=== PATIENT | female | born 1980 | race Caucasian/White ===

== ENCOUNTER 2022-08-23 16:18 | Outpatient (CLI) | payer SELFPAY ==
[2022-08-23 17:32] LABS: Hematocrit 33.1 % (37.0-47.0); Hemoglobin 9.9 g/dL (12.0-15.0); Mean Corpuscular HGB Conc 29.9 g/dl (32-36); Mean Corpuscular Hemoglobin 21.4 pg (26-34); Mean Corpuscular Volume 71.5 fl (80-100); Mean Platelet Volume 8.2 fl (7.4-10.4); Platelet Count Result 277 k/mm3 (150-375); Red Blood Count 4.63 M/mm3 (4.2-5.4); Red Cell Distribution Width 16.4 % (11.5-14.5); White Blood Count 8.7 K/mm3 (4.5-10.0)
[2022-08-23 17:41] LABS: Alanine Aminotransferase 23 U/L (6-35); Albumin Level 3.6 g/dL (3.5-5.1); Alkaline Phosphatase 59 U/L (38-126); Anion Gap 7 mmol/L (8-16); Aspartate Amino Transferase 21 U/L (14-36); Bilirubin,Total 0.4 mg/dL (0.2-1.3); Blood Urea Nitrogen 9 mg/dL (7-17); Calcium 8.3 mg/dL (8.4-10.2); Carbon Dioxide 26 mmol/L (22-30); Chloride 105 mmol/L (98-107); Estimated Glomerular Filt Rate > 60; Glucose 93 mg/dL (65-110); Potassium 3.3 mmol/L (3.4-5.0); Sodium 138 mmol/L (137-145)
[2022-08-23 19:55] LABS: T4 Thyroxine 8.03 ug/dL (5.53-11.0)
== END 2022-08-23 16:19 | disposition home or self-care (01) ==
LOC: ANHLAB 16:19
PROVIDERS: PCP Family Medicine; Visit Provider Nurse Practitioner Family
DX: E03.9 Hypothyroidism, unspecified (principal); I10 Essential (primary) hypertension
CPT/HCPCS: 36415; 80053; 84436; 84443; 85027

== ENCOUNTER 2022-08-25 06:52 | Outpatient (CLI) | payer SELFPAY ==
[2022-08-25 07:27] LABS: Cholesterol 157 mg/dL (0-200); HDL Direct 36 mg/dL; Triglycerides 177 mg/dL (<150)
[2022-08-25 07:42] LABS: LDL Cholesterol Direct 86 mg/dL
== END 2022-08-25 06:53 | disposition home or self-care (01) ==
LOC: ANHLAB 06:53
PROVIDERS: PCP Family Medicine; Visit Provider Nurse Practitioner Family
DX: I10 Essential (primary) hypertension (principal)
CPT/HCPCS: 36415; 80061

== ENCOUNTER 2022-08-26 06:52 | Outpatient (CLI) | payer SELFPAY ==
[2022-08-26 07:53] LABS: Iron 39 ug/dL (37-170)
[2022-08-26 08:03] LABS: Percent Iron Saturation 9 % (20-50)
[2022-08-26 08:53] LABS: Folic Acid 8.8 ng/mL (2.76->20)
== END 2022-08-26 06:53 | disposition home or self-care (01) ==
PROVIDERS: PCP Family Medicine; Visit Provider Nurse Practitioner Family
DX: D64.9 Anemia, unspecified (principal); E87.6 Hypokalemia; E03.9 Hypothyroidism, unspecified
CPT/HCPCS: 36415; 82607; 82746; 83540; 83550; 84132; 84436; 84443

== ENCOUNTER 2023-05-23 14:48 | Outpatient (CLI) | payer BC, SELFPAY ==
--- NOTE | ~2023-05-23 | XR_ITS ---
EXAMINATION: XR hand RT min 3V DATE: 05/23/2023 15:02 INDICATION: Right hand pain. TECHNIQUE: 3 views of right hand were obtained. COMPARISON: None. FINDINGS: Bone alignment is normal. No fracture. Joint spaces are normal. IMPRESSION: 1. Normal right hand. Reviewed, dictated and finalized at location E. IMPRESSION: 1. Normal right hand.
== END 2023-05-23 14:49 | disposition home or self-care (01) ==
LOC: ANHIMG 14:49
PROVIDERS: PCP Family Medicine; Visit Provider Plastic Surgery
DX: M79.641 Pain in right hand (principal)
CPT/HCPCS: 73130

== ENCOUNTER 2024-01-20 15:26 | Outpatient (CLI) | payer BC, SELFPAY ==
[2024-01-20 16:00] LABS: Anion Gap 4 mmol/L (4-12); Blood Urea Nitrogen 9 mg/dL (7-17); Calcium 9.4 mg/dL (8.4-10.2); Carbon Dioxide 29 mmol/L (22-30); Chloride 104 mmol/L (98-107); Estimated Glomerular Filt Rate > 60; Glucose 115 mg/dL (65-110); Potassium 3.5 mmol/L (3.4-5.0); Sodium 137 mmol/L (137-145)
--- OUTSIDE RECORDS SUMMARY | 2024-01-24 01:44 | XMS_ITS | Encounter Summary ---
Author Organization [facility] Address [address] [place] [address]. [place] [address] [place] [address] Care Team Providers Care School Coordinator Name Role Phone Unavailable Primary Care Provider Unavailabl e Encounter Details Date Type Department Care Team (Late Contact Info) Description 08/02/1999 Abstract [facility] [place] [address] Sai Perez MD [address] [phone] Social History Tobacco Use Types Packs/Day Years Used Date Smoking Tobacco: Never Assessed Comments Unknown Sex and Gender Information Value Date Recorded Sex Assigned at Not on file Legal Sex Female 6:18 PM CDT Gender Identity Not on file Sexual Orientation Not on file documented as of this encounter Plan of Treatment Upcoming Encounters Date Type Department Care Team (Late Contact Info) Description 02/28/2024 7:20 AM OPTICAL ASSISTANT Office Visit [facility] Family [facility] [address] [place] [address] Raf Blanc MD [facility] [place] [address] documented as of this encounter Visit Diagnoses Not on filedocumented in this encounter
--- OUTSIDE RECORDS SUMMARY | 2024-01-24 01:44 | XMS_ITS | Encounter Summary ---
Author Organization [facility] Address [address] [place] [address]. [place] [address] [place] [address] Care Team Providers Care Asphalt Tamper Name Role Phone Jennifer Montemayor MD Primary Care Provider [phone] Reason for Visit * Reason Comments Urinary Symptoms Encounter Details Date Type Department Care Team (Latest Contact Info) Description 12/26/2023 2:39 PM TOMBSTONE ERECTOR - 12/26/2023 3:05 PM TOMBSTONE ERECTOR Hospital Encounter [facility] Care [facility] [place], [place] [address] Seda Rodrigues, DO [address] [place], [place] [id number] Urinary Symptoms Discharge Disposition: Short Term Hospital with Planned Inpatient Readmission Social History Tobacco Use Types Packs/Day Years Used Date Smoking Tobacco: Never Passive Smoke Exposure: Past Smokeless Tobacco: Never Tobacco Cessation:Counseling Given: Not Answered Alcohol Use Standard Drinks/Week Comments Yes 0 (1 standard drink = 0.6 oz pur e alcohol) socially Comments No Sex and Gender Information Value Date Recorded Sex Assigned at Not on file Legal Sex Female 6:18 PM CDT Gender Identity Not on file Sexual Orientation Not on file documented as of this encounter Last Filed Vital Signs Vital Sign Reading Time Taken Comments Blood Pressure 171/126 12/26/2023 2:43 PM TOMBSTONE ERECTOR Pt asymptomatic with elevated B/P. Reports she took her B/P medication last PM. Pulse 84 12/26/2023 2:43 PM TOMBSTONE ERECTOR Temperature 37 ??C (98.6 ??F) 12/26/2023 2:4 3 PM TOMBSTONE ERECTOR Respiratory Rate 20 12/26/2023 2:43 PM TOMBSTONE ERECTOR Oxygen Saturation 100% 12/26/2023 2:4 3 PM TOMBSTONE ERECTOR Inhaled Oxygen Concentration - - Weight 90.7 kg (200 lb) 12/26/2023 2:43 PM TOMBSTONE ERECTOR Height 160 cm (5' 3 ) 12/26/2023 2:43 PM TOMBSTONE ERECTOR Body Mass Index 35.43 12/26/2023 2:43 PM TOMBSTONE ERECTOR documented in this encounter Discharge Instructions * Discharge Instructions* Seda Rodrigues DO - 12/26/2023 2:57 PM TOMBSTONE ERECTOR Please go directly to [facility] ER Do not eat or drink on the way STONE ERECTOR documented in this encounter Medications at Time of Discharge busPIRone (BUSPAR) 7.5 MG tablet Take 1 tablet (7.5 mg total) by mouth 2 (two) times daily. 03/03/2023 03/02/2024 folic acid (FOLVITE) 1 MG tablet 12/02/2023 furosemide (LASIX) 20 MG tablet 12/26/2023 losartan (COZAAR) 25 MG tablet 12/26/2023 montelukast (SINGULAIR) 10 MG tablet Take 1 tablet (10 mg total) by mouth nightly. oxybutynin XL (DITROPAN-XL) 10 MG 24 hr tablet 12/22/2023 SEMAGLUTIDE,0.25 OR 0.5MG/DOS, SC vitamin D2, ergocalciferol, (DRISDOL) 1.25 mg capsule TAKE 1 CAPSULE BY MOUTH ONCE A WEEK DIRECTED FOR 84 DAYS FOR LOW VITAMIN D. 12/01/2023 documented as of this encounter ED Notes * Seda Rodrigues DO - 12/26/2023 2:42 PM CST [facility] Urgent Care- [place] HISTORICAL INFORMATION Primary Care Doctor: JENNIFER MONTEMAYOR MD Patient information was obtained primarily from the patient, nursing notes. History/Exam limitations: None Provider at Bedside Date/Time Event User Comments 12/26/23 9630 Provider at Bedside Assessing Patient SEDA RODRIGUES -- CHIEF COMPLAINT Urinary Symptoms Chief Complaint Patient presents with Urinary Symptoms HPI Clarita Butler is a 43-year-old female who presents with sudden onset R flank and RLQ pain beginning a few hours prior. She reports associated dysuria, loose (non bloody) stools, dark urine, and diminished urinary output associated with this. Has a Hx of kidney stones and states may feel same but does not typically experience abd pain with these. Notes has been taking compounded Semaglutide for weight loss for the last two months (last injection yesterday) and w/o recent dose change. ROS as per HPI PAST MEDICAL HISTORY Past Medical History: Diagnosis Date Anxiety disorder, unspecified Essential (primary) hypertension Kidney stone Type 2 diabetes mellitus with unspecified diabetic retinopathy without macular edema ([facility]) lower extremity UTI (urinary tract infection) SURGICAL HISTORY Past Surgical History: Procedure Laterality Date CHOLECYSTECTOMY LITHOTRIPSY REMOVAL OF FALLOPIAN TUBE CURRENT MEDICATIONS No current facility-administered medications for this encounter. Current Outpatient Medications: busPIRone (BUSPAR) 7.5 MG tablet, Take 1 tablet (7.5 mg total) by mouth 2 (two) times daily., Disp:, Rfl: folic acid (FOLVITE) 1 MG tablet, , Disp: , Rfl: furosemide (LASIX) 20 MG tablet, , Disp: , Rfl: losartan (COZAAR) 25 MG tablet, , Disp: , Rfl: oxybutynin XL (DITROPAN-XL) 10 MG 24 hr tablet, , Disp: , Rfl: SEMAGLUTIDE,0.25 OR 0.5MG/DOS, SC, , Disp: , Rfl: vitamin D2, ergocalciferol, (DRISDOL) 1.25 mg capsule, TAKE 1 CAPSULE BY MOUTH ONCE A WEEK DIRECTED FOR 84 DAYS FOR LOW VITAMIN D., Disp: , Rfl: montelukast (SINGULAIR) 10 MG tablet, Take 1 tablet (10 mg total) by mouth nightly., Disp: , Rfl: ALLERGIES Review of patient's allergies indicates: No Known Allergies FAMILY HISTORY Family History Problem Relation Name Age of Onset Cancer Mother Breast, Colon, Rectal COPD Father Family History of Heart Disease, Diabetes, Cancer Negative. SOCIAL HISTORY Social History Socioeconomic History Marital status: Single Tobacco Use Smoking status: Never Passive exposure: Past Smokeless tobacco: Never Vaping Use Vaping status: Never Used Substance and Sexual Activity Alcohol use: Yes Comment: socially Drug use: Never Review of Systems Constitutional: Negative for fever. Gastrointestinal: Positive for abdominal pain. Negative for diarrhea, nausea and vomiting. Psychiatric/Behavioral: Negative for suicidal ideas. Physical Exam VITAL SIGNS: Filed Vitals: 12/26/23 1443 BP: (!) 171/126 Pulse: 84 Resp: 20 Temp: 98.6 ??F (37 ??C) TempSrc: Tympanic SpO2: 100% Weight: 90.7 kg (200 lb) Height: 1.6 m (5' 3 ) Physical Exam Vitals and nursing note reviewed. Constitutional: General: She is not in acute distress. Appearance: Normal appearance. She is normal weight. She is not ill-appearing, toxic-appearing or diaphoretic. HENT: Head: Normocephalic and atraumatic. Eyes: General: No scleral icterus. Right eye: No discharge. Left eye: No discharge. Extraocular Movements: Extraocular movements intact. Conjunctiva/sclera: Conjunctivae normal. Pulmonary: Effort: Pulmonary effort is normal. No respiratory distress. Breath sounds: No stridor. Abdominal: General: Abdomen is flat. Bowel sounds are normal. There is no distension. Palpations: Abdomen is soft. Tenderness: There is abdominal tenderness (RLQ and RUQ). There is right CVA tenderness. There is noleft CVA tenderness, guarding or rebound. Musculoskeletal: General: No deformity. Normal range of motion. Cervical back: Normal range of motion and neck supple. No rigidity. Skin: General: Skin is warm and dry. Findings: Bruising (superficial, along RLQ (pt reports Semaglutide injection site)) present. Neurological: General: No focal deficit present. Mental Status: She is alert. Mental status is at baseline. Gait: Gait normal. Psychiatric: Mood and Affect: Mood normal. Behavior: Behavior normal. Thought Content: Thought content normal. Judgment: Judgment normal. EKG (interpreted by ED provider) No results found for this visit on 12/26/23. LABORATORY Labs Reviewed URINALYSIS AUTO DIP - Abnormal; Notable for the following components: Result Value LEUKOCYTES (U) TRACE (*) PROTEIN RANDOM (U) 30 (*) UROBILINOGEN 0.2 (*) BLOOD (U) LARGE (*) All other components within normal limits POCT URINE (BACK OFFICE) - Normal URINE BACTERIA CULTURE RADIOLOGY No orders to display PROCEDURES Procedures MDM Pt with Hx of anxiety, OAB, nephrolithiasis, and HTN (markedly uncontrolled today) presenting todaywith R flank and abd pain. S/p elin and tubal but very uncomfortable on exam. UA notable for traceleuk and large blood. Sent for confirmatory cx. Given broad Ddx and level of discomfort, advised ERtransfer for further eval and Tx, to which she is agreeable. [facility] ER staff notified and graciously accept I have discussed today's findings with the patient and provided information regarding the likely diagnosis. The patient has been given information regarding their treatment, follow up and concerning symptoms for which they should seek urgent or emergent attention. I have expressed the the importance of seeking attention should there be any new, or worsening symptoms or persistence of their condition. The patient is stable at discharge and has verbalized understanding of these instructions. Impression/Disposition SNOMED CT(R) 1. Right flank pain RIGHT FLANK PAIN 2. Abdominal pain ABDOMINAL PAIN Disposition: Transfer to Another Facility Medications - No data to display Current Discharge Medication List DO Seda VACA DO 12/26/23 1504 STONE ERECTOR * Yazmin Christie RN - 12/26/2023 2:40 PM CST Pt reports Right flank pain that started today. Pt states her urine has been a little darker in color with diminished urine production reported. Sudden onset of abdominal pain today. Pt states she has been using Semagluptide for weight low for the past 2 months with no issues reported. Last BM this AM and described as loose . History of kidney stones. STONE ERECTOR documented in this encounter Plan of Treatment Upcoming Encounters Date Type Department Care Team (Late st Contact Info) Description 02/28/2024 7:20 AM TOMBSTONE ERECTOR Office Visit [facility] - [place] [id number] [facility] [place] [address] Raf Blanc MD [address] [facility] [place] [address] documented as of this encounter Procedures Procedure Name Priority Date/Time Associated Diagnosis Comments POCT URINE (BACK OFFICE) STAT 12/26/2023 3:02 PM TOMBSTONE ERECTOR URINALYSIS AUTO DIP STAT 12/26/2023 2 :54 PM TOMBSTONE ERECTOR documented in this encounter Results * POCT urine (12/26/2023 3:02 PM TOMBSTONE ERECTOR) URINE HCG TEST NEGATIVE Internal Control: VALID Seda Rodrigues DO POINT OF CARE TEST ORDERABLES Final Result * (ABNORMAL) URINALYSIS AUTO DIP (12/26/2023 2:54 PM TOMBSTONE ERECTOR) SPECIMEN TYPE URINE CLEAN CATCH 12/26/2023 2:54 PM TOMBSTONE ERECTOR [facility] CONVENIENT CARE COLOR (U) OTHER 12/26/2023 3:01 PM TOMBSTONE ERECTOR [facility] CON[facility]IENT [facility] TRANSPARENCY CLOUDY 12/26/2023 3:01 PM TOMBSTONE ERECTOR [facility] SPECIFIC GRAVITY (U) 1.030 1.001 - 1.030 12/26/2023 3:01 PM TOMBSTONE ERECTOR [facility] U PH 5.5 5.0 - 9.0 12/26/2023 3:01 PM TOMBSTONE ERECTOR [facility] LEUKOCYTES (U) TRACE(A) NEGATIVE 12/26/2023 3:01 PM TOMBSTONE ERECTOR [facility] NITRITES NEGATIVE NEGATIVE 12/26/2023 3:01 PM TOMBSTONE ERECTOR [facility] PROTEIN RANDOM (U) 30(H) <30 MG/DL 12/26/2023 3:01 PM TOMBSTONE ERECTOR [facility] GLUCOSE (U) NEGATIVE NEGATIVE MG/DL 12/26/2023 3:01 PM TOMBSTONE ERECTOR [facility] KETONES MG/DL (U) NEGATIVE NEGATIVE MG/DL 12/26/2023 3:01 PM TOMBSTONE ERECTOR [facility] UROBILINOGEN 0.2(A) NEGATIVE MG/DL 12/26/2023 3:01 PM TOMBSTONE ERECTOR [facility] BILIRUBIN (U) NEGATIVE NEGATIVE MG/DL 12/26/2023 3:01 PM TOMBSTONE ERECTOR [facility] BLOOD (U) LARGE(A) NEGATIVE 12/26/2023 3:01 PM TOMBSTONE ERECTOR [facility] URINE SPECIMEN OBTAINED BY CLEAN CATCH PROCEDURE / Unknown 12/26/2023 2:54 PM TOMBSTONE ERECTOR us Seda Rodrigues DO URINE ORDERABLES Final Result [place] [id number] [place] [address], documented in this encounter Visit Diagnoses Diagnosis Right flank pain- Primary Abdominal pain, unspecified site Abdominal pain Abdominal pain, unspecified site documented in this encounter Care Teams Asphalt Tamper Relationship Specialty Start Date End Date Jennifer Montemayor MD [address] [place] [address] PCP - General INTERNAL MEDICINE 12/26/23 documented as of this encounter
--- OUTSIDE RECORDS SUMMARY | 2024-01-24 01:44 | XMS_ITS | Clinical Summary ---
Author Organization [facility] Address [facility] [place] [address] [place] [address] Care Team Providers Care Fire Engine Operator Name Role Phone Jennifer Hart MD Primary Care Provider Allergies No known active allergies Medications busPIRone (BUSPAR) 7.5 MG tablet Take 1 tablet (7.5 mg total) by mouth 2 (two) times daily. 4 03/02/19 25 Active vitamin D2, ergocalciferol, (DRISDOL) 1.25 mg capsule TAKE 1 CAPSULE BY MOUTH ONCE A WEEK DIRECTED FOR 84 DAYS FOR LOW VITAMIN D. 4 Active folic acid (FOLVITE) 1 MG tablet 4 Active furosemide (LASIX) 20 MG tablet 4 Active losartan (COZAAR) 25 MG tablet 4 Active montelukast (SINGULAIR) 10 MG tablet Take 1 tablet (10 mg total) by mouth nightly. Active oxybutynin XL (DITROPAN-XL) 10 MG 24 hr tablet 4 Active SEMAGLUTIDE,0.2 5 OR 0.5MG/DOS, SC Active tamsulosin (FLOMAX) 0.4 MG Cap Take 1 capsule (0.4 mg total) by mouth daily. 30 capsule 4 Active HYDROcodone-maya taminophen (NORCO) 5-325 MG tabletIndicatio ns:Acute Pain < 7 Day Supply Take 1 tablet by mouth every 6 (six) hours as needed. Indications: Acute Pain < 7 Day Supply 10 tablet 4 Active cephALEXin (KEFLEX) 500 MG capsule Take 1 capsule (500 mg total) by mouth 2 (two) times daily for 10 days. 20 capsule 4 01/05/20 24 ketorolac (TORADOL) 10 MG tablet Take 1 tablet (10 mg total) by mouth every 6 (six) hours as needed for Pain. 20 tablet 4 12/31/19 24 Encounters Date Type Department Care Team Description 01/10/2024 Scan [facility] Scanned, Doc Med Group 12/26/2023 3:24 PM SENIOR SUSTAINABILITY ADVISOR - 12/26/2023 5:27 PM SENIOR SUSTAINABILITY ADVISOR Emergency [facility] [place] [address] Jon Garces PA-C Flank Pain Discharge Disposition: Home or Self Care (Routine Discharge) 12/26/2023 2:39 PM SENIOR SUSTAINABILITY ADVISOR - 12/26/2023 3:05 PM SENIOR SUSTAINABILITY ADVISOR Hospital Encounter [facility] [address] [place] [address] Seda Rodrigues DO Urinary Symptoms Discharge Disposition: Short Term Hospital with Planned Inpatient Readmission 12/26/2023 Travel from Last 3 Months Family History Medical History Relation Comments COPD Father Cancer Mother Breast, Colon, R ectal Relation Status Comments Father Alive Mother Alive Social History Tobacco Use Types Packs/Day Years [...] on file Sexual Orientation Not on file Last Filed Vital Signs Vital Sign Reading Time Taken Comments Blood Pressure 152/97 12/26/2023 5:01 PM SENIOR SUSTAINABILITY ADVISOR Pulse 66 12/26/2023 5:01 PM SENIOR SUSTAINABILITY ADVISOR Temperature 36.4 ??C (97.6 ??F) 12/26/2023 3:16 PM CS T Respiratory Rate 18 12/26/2023 5:01 PM SENIOR SUSTAINABILITY ADVISOR Oxygen Saturation 98% 12/26/2023 5:01 PM SENIOR SUSTAINABILITY ADVISOR Inhaled Oxygen Concentration - - Weight 90.7 kg (200 lb) 12/26/2023 3:16 PM SENIOR SUSTAINABILITY ADVISOR Height 160 cm (5' 3 ) 12/26/2023 3:16 PM SENIOR SUSTAINABILITY ADVISOR Body Mass Index 35.43 12/26/2023 3:16 PM SENIOR SUSTAINABILITY ADVISOR Plan of Treatment Upcoming Encounters Date Type Department Care Team (Late st Contact Info) Description 02/28/2024 7:20 AM SENIOR SUSTAINABILITY ADVISOR Office Visit [facility] Family Medicine - [place] [address] [place] [address] Raf Blanc MD [address] [place] [address] Health Maintenance Due Date Last Done Comments Cervical Cancer Screening Pa p Smear (Age 30 to 64) Every 3 Years 1981 Annual Physical 1984 Hepatitis C 05/09/1999 Hepatitis B Vaccines (1 of 3 - 19+ 3-dose series) 2000 Cervical Cancer Screening Pa p with HPV Testing (Age 30 to 64) Every 5 Years 05/09/2011 Cervical Cancer Screening wi th HPV 05/09/2011 Mammogram Screening 2021 COVID-19 Vaccine (2023-2 5 season) 2023 11/07/2020, 10/17/2020 DTaP, Tdap and Td Vaccines ( 2 - Td or Tdap) 10/04/2033 10/05/2023 Influenza Adult Completed 11/23/2023, 11/07/2022 HPV Vaccines Aged Out No longer eligi ble based on patient's age to complete this topic Meningococcal Vaccine Aged Out No vicky troy eligible based on patient's age to complete this topic Pneumococcal Vaccine: Pediatrics (0 to 5 Years) and At-Risk Patients (6 to 64 Years) Aged Out No longer eligible b ased on patient's age to complete this topic RSV Immunizations Under 20 Months Aged Out No longer eligible b ased on patient's age to complete this topic Procedures Procedure Name Priority Date/Time Associated Diagnosis Comments CT ABD+PEL KIDNEY STONE STAT 12/26/2023 4:03 PM SENIOR SUSTAINABILITY ADVISOR HC URINALYSIS AUTO W/O MICRO STAT 12/26/2023 3:50 PM SENIOR SUSTAINABILITY ADVISOR LIPASE STAT 12/26/2023 3:47 PM SENIOR SUSTAINABILITY ADVISOR COMPREHENSIVE METABOLIC PANEL STAT 12/26/2023 3:47 PM SENIOR SUSTAINABILITY ADVISOR CBC W/DIFF AUTOMATED STAT 12/26/2023 3:47 PM SENIOR SUSTAINABILITY ADVISOR POCT URINE (BACK OFFICE) STAT 12/26/2023 3:02 PM SENIOR SUSTAINABILITY ADVISOR URINALYSIS AUTO DIP STAT 12/26/2023 2 :54 PM SENIOR SUSTAINABILITY ADVISOR from Last 3 Months Results * CT ABD+PEL KIDNEY STONE (12/26/2023 4:03 PM SENIOR SUSTAINABILITY ADVISOR) Anatomical Region Laterality Modality Abdomen Computed Tomogra phy 12/26/2023 4:15 PM SENIOR SUSTAINABILITY ADVISOR Impressions 12/26/2023 4:31 PM SENIOR SUSTAINABILITY ADVISOR =====IMPRESSION:===== 1. Moderate right hydronephrosis with 3 mm obstructing calculus of the right distal ureter. 2. Additional bilateral renal calculi. 3. Prior cholecystectomy. 4. Uterine fibroids. Ordered By: JON GARCES Interpreted By: Bob Lane MD, 12/26/2023 4:15 PM Narrative 12/26/2023 4:31 PM SENIOR SUSTAINABILITY ADVISOR [facility] [address] [place], [place] [address] EXAMINATION: CT Abdomen and Pelvis without contrast EXAM DATE/TIME: 12/26/2023 3:59 PM REASON FOR EXAM: ??right flank pain ? COMPARISON: None. TECHNIQUE: ??Computed tomography of the abdomen and pelvis was obtained without administration of intravenous contrast according to routine protocol. Automated exposure control was utilized for dose reduction. FINDINGS: Abdomen findings: Moderate right hydronephrosis. There is a 3 mm obstructing calculus of the right distal ureter. This is approximately 5 cm proximal to the UVJ. Multiple additional bilateral renal calculi, at least 2 on the right and 4 on the left. Largest in the right kidney inferior pole measures 7 mm. Prior cholecystectomy. Borderline liver enlargement. The spleen, pancreas, adrenal glands, aorta and IVC are unremarkable. Large and small bowel are unremarkable. Normal appendix visualized. Tiny fat-containing umbilical hernia. No adenopathy. Pelvis: Bladder is decompressed. The uterus is somewhat lobulated suggesting multiple fibroids. Ovaries and rectum are unremarkable. No significant free pelvic fluid or adenopathy. Other findings: Mild patchy atelectasis in the visualized lung bases. Mild degenerative changes. No acute fracture or destructive bone lesion. Procedure Note Mamers, Bob Woodward MD - 12/26/[address] [address] EXAMINATION: CT Abdomen and Pelvis without contrast EXAM DATE/TIME: 12/26/2023 3:59 PM REASON FOR EXAM: right flank pain COMPARISON: None. TECHNIQUE: Computed tomography of the abdomen and pelvis was obtainedwithout administration of intravenous contrast according to routineprotocol. Automated exposure control was utilized for dose reduction. FINDINGS: Abdomen findings: Moderate right hydronephrosis. There is a 3 mmobstructing calculus of the right distal ureter. This is approximately 5cm proximal to the UVJ. Multiple additional bilateral renal calculi, atleast 2 on the right and 4 on the left. Largest in the right kidneyinferior pole measures 7 mm. Prior cholecystectomy. Borderline liverenlargement. The spleen, pancreas, adrenal glands, aorta and IVC areunremarkable. Large and small bowel are unremarkable. Normal appendixvisualized. Tiny fat-containing umbilical hernia. No adenopathy. Pelvis: Bladder is decompressed. The uterus is somewhat lobulatedsuggesting multiple fibroids. Ovaries and rectum are unremarkable. Nosignificant free pelvic fluid or adenopathy. Other findings: Mild patchy atelectasis in the visualized lung bases. Milddegenerative changes. No acute fracture or destructive bone lesion. =====IMPRESSION:===== 1. Moderate right hydronephrosis with 3 mm obstructing calculus of theright distal ureter. 2. Additional bilateral renal calculi. 3. Prior cholecystectomy. 4. Uterine fibroids. Ordered By: JON GARCES Interpreted By: Bob Lane MD, 12/26/2023 4:15 PM us Jon Garces PA-C CT Final Resul t * (ABNORMAL) URINALYSIS (12/26/2023 3:50 PM SENIOR SUSTAINABILITY ADVISOR) SPECIMEN TYPE URINE CLEAN CATCH 12/26/2023 3:54 PM SENIOR SUSTAINABILITY ADVISOR [facility] COLOR (U) YELLOW 12/26/2023 4:42 PM SENIOR SUSTAINABILITY ADVISOR [facility] TRANSPARENCY TURBID 12/26/2023 4:42 PM SENIOR SUSTAINABILITY ADVISOR [facility] SPECIFIC GRAVITY (U) 1.021 1.001 - 1.030 12/26/2023 4:42 PM SENIOR SUSTAINABILITY ADVISOR [facility] U PH 6.0 5.0 - 9.0 12/26/2023 4:42 PM [facility] LEUKOCYTES (U) 500(A) NEGATIVE 12/26/2023 4:42 PM [facility] NITRITES NEGATIVE NEGATIVE 12/26/2023 4:42 PM [facility] PROTEIN RANDOM (U) 20 <30 MG/DL 12/26/2023 4:42 PM [facility] GLUCOSE (U) NORMAL NORMAL MG/DL 12/26/2023 4:42 PM [facility] KETONES MG/DL (U) NEGATIVE NEGATIVE MG/DL 12/26/2023 4:42 PM [facility] UROBILINOGEN NORMAL NORMAL MG/DL 12/26/2023 4:42 PM [facility] BILIRUBIN (U) NEGATIVE NEGATIVE MG/DL 12/26/2023 4:42 PM SENIOR SUSTAINABILITY ADVISOR [facility] BLOOD (U) 3+(A) NEGATIVE 12/26/2023 4:42 PM SENIOR SUSTAINABILITY ADVISOR [facility] MUCUS RARE /LPF 12/26/2023 4:42 PM SENIOR SUSTAINABILITY ADVISOR [facility] WBC/HPF 1 <6 /HPF 12/26/2023 4:42 PM SENIOR SUSTAINABILITY ADVISOR [facility] RBC/HPF 27(H) <6 /HPF 12/26/2023 4:42 PM SENIOR SUSTAINABILITY ADVISOR [facility] SQUAMOUS EPITHELIALS RARE /HPF 12/26/2023 4:42 PM SENIOR SUSTAINABILITY ADVISOR [facility] URINE SPECIMEN OBTAINED BY CLEAN CATCH PROCEDURE / Unknown 12/26/2023 3:50 PM SENIOR SUSTAINABILITY ADVISOR Jon Garces PA-C URINE ORDERABLES Final Resu lt [facility] [address] [place] [address], [place] [phone] * (ABNORMAL) COMPREHENSIVE METABOLIC PANEL (12/26/2023 3:47 PM SENIOR SUSTAINABILITY ADVISOR) GLUCOSE 108(H) 70 - 99 MG/DL 12/26/2023 4:20 PM SENIOR SUSTAINABILITY ADVISOR [facility] BUN 12 7 - 18 MG/DL 12/26/2023 4:20 PM SENIOR SUSTAINABILITY ADVISOR [facility] CREATININE S/P/B 0.78 0.55 - 1.02 MG/DL 12/26/2023 4:20 PM SENIOR SUSTAINABILITY ADVISOR [facility] SODIUM S/P/B 141 136 - 145 MMOL/L 12/26/2023 4:20 PM SENIOR SUSTAINABILITY ADVISOR [facility] POTASSIUM S/P/B 3.6 3.5 - 5.1 MMOL/L 12/26/2023 4:20 PM SENIOR SUSTAINABILITY ADVISOR [facility] CHLORIDE S/P/B 110 97 - 115 MMOL/L 12/26/2023 4:20 PM [facility] CO2 24.1 21 - 32 MMOL/L 12/26/2023 4:20 PM [facility] CALCIUM S/P/B 9.5 8.5 - 10.1 MG/DL 12/26/2023 4:20 PM [facility] BILIRUBIN TOTAL S/P/B 0.7 0.2 - 1.2 MG/DL 12/26/2023 4:20 PM [facility] Comment: THIS ASSAY IS NOT RECOMMENDED FOR PATIENTS UNDERGOING TREATMENT WITH ELTROMBOPAG DUE TO THE POTENTIAL FOR FALSELY ELEVATED RESULTS. TOTAL PROTEIN S/P/B 7.7 6.4 - 8.2 G/DL 12/26/2023 4:20 PM [facility] ALBUMIN S/P/B 3.7 3.4 - 5.0 G/DL 12/26/2023 4:20 PM [facility] AST 12(L) 15 - 37 U/L 12/26/2023 4:20 PM [facility] ALT 22 14 - 55 U/L 12/26/2023 4:20 PM [facility] ALKALINE PHOSPHATASE S/P/B 85 50 - 136 U/L 12/26/2023 4:20 PM [facility] ANION GAP 6.9 2 - 10 MMOL/L 12/26/2023 4:20 PM [facility] BUN CREATININE RATIO 15.4 6 - 26 12/26/2023 4:20 PM [facility] A/G RATIO 0.9(L) 1.0 - 2.0 RATIO 12/26/2023 4:20 PM [facility] GFR ESTIMATE >90 >90 ML/MIN/1.7 3 M2 12/26/2023 4:20 PM [facility] Comment: NOTE: eGFR is not calculated for patients <18 years of age or gender unknown. This is an estimated GFR calculation using the new CKD EPI creatinine equation without race and so does not require a correction factor for race. This estimated GFR should not be used for calculating drug doses. 12/26/2023 3:47 PM SENIOR SUSTAINABILITY ADVISOR Jon Garces PA-C LABORATORY Final Resul t [facility] [address] [place] [address], [place] [phone] * (ABNORMAL) CBC W/DIFF AUTOMATED (12/26/2023 3:47 PM SENIOR SUSTAINABILITY ADVISOR) WBC 10.21 4.5 - 11.0 x10'3/uL 12/26/2023 4:08 PM [facility] RBC 5.56(H) 4.20 - 5.40 x10'6/uL 12/26/2023 4:08 PM [facility] HGB 12.8 12.0 - 16.0 G/DL 12/26/2023 4:08 PM [facility] HCT 41.5 38.0 - 48.0 % 12/26/2023 4:08 PM [facility] MCV 74.6(L) 81.0 - 99.0 FL 12/26/2023 4:08 PM [facility] MCH 23.0(L) 27.0 - 31.0 PG 12/26/2023 4:08 PM [facility] MCHC 30.8(L) 32.0 - 36.0 G/DL 12/26/2023 4:08 PM [facility] RDW 23.4(H) 11.5 - 14.5 % 12/26/2023 4:08 PM SENIOR SUSTAINABILITY ADVISOR [facility] PLT 295 130 - 400 x10'3/uL 12/26/2023 4:08 PM SENIOR SUSTAINABILITY ADVISOR [facility] MPV 8.3(L) 9.3 - 12.2 FL 12/26/2023 4:08 PM SENIOR SUSTAINABILITY ADVISOR [facility] DIFFERENTIAL TYPE AUTOMATED DIFFERENTIAL 12/26/2023 4:59 PM SENIOR SUSTAINABILITY ADVISOR [facility] NEUTROPHILS % 67.8 % 12/26/2023 4:59 PM SENIOR SUSTAINABILITY ADVISOR [facility] LYMPHOCYTES % 23.7 % 12/26/2023 4:59 PM SENIOR SUSTAINABILITY ADVISOR [facility] MONOCYTES % 6.7 % 12/26/2023 4:59 PM SENIOR SUSTAINABILITY ADVISOR [facility] EOSINOPHILS 0.8 % 12/26/2023 4:59 PM SENIOR SUSTAINABILITY ADVISOR [facility] BASOPHILS 0.5 % 12/26/2023 4:59 PM SENIOR SUSTAINABILITY ADVISOR [facility] IMMATURE GRANS % 0.5 % 12/26/19 4:59 PM SENIOR SUSTAINABILITY ADVISOR [facility] ABS. NEUTROPHILS 6.93 1.80 - 7.70 x10'3/uL 12/26/2023 4:59 PM SENIOR SUSTAINABILITY ADVISOR [facility] ABS. LYMPHOCYTES 2.42 1.00 - 4.80 x10'3/uL 12/26/2023 4:59 PM SENIOR SUSTAINABILITY ADVISOR [facility] ABS. MONOCYTES 0.68 0.24 - 0.86 x10'3/uL 12/26/2023 4:59 PM SENIOR SUSTAINABILITY ADVISOR [facility] ABS. EOSINOPHILS 0.08 0.04 - 0.36 x10'3/uL 12/26/2023 4:59 PM [facility] ABS. BASOPHILS 0.05 0.01 - 0.08 x10'3/uL 12/26/2023 4:59 PM SENIOR SUSTAINABILITY ADVISOR [facility] ABS. IMMATURE GRANULOCYTES 0.05 0.00 - 0.49 x10'3/uL 12/26/2023 4:59 PM SENIOR SUSTAINABILITY ADVISOR [facility] RBC MORPHOLOGY SLIDE REVIEWED 2023 4:59 PM SENIOR SUSTAINABILITY ADVISOR [facility] ANISO 2+ 12/26/2023 4:59 PM SENIOR SUSTAINABILITY ADVISOR [facility] POIKLO 1+ 12/26/2023 4:59 PM SENIOR SUSTAINABILITY ADVISOR [facility] MICRO 1+ 12/26/2023 4:59 PM SENIOR SUSTAINABILITY ADVISOR [facility] POLY 1+ 12/26/2023 4:59 PM SENIOR SUSTAINABILITY ADVISOR [facility] PLT EST. ADEQUATE 12/26/2023 4:59 PM SENIOR SUSTAINABILITY ADVISOR [facility] 12/26/2023 3:47 PM SENIOR SUSTAINABILITY ADVISOR Jon Garces PA-C LABORATORY Final Resul t Performing Organization Address City/[facility] Co de Phone Number [facility] [address] [place] [address], [place] [phone] * LIPASE (12/26/2023 3:47 PM SENIOR SUSTAINABILITY ADVISOR) LIPASE 37 13 - 75 UNITS/L 12/26/2023 4:20 PM SENIOR SUSTAINABILITY ADVISOR [facility] 12/26/2023 3:47 PM SENIOR SUSTAINABILITY ADVISOR Jon Garces PA-C LABORATORY Final Resul t Performing Organization Address City/[facility]/ZIP Co de Phone Number [facility] [address] [place] [address], [place] [phone] * POCT urine (12/26/2023 3:02 PM SENIOR SUSTAINABILITY ADVISOR) URINE HCG TEST NEGATIVE Internal Control: VALID Seda Rodrigues DO POINT OF CARE TEST ORDERABLES Final Result * (ABNORMAL) URINALYSIS AUTO DIP (12/26/2023 2:54 PM SENIOR SUSTAINABILITY ADVISOR) SPECIMEN TYPE URINE CLEAN CATCH 12/26/2023 2:54 PM SENIOR SUSTAINABILITY ADVISOR [facility] COLOR (U) OTHER 12/26/2023 3:01 PM SENIOR SUSTAINABILITY ADVISOR [facility] TRANSPARENCY CLOUDY 12/26/2023 3:[address] [facility] SPECIFIC GRAVITY (U) 1.030 1.001 - 1.030 12/26/2023 3:[address] [facility] U PH 5.5 5.0 - 9.0 12/26/2023 3:[address] [facility] LEUKOCYTES (U) TRACE(A) NEGATIVE 12/26/2023 3:[address] [facility] NITRITES NEGATIVE NEGATIVE 12/26/2023 3:[address] [facility] PROTEIN RANDOM (U) 30(H) <30 MG/DL 12/26/2023 3:[address] [facility] GLUCOSE (U) NEGATIVE NEGATIVE MG/DL 12/26/2023 3:[address] [facility] KETONES MG/DL (U) NEGATIVE NEGATIVE MG/DL 12/26/2023 3:[address] [facility] UROBILINOGEN 0.2(A) NEGATIVE MG/DL 12/26/2023 3:[address] [facility] BILIRUBIN (U) NEGATIVE NEGATIVE MG/DL 12/26/2023 3:[address] [facility] BLOOD (U) LARGE(A) NEGATIVE 12/26/2023 3:[address] [facility] URINE SPECIMEN OBTAINED BY CLEAN CATCH PROCEDURE / Unknown 12/26/2023 2:54 PM SENIOR SUSTAINABILITY ADVISOR us Seda Rodrigues DO URINE ORDERABLES Final Result [facility] [place] [address], [place] from Last 3 Months Insurance [facility] Care Teams Fire Engine Operator Relationship Specialty Start Date End Date Jennifer Hart MD [address] [place] [address] PCP - General INTERNAL MEDICINE 12/26/23
--- OUTSIDE RECORDS SUMMARY | 2024-01-24 01:44 | XMS_ITS | Encounter Summary ---
Author Organization [facility] Address [address] [place] [address]. [place], [place] [address] [place] [id number] Care Team Providers Care Deflector Operator Name Role Phone Jennifer Hart MD Primary Care Provider [phone] Encounter Details Date Type Department Care Team (Latest Contact Info) Description 12/26/2023 Travel Social History Tobacco Use Types Packs/Day Years Used Date Smoking Tobacco: Never Passive Smoke Exposure: Past Smokeless Tobacco: Never Alcohol Use Standard Drinks/Week Comments Yes 0 [...] st Contact Info) Description 02/28/2024 7:20 AM RADIO AERIAL INSTALLER Office Visit [facility] Family Medicine [address] [address] Raf Blanc MD [address] [place] [address]. [place] [address] documented as of this encounter Visit Diagnoses Not on filedocumented in this encounter Care Teams Deflector Operator Relationship Specialty Start Date End Date Jennifer Hart MD [address] [place] [address] PCP - General INTERNAL MEDICINE 12/26/23 documented as of this encounter
--- OUTSIDE RECORDS SUMMARY | 2024-01-24 01:44 | XMS_ITS | Encounter Summary ---
Author Organization [facility] Address [address] [place] [address]. [place], [place] [address] [place] [id number] Care Team Providers Care Financial Reporting Director Name Role Phone Jennifer Hart MD Primary Care Provider [phone] Reason for Referral * Imaging (Emergency) - New Request Specialty Diagnoses / Procedures Referred By Arden ernst Referred To Contact RADIOLOGY Procedures CT ABD+PEL KIDNEY STONE Jon Garces PA-C [address] [address] Phone: tel: fax: Referral ID Status Reason Start Date Expiration Date V isits Requested Visits Authorized [id number] New Request 12/26/2023 12/25/2024 1 1 T TECHNICIAN/CONTROL ROOM OPERATOR Reason for Visit * Reason Comments Flank Pain Encounter Details Date Type Department Care Team (Late st Contact Info) Description 12/26/2023 3:24 PM PLANT TECHNICIAN/CONTROL ROOM OPERATOR - 12/26/2023 5:27 PM PLANT TECHNICIAN/CONTROL ROOM OPERATOR Emergency [facility] [place] [address] Jon Garces PA-C [address] [address] Flank Pain Discharge Disposition: Home or Self Care (Routine Discharge) Social History Tobacco Use Types Packs/Day Years [...] Comments Blood Pressure 152/97 12/26/2023 5:01 PM PLANT TECHNICIAN/CONTROL ROOM OPERATOR Pulse 66 12/26/2023 5:01 PM PLANT TECHNICIAN/CONTROL ROOM OPERATOR Temperature 36.4 ??C (97.6 ??F) 12/26/2023 3:16 PM CS T Respiratory Rate 18 12/26/2023 5:01 PM PLANT TECHNICIAN/CONTROL ROOM OPERATOR Oxygen Saturation 98% 12/26/2023 5:01 PM PLANT TECHNICIAN/CONTROL ROOM OPERATOR Inhaled Oxygen Concentration - - Weight 90.7 kg (200 lb) 12/26/2023 3:16 PM PLANT TECHNICIAN/CONTROL ROOM OPERATOR Height 160 cm (5' 3 ) 12/26/2023 3:16 PM PLANT TECHNICIAN/CONTROL ROOM OPERATOR Body Mass Index 35.43 12/26/2023 3:16 PM PLANT TECHNICIAN/CONTROL ROOM OPERATOR documented in this encounter Discharge Instructions * Discharge Instructions* Jon Garces PA-C - 12/26/2023 4:47 PM PLANT TECHNICIAN/CONTROL ROOM OPERATOR Encourage fluids. Take Flomax daily as prescribed. Take Kim as prescribed for breakthrough pain if needed, if [id number] ibuprofen is not sufficient. Take Keflex antibiotic as prescribed until finished for mild urinary tract infection. Follow-up closely with the assigned urology specialist to discuss obstructing ureteral calculus with mild hydronephrosis. Follow-up with your primary doctor as well. Return to the emergency room if new or worsening symptoms, uncontrolled pain, inability urinate, fever, or further concern. Your blood pressure was initially elevated in the ED, this is likely due to pain. Please follow-up with your primary doctor regarding this as well. T TECHNICIAN/CONTROL ROOM OPERATOR * Attachments The following attachments cannot be sent through Care Everywhere. * Hydronephrosis Discharge Instructions, Adult (Sudanese) * Kidney stones in adults (Sudanese) documented in this encounter Medications at Time of Discharge busPIRone (BUSPAR) 7.5 MG tablet Take 1 tablet (7.5 mg total) by mouth 2 (two) times daily. 03/03/2023 03/02/2024 folic acid (FOLVITE) 1 MG tablet 12/02/2023 furosemide (LASIX) 20 MG tablet 12/26/2023 HYDROcodone-acet aminophen (NORCO) 5-325 MG tabletIndication s:Acute Pain < 7 Day Supply Take 1 tablet by mouth every 6 (six) hours as needed. Indications: Acute Pain < 7 Day Supply 10 tablet 12/26/2023 losartan (COZAAR) 25 MG tablet 12/26/2023 montelukast (SINGULAIR) 10 MG tablet Take 1 tablet (10 mg total) by mouth nightly. oxybutynin XL (DITROPAN-XL) 10 MG 24 hr tablet 12/22/2023 SEMAGLUTIDE,0.25 OR 0.5MG/DOS, SC tamsulosin (FLOMAX) 0.4 MG Cap Take 1 capsule (0.4 mg total) by mouth daily. 30 capsule 12/26/2023 vitamin D2, ergocalciferol, (DRISDOL) 1.25 mg capsule TAKE 1 CAPSULE BY MOUTH ONCE A WEEK DIRECTED FOR 84 DAYS FOR LOW VITAMIN D. 12/01/2023 cephALEXin (KEFLEX) 500 MG capsule Take 1 capsule (500 mg total) by mouth 2 (two) times daily for 10 days. 20 capsule 12/26/2023 01/05/2024 ketorolac (TORADOL) 10 MG tablet Take 1 tablet (10 mg total) by mouth every 6 (six) hours as needed for Pain. 20 tablet 12/26/2023 12/31/2023 documented as of this encounter ED Notes * Marcella Alcaraz RN - 12/26/2023 5:27 PM CST Provider discussed today's findings with the patient. The patient has been given information regarding their treatment, follow up and concerning symptoms for which they should seek urgent or emergentattention. I have expressed the the importance of seeking attention should there be any new, or worsening symptoms or persistence of their condition. Patient verbalized understanding of the dischargeinstructions. T TECHNICIAN/CONTROL ROOM OPERATOR * Liz Leslie RN - 12/26/2023 3:23 PM CST Pt arrives from for right flank pain that started today. Pt with history of kidney stones, reports pain feels similar to previous stones. Alert and oriented x4 T TECHNICIAN/CONTROL ROOM OPERATOR * Jon Garces PA-C - 12/26/2023 3:21 PM CSTSummary: flank pain [facility] ED NOTE Clarita Butler 1980 Chief Complaint Chief Complaint Patient presents with Flank Pain History of Present Illness Patient presents ambulatory to the emergency room through triage as a transfer from [facility] for further evaluation of to right flank and right abdomen. History of kidney stones. Symptoms started today. She also reports darker urine than usual. Denies fever, chills, sweats, hematuria, rash, chest pain, shortness of breath. No pain medication prior to arrival. Abdominal surgical history includes cholecystectomy. Pain currently rated 10/10. States feels similar to previous renal stone. Medical History ALLERGIES: Review of patient's allergies indicates: No Known Allergies MEDICATIONS: Prior to Admission medications Medication Sig Start Date End Date Taking? Authorizing Provider cephALEXin (KEFLEX) 500 MG capsule Take 1 capsule (500 mg total) by mouth 2 (two) times daily for 10 days. 12/26/23 01/05/24 Yes Jon Garces PA-C HYDROcodone-acetaminophen (NORCO) 5-325 MG tablet Take 1 tablet by mouth every 6 (six) hours as needed. Indications: Acute Pain < 7 Day Supply 12/26/23 Yes Jon Garces PA-C ketorolac (TORADOL) 10 MG tablet Take 1 tablet (10 mg total) by mouth every 6 (six) hours as neededfor Pain. 12/26/23 12/31/23 Yes Jon Garces PA-C tamsulosin (FLOMAX) 0.4 MG Cap Take 1 capsule (0.4 mg total) by mouth daily. 12/26/23 Yes Jon Garces PA-C busPIRone (BUSPAR) 7.5 MG tablet Take 1 tablet (7.5 mg total) by mouth 2 (two) times daily. Default History Genericprovider folic acid (FOLVITE) 1 MG tablet 12/02/23 Default History Genericprovider furosemide (LASIX) 20 MG tablet 12/26/23 Default History Genericprovider losartan (COZAAR) 25 MG tablet 12/26/23 Default History Genericprovider montelukast (SINGULAIR) 10 MG tablet Take 1 tablet (10 mg total) by mouth nightly. Default HistoryGenericprovider oxybutynin XL (DITROPAN-XL) 10 MG 24 hr tablet 12/22/23 Default History Genericprovider SEMAGLUTIDE,0.25 OR 0.5MG/DOS, SC Default History Genericprovider vitamin D2, ergocalciferol, (DRISDOL) 1.25 mg capsule TAKE 1 CAPSULE BY MOUTH ONCE A WEEK DIRECTED FOR 84 DAYS FOR LOW VITAMIN D. 12/01/23 Default History Genericprovider PAST MEDICAL HISTORY: Past Medical History: Diagnosis Date Anxiety disorder, unspecified Essential (primary) hypertension Kidney stone Type 2 diabetes mellitus with unspecified diabetic retinopathy without macular edema ([facility]/HCC HHS/HCC) lower extremity UTI (urinary tract infection) PAST SURGICAL HISTORY: Past Surgical History: Procedure Laterality Date CHOLECYSTECTOMY LITHOTRIPSY REMOVAL OF FALLOPIAN TUBE FAMILY HISTORY: Family History Problem Relation Name Age of Onset Cancer Mother Breast, Colon, Rectal COPD Father SOCIAL HISTORY: Social History Tobacco Use Smoking status: Never Passive exposure: Past Smokeless tobacco: Never Vaping Use Vaping status: Never Used Substance Use Topics Alcohol use: Yes Comment: socially Drug use: Never Review of Systems Review of Systems Constitutional: Negative for activity change, appetite change, fever and unexpected weight change. HENT: Negative for ear pain, sore throat and trouble swallowing. Eyes: Negative. Respiratory: Negative for cough, chest tightness and shortness of breath. Cardiovascular: Negative for chest pain, palpitations and leg swelling. Gastrointestinal: Positive for abdominal pain. Negative for abdominal distention, constipation, diarrhea, nausea and vomiting. Genitourinary: Positive for flank pain. Negative for dysuria and hematuria. Musculoskeletal: Negative for arthralgias, back pain, myalgias and neck pain. Skin: Negative for color change, rash and wound. Allergic/Immunologic: Negative for immunocompromised state. Neurological: Negative for dizziness, speech difficulty, weakness, light- headedness, numbness and headaches. Hematological: Negative for adenopathy. Psychiatric/Behavioral: Negative. Physical Exam Filed Vitals: 12/26/23 1516 12/26/23 1701 BP: (!) 174/110 (!) 152/97 Pulse: 82 66 Resp: 18 18 Temp: 97.6 ??F (36.4 ??C) TempSrc: Temporal SpO2: 100% 98% Weight: 90.7 kg (200 lb) Height: 1.6 m (5' 3 ) Physical Exam Vitals and nursing note reviewed. Exam conducted with a ground crew chief present. Constitutional: General: She is not in acute distress. Appearance: Normal appearance. She is well-developed. She is not ill-appearing, toxic-appearing or diaphoretic. HENT: Head: Normocephalic and atraumatic. Right Ear: External ear normal. Left Ear: External ear normal. Nose: Nose normal. Mouth/Throat: Mouth: Mucous membranes are moist. Pharynx: Oropharynx is clear. Eyes: Extraocular Movements: Extraocular movements intact. Conjunctiva/sclera: Conjunctivae normal. Pupils: Pupils are equal, round, and reactive to light. Neck: Thyroid: No thyromegaly. Trachea: No tracheal deviation. Cardiovascular: Rate and Rhythm: Normal rate and regular rhythm. Pulses: Normal pulses. Heart sounds: Normal heart sounds. Pulmonary: Effort: Pulmonary effort is normal. No respiratory distress. Breath sounds: Normal breath sounds. Abdominal: General: Abdomen is flat. Bowel sounds are normal. There is no distension. Palpations: Abdomen is soft. There is no mass. Tenderness: There is no abdominal tenderness. There is no guarding or rebound. Hernia: No hernia is present. Musculoskeletal: General: No swelling, tenderness, deformity or signs of injury. Normal range of motion. Cervical back: Normal range of motion and neck supple. No rigidity. Lymphadenopathy: Cervical: No cervical adenopathy. Skin: General: Skin is warm and dry. Capillary Refill: Capillary refill takes less than 2 seconds. Findings: No rash. Neurological: General: No focal deficit present. Mental Status: She is alert and oriented to person, place, and time. Cranial Nerves: No cranial nerve deficit. Sensory: No sensory deficit. Motor: No weakness. Coordination: Coordination normal. Gait: Gait normal. Deep Tendon Reflexes: Reflexes normal. Psychiatric: Mood and Affect: Mood normal. Behavior: Behavior normal. Thought Content: Thought content normal. Judgment: Judgment normal. Diagnostic Studies / Procedures ELECTROCARDIOGRAMS: No results found for this visit on 12/26/23. LABORATORY STUDIES: Results for orders placed or performed during the hospital encounter of 12/26/23 CBC W/DIFF AUTOMATED Result Value Ref Range WBC 10.21 4.5 - 11.0 x10'3/uL RBC 5.56 (H) 4.20 - 5.40 x10'6/uL HGB 12.8 12.0 - 16.0 G/DL HCT 41.5 38.0 - 48.0 % MCV 74.6 (L) 81.0 - 99.0 FL MCH 23.0 (L) 27.0 - 31.0 PG MCHC 30.8 (L) 32.0 - 36.0 G/DL RDW 23.4 (H) 11.5 - 14.5 % PLT 295 130 - 400 x10'3/uL MPV 8.3 (L) 9.3 - 12.2 FL DIFFERENTIAL TYPE AUTOMATED DIFFERENTIAL NEUTROPHILS % 67.8 % LYMPHOCYTES % 23.7 % MONOCYTES % 6.7 % EOSINOPHILS 0.8 % BASOPHILS 0.5 % IMMATURE GRANS % 0.5 % ABS. NEUTROPHILS 6.93 1.80 - 7.70 x10'3/uL ABS. LYMPHOCYTES 2.42 1.00 - 4.80 x10'3/uL ABS. MONOCYTES 0.68 0.24 - 0.86 x10'3/uL ABS. EOSINOPHILS 0.08 0.04 - 0.36 x10'3/uL ABS. BASOPHILS 0.05 0.01 - 0.08 x10'3/uL ABS. IMMATURE GRANULOCYTES 0.05 0.00 - 0.49 x10'3/uL RBC MORPHOLOGY SLIDE REVIEWED ANISO 2+ POIKLO 1+ MICRO 1+ POLY 1+ PLT EST. ADEQUATE COMPREHENSIVE METABOLIC PANEL Result Value Ref Range GLUCOSE 108 (H) 70 - 99 MG/DL BUN 12 7 - 18 MG/DL CREATININE S/P/B 0.78 0.55 - 1.02 MG/DL SODIUM S/P/B 141 136 - 145 MMOL/L POTASSIUM S/P/B 3.6 3.5 - 5.1 MMOL/L CHLORIDE S/P/B 110 97 - 115 MMOL/L CO2 24.1 21 - 32 MMOL/L CALCIUM S/P/B 9.5 8.5 - 10.1 MG/DL BILIRUBIN TOTAL S/P/B 0.7 0.2 - 1.2 MG/DL TOTAL PROTEIN S/P/B 7.7 6.4 - 8.2 G/DL ALBUMIN S/P/B 3.7 3.4 - 5.0 G/DL AST 12 (L) 15 - 37 U/L ALT 22 14 - 55 U/L ALKALINE PHOSPHATASE S/P/B 85 50 - 136 U/L ANION GAP 6.9 2 - 10 MMOL/L BUN CREATININE RATIO 15.4 6 - 26 A/G RATIO 0.9 (L) 1.0 - 2.0 RATIO GFR ESTIMATE >90 >90 ML/MIN/1.73 M2 LIPASE Result Value Ref Range LIPASE 37 13 - 75 UNITS/L URINALYSIS Result Value Ref Range SPECIMEN TYPE URINE CLEAN CATCH COLOR (U) YELLOW TRANSPARENCY TURBID SPECIFIC GRAVITY (U) 1.021 1.001 - 1.030 U PH 6.0 5.0 - 9.0 LEUKOCYTES (U) 500 (A) NEGATIVE NITRITES NEGATIVE NEGATIVE PROTEIN RANDOM (U) 20 <30 MG/DL GLUCOSE (U) NORMAL NORMAL MG/DL KETONES MG/DL (U) NEGATIVE NEGATIVE MG/DL UROBILINOGEN NORMAL NORMAL MG/DL BILIRUBIN (U) NEGATIVE NEGATIVE MG/DL BLOOD (U) 3+ (A) NEGATIVE MUCUS RARE /LPF WBC/HPF 1 <6 /HPF RBC/HPF 27 (H) <6 /HPF SQUAMOUS EPITHELIALS RARE /HPF IMAGING STUDIES CT ABD+PEL KIDNEY STONE Final Result by User, [id number] (12/25 1632) [address] [address] EXAMINATION: CT Abdomen and Pelvis without contrast [...] By: Bob Lane MD, 12/26/2023 4:15 PM ED Course / Medical Decision Making Medical Decision Making Patient stable. Nontoxic appearance. No significant CVA tenderness noted. Abdomen benign. Patient does appear quite uncomfortable initially. Elevated blood pressure initially which has improved throughout visit, likely due to pain. Afebrile. No other concerning vital signs. CT abdomen/pelvis shows 3 mm obstructing left-sided ureteral calculus with mild hydronephrosis, no obvious sign of pyelonephritis, per radiology read. Potential mild UTI per urinalysis, culture pending, although nitrite negative. Unremarkable labs otherwise including hematology, chemistry with renal function, lipase. Patient feeling much better after IV Zofran and Toradol. Pain is well-controlled. First dose of p.o. Flomax given. Will discharge home with Kim, Flomax, Keflex, PCP follow- up, urology referral. Strict EDreturn precautions given, patient voices understanding. Problems Addressed: Elevated blood pressure reading: acute illness or injury Hydronephrosis with urinary obstruction due to ureteral calculus: acute illness or injury Amount and/or Complexity of Data Reviewed Labs: ordered. Decision-making details documented in ED Course. Radiology: ordered. Decision-making details documented in ED Course. Risk OTC drugs. Prescription drug management. Medications ketorolac (TORADOL) injection 30 mg (30 mg Intravenous Given 12/26/23 1547) ondansetron (ZOFRAN) injection 4 mg (4 mg Intravenous Given 12/26/23 1548) tamsulosin (FLOMAX) capsule 0.4 mg (0.4 mg Oral Given 12/26/23 1651) Clinical Impression Hydronephrosis with urinary obstruction due to ureteral calculus (Primary) Elevated blood pressure reading Current Discharge Medication List START taking these medications Details cephALEXin (KEFLEX) 500 MG capsule Take 1 capsule (500 mg total) by mouth 2 (two) times daily for 10 days. Qty: 20 capsule, Refills: 0 Class: Eprescribe Pharmacy: [address] (Ph #: [phone]) HYDROcodone-acetaminophen (NORCO) 5-325 MG tablet Take 1 tablet by mouth every 6 (six) hours as needed. Indications: Acute Pain < 7 Day Supply Qty: 10 tablet, Refills: 0 Class: Eprescribe Pharmacy: [address] (Ph #: [phone]) Comments: Per [place] law, C-II Rx's must include written & numerical notation of quantity. Quantity (in words) ten Associated Diagnoses: Hydronephrosis with urinary obstruction due to ureteral calculus ketorolac (TORADOL) 10 MG tablet Take 1 tablet (10 mg total) by mouth every 6 (six) hours as neededfor Pain. Qty: 20 tablet, Refills: 0 Class: Eprescribe Pharmacy: [address] (Ph #: [phone]) tamsulosin (FLOMAX) 0.4 MG Cap Take 1 capsule (0.4 mg total) by mouth daily. Qty: 30 capsule, Refills: 0 Class: Eprescribe Pharmacy: [address] (Ph #: [phone]) Disposition: Discharge Follow-Up: Jennifer Hart MD [address] [address] Call in 1 day Amilcar Juarez MD [address] [place] [address] Call in 1 day JON GARCES PA-C 12/26/2023 Jon Garces PA-C 12/26/23 1704 Jon Garces PA-C 12/26/23 1715 Cosigned by Larissa Alfaro MD at 12/26/2023 5:29 PM PLANT TECHNICIAN/CONTROL ROOM OPERATOR T TECHNICIAN/CONTROL ROOM OPERATOR T TECHNICIAN/CONTROL ROOM OPERATOR T TECHNICIAN/CONTROL ROOM OPERATOR documented in this encounter Plan of Treatment Upcoming Encounters Date Type Department Care Team (Late st Contact Info) Description 02/28/2024 7:20 AM PLANT TECHNICIAN/CONTROL ROOM OPERATOR Office Visit [facility] Family Medicine - [place] [address] [place] [phone] Raf Blanc MD [facility] [place] [address] documented as of this encounter Procedures Procedure Name Priority Date/Time Associated Diagnosis Comments CT ABD+PEL KIDNEY STONE STAT 12/26/2023 4:03 PM PLANT TECHNICIAN/CONTROL ROOM OPERATOR HC URINALYSIS AUTO W/O MICRO STAT 12/26/2023 3:50 PM PLANT TECHNICIAN/CONTROL ROOM OPERATOR COMPREHENSIVE METABOLIC PANEL STAT 12/26/2023 3:47 PM PLANT TECHNICIAN/CONTROL ROOM OPERATOR CBC W/DIFF AUTOMATED STAT 12/26/2023 3:47 PM PLANT TECHNICIAN/CONTROL ROOM OPERATOR LIPASE STAT 12/26/2023 3:47 PM PLANT TECHNICIAN/CONTROL ROOM OPERATOR documented in this encounter Results * CT ABD+PEL KIDNEY STONE (12/26/2023 4:03 PM PLANT TECHNICIAN/CONTROL ROOM OPERATOR) Anatomical Region Laterality Modality Abdomen Computed Tomogra phy 12/26/2023 4:15 PM PLANT TECHNICIAN/CONTROL ROOM OPERATOR Impressions 12/26/2023 4:31 PM PLANT TECHNICIAN/CONTROL ROOM OPERATOR =====IMPRESSION:===== 1. Moderate right hydronephrosis with 3 mm obstructing calculus of the right distal ureter. 2. Additional bilateral renal calculi. 3. Prior cholecystectomy. 4. Uterine fibroids. Ordered By: JON GARCES Interpreted By: Bob Lane MD, 12/26/2023 4:15 PM Narrative 12/26/2023 4:31 PM PLANT TECHNICIAN/CONTROL ROOM OPERATOR [place] [address] EXAMINATION: CT Abdomen and Pelvis without contrast [...] fracture or destructive bone lesion. Procedure Note Bob Lane MD - 12/26/[address] [address] EXAMINATION: CT Abdomen and Pelvis without contrast [...] By: Bob Lane MD, 12/26/2023 4:15 PM Jon Garces PA-C CT Final Resul t * (ABNORMAL) URINALYSIS (12/26/2023 3:50 PM PLANT TECHNICIAN/CONTROL ROOM OPERATOR) SPECIMEN TYPE URINE CLEAN CATCH 12/26/2023 3:54 PM PLANT TECHNICIAN/CONTROL ROOM OPERATOR [facility] COLOR (U) YELLOW 12/26/2023 4:42 PM PLANT TECHNICIAN/CONTROL ROOM OPERATOR [facility] TRANSPARENCY TURBID 12/26/2023 4:42 PM PLANT TECHNICIAN/CONTROL ROOM OPERATOR [facility] SPECIFIC GRAVITY (U) 1.021 1.001 - 1.030 12/26/2023 4:42 PM PLANT TECHNICIAN/CONTROL ROOM OPERATOR [facility] U PH 6.0 5.0 - 9.0 12/26/2023 4:42 PM [facility] LEUKOCYTES (U) 500(A) NEGATIVE 12/26/2023 4:42 PM PLANT TECHNICIAN/CONTROL ROOM OPERATOR [facility] NITRITES NEGATIVE NEGATIVE 12/26/2023 4:42 PM PLANT TECHNICIAN/CONTROL ROOM OPERATOR [facility] PROTEIN RANDOM (U) 20 <30 MG/DL 12/26/2023 4:42 PM PLANT TECHNICIAN/CONTROL ROOM OPERATOR [facility] GLUCOSE (U) NORMAL NORMAL MG/DL 12/26/2023 4:42 PM [facility] KETONES MG/DL (U) NEGATIVE NEGATIVE MG/DL 12/26/2023 4:42 PM [facility] UROBILINOGEN NORMAL NORMAL MG/DL 12/26/2023 4:42 PM PLANT TECHNICIAN/CONTROL ROOM OPERATOR [facility] BILIRUBIN (U) NEGATIVE NEGATIVE MG/DL 12/26/2023 4:42 PM [facility] BLOOD (U) 3+(A) NEGATIVE 12/26/2023 4:42 PM [facility] MUCUS RARE /LPF 12/26/2023 4:42 PM PLANT TECHNICIAN/CONTROL ROOM OPERATOR [facility] WBC/HPF 1 <6 /HPF 12/26/2023 4:42 PM PLANT TECHNICIAN/CONTROL ROOM OPERATOR [facility] RBC/HPF 27(H) <6 /HPF 12/26/2023 4:42 PM PLANT TECHNICIAN/CONTROL ROOM OPERATOR [facility] SQUAMOUS EPITHELIALS RARE /HPF 12/26/2023 4:42 PM [facility] URINE SPECIMEN OBTAINED BY CLEAN CATCH PROCEDURE / Unknown 12/26/2023 3:50 PM PLANT TECHNICIAN/CONTROL ROOM OPERATOR us Jon Garces PA-C URINE ORDERABLES Final Resu lt Performing Organization Address City/[facility]/ZIP Co de Phone Number [facility] [address] [place] [address], [place] [phone] * LIPASE (12/26/2023 3:47 PM PLANT TECHNICIAN/CONTROL ROOM OPERATOR) LIPASE 37 13 - 75 UNITS/L 12/26/2023 4:20 PM PLANT TECHNICIAN/CONTROL ROOM OPERATOR [facility] 12/26/2023 3:47 PM PLANT TECHNICIAN/CONTROL ROOM OPERATOR Jon Garces PA-C LABORATORY Final Resul t Performing Organization Address [facility] Co de Phone Number [facility] [address] [place] [address], [place] [phone] * (ABNORMAL) COMPREHENSIVE METABOLIC PANEL (12/26/2023 3:47 PM PLANT TECHNICIAN/CONTROL ROOM OPERATOR) GLUCOSE 108(H) 70 - 99 MG/DL 12/26/2023 4:20 PM PLANT TECHNICIAN/CONTROL ROOM OPERATOR [facility] BUN 12 7 - 18 MG/DL 12/26/2023 4:20 PM [facility] CREATININE S/P/B 0.78 0.55 - 1.02 MG/DL 12/26/2023 4:20 PM PLANT TECHNICIAN/CONTROL ROOM OPERATOR [facility] SODIUM S/P/B 141 136 - 145 MMOL/L 12/26/2023 4:20 PM PLANT TECHNICIAN/CONTROL ROOM OPERATOR [facility] POTASSIUM S/P/B 3.6 3.5 - 5.1 MMOL/L 12/26/2023 4:20 PM PLANT TECHNICIAN/CONTROL ROOM OPERATOR [facility] CHLORIDE S/P/B 110 97 - 115 MMOL/L 12/26/2023 4:20 PM PLANT TECHNICIAN/CONTROL ROOM OPERATOR [facility] CO2 24.1 21 - 32 MMOL/L 12/26/2023 4:20 PM PLANT TECHNICIAN/CONTROL ROOM OPERATOR [facility] CALCIUM S/P/B 9.5 8.5 - 10.1 MG/DL 12/26/2023 4:20 PM [facility] BILIRUBIN TOTAL S/P/B 0.7 0.2 - 1.2 MG/DL 12/26/2023 4:20 PM [facility] Comment: THIS ASSAY IS NOT RECOMMENDED FOR PATIENTS UNDERGOING TREATMENT WITH ELTROMBOPAG DUE TO THE POTENTIAL FOR FALSELY ELEVATED RESULTS. TOTAL PROTEIN S/P/B 7.7 6.4 - 8.2 G/DL 12/26/2023 4:20 PM [facility] ALBUMIN S/P/B 3.7 3.4 - 5.0 G/DL 12/26/2023 4:20 PM [facility] AST 12(L) 15 - 37 U/L 12/26/2023 4:20 PM [facility] ALT 22 14 - 55 U/L 12/26/2023 4:20 PM [facility] ALKALINE PHOSPHATASE S/P/B 85 50 - 136 U/L 12/26/2023 4:20 PM [facility] ANION GAP 6.9 2 - 10 MMOL/L 12/26/2023 4:20 PM [facility] BUN CREATININE RATIO 15.4 6 - 26 12/26/2023 4:20 PM [facility] A/G RATIO 0.9(L) 1.0 - 2.0 RATIO 12/26/2023 4:20 PM [facility] GFR ESTIMATE >90 >90 ML/MIN/1.7 3 M2 12/26/2023 4:20 PM [facility] Comment: NOTE: eGFR is not calculated for patients <18 years of age or gender unknown. This is an estimated GFR calculation using the new CKD EPI creatinine equation without race and so does not require a correction factor for race. This estimated GFR should not be used for calculating drug doses. 12/26/2023 3:47 PM PLANT TECHNICIAN/CONTROL ROOM OPERATOR us Jon Garces PA-C LABORATORY Final Resul t [facility] [address] [place] [address], [place] [phone] * (ABNORMAL) CBC W/DIFF AUTOMATED (12/26/2023 3:47 PM PLANT TECHNICIAN/CONTROL ROOM OPERATOR) Pathologist [facility] WBC 10.21 4.5 - 11.0 x10'3/uL 12/26/2023 4:08 PM PLANT TECHNICIAN/CONTROL ROOM OPERATOR [facility] [facility] RBC 5.56(H) 4.20 - 5.40 x10'6/uL 12/26/2023 4:08 PM PLANT TECHNICIAN/CONTROL ROOM OPERATOR [facility] HGB 12.8 12.0 - 16.0 G/DL 12/26/2023 4:08 PM PLANT TECHNICIAN/CONTROL ROOM OPERATOR [facility] HCT 41.5 38.0 - 48.0 % 12/26/2023 4:08 PM PLANT TECHNICIAN/CONTROL ROOM OPERATOR [facility] MCV 74.6(L) 81.0 - 99.0 FL 12/26/2023 4:08 PM PLANT TECHNICIAN/CONTROL ROOM OPERATOR [facility] MCH 23.0(L) 27.0 - 31.0 PG 12/26/2023 4:08 PM PLANT TECHNICIAN/CONTROL ROOM OPERATOR [facility] MCHC 30.8(L) 32.0 - 36.0 G/DL 12/26/2023 4:08 PM PLANT TECHNICIAN/CONTROL ROOM OPERATOR [facility] RDW 23.4(H) 11.5 - 14.5 % 12/26/2023 4:08 PM [facility] PLT 295 130 - 400 x10'3/uL 12/26/2023 4:08 PM [facility] MPV 8.3(L) 9.3 - 12.2 FL 12/26/2023 4:08 PM PLANT TECHNICIAN/CONTROL ROOM OPERATOR [facility] DIFFERENTIAL TYPE AUTOMATED DIFFERENTIAL 12/26/2023 4:59 PM PLANT TECHNICIAN/CONTROL ROOM OPERATOR [facility] NEUTROPHILS % 67.8 % 12/26/2023 4:59 PM [facility] LYMPHOCYTES % 23.7 % 12/26/2023 4:59 PM PLANT TECHNICIAN/CONTROL ROOM OPERATOR [facility] MONOCYTES % 6.7 % 12/26/2023 4:59 PM PLANT TECHNICIAN/CONTROL ROOM OPERATOR [facility] EOSINOPHILS 0.8 % 12/26/2023 4:59 PM PLANT TECHNICIAN/CONTROL ROOM OPERATOR [facility] BASOPHILS 0.5 % 12/26/2023 4:59 PM [facility] IMMATURE GRANS % 0.5 % 12/26/19 4:59 PM [facility] ABS. NEUTROPHILS 6.93 1.80 - 7.70 x10'3/uL 12/26/2023 4:59 PM PLANT TECHNICIAN/CONTROL ROOM OPERATOR [facility] ABS. LYMPHOCYTES 2.42 1.00 - 4.80 x10'3/uL 12/26/2023 4:59 PM PLANT TECHNICIAN/CONTROL ROOM OPERATOR [facility] ABS. MONOCYTES 0.68 0.24 - 0.86 x10'3/uL 12/26/2023 4:59 PM [facility] ABS. EOSINOPHILS 0.08 0.04 - 0.36 x10'3/uL 12/26/2023 4:59 PM PLANT TECHNICIAN/CONTROL ROOM OPERATOR [facility] ABS. BASOPHILS 0.05 0.01 - 0.08 x10'3/uL 12/26/2023 4:59 PM [facility] ABS. IMMATURE GRANULOCYTES 0.05 0.00 - 0.49 x10'3/uL 12/26/2023 4:59 PM [facility] RBC MORPHOLOGY SLIDE REVIEWED 2023 4:59 PM [facility] ANISO 2+ 12/26/2023 4:59 PM PLANT TECHNICIAN/CONTROL ROOM OPERATOR [facility] POIKLO 1+ 12/26/2023 4:59 PM PLANT TECHNICIAN/CONTROL ROOM OPERATOR [facility] MICRO 1+ 12/26/2023 4:59 PM PLANT TECHNICIAN/CONTROL ROOM OPERATOR [facility] POLY 1+ 12/26/2023 4:59 PM PLANT TECHNICIAN/CONTROL ROOM OPERATOR [facility] PLT EST. ADEQUATE 12/26/2023 4:59 PM PLANT TECHNICIAN/CONTROL ROOM OPERATOR [facility] 12/26/2023 3:47 PM PLANT TECHNICIAN/CONTROL ROOM OPERATOR us Jon Garces PA-C LABORATORY Final Resul t [facility] [address] [place] [address], [place] [phone] documented in this encounter Visit Diagnoses Diagnosis Hydronephrosis with urinary obstruction due to ureteral calculus- Primary Elevated blood pressure reading Elevated blood pressure reading without diagnosis of hypertension documented in this encounter Administered Medications Inactive Administered Medications - up to 3 most recent administrations Medication Order MAR Action Action Date Dose Rate Site ketorolac (TORADOL) injection 30 mg 30 mg, Intravenous, Once, 1 dose, On Tue12/26/23 at 1530, For IV administration, give over 15 seconds. Given 12/26/2023 3:47 PM PLANT TECHNICIAN/CONTROL ROOM OPERATOR 30 mg ondansetron (ZOFRAN) injection 4 mg 4 mg, Intravenous, Once, 1 dose, On Tue12/26/23 at 1530, IV push over 2-5 minutes. Given 12/26/2023 3:48 PM PLANT TECHNICIAN/CONTROL ROOM OPERATOR 4 mg tamsulosin (FLOMAX) capsule 0.4 mg 0.4 mg, Oral, Once, 1 dose, On Tue12/26/23 at 1645 Given 12/26/2023 4:51 PM PLANT TECHNICIAN/CONTROL ROOM OPERATOR 0.4 mg documented in this encounter Active and Recently Administered Medications Times are shown in PLANT TECHNICIAN/CONTROL ROOM OPERATOR. Scheduled Medication Order 12/24/2023 12/25/2023 12/26/2023 ketorolac (TORADOL) injection 30 mg (COMPLETED) 30 mg, Intravenous, Once, 1 dose, On Tue12/26/23 at 1530, For IV administration, give over 15 seconds. 1547 (Given - Provid er: Kevin Jarvis RN) ondansetron (ZOFRAN) injection 4 mg (COMPLETED) 4 mg, Intravenous, Once, 1 dose, On Tue12/26/23 at 1530, IV push over 2-5 minutes. 1548 (Given - Provid er: Kevin Jarvis RN) tamsulosin (FLOMAX) capsule 0.4 mg (COMPLETED) 0.4 mg, Oral, Once, 1 dose, On Tue12/26/23 at 1645 1651 (Given - Provid er: Jaylin Stockton RN) documented in this encounter Care Teams Financial Reporting Director Relationship Specialty Start Date End Date Jennifer Hart MD [address] [place] [address] PCP - General INTERNAL MEDICINE 12/26/23 documented as of this encounter
--- OUTSIDE RECORDS SUMMARY | 2024-01-24 01:44 | XMS_ITS | Encounter Summary ---
Author Organization [facility] Address [address] [place] [address]. [place], [place] [address] [place] [address] Care Team Providers Care Finisher Machine Name Role Phone Jennifer Hart MD Primary Care Provider [phone] Encounter Details Date Type Department Care Team (Latest Contact Info) Description 01/10/2024 Scan HEALTH INFO SRVCS Scanned, Doc Med Group Social History Tobacco Use Types Packs/Day Years [...] st Contact Info) Description 02/28/2024 7:20 AM TELEGRAPH OPERATOR Office Visit [facility] Family Medicine - [address] [address] Raf Blanc MD [address] [place] [address]. [place] [id number] documented as of this encounter Visit Diagnoses Not on filedocumented in this encounter Care Teams Finisher Machine Relationship Specialty Start Date End Date Jennifer Hart MD [address] [place] [address] PCP - General INTERNAL MEDICINE 12/26/23 documented as of this encounter
--- OUTSIDE RECORDS SUMMARY | 2024-01-24 01:45 | XMS_ITS | CONTINUITY OF CARE DOCUMENT ---
Author Name peace hand Address Unknown Organization [facility] Address [address] [place] [address] [address] [place] [address] Phone [phone] Care Team Providers Care Grade School Teacher Name Role Phone MARTY MERIDA MD Unavailable HISTORY OF MEDICATION USE Medication Status Instructions Dates Provider Indications Com ments HYDROCHLOROTHIAZIDE 25 MG ORAL TABLET active ONE TAB DAILY 1 Nena Fields LOSARTAN POTASSIUM 50 MG ORAL TABLET active once daily 1 Nena Fields INSURANCE PROVIDERS Payer name Policy type / Coverage type Luis red green party ID JANICE MEDICAID (2) Medicaid [id number]
--- OUTSIDE RECORDS SUMMARY | 2024-01-24 01:46 | XMS_ITS | Referral Summary ---
Author Organization [facility] Address [address] [address] Phone Care Team Providers Care Brainer Name Role Phone Michael Oliver DO Primary Care Provider Allergies No known active allergies Medications lisinopril-hydr oCHLOROthiazide (ZESTORETIC) 10-12.5 mg per tabletIndicatio ns:hypertension Take 1 tablet by mouth daily Active ibuprofen (ADVIL,MOTRIN) 600 mg tablet Take 1 tablet (600 mg total) by mouth every 6 (six) hours as needed for pain Active busPIRone (BUSPAR) 7.5 mg tabletIndicatio ns:Generalized Anxiety Disorder Take 1 tablet (7.5 mg total) by mouth 2 (two) times a day 180 tablet 3 03/03/2023 5 Active montelukast (SINGULAIR) 10 mg tabletIndicatio ns:Seasonal allergic rhinitis due to pollen Take 1 tablet (10 mg total) by mouth nightly 90 tablet 3 03/03/2023 5 Active lisinopril-hydr oCHLOROthiazide (ZESTORETIC) 20-12.5 mg per tabletIndicatio ns:hypertension Take 1 tablet by mouth daily 90 tablet 3 03/03/2023 5 Active oxyCODONE-aceta minophen (PERCOCET) 5-325 mg per tabletIndicatio ns:Pain Take 1 tablet by mouth every 4 (four) hours as needed for pain 20 tablet 05/22/2023 Active Active Problems Problem Noted Date Diagnosed Date Screening for colon cancer 03/07/2023 Family history of colon cancer 03/03/2023 Routine physical examination 03/03/2023 Primary hypertension 03/03/2023 Assessment & Plan (03/15/2023 7:44 AM LOADER UNLOADER): Blood pressure medication adjusted 2 weeks ago and blood pressure readings have improved. No symptoms. Continue same. Seasonal allergic rhinitis due to pollen 024 Anxiety 03/03/2023 Family history of breast cancer 03/03/2023 Immunizations Name Administration Dates Next Due Influenza, Unspecified 11/07/2022 Pfizer SARS-CoV-2 Monovalent Vaccination (12+ Yrs) PURPLE 11/07/2020,10/17/2020 Social History Tobacco Use Types Packs/Day Years Used Date Smoking Tobacco: Never Smokeless Tobacco: Never Tobacco Cessation:Counseling Given: Not Answered AUDIT-C Answer Date Recorded Q1: How often do you have a drink containing alc ohol? 2-4 times a month 03/30/2023 Q2: How many drinks containi ng alcohol do you have on a typical day when you are drinking? 3 or 4 03/30/2023 Q3: How often do you have si x or more drinks on one occasion? Never 03/30/2023 PHQ-2 Answer Date Recorded PHQ-2 Total Score (If total score is 3 or more points, staff should administer the PHQ-9) 0 03/03/2023 Personal Safety Answer Date Recorded Have you ever been in or are you currently in a harmful physical or emotional relationship or is someone making you feel afraid or unsafe? Denies 05/21/2023 Comments Unknown Sex and Gender Information Value Date Recorded Sex Assigned at Not on file Legal Sex Female 11:45 AM CDT Gender Identity Not on file Sexual Orientation Not on file Last Filed Vital Signs Vital Sign Reading Time Taken Comments Blood Pressure 150/95 05/22/2023 12:45 AM CDT Pulse 85 05/22/2023 12:45 AM CDT Temperature 37.1 ??C (98.7 ??F) 05/22/2023 12:45 AM C DT Respiratory Rate 18 05/22/2023 12:45 AM CDT Oxygen Saturation 99% 05/22/2023 12:45 AM CDT Inhaled Oxygen Concentration - - Weight 90.7 kg (200 lb) 05/21/2023 7:00 PM CDT Height 160 cm (5' 3 ) 05/21/2023 7:00 PM CDT Body Mass Index 35.43 05/21/2023 7:00 PM CDT Plan of Treatment Not on file Insurance [facility] [id number] [facility] Care Teams Brainer Relationship Specialty Start Date End Date Michael Oliver DO [address] [place] [phone] PCP - General Family Medicine 03/03/23
--- OUTSIDE RECORDS SUMMARY | 2024-01-24 01:46 | XMS_ITS | Encounter Summary ---
Author Organization [facility] Address [address] [facility] [facility] [address] [place] [address] Care Team Providers Care Premium Note Interest Calculator Clerk Name Role Phone Unavailable Primary Care Provider Unavailabl e Encounter Details Date Type Department Care Team (Late st Contact Info) Description 11/07/2020 7:45 AM CDT Immunization [address] [address] Encounter for vaccination (Primary Dx) Social History Tobacco Use Types Packs/Day Years Used Date Smoking Tobacco: Never Assessed Comments Unknown Sex and Gender Information Value Date Recorded Sex Assigned at Not on file Legal Sex Female 11:45 AM CDT Gender Identity Not on file Sexual Orientation Not on file documented as of this encounter Plan of Treatment Not on file documented as of this encounter Visit Diagnoses Diagnosis Encounter for vaccination- Primary documented in this encounter Orders Immunization/Injection Count Last Ordered Date First Ordered Date PFIZER SARS-COV-2 VACCINE 1 11/07/2020 PFIZER SARS-COV-2 VACCINE 2ND DOSE APPT 1 1 documented in this encounter
--- OUTSIDE RECORDS SUMMARY | 2024-01-24 01:46 | XMS_ITS | Encounter Summary ---
Author Organization [facility] Address [address] [place] [address] Care Team Providers Care Silk Screen Painter Name Role Phone Michael Oliver DO Primary Care Provider Encounter Details Date Type Department Care Team ([facility] st Contact Info) Description 04/01/2023 Telephone [facility] Primary Care [address] [facility] [facility] [address] [place] [address] Michael Oliver DO [facility] [address] [place] [address] Social History Tobacco Use Types Packs/Day Years Used Date Smoking Tobacco: Never Smokeless Tobacco: Never AUDIT-C Answer Date Recorded Q1: How often [...] 0 03/03/2023 Personal Safety Answer Date Recorded Getting School Help Needed Not on file 02/08 Comments Unknown Sex and Gender Information Value Date Recorded Sex Assigned at Not on file Legal Sex Female 11:45 AM CDT Gender Identity Not on file Sexual Orientation Not on file documented as of this encounter Miscellaneous Notes * Telephone Encounter - Rachel Brunson - 04/01/2023 4:13 PM CST While attempting to obtain the insurance authorization for the scheduled GI procedure on 04/04/23 I found that her specific HMO plan is out of network with [facility]. I called Clarita and talked to her. She is now aware of her out of network plan and has cancelled her [place] procedure. [place] OPERATIONS MANAGER documented in this encounter Plan of Treatment Not on file documented as of this encounter Visit Diagnoses Not on filedocumented in this encounter Care Teams Silk Screen Painter Relationship Specialty Start Date End Date Michael Oliver DO [address] [place] [id number] PCP - General Family Medicine 03/03/23 documented as of this encounter
--- OUTSIDE RECORDS SUMMARY | 2024-01-24 01:46 | XMS_ITS | Data Portability ---
Author Organization [facility] Address [address] [place] [address] Assessment No assessment recorded. Plan of Treatment Reminders Order Date Submit Date Provider Last Modified By Organization Details Last Modified Time Details Appointments ANY 15 2024 02:45P Todd Hart MD Not available Not available Not available Lab CBC w/ auto diff 2023 024 [place] Letty, [address], [address], [place], [address], 10/08/2023 08:23:24 urinalysi s macro (dipstick ) panel, urine 2023 024 [facility] [address], [address], [place], [address], 10/08/2023 08:23:22 lipid panel, serum 2023 024 [place] Letty, [address], [address], [place], [address], 10/08/2023 08:23:20 CMP, serum or plasma 2023 024 KOJO Saenz, [address], [address], [place], [address], 10/08/2023 08:23:21 HIV 1 + 2, meaningfu l use set 2023 024 KOJO Hurst, [address], [address], [place], [address], 10/08/2023 08:23:25 Hepatitis C IgG Ab, qual, serum 2023 024 KOJOAB Saenz, [address], [address], [place], [address], 10/08/2023 08:23:19 vitamin D, 25-hydrox y, total, serum 2023 024 KOJOAB Hurst, [address], [address], [place], [address], 10/08/2023 08:23:24 TSH, ultra-sen sitive, serum 2023 024 KOJO Hurst, [address], [address], [place], [address], 10/08/2023 08:23:23 HbA1c (hemoglob in A1c), blood 2023 024 KOJO Hurst, [address], [address], [place], [address], 10/08/2023 08:23:22 vitamin B12 + folate, serum or blood 2023 024 KOJOAB Saenz, [address], [address], [place], [address], 12/02/2023 08:30:53 iron + TIBC + ferritin, serum 2023 024 KOJOAB Saenz, [address], [address], [place], [address], 12/02/2023 08:30:54 hemoglobi n + hematocri t, blood 2023 024 KOJO Saenz, [address], [address], [place], [address], 12/02/2023 08:30:55 Referral gastroent erologist referral 2023 024 slime Rausch MD, [address] [facility], [address], [place], [address], 12/01/2023 12:12:28 nutrition ist/dieti mary referral 2023 024 [email or web address] [facility] Pulmonary Nurse Practitioner Nutrition Dietitian, [address] [facility], [place], [address], 01/18/2024 12:39:41 chiroprac tor referral - Chronic right shoulder pain 2023 024 [email or web address] [facility], [address] [facility], [place], [address], 01/18/2024 12:40:30 Procedures None recorded. Surgeries None recorded. Imaging MAMMO, screening , bilateral 2023 024 RUST ([facility]), [address] [facility], [place], [address], 12/14/2023 12:17:[address] 10 mg tablet 2023 024 [facility], [address] [place] [address], [address], 10/05/2023 14:43:12 losartan 25 mg tablet 2023 024 [facility], [address] [place], [address], 10/05/2023 14:39:34 furosemid e 20 mg tablet 2023 024 [facility], [address] [place], [address], 10/05/2023 14:41:50 buspirone 5 mg tablet 2023 024 [facility], [address] [place] [address], [address], 10/05/2023 14:43:52 ergocalci ferol (vitamin D2) 1,250 mcg (50,000 unit) capsule 2023 024 [facility], [address] [place], [address], 12/01/2023 12:31:49 Patient TargetsNo targets recorded. Patient Instructions Encounter Date Encounter Id Patient Instructions Last Modified By Organization Details Last Modified Time 10/05/2023 [id number] A healthy lifestyle: care instructions oajao Not available 10/05/2023 14:16:23 tetanus and diphtheria booster: care instructions oajao Not available 10/05/2023 14:34:53 leg and ankle edema: care instructions oajao Not available 10/05/2023 14:41:05 body mass index: care instructions oajao Not available 10/05/2023 14:16:22 learning about healthy weight oajao Not available 10/05/2023 14:16:23 Labs Start Losartan Stay off Lisinopril/HCTZ Avoid NSAIDS or use the lowest effective dose if you must. Side effects including CV events, elevated BP, PUD and CRI were discussed. 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 of colon cancer Referring Physician: Jennifer Hart, Internal Medicine, Encounter Date: 10/05/2023 Data Administrator/dietitian Refer ral for Impaired fasting glycemia Referring Physician: Jennifer Hart, Internal Medicine, Encounter Date: 12/01/2023 Chiropractor Referral for Pa in of right shoulder joint Chronic right shoulder pain Chronic right shoulder pain Referring Physician: Jennifer Hart, Internal Medicine, Encounter Date: 12/01/2023 Results Created Date Observation Date Name Description Value Unit Range Abnormal Flag Note LastModifiedBy Organization Detail LastModifiedTime 10/07/19 24 10/08/2023 HCV ANTIB DANGELO hep C virus Ab NON REACTI VE nonrea ctive HCV antib dangelo alone does not diffe renti ate betwe en previ ously resol saad infec tion and activ e infec tion. Equiv ocal and React kiarra HCV antib dangelo resul ts shoul d be follo wed up with an HCV RNA test to suppo rt the diagn osis of activ e HCV infec tion. Not Available [facility] ([facility]) [address] [facility], [place], [address], 10/08/2023 08:23:19 10/07/19 24 10/08/2023 LIPID PANEL cholesterol, total 160 mg/dL 100-19 9 Not Available [facility] ([facility]) [address] [place], [address], 10/08/2023 08:23:20 10/07/19 24 10/08/2023 LIPID PANEL triglyceride s 121 mg/dL 0-149 Not Available [facility] ([facility]) [address] [place], [address], 10/08/2023 08:23:20 10/07/19 24 10/08/2023 LIPID PANEL HDL cholesterol 39 mg/dL >39 below low normal Not Available [facility] ([facility]) [address] [place], [address], 10/08/2023 08:23:20 10/07/19 24 10/08/2023 LIPID PANEL VLDL cholesterol keisha 22 mg/dL 5-40 Not Available [facility]) [address] [place], [address], 10/08/2023 08:23:20 10/07/19 24 10/08/2023 LIPID PANEL LDL chol calc ([facility]) 99 mg/dL 0-99 Not Available [facility]) [address] [facility], [place], [address], 10/08/2023 08:23:20 10/07/19 24 10/08/2023 COMP. METAB OLIC PANEL (14) glucose 101 mg/dL 70-99 above high normal Not Available [facility] ([facility]) [address] [facility], [place], [address], 10/08/2023 08:23:21 10/07/19 24 10/08/2023 COMP. METAB OLIC PANEL (14) BUN 10 mg/dL 6-24 Not Available [facility] ([facility]) [address] [facility], [place], [address], 10/08/2023 08:23:21 10/07/19 24 10/08/2023 COMP. METAB OLIC PANEL (14) creatinine 0.73 mg/dL 0.57-1 .00 Not Available [facility] ([facility]) [address] [facility], [place], [address], 10/08/2023 08:23:21 10/07/19 24 10/08/2023 COMP. METAB OLIC PANEL (14) eGFR 105 mL/mi n/1.7 3 >59 Not Available [facility] ([facility]) [address] [facility], [place], [address], 10/08/2023 08:23:21 10/07/19 24 10/08/2023 COMP. METAB OLIC PANEL (14) BUN/creatini ne ratio 14 9-23 Not Available [facility] ([facility]) [address] [facility], [place], [address], 10/08/2023 08:23:21 10/07/19 24 10/08/2023 COMP. METAB OLIC PANEL (14) sodium 141 mmol/ L 134-14 4 Not Available [facility] ([facility]) [address] [place], [address], 10/08/2023 08:23:21 10/07/19 24 10/08/2023 COMP. METAB OLIC PANEL (14) potassium 4.3 mmol/ L 3.5-5. 2 Not Available [facility] ([facility]) [address] [place], [address], 10/08/2023 08:23:21 10/07/19 24 10/08/2023 COMP. METAB OLIC PANEL (14) chloride 107 mmol/ L 96-106 above high normal Not Available [facility] ([facility]) [address] [place], [address], 10/08/2023 08:23:21 10/07/19 24 10/08/2023 COMP. METAB OLIC PANEL (14) carbon dioxide, total 18 mmol/ L 20-29 below low normal Not Available [facility] ([facility]) [address] [facility] [place], [address], 10/08/2023 08:23:21 10/07/19 24 10/08/2023 COMP. METAB OLIC PANEL (14) calcium 8.9 mg/dL 8.7-10 .2 Not Available [facility] ([facility]) [address] [facility] [place], [address], 10/08/2023 08:23:21 10/07/19 24 10/08/2023 COMP. METAB OLIC PANEL (14) protein, total 6.6 g/dL 6.0-8. 5 Not Available [facility] ([facility]) [address] [facility] [place], [address], 10/08/2023 08:23:21 10/07/19 24 10/08/2023 COMP. METAB OLIC PANEL (14) albumin 4.0 g/dL 3.9-4. 9 Not Available [facility] ([facility]) [address] [place], [address], 10/08/2023 08:23:21 10/07/19 24 10/08/2023 COMP. METAB OLIC PANEL (14) globulin, total 2.6 g/dL 1.5-4. 5 Not Available [facility] ([facility]) [address] [place], [address], 10/08/2023 08:23:21 10/07/19 24 10/08/2023 COMP. METAB OLIC PANEL (14) bilirubin, total 0.2 mg/dL 0.0-1. 2 Not Available [facility] ([facility]) [address] [place], [address], 10/08/2023 08:23:21 10/07/19 24 10/08/2023 COMP. METAB OLIC PANEL (14) alkaline phosphatase 77 IU/L 44-121 Not Available [facility] [address] [place], [address], 10/08/2023 08:23:21 10/07/19 24 10/08/2023 COMP. METAB OLIC PANEL (14) AST (SGOT) 13 IU/L 0-40 Not Available [facility] ([facility]) [address] [place], [address], 10/08/2023 08:23:21 10/07/19 24 10/08/2023 COMP. METAB OLIC PANEL (14) ALT (SGPT) 14 IU/L 0-32 Not Available [facility] ([facility]) [address] [place], [address], 10/08/2023 08:23:21 10/07/19 24 10/08/2023 MICRO SCOPI C EXAMI NATIO N WBC 6-10 /hpf 0-5 abnormal Not Available [facility] ([facility]) [address] [place], [address], 10/08/2023 08:23:21 10/07/19 24 10/08/2023 MICRO SCOPI C EXAMI NATIO N RBC 0-2 /hpf 0-2 Not Available [facility] ([facility]) [address] [facility], [place], [address], 10/08/2023 08:23:21 10/07/19 24 10/08/2023 MICRO SCOPI C EXAMI NATIO N epithelial cells (non renal) 0-10 /hpf 0-10 Not Available [facility] ([facility]) [address] [facility], [place], [address], 10/08/2023 08:23:21 10/07/19 24 10/08/2023 MICRO SCOPI C EXAMI NATIO N casts NONE SEEN /lpf nonese en Not Available [facility] ([facility]) [address] [facility], [place], [address], 10/08/2023 08:23:21 10/07/19 24 10/08/2023 MICRO SCOPI C EXAMI NATIO N bacteria MODERA TE nonese en/few abnormal Not Available [facility] ([facility]) [address] [facility], [place], [address], 10/08/2023 08:23:21 10/07/19 24 10/08/2023 HEMOG LOBIN A1C hemoglobin A1C 5.9 % 4.8-5. 6 above high normal Predi abete s: 5.7 - 6.4 Diabe german: >6.4 Glyce ben contr ol for adult s with diabe german: <7.0 Not Available [facility] ([facility]) [address] [facility], [place], [address], 10/08/2023 08:23:22 10/07/19 24 10/08/2023 URINA LYSIS , ROUTI NE specific gravity 1.013 1.005- 1.030 Not Available [facility] ([facility]) [address] [facility], [place], [address], 10/08/2023 08:23:22 10/07/19 24 10/08/2023 URINA LYSIS , ROUTI NE pH 5.5 5.0-7. 5 Not Available [facility] ([facility]) [address] [facility], [place], [address], 10/08/2023 08:23:22 10/07/19 24 10/08/2023 URINA LYSIS , ROUTI NE urine-color YELLOW yellow Not Available [facility] ([facility]) [address] [facility], [place], [address], 10/08/2023 08:23:22 10/07/19 24 10/08/2023 URINA LYSIS , ROUTI NE appearance CLEAR clear Not Available [facility] ([facility]) [address] [facility], [place], [address], 10/08/2023 08:23:22 10/07/19 24 10/08/2023 URINA LYSIS , ROUTI NE WBC esterase TRACE negati ve abnormal Not Available [facility] ([facility]) [address] [facility], [place], [address], 10/08/2023 08:23:22 10/07/19 24 10/08/2023 URINA LYSIS , ROUTI NE protein NEGATI VE negati ve/tra ce Not Available [facility] ([facility]) [address] [place], [address], 10/08/2023 08:23:22 10/07/19 24 10/08/2023 URINA LYSIS , ROUTI NE glucose NEGATI VE negati ve Not Available [facility] ([facility]) [address] [place], [address], 10/08/2023 08:23:22 10/07/19 24 10/08/2023 URINA LYSIS , ROUTI NE ketones NEGATI VE negati ve Not Available [facility] ([facility]) [address] [facility], [place], [address], 10/08/2023 08:23:22 10/07/19 24 10/08/2023 URINA LYSIS , ROUTI NE occult blood 3+ negati ve abnormal Not Available [facility] ([facility]) [address] [facility], [place], [address], 10/08/2023 08:23:22 10/07/19 24 10/08/2023 URINA LYSIS , ROUTI NE bilirubin NEGATI VE negati ve Not Available [facility] ([facility]) [address] [facility], [place], [address], 10/08/2023 08:23:22 10/07/19 24 10/08/2023 URINA LYSIS , ROUTI NE urobilinogen ,semi-qn 0.2 mg/dL 0.2-1. 0 Not Available [facility] ([facility]) [address] [facility], [place], [address], 10/08/2023 08:23:22 10/07/19 24 10/08/2023 URINA LYSIS , ROUTI NE nitrite, urine NEGATI VE negati ve Not Available [facility] ([facility]) [address] [facility], [place], [address], 10/08/2023 08:23:22 10/07/19 24 10/08/2023 URINA LYSIS , ROUTI NE microscopic examination SEE BELOW: Micro scopi c was indic ated and was perfo rmed. Not Available [facility] ([facility]) [address] [place], [address], 10/08/2023 08:23:22 10/07/19 24 10/08/2023 TSH TSH 4.320 uIU/m L 0.450- 4.500 Not Available [facility] ([facility]) [address] [place], [address], 10/08/2023 08:23:23 10/07/19 24 10/08/2023 CBC WITH DIFFE RENTI AL/PL ATELE T WBC 7.3 x10e3 /uL 3.4-10 .8 Not Available [facility] ([facility]) [address] [facility], [place], [address], 10/08/2023 08:23:24 10/07/19 24 10/08/2023 CBC WITH DIFFE RENTI AL/PL ATELE T RBC 4.90 x10e6 /uL 3.77-5 .28 Not Available [facility] ([facility]) [address] [place], [address], 10/08/2023 08:23:24 10/07/19 24 10/08/2023 CBC WITH DIFFE RENTI AL/PL ATELE T hemoglobin 9.0 g/dL 11.1-1 5.9 below low normal Not Available [facility] ([facility]) [address] [place], [address], 10/08/2023 08:23:24 10/07/19 24 10/08/2023 CBC WITH DIFFE RENTI AL/PL ATELE T hematocrit 32.2 % 34.0-4 6.6 below low normal Not Available [facility] ([facility]) [address] [place], [address], 10/08/2023 08:23:24 10/07/19 24 10/08/2023 CBC WITH DIFFE RENTI AL/PL ATELE T MCV 66 fL 79-97 below low normal Not Available [facility] ([facility]) [address] [place], [address], 10/08/2023 08:23:24 10/07/19 24 10/08/2023 CBC WITH DIFFE RENTI AL/PL ATELE T MCH 18.4 pg 26.6-3 3.0 below low normal Not Available [facility] ([facility]) [address] [place], [address], 10/08/2023 08:23:24 10/07/19 24 10/08/2023 CBC WITH DIFFE RENTI AL/PL ATELE T MCHC 28.0 g/dL 31.5-3 5.7 below low normal Not Available [facility] ([facility]) [address] [facility], [place], [address], 10/08/2023 08:23:24 10/07/19 24 10/08/2023 CBC WITH DIFFE RENTI AL/PL ATELE T RDW 17.0 % 11.7-1 5.4 above high normal Not Available [facility] ([facility]) [address] [facility], [place], [address], 10/08/2023 08:23:24 10/07/19 24 10/08/2023 CBC WITH DIFFE RENTI AL/PL ATELE T platelets 358 x10e3 /uL 150-45 0 Not Available [facility] ([facility]) [address] [facility], [place], [address], 10/08/2023 08:23:24 10/07/19 24 10/08/2023 CBC WITH DIFFE RENTI AL/PL ATELE T neutrophils 60 % notest ab. Not Available [facility] ([facility]) [address] [place], [address], 10/08/2023 08:23:24 10/07/19 24 10/08/2023 CBC WITH DIFFE RENTI AL/PL ATELE T lymphs 32 % notest ab. Not Available [facility] ([facility]) [address] [place], [address], 10/08/2023 08:23:24 10/07/19 24 10/08/2023 CBC WITH DIFFE RENTI AL/PL ATELE T monocytes 6 % notest ab. Not Available [facility] ([facility]) [address] [place], [address], 10/08/2023 08:23:24 10/07/19 24 10/08/2023 CBC WITH DIFFE RENTI AL/PL ATELE T eos 1 % notest ab. Not Available [facility] ([facility]) [address] [facility], [place], [address], 10/08/2023 08:23:24 10/07/19 24 10/08/2023 CBC WITH DIFFE RENTI AL/PL ATELE T basos 1 % notest ab. Not Available [facility] ([facility]) [address] [facility], [place], [address], 10/08/2023 08:23:24 10/07/19 24 10/08/2023 CBC WITH DIFFE RENTI AL/PL ATELE T neutrophils (absolute) 4.4 x10e3 /uL 1.4-7. 0 Not Available [facility] ([facility]) [address] [facility], [place], [address], 10/08/2023 08:23:24 10/07/19 24 10/08/2023 CBC WITH DIFFE RENTI AL/PL ATELE T lymphs (absolute) 2.3 x10e3 /uL 0.7-3. 1 Not Available [facility] ([facility]) [address] [facility], [place], [address], 10/08/2023 08:23:24 10/07/19 24 10/08/2023 CBC WITH DIFFE RENTI AL/PL ATELE T monocytes(ab solute) 0.4 x10e3 /uL 0.1-0. 9 Not Available [facility] ([facility]) [address] [place], [address], 10/08/2023 08:23:24 10/07/19 24 10/08/2023 CBC WITH DIFFE RENTI AL/PL ATELE T eos (absolute) 0.1 x10e3 /uL 0.0-0. 4 Not Available [facility] ([facility]) [address] [place], [address], 10/08/2023 08:23:24 10/07/19 24 10/08/2023 CBC WITH DIFFE RENTI AL/PL ATELE T baso (absolute) 0.0 x10e3 /uL 0.0-0. 2 Not Available [facility] ([facility]) [address] [facility], [place], [address], 10/08/2023 08:23:24 10/07/19 24 10/08/2023 CBC WITH DIFFE RENTI AL/PL ATELE T immature granulocytes 0 % notest ab. Not Available [facility] ([facility]) [address] [facility], [place], [address], 10/08/2023 08:23:24 10/07/19 24 10/08/2023 CBC WITH DIFFE RENTI AL/PL ATELE T immature grans (abs) 0.0 x10e3 /uL 0.0-0. 1 Not Available [facility] ([facility]) [address] [facility], [place], [address], 10/08/2023 08:23:24 10/07/19 24 10/08/2023 VITAM IN D, 25-HY DROXY vitamin D, 25-hydroxy 23.4 NG/mL 30.0-1 00.0 below low normal Vitam in D defic iency has been defin ed by the Insti tute of Medic ine and an Endoc rine Socie ty pract ice guide line as a level of serum 25-OH vitam in D less than 20 ng/mL (1,2) . The Endoc rine Socie ty went on to furth er defin e vitam in D insuf ficie ncy as a level betwe en 21 and 29 ng/mL (2). 1. IOM (Inst itute of Medic ine). 2010. Dieta ry refer ence intak es for calci um and D. Wilfredo sahu DC: The [facility] Press . 2. Nimisha macedo MF, Lory dong NC, Fabio off-F errar i BHAKTA, et al. Evalu ation , treat ment, and preve ntion of vitam in D defic iency : an Endoc rine Socie ty clini keisha pract ice guide line. JCEM. 2010; 96(7) :1911 -30. Not Available [facility] ([facility]) [address] [facility], [place], [address], 10/08/2023 08:23:24 10/07/1910/08/2023 HIV AB/P2 4 AG WITH REFLE X HIV Ab/P24 Ag screen NON REACTI VE nonrea ctive HIV-1 /HIV- 2 antib odies and HIV-1 p24 antig en were NOT detec janeen. There is no labor atory evide nce of HIV infec tion. HIV Negat kiarra Not Available [facility] ([facility]) [address] [facility], [place], [address], 10/08/2023 08:23:25 12/01/1912/02/2023 VITAM IN B12 AND FOLAT E vitamin B12 379 pg/mL 232-12 45 Not Available [facility] ([facility]) [address] [facility], [place], [address], 12/02/2023 08:30:53 12/01/1912/02/2023 VITAM IN B12 AND FOLAT E folate (folic acid), serum 2.9 NG/mL >3.0 below low normal A serum folat e celestina ntrat ion of less than 3.1 ng/mL is consi dered to repre sent clini keisha defic iency . Not Available [facility] ([facility]) [address] [facility], [place], [address], 12/02/2023 08:30:53 12/01/1912/02/2023 FE+TI BC+FE R iron bind.cap.(TI BC) 390 ug/dL 250-45 0 Not Available [facility] ([facility]) [address] [facility], [place], [address], 12/02/2023 08:30:54 12/01/1912/02/2023 FE+TI BC+FE R UIBC 369 ug/dL 131-42 5 Not Available [facility] ([facility]) [address] [place], [address], 12/02/2023 08:30:54 12/01/1912/02/2023 FE+TI BC+FE R iron 21 ug/dL 27-159 below low normal Not Available [facility] ([facility]) [address] [facility], [place], [address], 12/02/2023 08:30:54 12/01/1912/02/2023 FE+TI BC+FE R iron saturation 5 % 15-55 alert low Not Available [facility]) [address] [facility], [place], [address], 12/02/2023 08:30:54 12/01/1912/02/2023 FE+TI BC+FE R ferritin 9 NG/mL 15-150 below low normal Not Available [facility]) [address] [facility], [place], [address], 12/02/2023 08:30:54 12/01/1912/02/2023 HGB+H CT hemoglobin 11.9 g/dL 11.1-1 5.9 Not Available [facility] ([facility]) [address] [facility], [place], [address], 12/02/2023 08:30:55 12/01/1912/02/2023 HGB+H CT hematocrit 42.0 % 34.0-4 6.6 Not Available [facility] ([facility]) [address] [place], [address], 12/02/2023 08:30:55 12/14/19 24 12/14/2023 MAMMO , scree luz maria, bilat eral No observ ation record ed. [email or web address] [address], [address], 12/21/2023 11:09:29 Result Notes None recorded. Problems Name Problem SNOMED Code Status Onset Date Resolution Date Notes Provider Name and Address Organization Details Recorded Time Family history of cancer of colon 191924550 Active 2023 Jennifer Hart MD Attn: Ethan sheridan,[address] [facility], [place], [address], [place] [facility] 4 16:24:34 Edema of lower extremity 827459446 Active 2023 Jennifer Hart MD Attn: Ethan sheridan,[address] [facility], [place], [address], [place] [facility] 4 16:24:40 Generalized anxiety disorder 16341171 Active 2023 Jennifer Hart MD Attn: Ethan sheridan,[address] [facility], [place], [address], [place] [facility] 16:24:49 Environmental allergy 377327397 Active 2023 Jennifer Hart MD Attn: Ethan sheridan,[address] [facility], [place], [address], [place] [facility] 4 16:24:51 Vitamin D deficiency 17980731 Active 2023 Jennifer Hart MD Attn: Ethan sheridan,[address] [facility], [place], [address], [place] [facility] 4 12:22:38 Impaired fasting glycemia 071885331 Active 2023 Jennifer Hart MD Attn: Ethan sheridan,[address] [facility], [place], [address], [place] [facility] 4 12:22:39 Folic acid deficiency 638950294 Active 2023 Jennifer Hart MD Attn: Ethan sheridan,[address] [facility], [place], [address], [place] [facility] 08:51:15 Iron deficiency 33506416 Active 2023 Jennifer Hart MD Attn: Ethan sheridan,[address], [place], [address], [facility] 08:51:16 Problem Notes None recorded. Procedures Surgical History Date Name Laterality Status Provider Name and Address Organization Details Recorded Time Cholecystectomy completed Otilia Tanner [facility] 10/05/2023 14:07:17 Knee Surgery completed Otilia Tanner MA [facility] 10/05/2023 14:07:26 Imaging Results Imaging Date Name Status LastModified by Organiz ation Details LastModified Time 12/14/2023 MAMMO, screening, bilateral completed [facility] [address] [place], [address], 12/21/2023 11:09:29 Procedure Notes None recorded. Medical Equipment None Reported. Allergies No known drug allergies Medications Name Sig Start Date Stop Date Status Note LastModified by Organization Details LastModified Time buspirone 5 mg tablet TAKE 1 & 1/2 (ONE & ONE-HALF ) TABLETS BY MOUTH TWICE DAILY 2023 active Not Available Not Available Not Avai lable lisinopri l 20 mg-hydroc hlorothia zide 12.5 mg tablet TAKE 1 TABLET BY MOUTH ONCE DAILY 09/28 completed It makes me dizzy and lighthea ded and cori nauseate d Not Available Not Available Not Available ciproflox acin 250 mg tablet TAKE 1 TABLET BY MOUTH TWICE DAILY FOR 5 DAYS 10/04 completed Not Available Not Available Not Available levothyro xine 25 mcg tablet TAKE 1 TABLET BY MOUTH ONCE DAILY 10/04 completed Not Available Not Available Not Available oxycodone -acetamin ophen 5 mg-325 mg tablet TAKE 1 TAB BY MOUTH EVERY 4 HOURS NEEDED FOR PAIN 10/04 completed Not Available Not Available Not Available potassium chloride ER 20 mEq tablet,ex tended release(p art/cryst ) TAKE 1 TABLET BY MOUTH ONCE DAILY 10/04 completed Not Available Not Available Not Available ferrous sulfate 325 mg (65 mg iron) tablet Take 1 tablet every day by oral route as directed for 90 days, for Iron deficien cy. 2023 active Not Available Not Available Not Avai lable Gentle Laxative (bisacody l) 5 mg tablet,de layed release TAKE 6 TABLETS BY MOUTH AT 8AM ON 11/10/2311/30 completed Not Available Not Available Not Available losartan 25 mg tablet TAKE 1 TABLET BY MOUTH ONCE DAILY AT BEDTIME active Not Available Not Available No t Available folic acid 1 mg tablet Take 1 tablet every day by oral route as directed for 30 days, for Folic acid deficien cy. active Not Available Not Available No t Available mont[address] 10 mg tablet Take 1 tablet every day by oral route as directed for 30 days, for Allergie s. 2023 active Not Available Not Available Not Avai lable furosemid e 20 mg tablet TAKE 1/2 (ONE-TAVARES F) TABLET BY MOUTH ONCE DAILY NEEDED FOR EDEMA FOR 30 DAYS 2023 active Not Available Not Available Not Avai lable ergocalci ferol (vitamin D2) 1,250 mcg (50,000 unit) capsule TAKE 1 CAPSULE BY MOUTH ONCE A WEEK DIRECTED FOR 84 DAYS FOR LOW VITAMIN D. 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 Thyroid 30 mg tablet TAKE 1 TABLET BY MOUTH ONCE DAILY FOR HYPOTHYR OID 10/04 completed Not Available Not Available Not Available Vitals Date Recorded Body weight Respiratory rate Body mass index (BMI) Body height Oxygen saturation Oxygen saturation in Arterial blood by Pulse oximetry Heart rate Systolic blood pressure Diastolic blood pressure Provider Name and Address Organization Details Last Updated DateTime 4 14237 g 14 /min 38.1 kg/m2 160.02 cm 98 % 98 % 96 /min 140 mm[Hg] 90 mm[Hg] Otilia Tanner MA [place] - [facility] 14:13:42 Date Recorded Body height Body mass index (BMI) Body weight Oxygen saturation Oxygen saturation in Arterial blood by Pulse oximetry Heart rate Respiratory rate Systolic blood pressure Diastolic blood pressure Provider Name and Address Organization Details Last Updated DateTime 160.02 cm 37 kg/m2 70444.8 1 g 100 % 100 % 94 /min 16 /min 140 mm[Hg] 96 mm[Hg] Otilia Tanner MA [facility] 12:15:32 Date Recorded Systolic blood pressure Diastolic blood pressure Provider Name and Address Organization Details Last Updated DateTime 12/01/2023 120 mm[Hg] 88 mm[Hg] Jennifer Hart MD Attn: [employer] [place], [address], [facility] 12/01/2023 12:30:39 Social History Question Answer Notes LastModified by Organizat ion Details LastModified Time Tobacco Smoking Status Never Smoker Otilia Tanner MA null, [facility] 10/05/2023 14:07:08 What Is Your Level Of Alcohol Consumption? Occasional Information not available 10/05/2023 How Many Years Have You Consumed Alcohol? 21 [email or web address] Information not available 10/05/2023 What Is Your Level Of Caffeine Consumption? Occasional Information not available 10/05/2023 What Was The Date Of Your Most Recent Tobacco Screening? 12/01/2023 Information not available 12/01/2023 Do You Use Any Illicit Or Recreational Drugs? No Information not available 10/05/2023 Has Tobacco Cessation Counseling Been Provided? No Information not available 10/05/2023 Sex: Unknown Functional Status None recorded. Mental Status None recorded. Family History Relationship Description Onset Age of this Age Resolved Age Notes LastModified by Organization Details LastModified Time Mother Diabetes mellitus [email or web address] Not available 2023 14:09:05 Mother Family history of cancer of colon hdoverma Not available 2023 14:09:18 Mother Family history of breast cancer hdoverma Not available 2023 14:09:26 Father Hypertensive disorder hdoverma Not available 2023 14:09:36 Father Diabetes mellitus [email or web address] Not available 2023 14:09:42 Medical History Condition Response Anxiety Disorder Y High Blood Pressure Y Kidney or Bladder Problems Y Allergies Y Gynecological HistoryNo gynecological history recorded. Obstetrics History GPAL:G 0 P 0 0 0 0 Immunizations Vaccine Type Date Status Note Provider Nam e and Address Organization Details Recorded Time COVID-19, mRNA, LNP-S, PF, 30 mcg/0.3 mL dose 10/17/2020 completed Otilia Tanner [place] null, [place] [facility] 10/05/2023 13:58:57 COVID-19, mRNA, LNP-S, PF, 30 mcg/0.3 mL dose 11/07/2020 completed Otilia Tanner [place], [place] [facility] 10/05/2023 13:58:57 influenza, unspecified formulation 11/07/2022 completed Otilia Tanner [place], [place] [facility] 10/05/2023 13:58:57 influenza, unspecified formulation 11/23/2023 completed Otilia T[place], [place] [facility] 12/01/2023 12:12:51 Tdap 10/05/2023 completed Jennifer Hart MD Attn: [employer] [place], [address], [place] [facility] 10/05/2023 16:21:33 Past Encounters Encounter ID Performer Location Encounter Start Date Encounter Closed Date Diagnosis/Indication Diagnosis SNOMED-CT Code Diagnosis ICD10 Code [id number] Jennifer Hart MD [facility] (Adult Med) [address] [place] [id number] 10/05/2023 13:50:49 10/07/2023 12:04:58 General examination of patient 199466026 Z00.01 Benign hypertension 1072 5009 I10 Body mass index 30+ - obesity 344310910 Z68.38 Overweight 755463471 E66 .3 Screening mammography of bilateral breasts 2180091170 59220 Z12.31 Screening for malignant neoplasm of colon 302658717 Z12.11 Administra tion of diphtheria, pertussis, and tetanus vaccine 448482076 Z23 SARS-CoV-2 vaccination declined 0312187754 Z28.21 Family his tory of cancer of colon 398332110 Z80.0 Edema of l ower extremity 915482622 R60.0 Environmental allergy 42 2094612 T78.49XA Generalize d anxiety disorder 06739920 F41.1 [id number] Jennifer Hart MD [facility] (Adult Med) [address] [place] [address] 12/01/2023 11:59:51 12/06/2023 12:23:51 Benign hypertension 11435023 I10 Impaired f asting glycemia 787731718 R73.01 Vitamin D deficiency 347 05494 E55.9 Chronic anemia 742732441 D64.9 Pain of ri ght shoulder joint 3091612605 0720821 M25.511 Health Concerns Section Related Observation LastModified by Organization Detai ls LastModified Time None Recorded Concern Status LastModified by Organization Details LastModified Time None Recorded Advance Directives Directive None Recorded Payers Encounter Date Sequence Insurance Name Policy Number Policy [place] Covered Member ID [place] Member ID Guarantor Name 10/05/2023 1 [place] [id number] Clarita R Butler [id number] Clarita Butler 12/01/2023 1 [place] [id number] Clarita R Butler [id number] Clarita Butler Notes Date Note Type Note Provider Name and Address Organization Details Recorded Time 10/05/2023 text/html Hypertension F/UReported bypatient.Associated Symptoms:no dizziness; no lightheadedness; no chest pain; no shortness of breath; no palpitations; no edema; no calf pain with exertion Lifestyle:regular exercise; limiting/avoiding salt Medications:taking medications as directed; no side effects from medication I needed a new doctor and hopefully get my blood pressur under control 43 y/o WF with a PMHX. of PRASANTH, Edema, HTN, Allergies, R. knee pain s/p surgery, Hypothyroidism and Nephrolithiasis. Previously on Lisinopril/HCTZ 11/18.5 which may have been increased to 20/12.5, she states that the higher dose was making her nauseous and dizzy. Jennifer Hart MD Attn: [employer] [place], [address], [facility] 10/05/2023 16:27:31 12/01/2023 text/html Hypertension F/UReported bypatient.Associated Symptoms:no dizziness; no lightheadedness; no chest pain; no shortness of breath; no palpitations; no edema; no calf pain with exertion Lifestyle:regular exercise; limiting/avoiding salt Medications:taking medications as directed; no side effects from medication; checks blood pressure at home, range: (127/79)ShoulderRepo rted bypatient.Hand Dominance:right Location:right Quality:aching Severity:severe Duration:years Timing:chronic Context:cannot identify Alleviating Factors:lying down; position change Aggravating Factors:lying down; ROM Associated Symptoms:no weakness; no numbness; no tingling; no swelling; no redness; no warmth; no ecchymosis; no catching/locking; no popping/clicking; no buckling; no grinding; no instability; no radiation down arm; no drainage; no fever; no chills; no weight loss; no change in bowel/bladder habits Previous Surgery:none Prior Imaging:x ray; MRI Previous Injections:none Previous PT:none Work Related:no Working:regular duty I have always been low I have been having trouble with my shoulder again, I went to the chiropractor. I need a referral She apparently has a history of anemia and may have been on Vitamin B in the past. She is right handed and has a history of right shoulder pain, she apparently had a MRI and xrays and there was no obvious abnormality. She went to see a chiropractor and she was told that she would need a referral. SHe has been complaint with her medications and reppports normal blood pressure readings at the [employer] center where she works.janelle Hart MD Attn: [employer] [place], [address], [facility] 12/01/2023 13:46:24 OBGyn Episode Ob Episode Information Episode Created Date Number of Fetuses Patient Bloodtype Patient rh Status Prepregnancy Weight lbs Domestic Partner Domestic Partner Phone Father Name Hairspring Inspector Status 10/05/19 24 1 CLOSED Fetus Data First Name Last Name Admitted to NICU Weight (g) Sex Living Outcome Pediatric Complications Fetus ID Race Codes Race Delivery Type [id number] Chastity Calculation CHASTITY Calculation Method Initial Chastity Date Initial Exam Date Initial Exam Provider Initial Ultrasound Date Last Menstrual Period Date Ultra Sound Weeks Gestation Conception by IVF Embryo Age at Transfer Date of Transfer 0 Eighteen To Twenty Week Chastity Update Ultra Sound Date Fundal Height At Umbil Quickening Date Ultra Sound Latest Weeks Gestation Final Chastity Confirmed By Final Chastity Confirmed Date Final Chastity Date Ultra Sound Latest Days Gestation 0 0 Menstrual History Last Menstrual Date Menses Monthly On Bcp Conception Prior Menses Frequency Hcg Plus Date Menarche Onset Age Delivery Information Delivery Date Delivery Type Labor Anesthesia Weeks Gestation Incision Type Labor Labor Length Hrs Delivered By Post Complications Tubal Sterilization Discharge Date Comments 0 Discharge Information Feeding Method Contraceptive Method Maternal HG B and HCT Levels Ob Episode Information Episode Created Date Number of Fetuses Patient Bloodtype Patient rh Status Prepregnancy Weight lbs Domestic Partner Domestic Partner Phone Father Name Hairspring Inspector Status 10/05/19 24 1 CLOSED Fetus Data First Name Last Name Admitted to NICU Weight (g) Sex Living Outcome Pediatric Complications Fetus ID Race Codes Race Delivery Type [id number] Chastity Calculation CHASTITY Calculation Method Initial Chastity Date Initial Exam Date Initial Exam Provider Initial Ultrasound Date Last Menstrual Period Date Ultra Sound Weeks Gestation Conception by IVF Embryo Age at Transfer Date of Transfer 0 Eighteen To Twenty Week Chastity Update Ultra Sound Date Fundal Height At Umbil Quickening Date Ultra Sound Latest Weeks Gestation Final Chastity Confirmed By Final Chastity Confirmed Date Final Chastity Date Ultra Sound Latest Days Gestation 0 0 Menstrual History Last Menstrual Date Menses Monthly On Bcp Conception Prior Menses Frequency Hcg Plus Date Menarche Onset Age Delivery Information Delivery Date Delivery Type Labor Anesthesia Weeks Gestation Incision Type Labor Labor Length Hrs Delivered By Post Complications Tubal Sterilization Discharge Date Comments 4 Discharge Information Feeding Method Contraceptive Method Maternal HG B and HCT Levels
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
--- OUTSIDE RECORDS SUMMARY | 2024-01-24 01:46 | XMS_ITS | Encounter Summary ---
Author Organization [facility] Healthcare Address [address] [place] [address] Care Team Providers Care Senior Market Intelligence Consultant Name Role Phone McminnMichael DO Primary Care Provider Encounter Details Date Type Department Care Team (Late st Contact Info) Description 03/05/2023 10:45 AM IRRIGATION EQUIPMENT INSTALLER Lab [facility] [address] [place] [id number] Hypothyroidism, unspecified type; Primary hypertension Social History Tobacco Use Types Packs/Day Years Used Date Smoking Tobacco: Never Smokeless Tobacco: Never AUDIT-C Answer Date Recorded Q1: How often do you have a drink containing alc ohol? Monthly or less 03/03/2023 Q2: How many drinks containi ng alcohol do you have on a typical day when you are drinking? 1 or 2 03/03/2023 Q3: How often do you have si x or more drinks on one occasion? Never 03/03/2023 PHQ-2 Answer Date Recorded PHQ-2 Total Score [...] on file documented as of this encounter Procedures Procedure Name Priority Date/Time Associated Diagnosis Comments EGFR Routine 03/05/2023 11:01 AM IRRIGATION EQUIPMENT INSTALLER Primary hypertension CBC WITHOUT DIFFERENTIAL Routine 03/05/2023 11:01 AM IRRIGATION EQUIPMENT INSTALLER Primary hypertension TSH Routine 03/05/2023 11:01 AM IRRIGATION EQUIPMENT INSTALLER Hypothyroidism, unspecified type T4, FREE Routine 03/05/2023 11:01 AM IRRIGATION EQUIPMENT INSTALLER Hypothyroidism, unspecified type LIPID PANEL Routine 03/05/2023 11:01 AM IRRIGATION EQUIPMENT INSTALLER Primary hypertension COMPREHENSIVE METABOLIC PANEL Routine 03/05/2023 11:01 AM IRRIGATION EQUIPMENT INSTALLER Primary hypertension documented in this encounter Results * eGFR (03/05/2023 11:01 AM IRRIGATION EQUIPMENT INSTALLER) [facility] eGFR 95 mL/min/1. 73 m2 ELIER BREAUX Comment: Interpretive Data Reference Interval Normal ?>/= 90 mL/min/1.73m2 Mildly decreased* ? 60 - 89 mL/min/1.73m2 Mildly to moderately decreased ?45 - 59 mL/min/1.73m2 Moderately to severely decreased ??30 - 44 mL/min/1.73m2 Severely decreased ?15 - 29 mL/min/1.73m2 Kidney Failure ?< 15 ??mL/min/1.73m2 *Relative to young adult level Estimated glomerular filtration rate is determined by the 2020 CKD-EPI equation recommended by the National Kidney Foundation (A Unifying Approach to GFR Estimation: Recommendations of the NKF-ASK Task Force on Reassessing the Inclusion of Race in Diagnosing Kidney Disease, JASN 202). The CKD-EPI equation should not be used for patients with unstable renal function and has not been validated in children and those over 70. Current interpretive data was last reviewed 2020. Testing performed by: [facility], [address] [place] [address], [place]., [address] Blood 03/05/2023 11:0 1 AM IRRIGATION EQUIPMENT INSTALLER 03/05/2023 11:13 AM IRRIGATION EQUIPMENT INSTALLER Michael Oliver LAB BLOOD ORDERABLES F inal Result ELIER [address] [facility] Department [place] [address] * (ABNORMAL) CBC without differential (03/05/2023 11:01 AM IRRIGATION EQUIPMENT INSTALLER) WBC 7.9 3.8 - 9.9 K/cumm ELIER Comment:Testing performed by : [address] [address] Hgb 11.0(L) 11.9 - 15.5 g/dL ELIER Comment:Testing performed by : [address] [address] Hct 36.3 35.6 - 45.5 % ELIER Comment:Testing performed by : [address] [address] Plt 321 150 - 400 K/cumm ELIER Comment:Testing performed by : [address] [address] MPV 8.1(L) 9.1 - 12.3 fL ELIER Comment:Testing performed by : [address] [address] RBC 5.23(H) 3.90 - 5.20 M/cumm ELIER Comment:Testing performed by : [address] [address] MCV 69.4(L) 81.3 - 96.4 fL ELIER Comment:Testing performed by : [address] [address] MCH 21.0(L) 27.1 - 33.3 pg ELIER Comment:Testing performed by : [address] [address] MCHC 30.3(L) 32.3 - 35.7 g/dL ELIER Comment:Testing performed by : [address] [place]., [address] RDW CV 16.2(H) 11.1 - 14.9 % ELIER BREAUX Comment:Testing performed by : [address] [address] RDW SD 39.7 35.7 - 48.1 fL ELIER BREAUX Comment:Testing performed by : [address] [address] NRBC abs 0.00 0.00 - 0.01 K/cumm ELIER BREAUX Comment:Testing performed by : [address] [address] Blood 03/05/2023 11:0 1 AM IRRIGATION EQUIPMENT INSTALLER 03/05/2023 11:14 AM IRRIGATION EQUIPMENT INSTALLER Michael Oliver LAB BLOOD ORDERABLES F inal Result ELIER [facility] Department [place] [address] * (ABNORMAL) Comprehensive metabolic panel (03/05/2023 11:01 AM IRRIGATION EQUIPMENT INSTALLER) Sodium 147(H) 135 - 145 mmol/L ELIER BREAUX Comment:Testing performed by : [address] [address] Potassium, pl 3.8 3.3 - 4.9 mmol/L ELIER BREAUX Comment:Testing performed by : [address] [address] Chloride 109 97 - 110 mmol/L ELIER Comment:Testing performed by : [address] [address] CO2 26 22 - 32 mmol/L ELIER BREAUX Comment:Testing performed by : [address] [address] Anion gap 12 2 - 15 mmol/L ELIER Comment:Testing performed by : [address] [address] BUN 13 6 - 25 mg/dL ELIER BREAUX Comment:Testing performed by : [address] [address] Creatinine 0.80 0.60 - 1.10 mg/dL ELIER Comment:Testing performed by : [address] [address] Glucose 103 70 - 199 mg/dL [facility] Comment: Interpretive Data Fasting glucose >/= 126 mg/dl is diagnostic for diabetes. ?? Fasting is defined as no caloric intake for at least 8 hours. Fasting glucose between 100 mg/dl to 125 mg/dl is diagnostic of prediabetes. In a patient with classic symptoms of hyperglycemia or hyperglycemic crisis, a random glucose >/= 200 mg/dl is diagnostic for diabetes. In the absence of unequivocal hyperglycemia, results should be confirmed by repeat testing. The classification and Diagnosis of Diabetes Diabetes Care 202; 46: S19-S40. Current interpretive data was last revised 2022. Testing performed by: [address] [address] Calcium 9.1 8.5 - 10.3 mg/dL ELIER Comment:Testing performed by : [address] [address] Bilirubin, total 0.5 0.1 - 1.2 mg/dL [facility] Comment:Testing performed by : [address] [address] Protein, pl 7.0 6.5 - 8.5 g/dL [facility] Comment:Testing performed by : [address] [address] Albumin 4.2 3.5 - 5.0 g/dL [facility] Comment:Testing performed by : [address] [address] Alk phos 78 40 - 130 Units/L [facility] Comment:Testing performed by : [address] [address] ALT 11 7 - 45 Units/L ELIER Comment:Testing performed by : [address] [address] AST 10 10 - 45 Units/L ELIER Comment:Testing performed by : [address] [address] Blood 03/05/2023 11:0 1 AM IRRIGATION EQUIPMENT INSTALLER 03/05/2023 11:13 AM IRRIGATION EQUIPMENT INSTALLER us Michael Bonilla Melody DO LAB BLOOD ORDERABLES F inal Result NATHANAELISSA [address] [facility] Department [place] [address] * Lipid panel (03/05/2023 11:01 AM IRRIGATION EQUIPMENT INSTALLER) Cholesterol 155 30 - 199 mg/dL ELIER Comment: Interpretive Data Ages < or = 19 years ??Acceptable: ? <170 mg/dL ??Borderline high: ??170-199 mg/dL ??High: ? >or= 200 mg/dL Ages > or = 20 years ??Desirable: ?<200 mg/dL ??Borderline high: ??200-239 mg/dL ??High: ? >or= 240 mg/dL Literature References: 1. Expert Panel on Integrated Guidelines for Cardiovascular Health and Risk Reduction in Children and Adolescents. Pediatrics 2011;128:S213 2. NCEP Expert Panel. Circulation 2004;110:227 Current Interpretive Data was last revised on 2017. Testing performed by: [facility], [address] [place] [address]., [address] Triglycerides 137 <=149 mg/dL ELIER Comment: Interpretive Data Ages < or = 9 years ??Acceptable: ? <75 mg/dL ??Borderline high: ??75-99 mg/dL ??High: ? >or= 100 mg/dL Ages 10 to 20 years ??Acceptable: ? <90 mg/dL ??Borderline high: ??90-129 mg/dL ??High: ? >or= 130 mg/dL Ages > or = 20 years ??Desirable: ?<150 mg/dL ??Borderline high: ??150-199 mg/dL ??High: ? 200-499 mg/dL ?Very high: ?? >or= 499 mg/dL Literature References: 1. Expert Panel on Integrated Guidelines for Cardiovascular Health and Risk Reduction in Children and Adolescents. Pediatrics 2011;128:S213 2. NCEP Expert Panel. Circulation 2004;110:227 Current Interpretive Data was last revised on 2017. Testing performed by: [address] [address] HDL 41 >=40 mg/dL [facility] Comment: Interpretive Data Ages < or = 19 years ??Acceptable: ? >45 mg/dL ??Borderline low: ?? 40-45 mg/dL ??Low: ? <40 mg/dL Ages > or = 20 years ??Desirable: ?>or= 60 mg/dL ??Low: ? <40 mg/dL Literature References: 1. Expert Panel on Integrated Guidelines for Cardiovascular Health and Risk Reduction in Children and Adolescents. Pediatrics 2011;128:S213 2. NCEP Expert Panel. Circulation 2004;110:227 Current Interpretive Data was last revised on 2017. Testing performed by: [address] [address] LDL, calculated 87 <=129 mg/dL [facility] Comment: Interpretive Data Ages < or = 19 years ??Acceptable: ? <110 mg/dL ??Borderline high: ??110-129 mg/dL ??High: ?>or= 130 mg/dL Ages > or = 20 years ??Optimal: ? <100 mg/dL ??Near optimal: ?100-129 mg/dL ??Borderline high: ?? 130-159 mg/dL ??High: ?>160 mg/dL Literature References: 1. Expert Panel on Integrated Guidelines for Cardiovascular Health and Risk Reduction in Children and Adolescents. Pediatrics 2011;128:S213 2. NCEP Expert Panel. Circulation 2004;110:227 Current Interpretive Data was last revised on 2017. Testing performed by: [address] [address] Non-HDL Cholesterol 114 mg/dL ELIER BREAUX Comment: Interpretive Data Ages < or = 19 years ??Acceptable: ?<120 mg/dL ??Borderline high: ??120-144 mg/dL ??High: ?>145 mg/dL Ages > or = 20 years ??When triglycerides are >200 mg/dL, Non-HDL cholesterol is a secondary target of ? therapy with treatment goals that are 30 mg/dL greater than the LDL cholesterol target. ? Literature References: 1. Expert Panel on Integrated Guidelines for Cardiovascular Health and Risk Reduction in Children and Adolescents. Pediatrics 2011;128:S213 2. NCEP Expert Panel. Circulation 2004;110:227 Current Interpretive Data was last revised on 2017. Testing performed by: [address] [address] Chol/HDL ratio 4 ELIER Comment:Testing performed by : [address] [address] Blood 03/05/2023 11:0 1 AM IRRIGATION EQUIPMENT INSTALLER 03/05/2023 11:13 AM IRRIGATION EQUIPMENT INSTALLER Michael Bonilla Mcminn DO LAB BLOOD ORDERABLES F inal Result Performing Organization Address [facility] de Phone Number [facility] [address] [facility] Department [place] [address] * T4, free (03/05/2023 11:01 AM IRRIGATION EQUIPMENT INSTALLER) Free T4 1.10 0.90 - 1.70 ng/dL ELIER Comment:Testing performed by : [address] [address] Blood 03/05/2023 11:0 1 AM IRRIGATION EQUIPMENT INSTALLER 03/05/2023 11:13 AM IRRIGATION EQUIPMENT INSTALLER Michael Bonilla Mcminn DO LAB BLOOD ORDERABLES F inal Result ELIER [address] [facility] Department [place] [address] * TSH (03/05/2023 11:01 AM IRRIGATION EQUIPMENT INSTALLER) Thyroid Stimulating Hormone 3.50 0.30 - 4.20 mcIUnit/mL ELIER BREAUX Comment:Testing performed by : [facility], [address] [place] [address]., [address] Blood 03/05/2023 11:0 1 AM IRRIGATION EQUIPMENT INSTALLER 03/05/2023 11:13 AM IRRIGATION EQUIPMENT INSTALLER us Michael Oliver DO LAB BLOOD ORDERABLES F inal Result ELIER [facility] Department [place] [employer] [place] [address] documented in this encounter Visit Diagnoses Diagnosis Hypothyroidism, unspecified type Primary hypertension Unspecified essential hypertension documented in this encounter Care Teams Senior Market Intelligence Consultant Relationship Specialty Start Date End Date Michael Oliver DO [address] [place] [id number] PCP - General Family Medicine 03/03/23 documented as of this encounter
--- OUTSIDE RECORDS SUMMARY | 2024-01-24 01:46 | XMS_ITS | Encounter Summary ---
Author Organization [facility] Healthcare Address [address] [place] [address] Care Team Providers Care Loss Mitigation Specialist Name Role Phone Michael Oliver DO Primary Care Provider Encounter Details Date Type Department Care Team ([facility] st Contact Info) Description 03/15/2023 Orders Only [facility] Health Information Management [address] [place], [place] [id number] Michael Oliver DO [facility] [address] Social History Tobacco Use Types Packs/Day [...] Procedure Name Priority Date/Time Associated Diagnosis Comments SCAN - LABS 03/15/2023 documented in this encounter Results * SCAN - LABS (03/15/2023) Michael Oliver DO Edited Result - Final documented in this encounter Visit Diagnoses Not on filedocumented in this encounter Care Teams Loss Mitigation Specialist Relationship Specialty Start Date End Date Michael Oliver DO [address] [place] [address] PCP - General Family Medicine 03/03/23 documented as of this encounter
--- OUTSIDE RECORDS SUMMARY | 2024-01-24 01:46 | XMS_ITS | Encounter Summary ---
Author Organization [facility] Healthcare Address [address] [place] [address] Care Team Providers Care Court Worker Name Role Phone Michael Oliver DO Primary Care Provider Encounter Details Date Type Department Care Team (Latest Contact Info) Description 03/15/2023 10:01 AM DIRECTOR SERVICE - 03/15/2023 11:59 PM [facility] Hospital Encounter [facility] Building [address] [address] Dysuria; Urinary tract infection with hematuria, site unspecified Discharge Disposition: Discharge to home or self [...] on file documented as of this encounter Medications at Time of Discharge [...] mouth nightly 90 tablet 3 03/03/2023 03/02/2024 ciprofloxacin (CIPRO) 250 mg tabletIndications :Urinary tract infection with hematuria, site unspecified Take 1 tablet (250 mg total) by mouth 2 (two) times a day for 5 days 10 tablet 03/15/2023 03/20/2023 documented as of this encounter Discharge Disposition Disposition Code Departure Means Destination Discharge to home or self care documented in this encounter Plan of Treatment Not on file documented as of this encounter Procedures Procedure Name Priority Date/Time Associated Diagnosis Comments URINE CULTURE Routine 03/15/2023 7:40 AM DIRECTOR SERVICE Dysuria Urinary tract infection with hematuria, site unspecified documented in this encounter Results * (ABNORMAL) Urine culture Urine, clean voided (03/15/2023 7:40 AM DIRECTOR SERVICE) Report Final Report: Greater than or equal to 100,000 colonies/mL of Escherichia coli Plus growth of clinically insignificant bacterial bairon. (.) ELIER BREAUX Comment:Testing performed by : [facility], [address] [facility], [place]., [address] Organism ESCHERICHIA COLI ELIER BREAUX Organism PLUS GROWTH OF CLINICALLY INSIGNIFICANT BAIRON. ELIER BREAUX Urine, clean voided 03/15/2023 7:40 AM DIRECTOR SERVICE 03/16/2023 9:19 PM DIRECTOR SERVICE Narrative [facility] - 03/19/2023 2:51 PM DIRECTOR SERVICE Testing performed by [facility] Microbiology Laboratory ([phone]) Organism Antibiotic Method Susceptibility Escherichia coli Ampicillin INTERPRETATION Susceptible Escherichia coli Cefazolin INTERPRETATION Susceptible Escherichia coli Nitrofurantoin INTERPRETATION Susceptible Escherichia coli Gentamicin INTERPRETATION Susceptible Escherichia coli Trimethoprim with Sulfamethoxazole IN TERPRETATION Susceptible Escherichia coli Cefepime INTERPRETATION Susceptible Escherichia coli Ciprofloxacin INTERPRETATION Susceptible Escherichia coli Ceftazidime INTERPRETATION Susceptible Escherichia coli Ceftriaxone INTERPRETATION Susceptible Escherichia coli Piperacillin/Tazobactam INTERPRETATIO N Susceptible Escherichia coli Cephalexin INTERPRETATION Susceptible Escherichia coli Cefuroxime-axetil INTERPRETATION Susceptible Escherichia coli Cefdinir INTERPRETATION Susceptible Michael Oliver DO LAB MICROBIOLOGY - GEN ERAL ORDERABLES Final Result ELIER [address] Department [place] [address] documented in this encounter Visit Diagnoses Diagnosis Dysuria Urinary tract infection with hematuria, site unspecified documented in this encounter Care Teams Court Worker Relationship Specialty Start Date End Date Michael Oliver DO [address] [place] [id number] PCP - General Family Medicine 03/03/23 documented as of this encounter
--- OUTSIDE RECORDS SUMMARY | 2024-01-24 01:46 | XMS_ITS | Encounter Summary ---
Author Organization [facility] Address [address] [facility] [address] [place] [address] Care Team Providers Care General Operations Manager Name Role Phone Unavailable Primary Care Provider Unavailabl e Encounter Details Date Type Department Care Team (Late st Contact Info) Description 10/17/2020 8:00 AM CDT Immunization [address] [address] Encounter for vaccination (Primary Dx) Social History [...] Date First Ordered Date PFIZER SARS-COV-2 VACCINE 2ND DOSE APPT 1 1 PFIZER SARS-COV-2 VACCINE 1 10/17/2020 documented in this encounter
--- OUTSIDE RECORDS SUMMARY | 2024-01-24 01:46 | XMS_ITS | Clinical Summary ---
Author Organization [facility] Address [address] [address] Phone Care Team Providers Care Ear Mold Laboratory Technician Name Role Phone Michael Oliver DO Primary [...] 03/03/2023 Assessment & Plan (03/15/2023 7:44 AM NET SQL DEVELOPER): Blood pressure medication adjusted 2 weeks ago and blood pressure readings have improved. No symptoms. Continue same. Seasonal allergic rhinitis due to pollen 024 Anxiety 03/03/2023 Family history of breast cancer 03/03/2023 Immunizations Name Administration Dates Next Due Influenza, Unspecified 11/07/2022 Pfizer SARS-CoV-2 Monovalent Vaccination (12+ Yrs) PURPLE 11/07/2020,10/17/2020 Surgical History Surgery Date Site/Laterality Comments KNEE SURGERY Right GALLBLADDER SURGERY KIDNEY STONE SURGERY COLONOSCOPY Medical History Medical History Date Comments Hypertension Kidney stone Family History Medical History Relation Name Comments COPD Father Diabetes Father Breast cancer Mother Colon cancer Mother Diabetes Mother Relation Name Status Comments Father Alive Mother Alive Social [...] on file Sexual Orientation Not on file Obstetrics History Last Filed Vital Signs Vital Sign Reading [...] 05/21/2023 7:00 PM CDT Plan of Treatment Health Maintenance Due Date Last Done Comments Breast Cancer Screening-Mammogram 1981 Cervical Cancer Screening 1981 Hepatitis C Screening 1981 Varicella Vaccines (1 of 2 - 13+ 2-dose series) 1994 Hepatitis B Screening 05/09/1999 Covid-19 Vaccine (2023-2 5 season) 2023 11/07/2020, 10/17/2020 Depression Screening 03/03/2024 03/03/2023 Regular Well Visit/Exam 18-64 03/03/2024 03/03/2023 DTaP/Tdap/Td Vaccine (2 - Td or Tdap) 10/04/2033 10/05/2023 Influenza Vaccine Completed 11/23/2023, 11/07/2022 HPV Vaccines Aged Out No longer eligi ble based on patient's age to complete this topic Pneumococcal vaccine <65 Aged Out No longer eligible based on patient's age to complete this topic Insurance ZORAIDA [facility] [id number] [place] [address] Care Teams Ear Mold Laboratory Technician Relationship Specialty [place] [address] [place] [id number] PCP - General Family Medicine 03/03/23
--- OUTSIDE RECORDS SUMMARY | 2024-01-24 01:46 | XMS_ITS | Encounter Summary ---
Author Organization [facility] Address [address] [place] [address] Care Team Providers Care Tire Installer Name Role Phone Michael Oliver DO Primary Care Provider Reason for Referral * Procedure (Routine) - Canceled Specialty Diagnoses / Procedures Referred By Arden ernst Referred To Contact Family Medicine Diagnoses Colon cancer screening Family history of colon cancer Michael Oliver DO [address] [place] [id number] Phone: tel: fax: [facility] [address] [place] [phone] Phone: tel: fax: Referral ID Status Reason Start Date Expiration Date Visits Requested Visits Authorized [id number] Canceled Specialty Services Required 03/03/2023 04/01/2024 1 1 Question Answer Procedure to be performed Colonoscopy Please select the performing region: [facility] [[id number]] Please select the performing department: [facility] [[id number]] # of visits: 1 ERCIAL SHRIMPING CAPTAIN * Diagnostic Imaging (Routine) - Authorized Specialty Diagnoses / Procedures Referred By Arden ernst Referred To Contact Diagnoses Encounter for screening mammogram for malignant neoplasm of breast Family history of breast cancer Procedures SCREENING MAMMOGRAM BILATERAL W JAMEL Michael Oliver DO [address] [place] [address] Phone: tel: fax: [facility] [address] [place] [address] Referral ID Status Reason Start Date Expiration Date V isits Requested Visits Authorized [id number] Authorized 03/03/2023 04/01/2024 1 1 ERCIAL SHRIMPING CAPTAIN Reason for Visit * Reason Comments Establish Care Encounter Details Date Type Department Care Team ([facility] st Contact Info) Description 03/03/2023 4:00 PM COMMERCIAL SHRIMPING CAPTAIN Office Visit [facility] Primary Care [address] [phone] Michael Oliver DO [address] [address] Primary hypertension (Primary Dx); Encounter for screening mammogram for malignant neoplasm of breast; Colon cancer screening; Family history of breast cancer; Family history of colon cancer; Routine physical examination; Seasonal allergic rhinitis due to pollen; Anxiety; Hypothyroidism, unspecified type Social History Tobacco Use Types Packs/Day Years [...] Sign Reading Time Taken Comments Blood Pressure 150/102 03/03/2023 4:03 PM COMMERCIAL SHRIMPING CAPTAIN Pulse 90 03/03/2023 4:03 PM COMMERCIAL SHRIMPING CAPTAIN Temperature 36.3 ??C (97.4 ??F) 03/03/2023 4:03 PM CS T Respiratory Rate 18 03/03/2023 4:03 PM COMMERCIAL SHRIMPING CAPTAIN Oxygen Saturation 98% 03/03/2023 4:03 PM COMMERCIAL SHRIMPING CAPTAIN Inhaled Oxygen Concentration - - Weight 90.4 kg (199 lb 6.4 oz) 03/03/2023 4:03 P M COMMERCIAL SHRIMPING CAPTAIN Height 160 cm (5' 3 ) 03/03/2023 4:03 PM COMMERCIAL SHRIMPING CAPTAIN Body Mass Index 35.32 03/03/2023 4:03 PM COMMERCIAL SHRIMPING CAPTAIN documented in this encounter Ordered Prescriptions Prescription Sig Dispense Quantity Refills Last Filled Start Date End Date lisinopril-hydroCH LOROthiazide (ZESTORETIC) 20-12.5 mg per tabletIndications: hypertension Take 1 tablet by mouth daily 90 tablet 3 03/03/2023 5 montelukast (SINGULAIR) 10 mg tabletIndications: Seasonal allergic rhinitis due to pollen Take 1 tablet (10 mg total) by mouth nightly 90 tablet 3 03/03/2023 5 busPIRone (BUSPAR) 7.5 mg tabletIndications: Generalized Anxiety Disorder Take 1 tablet (7.5 mg total) by mouth 2 (two) times a day 180 tablet 3 03/03/2023 5 documented in this encounter Progress Notes * Michael Oliver, DO - 03/03/2023 4:00 PM CST Images from the original note were not included. Subjective/Objective Patient ID: Clarita Butler is a 42 y.o. female. 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 Respiratory: Negative for cough and shortness of breath. Cardiovascular: Negative for chest pain and leg swelling. Gastrointestinal: Negative for abdominal pain, constipation, diarrhea, nausea and vomiting. History reviewed. No pertinent past medical history. Past Surgical History: Procedure Laterality Date GALLBLADDER SURGERY KIDNEY STONE SURGERY KNEE SURGERY Right Family History Problem Relation Age of Onset Breast cancer Mother Colon cancer Mother Diabetes Mother COPD Father Diabetes Father Social History Social History Narrative Not on file No Known Allergies Current Outpatient Medications Medication Sig Dispense Refill busPIRone (BUSPAR) 7.5 mg tablet Take 1 tablet (7.5 mg total) by mouth 2 (two) times a day ibuprofen (ADVIL,MOTRIN) 600 mg tablet Take 1 tablet (600 mg total) by mouth every 6 (six) hours asneeded for pain lisinopril-hydroCHLOROthiazide (ZESTORETIC) 10-12.5 mg per tablet Take 1 tablet by mouth daily montelukast (SINGULAIR) 10 mg tablet Take 1 tablet (10 mg total) by mouth nightly No current facility-administered medications for this visit. Physical Exam Constitutional: General: She is not in acute distress. Appearance: Normal appearance. Cardiovascular: Rate and Rhythm: Normal rate and regular rhythm. Pulmonary: Effort: Pulmonary effort is normal. Breath sounds: Normal breath sounds. Abdominal: Palpations: Abdomen is soft. Tenderness: There is no abdominal tenderness. Musculoskeletal: Right lower leg: No edema. Left lower leg: No edema. Lymphadenopathy: Cervical: No cervical adenopathy. Neurological: General: No focal deficit present. Mental Status: She is alert and oriented to person, place, and time. Assessment/Plan Diagnoses and all orders for this visit: Primary hypertension (Primary) - CBC without differential; Future - Comprehensive metabolic panel; Future - Lipid panel; Future - lisinopril-hydroCHLOROthiazide (ZESTORETIC) 20-12.5 mg per tablet; Take 1 tablet by mouth daily Encounter for screening mammogram for malignant neoplasm of breast - SCREENING MAMMOGRAM BILATERAL W JAMEL; Future Colon cancer screening - Ambulatory referral to [facility]/GI Procedures; Future Family history of breast cancer - SCREENING MAMMOGRAM BILATERAL W JAMEL; Future Family history of colon cancer - Ambulatory referral to [facility]/GI Procedures; Future Routine physical examination Seasonal allergic rhinitis due to pollen - montelukast (SINGULAIR) 10 mg tablet; Take 1 tablet (10 mg total) by mouth nightly Anxiety - busPIRone (BUSPAR) 7.5 mg tablet; Take 1 tablet (7.5 mg total) by mouth 2 (two) times a day Hypothyroidism, unspecified type - T4, free; Future - TSH; Future New patient today History reviewed Increase Zestoretic Update labs, mammo, c-scope Body mass index is 35.32 kg/m??. BMI Follow-up includes: nutrition counseling and exercise counseling. All chronic conditions reviewed and discussed Comply with diet Comply with suggestions for healthy lifestyle Labs:reviewed some on her phone from August 2022 -- due to update fasting Colonoscopy:2012 - fam hx - ordered today Mammogram:unsure - ? 2020 - fam hx - ordered today Pap:unsure - encouraged to update with [facility] Michael Oliver DO ERCIAL SHRIMPING CAPTAIN documented in this encounter Plan of Treatment Scheduled Orders Name Type Priority Associated Diagnoses Orde r Schedule SCREENING MAMMOGRAM BILATERAL W JAMEL Imaging Schedule Routine, Read Routine (OP Routine) Encounter for screening mammogram for malignant neoplasm of breast Family history of breast cancer Expected: 03/03/2023, Expires: 05/01/2024 Scheduled Referrals Name Type Priority Associated Diagnoses Order Schedule Ambulatory referral to [facility]/GI Procedures Outpatient Referral Routine Colon cancer screening Family history of colon cancer Expected: 03/17/2023 (Approximate), Expires: 03/03/2024 documented as of this encounter Results * TSH (03/05/2023 11:01 AM COMMERCIAL SHRIMPING CAPTAIN) Thyroid Stimulating Hormone 3.50 0.30 - 4.20 mcIUnit/mL ELIER BREAUX Comment:Testing performed by : [facility], [address] [place] [address], [place]., [address] Blood 03/05/2023 11:0 1 AM COMMERCIAL SHRIMPING CAPTAIN 03/05/2023 11:13 AM COMMERCIAL SHRIMPING CAPTAIN Michael Chad Aldridgechcock DO LAB BLOOD ORDERABLES F inal Result Performing Organization Address [facility] de Phone Number [place] [address] [phone] [place] [address] * T4, free (03/05/2023 11:01 AM COMMERCIAL SHRIMPING CAPTAIN) Free T4 1.10 0.90 - 1.70 ng/dL ELIER Comment:Testing performed by : [address] [address] Blood 03/05/2023 11:0 1 AM COMMERCIAL SHRIMPING CAPTAIN 03/05/2023 11:13 AM COMMERCIAL SHRIMPING CAPTAIN Michael Oliver DO LAB BLOOD ORDERABLES F inal Result Performing Organization Address [facility] de Phone Number [place] [place] [address] * Lipid panel (03/05/2023 11:01 AM COMMERCIAL SHRIMPING CAPTAIN) [facility] Cholesterol 155 30 - 199 mg/dL ELIER [...] last revised on 2017. Testing performed by: [address] [address] Triglycerides 137 <=149 mg/dL ELIER Comment: Interpretive [...] last revised on 2017. Testing performed by: [address] [address] HDL 41 >=40 mg/dL ELIER Comment: Interpretive Data Ages < [...] last revised on 2017. Testing performed by: [address] [address] LDL, calculated 87 <=129 mg/dL ELIER Comment: Interpretive Data Ages < [...] last revised on 2017. Testing performed by: [address] [address] Non-HDL Cholesterol 114 mg/dL ELIER BREAUX Comment: [...] last revised on 2017. Testing performed by: [facility], [address] [place] [address]., [address] Chol/HDL ratio 4 ELIER Comment:Testing performed by : [address] [address] Blood 03/05/2023 11:0 1 AM COMMERCIAL SHRIMPING CAPTAIN 03/05/2023 11:13 AM COMMERCIAL SHRIMPING CAPTAIN us Michael Oliver DO LAB BLOOD ORDERABLES F inal Result ELIER [address] Department [place] [address] * (ABNORMAL) Comprehensive metabolic panel (03/05/2023 11:01 AM COMMERCIAL SHRIMPING CAPTAIN) Sodium 147(H) 135 - 145 mmol/L ELIER Comment:Testing performed by : [address], [place]., [address] Potassium, pl 3.8 3.3 - 4.9 mmol/L ELIER Comment:Testing performed by : [address], [place]., [address] Chloride 109 97 - 110 mmol/L LEIER Comment:Testing performed by : [address], [place]., [address] CO2 26 22 - 32 mmol/L ELIER Comment:Testing performed by : [address], [place]., [address] Anion gap 12 2 - 15 mmol/L ELIER Comment:Testing performed by : [address] [address] BUN 13 6 - 25 mg/dL ELIER Comment:Testing performed by : [address], [place]., [address] Creatinine 0.80 0.60 - 1.10 mg/dL ELIER Comment:Testing performed by : [address] [address] Glucose 103 70 - 199 mg/dL ELIER Comment: Interpretive Data Fasting glucose >/= 126 [...] was last revised 2022. Testing performed by: [address], [place]., [address] Calcium 9.1 8.5 - 10.3 mg/dL ELIER BREAUX Comment:Testing performed by : [address] [address] Bilirubin, total 0.5 0.1 - 1.2 mg/dL ELIER BREAUX Comment:Testing performed by : [address] [address] Protein, pl 7.0 6.5 - 8.5 g/dL ELIER BREAUX Comment:Testing performed by : [address] [address] Albumin 4.2 3.5 - 5.0 g/dL ELIER BREAUX Comment:Testing performed by : [address] [address] Alk phos 78 40 - 130 Units/L ELIER Comment:Testing performed by : [address] [address] ALT 11 7 - 45 Units/L ELIER Comment:Testing performed by : [address] [address] AST 10 10 - 45 Units/L ELIER Comment:Testing performed by : [address] [address] Blood 03/05/2023 11:0 1 AM COMMERCIAL SHRIMPING CAPTAIN 03/05/2023 11:13 AM COMMERCIAL SHRIMPING CAPTAIN Michael Oliver LAB BLOOD ORDERABLES F inal Result ELIER [address] [facility] [place] [address] * (ABNORMAL) CBC without differential (03/05/2023 11:01 AM COMMERCIAL SHRIMPING CAPTAIN) WBC 7.9 3.8 - 9.9 K/cumm ELIER BREAUX Comment:Testing performed by : [address] [address] Hgb 11.0(L) 11.9 - 15.5 g/dL ELIER BREAUX Comment:Testing performed by : [address] [address] Hct 36.3 35.6 - 45.5 % ELIER BREAUX Comment:Testing performed by : [address] [address] Plt 321 150 - 400 K/cumm ELIER Comment:Testing performed by : [address] [address] MPV 8.1(L) 9.1 - 12.3 fL ELIER Comment:Testing performed by : [address] [address] RBC 5.23(H) 3.90 - 5.20 M/cumm ELIER Comment:Testing performed by : [address] [address] MCV 69.4(L) 81.3 - 96.4 fL ELIER Comment:Testing performed by : [address] [address] MCH 21.0(L) 27.1 - 33.3 pg ELIER Comment:Testing performed by : [address], [address] MCHC 30.3(L) 32.3 - 35.7 g/dL ELIER Comment:Testing performed by : [address], [address] RDW CV 16.2(H) 11.1 - 14.9 % ELIER Comment:Testing performed by : [address], [address] RDW SD 39.7 35.7 - 48.1 fL ELIER Comment:Testing performed by : [address], [address] NRBC abs 0.00 0.00 - 0.01 K/cumm ELIER Comment:Testing performed by : [address], [address] Blood 03/05/2023 11:0 1 AM COMMERCIAL SHRIMPING CAPTAIN 03/05/2023 11:14 AM COMMERCIAL SHRIMPING CAPTAIN [facility] BLOOD ORDERABLES F inal Result ELIER [address] [facility] [place] [address] documented in this encounter Visit Diagnoses Diagnosis Primary hypertension- Primary Unspecified essential hypertension Encounter for screening mammogram for malignant neoplasm of breast Colon cancer screening Special screening for malignant neoplasms, colon Family history of breast cancer Family history of malignant neoplasm of breast Family history of colon cancer Family history of malignant neoplasm of gastrointestinal tract Routine physical examination Routine general medical examination at a health care facility Seasonal allergic rhinitis due to pollen Anxiety Anxiety state, unspecified Hypothyroidism, unspecified type documented in this encounter Discontinued Medications Medication Sig Discontinue Reason Start Date End Da te busPIRone (BUSPAR) 7.5 mg tabletIndications:Genera lized Anxiety Disorder Take 1 tablet (7.5 mg total) by mouth 2 (two) times a day Reorder 03/03/2023 montelukast (SINGULAIR) 10 mg tablet Take 1 tablet (10 mg total) by mouth nightly Reorder 03/03/2023 documented as of this encounter Historical Medications * This list may reflect changes made after this encounter. ibuprofen (ADVIL,MOTRIN) 600 mg tablet Take 1 tablet (600 mg total) by mouth every 6 (six) hours as needed for pain lisinopril-hydroC HLOROthiazide (ZESTORETIC) 10-12.5 mg per tabletIndications :hypertension Take 1 tablet by mouth daily montelukast (SINGULAIR) 10 mg tablet Take 1 tablet (10 mg total) by mouth nightly 03/03/2023 busPIRone (BUSPAR) 7.5 mg tabletIndications :Generalized Anxiety Disorder Take 1 tablet (7.5 mg total) by mouth 2 (two) times a day 03/03/2023 added in this encounter Care Teams Tire Installer Relationship Specialty Start Date End Date Michael Oliver DO [address] [place] [id number] PCP - General Family Medicine 03/03/23 documented as of this encounter
--- OUTSIDE RECORDS SUMMARY | 2024-01-24 01:46 | XMS_ITS | Continuity of Care Document ---
Author Organization [facility] Address [address] [place] [phone] Assessment No assessment recorded. Plan of Treatment Reminders Order Date Submit Date Provider Last Modified By Organization Details Last Modified Time Details Appointments ANY 15 2024 02:45P Todd Hart MD Not available Not available Not available Lab vitamin B12 + folate, serum or blood 2023 [facility] Myrtle Mojica, [facility] [address], [place], [address], 12/02/2023 08:30:53 iron + TIBC + ferritin, serum 2023 024 [facility], 2022 Myrtle Mojica, [address], [place], [address], 12/02/2023 08:30:54 hemoglobi n + hematocri t, blood 2023 024 [facility], 2022 Myrtle Mojica, [address], [place], [address], 12/02/2023 08:30:55 Referral nutrition ist/dieti mary referral 2023 024 [email or web address] [facility]ly [facility] Keeler Polygraph Operator Nutrition Dietitian, [address] [place], [address], 01/18/2024 12:39:41 chiroprac tor referral - Chronic right shoulder pain 2023 024 [email or web address] [facility], [address], [place], [address], 01/18/2024 12:40:30 Procedures None recorded. Surgeries None recorded. Imaging None recorded. Medication Orders ergocalci ferol (vitamin D2) 1,250 mcg (50,000 unit) capsule 2023 024 [facility], [address] [facility], [place], [address], 12/01/2023 12:31:49 Patient TargetsNo targets recorded. Patient Instructions Encounter Date Encounter Id Patient Instructions Last Modified By Organization Details Last Modified Time 12/01/2023 [id number] prediabetes: car e instructions oapetra Not available 12/01/2023 12:31:36 Imaging reports of the R. shoulder/neck from Retail Client Manager Low CHO diet Weight loss Exercise Start Vitamin D Chiropractor (Patient's preference) MMG (Scheduled) Director Revenue (Scheduled) Follow up in 6 weeks oapetra Not available 12/01/2023 13:46:04 Reason for Referral Retail Client Manager/dietitian Refer ral for Impaired fasting glycemia Referring Physician: Jennifer Hart, Internal Medicine, Encounter Date: 12/01/2023 Chiropractor Referral for Pa in of right shoulder joint Chronic right shoulder pain Chronic right shoulder pain Referring Physician: Jennifer Hart, Internal Medicine, Encounter Date: 12/01/2023 Results Created Date Observation Date Name Description Value Unit Range Abnormal Flag Note LastModifiedBy Organization Detail LastModifiedTime 12/14/1912/14/2023 MAMMO , scree luz maria, bilat eral No observ ation record ed. [facility] [address], [place], [address], 12/21/2023 11:09:29 Result Notes None recorded. Problems Name Problem SNOMED Code Status Onset Date Resolution Date Notes Provider Name and Address Organization Details Recorded Time Family history of cancer of colon 328338262 Active 2023 Jennifer Hart MD Attn: Ethan sheridan,[address], [place], [address], [place] - [facility] 4 16:24:34 Edema of lower extremity 462369821 Active 2023 Jennifer Hart MD Attn: Rosasjoyce sheridan,[address] [facility], [place], [address], [place] [facility] 4 16:24:40 Generalized anxiety disorder 16974493 Active 2023 Jennifer Hart MD Attn: Ethan arvin,[address] [facility], [place], [address], [place] [facility] 4 16:24:49 Environmental allergy 194913342 Active 2023 Jennifer Hart MD Attn: Ethan arvin,[address] [facility], [place], [address], [place] [facility] 4 16:24:51 Vitamin D deficiency 59285387 Active 2023 Jennifer Hart MD Attn: Ethan sheridan,[address] [facility], [place], [address], [place] [facility] 4 12:22:38 Impaired fasting glycemia 758700462 Active 2023 Jennifer Hart MD Attn: Ethan arvin,[address] [facility], [place], [address], [place] [facility] 4 12:22:39 Folic acid deficiency 964076653 Active 2023 Jennifer Hart MD Attn: Ethan sheridan,[address] [facility], [place], [address], [place] [facility] 4 08:51:15 Iron deficiency 29707605 Active 2023 Jennifer Hart MD Attn: Ethan sheridan,[address] [facility], [place], [address], [place] [facility] 4 08:51:16 Problem Notes None recorded. Procedures Surgical History Date Name Laterality Status Provider Name and Address Organization Details Recorded Time Cholecystectomy completed Otilia Tanner [place] - [facility] 10/05/2023 14:07:17 Knee Surgery completed LUZMA Coello - [facility] 10/05/2023 14:07:26 Imaging Results None recorded. Procedure Notes None recorded. Medical Equipment None [...] completed Not Available Not Available Not Available HAND CANDY MOLDER Thyroid 30 mg tablet TAKE 1 TABLET BY MOUTH ONCE DAILY FOR HYPOTHYR OID 10/04 completed Not Available Not Available Not Available Vitals Date Recorded Body height Body mass index (BMI) Body weight Oxygen saturation Oxygen saturation in Arterial blood by Pulse oximetry Heart rate Respiratory rate Systolic blood pressure Diastolic blood pressure Provider Name and Address Organization Details Last Updated DateTime 160.02 cm 37 kg/m2 06168.8 1 g 100 % 100 % 94 /min 16 /min 140 mm[Hg] 96 mm[Hg] Otilia Tanner MA [facility] 12:15:32 Date Recorded Systolic blood pressure Diastolic blood pressure Provider Name and Address Organization Details Last Updated DateTime 12/01/2023 120 mm[Hg] 88 mm[Hg] Jennifer Hart MD Attn: Accounting,[address] [facility], [place], [address], [facility] 12/01/2023 12:30:39 Social History Question Answer Notes LastModified by Organizat ion Details LastModified Time Tobacco Smoking Status Never Smoker Otilia Tanner MA null, [facility] 10/05/2023 14:07:08 What Is Your Level Of [...] PF, 30 mcg/0.3 mL dose 10/17/2020 completed LUZMA Coello, [place] - [facility] 10/05/2023 13:58:57 COVID-19, mRNA, LNP-S, PF, 30 mcg/0.3 mL dose 11/07/2020 completed Otilia Tanner [place], [place] [facility] 10/05/2023 13:58:57 influenza, unspecified formulation 11/07/2022 completed Otilia [place] [facility] 10/05/2023 13:58:57 influenza, unspecified formulation 11/23/2023 completed Otilia [place] [facility] 12/01/2023 12:12:51 Tdap 10/05/2023 completed Jennifer Hart MD Attn: Accounting,[address] [place], [address], [place] [facility] 10/05/2023 16:21:33 Past Encounters Encounter ID Performer Location Encounter Start Date Encounter Closed Date Diagnosis/Indication Diagnosis SNOMED-CT Code Diagnosis ICD10 Code [id number] MD Kenrick Valentine (Adult Med) [address] [place] [address] 12/01/2023 11:59:51 12/06/2023 12:23:51 Benign hypertension 87264471 I10 Impaired f asting glycemia 817898209 R73.01 Vitamin D deficiency 347 [address] E55.9 Chronic anemia 123286433 D64.9 Pain of ri ght shoulder joint 3511233644 9262088 M25.511 Health Concerns Section Related Observation LastModified by Organization Detai ls LastModified Time None Recorded Concern Status LastModified by Organization Details LastModified Time None Recorded Payers Encounter Date Sequence Insurance Name Policy Number Policy Ellington Covered Member ID Ellington Member ID Guarantor Name 12/01/2023 1 [place] [id number] [facility] [id number] [facility] Notes Date Note Type Note Provider Name and Address Organization Details Recorded Time 12/01/2023 text/html Hypertension F/UReported bypatient.Associat ed Symptoms:no dizziness; no lightheadedness; no chest pain; no shortness of breath; no palpitations; no edema; no calf pain with exertion Lifestyle:regular exercise; limiting/avoiding salt Medications:taking medications as directed; no side effects from medication; checks blood pressure at home, range: (127/79)ShoulderRe ported bypatient.Hand Dominance:right Location:right Quality:aching Severity:severe Duration:years Timing:chronic [...] she works.janelle Hart MD Attn: Accounting,[address] [facility], [place], [address], [facility] 12/01/2023 13:46:24 OBGyn Episode No OBEpisode recorded.
--- OUTSIDE RECORDS SUMMARY | 2024-01-24 01:46 | XMS_ITS | Encounter Summary ---
Author Organization [facility] Healthcare Address [address] [place] [address] Care Team Providers Care [employer] Name Role Phone Michael Oliver DO Primary Care Provider Reason for Visit * Reason Comments Urinary Frequency Dysuria Encounter Details Date Type Department Care Team ([facility] st Contact Info) Description 03/15/2023 7:30 AM FAST FOOD DELIVERY DRIVER Office Visit [facility] Medical Group Primary Care [address] [facility] [address] [place] [phone] Michael Oliver DO [facility] [address] Dysuria (Primary Dx); Urinary tract infection with hematuria, site unspecified; Primary hypertension Social History Tobacco Use Types [...] Sign Reading Time Taken Comments Blood Pressure 124/88 03/15/2023 7:25 AM FAST FOOD DELIVERY DRIVER Pulse 80 03/15/2023 7:25 AM FAST FOOD DELIVERY DRIVER Temperature 36.2 ??C (97.2 ??F) 03/15/2023 7:25 AM CS T Respiratory Rate 18 03/15/2023 7:25 AM FAST FOOD DELIVERY DRIVER Oxygen Saturation 99% 03/15/2023 7:25 AM FAST FOOD DELIVERY DRIVER Inhaled Oxygen Concentration - - Weight 90.8 kg (200 lb 3.2 oz) 03/15/2023 7:25 A M FAST FOOD DELIVERY DRIVER Height 160 cm (5' 3 ) 03/15/2023 7:25 AM FAST FOOD DELIVERY DRIVER Body Mass Index 35.46 03/15/2023 7:25 AM FAST FOOD DELIVERY DRIVER documented in this encounter Ordered Prescriptions Prescription Sig Dispense Quantity Refills Last Filled Start Date End Date ciprofloxacin (CIPRO) 250 mg tabletIndications: Urinary tract infection with hematuria, site unspecified Take 1 tablet (250 mg total) by mouth 2 (two) times a day for 5 days 10 tablet 03/15/2023 03/20/2023 documented in this encounter Progress Notes * Michael Oliver, DO - 03/15/2023 7:30 AM CST Images from the original note were not included. Subjective/Objective Patient ID: Clarita Butler is a 42 y.o. female. Chief Complaint Urinary Frequency and Dysuria Vitals: 03/15/23 0725 BP: 124/88 BP Location: Left arm Patient Position: Sitting Pulse: 80 Resp: 18 Temp: 36.2 ??C (97.2 ??F) TempSrc: Temporal SpO2: 99% Weight: 90.8 kg (200 lb 3.2 oz) Height: 160 cm (5' 3 ) HPI: Acute visit - approximately 4 days of dysuria, small amounts of urine. No fever, no abdominal pain, no low back pain. At her visit 2 weeks ago we increased her blood pressure medication. She has been checking it periodically at work in readings have been better. She is tolerating well without any symptoms. Blood pressure today is in normal range. Review of Systems Constitutional: Negative for chills, fatigue and fever. Respiratory: Negative for cough and shortness of breath. Cardiovascular: Negative for chest pain and leg swelling. Gastrointestinal: Negative for abdominal pain, constipation, diarrhea, nausea and vomiting. Genitourinary: Positive for dysuria and frequency. Negative for flank pain, hematuria and urgency. History reviewed. No pertinent past medical history. [...] (two) times a day 180 tablet 3 ibuprofen (ADVIL,MOTRIN) 600 mg tablet Take 1 tablet (600 mg total) by mouth every 6 (six) hours asneeded for pain lisinopril-hydroCHLOROthiazide (ZESTORETIC) 10-12.5 mg per tablet Take 1 tablet by mouth daily lisinopril-hydroCHLOROthiazide (ZESTORETIC) 20-12.5 mg per tablet Take 1 tablet by mouth daily 90 tablet 3 montelukast (SINGULAIR) 10 mg tablet Take 1 tablet (10 mg total) by mouth nightly 90 tablet 3 No current facility-administered medications for this visit. Physical Exam Constitutional: General: She is not in acute distress. Appearance: Normal appearance. Cardiovascular: Rate and Rhythm: Normal rate and regular rhythm. Pulmonary: Effort: Pulmonary effort is normal. Breath sounds: Normal breath sounds. Abdominal: Palpations: Abdomen is soft. Tenderness: There is no abdominal tenderness. There is no right CVA tenderness or left CVA tenderness. Musculoskeletal: Right lower leg: No edema. Left lower leg: No edema. Neurological: General: No focal deficit present. Mental Status: She is alert and oriented to person, place, and time. Assessment/Plan Diagnoses and all orders for this visit: Dysuria (Primary) - POCT URINALYSIS NON AUTO - Urine culture Urine, clean voided; Future Urinary tract infection with hematuria, site unspecified - POCT URINALYSIS NON AUTO - Urine culture Urine, clean voided; Future - ciprofloxacin (CIPRO) 250 mg tablet; Take 1 tablet (250 mg total) by mouth 2 (two) times a day for 5 days - Urinalysis reflex to microscopic; Future Primary hypertension Assessment & Plan: Blood pressure medication adjusted 2 weeks ago and blood pressure readings have improved. No symptoms. Continue same. Problem List Cardiac and Vasculature Primary hypertension Current Assessment & Plan Blood pressure medication adjusted 2 weeks ago and blood pressure readings have improved. No symptoms. Continue same. UTI - we will treat with Cipro and set up culture Recommended that she repeat urinalysis as a walk-in to the lab in approximately 2 weeks Blood pressure is better and we will continue same higher dose blood pressure medication. Body mass index is 35.46 kg/m??. All chronic conditions are stable and compensated Continue same medications Labs: February were reviewed Mammogram: Scheduled for April Michael Oliver DO FOOD DELIVERY DRIVER documented in this encounter Miscellaneous Notes * Assessment & Plan Note - Michael Oliver DO - 03/15/2023 7:44 AM FAST FOOD DELIVERY DRIVER Associated Problem(s): Primary hypertension Blood pressure medication adjusted 2 weeks ago and blood pressure readings have improved. No symptoms. Continue same. FOOD DELIVERY DRIVER documented in this encounter Plan of Treatment Scheduled Orders Name Type Priority Associated Diagnoses Orde r Schedule Urinalysis reflex to microscopic Lab Routine Urinary tract infection with hematuria, site unspecified Expected: 03/30/2023 (Approximate), Expires: 03/15/2024 documented as of this encounter Procedures Procedure Name Priority Date/Time Associated Diagnosis Comments POCT URINALYSIS NON AUTO Routine 03/15/2023 7:36 AM FAST FOOD DELIVERY DRIVER Dysuria Urinary tract infection with hematuria, site unspecified documented in this encounter Results * (ABNORMAL) Urine culture Urine, clean voided (03/15/2023 7:40 AM FAST FOOD DELIVERY DRIVER) Report Final Report: Greater than or equal to 100,000 colonies/mL of Escherichia coli Plus growth of clinically insignificant bacterial bairon. (.) ELIER BREAUX Comment:Testing performed by : [facility], [address] [facility], [place]., [address] Organism ESCHERICHIA COLI ELIER BREAUX Organism PLUS GROWTH OF CLINICALLY INSIGNIFICANT BAIRON. ELIER BREAUX Urine, clean voided 03/15/2023 7:40 AM FAST FOOD DELIVERY DRIVER 03/16/2023 9:19 PM FAST FOOD DELIVERY DRIVER Narrative ELIER - 03/19/2023 2:51 PM FAST FOOD DELIVERY DRIVER Testing performed by [facility] Microbiology Laboratory ([phone]) Organism Antibiotic Method Susceptibility Escherichia coli Ampicillin [...] INTERPRETATION Susceptible Escherichia coli Cefdinir INTERPRETATION Susceptible [facility] MICROBIOLOGY - GEN ERAL ORDERABLES Final Result ELIER [address] [facility] Department of Laboratories [place], [place] [id number] * (ABNORMAL) POCT URINALYSIS NON AUTO (03/15/2023 7:36 AM FAST FOOD DELIVERY DRIVER) Color, Urine, POC Dark Yellow Clarity, ur, POC Cloudy(A) Clear Glucose, ur, POC Negative Negative MG/DL Bilirubin, ur, POC Negative Negative, Small, Moderate, Large Ketones, ur, POC Negative Negative Specific [place], POC 1.025 1.003 - 1.030 Blood, ur, POC Moderate(A) Negative pH, ur, POC 6.0 5.0 - 8.0 Protein, ur, POC 100.(A) Negative Urobilinogen, Urine, POC 0.2 mg/dL Leukocytes, ur, POC Small(A) Negative Nitrite, ur, POC Negative Negative Appearance, fld Cloudy(A) Clear Urine, clean voided 03/15/2023 7:36 AM FAST FOOD DELIVERY DRIVER [employer] POINT OF CARE TEST ORD ERABLES Final Result documented in this encounter Visit Diagnoses Diagnosis Dysuria- Primary Urinary tract infection with hematuria, site unspecified Primary hypertension Unspecified essential hypertension Dysuria Urinary tract infection with hematuria, site unspecified documented in this encounter Care Teams [employer] Relationship Specialty Start Date End Date Michael Oliver DO [address] [place] [address] PCP - General Family Medicine 03/03/23 documented as of this encounter
== END 2024-01-20 15:27 | disposition home or self-care (01) ==
PROVIDERS: PCP Family Medicine; Visit Provider Anesthesiology
DX: Z79.899 Other long term (current) drug therapy (principal)
CPT/HCPCS: 36415; 80048

== ENCOUNTER 2024-01-23 00:31 | Day surgery (SDC) | payer BC, SELFPAY ==
[2024-01-18 14:19] VITALS: BMI 37.3
--- NOTE | 2024-01-18 14:28 | PC.NURSE ---
Report to the Outpatient Waiting Room, entrance under the green pavilion located off [facility], at time _0845_ on date _[id number]_. Planned Procedure Time: _1045_.? Time changes happen often and if your time is changed the preop area will call you the afternoon before. - You and your visitor will be asked to self-screen and do not enter if you have any COVID symptoms. Please call surgeon if you need to reschedule. - A mask is optional within the hospital at this time. Patients may have clear liquids (water, carbonated beverages, clear teas, apple juice) until 3 hours prior to surgery with a maximum of 20 ounces. - No food from midnight until time of surgery and no smoking. This includes no chewing gum, candy or mints. Take only the following medications with a SIP of water on the morning of surgery: ___Buspirone DO NOT STOP ANY OF YOUR OTHER PRESCRIPTION MEDICATIONS PRIOR TO SURGERY EXCEPT THE FOLLOWING Medications to discontinue per physician ____None Please no make-up, nail bolivian, hairspray, perfume, deodorant, or body powder the day of surgery.? No jewelry (including any body piercings) or valuables the day of surgery, leave them at home.? Please take a shower or bath the night before, or the morning of, surgery with an antibacterial soap.? Wear comfortable, loose fitting clothing. - Jewelry must be removed prior to entering the operating room.? Rings and piercings that are not removed may be cut off. - The hospital will not accept responsibility for valuables.? - Please leave all valuables, including medications, at home the day of surgery. If you are going home after surgery, a licensed moving van driver must drive you home.? - NO public transportation without another adult if you receive anesthesia. - We recommend that an adult stay with you for 24 hours following discharge. - We also recommend that you do not drive, make important decision, drink alcoholic beverages, or take any drugs that were not prescribed by your health care provider for at least 24 hours after your discharge time. Follow any additional instructions given to you from your surgeon. Telephone instructions given to _Calrita_and asked if any additional questions and then verbalized understanding. Patient advised to call surgeon office or pre surgery nurse liaison [phone] if any additional questions.
--- NOTE | 2024-01-23 08:26 | WPDHPUPDATE1 ---
History and Physical Update Update Date/Time: 01/23/24 08:26 History and Physical has been reviewed, including an updated exam of the patient. There are NO changes in the patient's condition. Risks, benefits, and alternatives have been discussed and questions answered. Patient agrees to proceed with procedure.
--- NOTE | 2024-01-23 08:26 | PM.HPGS ---
History of Present Illness History of Present Illness Consent: Risks, benefits, and alternatives have been discussed and questions answered. Patient agrees to proceed with procedure. Chief complaint: Menorrhagia, Fibroids Narrative: Clarita Butler is a 43 year old female with menorrhagia. Patient with a change in her cycle starting in the summer. She has had heavy and irregular cycles. It was recommended to undergo pelvic ultrasound which revealed likely fibroids. It was then recommended to undergo D&C hysteroscopy for further evaluation and possible treatment. Risks of infection, bleeding, perforation, and fluid imbalance are reviewed. Possible pathology was discussed. Patient voices understanding and agrees to proceed. Review of Systems Review of Systems: not repeated day of surgery; patient states no changes in status PMFSH Past Medical History Medical History (Updated 01/23/24 @ 08:32 by Radha Vance MD) (normal spontaneous vaginal delivery) x2 History of kidney stones Overactive bladder PCOS (polycystic ovarian syndrome) Essential (primary) hypertension Anxiety BMI 37.0-37.9, adult Surgical History Surgical History (Updated 01/23/24 @ 08:31 by Radha Vance MD) History of bilateral tubal ligation Status post laparoscopic cholecystectomy History of right knee surgery arthroscopy 1995 Family History Family History Father Diabetes mellitus Hypertension Mother Carcinoma of colon Breast cancer Diabetes mellitus Sibling Heart disease Hypertension Diabetes mellitus Other Family history of malignant neoplasm of breast Social History Social History Smoking status: Never smoker Second hand tobacco smoke exposure: Yes Alcohol intake: current Substance use: never Substance use type: does not use Lack of Transportation: No Lack of Food: Never True Current Housing: I Have Housing Concerned About Future Housing: No Difficulty Paying Gas/Electric Bills: No Difficulty Paying for Meds: No Currently Unemployed: No Education: High School Diploma/GED Difficulty w/ Childcare or Family Care: No Living arrangements: with family Occupation/Education: occupation 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 Gender identity (if verbalized by the patient): Female Spiritual care concerns: No Meds Home Medications and Allergies Home Medications ?Medication ?Instructions ?Recorded ?Confirmed ?Type furosemide 20 mg tablet 10 mg (1/2 x 20 mg) PO QAM PRN 08/23/22 01/18/24 Rx edema #20 tabs potassium chloride 20 mEq 20 meq PO DAILY #30 tabs 09/02/22 01/18/24 Rx tablet,extended release(part/cryst) (Klor-Con M) ibuprofen 600 mg tablet 600 mg PO BID PRN pain #60 tabs 01/25/23 01/18/24 Rx montelukast 10 mg tablet 10 mg PO DAILY #30 tabs 01/25/23 01/18/24 Rx (Singulair) buspirone 5 mg tablet 7.5 mg (1.5 x 5 mg) PO BID #75 tabs 06/06/23 01/18/24 Rx losartan 25 mg tablet 25 mg PO DAILY 01/18/24 01/18/24 History metformin 500 mg tablet,extended 500 mg PO BID 01/18/24 01/18/24 History release 24 hr Allergies Allergy/AdvReac Type Severity Reaction Status Date / Time No Known Allergies Allergy Mild Verified 01/18/24 14:16 Exam Const: General: healthy appearing and alert Orientation/consciousness: patient oriented x3 Resp: Effort & Inspection: normal respiratory effort GI: GI Palp: Yes Soft to palpation, No Tenderness to palpation present (GI) and No Palpable mass present : External Female Exam: normal external appearance Speculum Exam - Vagina: normal appearance of the vagina and normal vaginal discharge Speculum Exam - Cervix: normal appearance of the cervix Bimanual exam- vagina & uterus: uterine size normal and consistency normal Bimanual Exam- Adnexa, other: normal adnexae and No adnexal tenderness Neuro: General: patient oriented x3 Assessment and Plan Assessment and plan (1) Menorrhagia: Code(s): N92.0 - Excessive and frequent menstruation with regular cycle Status: Acute Assessment and Plan: plan to proceed with D&C hysteroscopy with possible myomectomy if the fibroids are found to be submucosal (2) Fibroids: Code(s): D21.9 - Benign neoplasm of connective and other soft tissue, unspecified Status: Acute
[2024-01-23] MEDS: LACTATED RINGERS 1,000 ML 30 ML IV CONT (09:49)
[2024-01-23] MEDS: ACETAMINOPHEN 500 MG TABLET 1000 MG PO (09:49)
[2024-01-23 09:52] VITALS: BP 147/108; PULSE 90; RESP 16; TEMP 36.6; O2SAT 100
[2024-01-23 10:00] LABS: BEDSIDEPREGUCG Negative (Negative)
--- NOTE | 2024-01-23 10:18 | P.PNAN_ITS ---
Anes - Initial Pre Proc Eval Procedure: Operation Date: 01/23/24 10:45 Proposed Procedures p Hysteroscopy Dilation and Curettage - Radha Vance MD Date/Time: 01/23/24 10:18 Surgeon: Radha Vance MD Pre Op Diagnosis: Menorrhagia, Fibroids Patient Data Age: 43 Gender: F Height: 1.6 m Weight: 96.4 kg Last Vital Signs Temp 36.6 C 01/23/24 09:52 Pulse 90 01/23/24 09:52 Resp 16 01/23/24 09:52 BP 147/108 H 01/23/24 09:52 Pulse Ox 100 01/23/24 09:52 O2 Del Method Room Air 01/23/24 09:52 Allergies Allergy/AdvReac Type Severity Reaction Status Date / Time No Known Allergies Allergy Mild Verified 01/18/24 14:16 Home Medications ?Medication ?Instructions ?Recorded ?Confirmed ?Type furosemide 20 mg tablet 10 mg (1/2 x 20 mg) PO QAM PRN 08/23/22 01/23/24 Rx edema #20 tabs potassium chloride 20 mEq 20 meq PO DAILY #30 tabs 09/02/22 01/23/24 Rx tablet,extended release(part/cryst) (Klor-Con M) ibuprofen 600 mg tablet 600 mg PO BID PRN pain #60 tabs 01/25/23 01/23/24 Rx montelukast 10 mg tablet 10 mg PO DAILY #30 tabs 01/25/23 01/23/24 Rx (Singulair) buspirone 5 mg tablet 7.5 mg (1.5 x 5 mg) PO BID #75 tabs 06/06/23 01/23/24 Rx losartan 25 mg tablet 25 mg PO DAILY 01/18/24 01/23/24 History metformin 500 mg tablet,extended 500 mg PO BID 01/18/24 01/23/24 History release 24 hr Laboratory Tests 01/23/24 09:52 POC Urine HCG, Qual Negative (Negative) Patient hx anesthesia problems: none Family hx anesthesia problems: none Results Review: All pre-operative results and documents have been reviewed as part of the pre- operative evaluation. [facility] Past Medical History Medical History (normal spontaneous vaginal delivery) x2 History of kidney stones Overactive bladder PCOS (polycystic ovarian syndrome) Essential (primary) hypertension Anxiety BMI 37.0-37.9, adult Surgical History Surgical History History of bilateral tubal ligation Status post laparoscopic cholecystectomy History of right knee surgery arthroscopy 1995 Family History Family History Father Diabetes mellitus Hypertension Mother Carcinoma of colon Breast cancer Diabetes mellitus Sibling Heart disease Hypertension Diabetes mellitus Other Family history of malignant neoplasm of breast Social History Social History Smoking status: Never smoker Second hand tobacco smoke exposure: Yes Alcohol intake: current Substance use: never Substance use type: does not use Lack of Transportation: No Lack of Food: Never True Current Housing: I Have Housing Concerned About Future Housing: No Difficulty Paying Gas/Electric Bills: No Difficulty Paying for Meds: No Currently Unemployed: No Education: High School Diploma/GED Difficulty w/ Childcare or Family Care: No Living arrangements: with family Occupation/Education: occupation 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 Gender identity (if verbalized by the patient): Female Spiritual care concerns: No Anes - Eval Final PreProcedure Day of Procedure 01/23/24 10:18 Patient weight: obese Heart: regular rate and rhythm Lungs: clear to auscultation Airway: Mallampati scale class II Neurological: alert and oriented Last oral intake: >/= 8 hours ASA classification: III Emergent: no Anesthetic plan: proceed Anesthesia type and monitoring: general GIVS and standard monitoring Results Review: All pre-operative results and documents have been reviewed as part of the pre- operative evaluation. Informed Consent: The patient's anesthetic plan and its attendant risks and benefits were discussed with the patient/family/POA. Questions were solicited and answers provided to the satisfaction of the patient/family/POA.
[2024-01-23 11:06] VITALS: BP 147/96; PULSE 89; RESP 14; O2SAT 96
--- NOTE | 2024-01-23 11:09 | W.PM.PROC2 ---
Procedure Note - Detailed Date of Procedure 01/23/24 Pre-op Diagnosis Menorrhagia, Fibroids Post-op Diagnosis Same Procedure Performed D and C hysteroscopy with myomectomy and polypectomy Surgeon Radha Vance MD Anesthesia MAC Findings Uterus sounds to 10cm. There are several large polyps. There is 1 small fibroid. Description of Procedure The patient was taken to operating room and placed under anesthesia in the dorsal lithotomy position. She was prepped and draped in usual sterile fashion. [place] speculum was placed in the vagina and cervix grasped on the anterior lip with a tenaculum. The uterus is sounded to 10cm. The cervix was serially dilated to a 6 Hegar. The large Aveta hysteroscope was placed. With the above-stated findings the large Aveta resection device is placed and the polyps and fibroids are removed in their entirety under direct visualization. The hysteroscope was then removed and the sharp O curette was used to curette the endometrium until a good uterine cry was noted in all areas. All instruments were then removed. Sponge, needle, and instrument are correct per the OR staff. Patient was awakened from anesthesia and taken to recovery in stable condition. Drains No Packing No Pathology Yes (Endometrial shavings and curettings) Complications No immediate complications Condition Stable Disposition PACU
[2024-01-23] MEDS: fentaNYL CITRATE INJ (*CRX) 100 MCG/2 ML VIAL 25 MCG IV PUSH ×4 (11:20→11:30)
[2024-01-23 11:30] VITALS: BP 147/97; PULSE 79; RESP 14; O2SAT 97
[2024-01-23 12:00] VITALS: BP 132/85; PULSE 86; RESP 14; O2SAT 94
[2024-01-23] MEDS: oxyCODONE HCL (*CRX) 5 MG TAB IR PO (12:00)
[2024-01-23 12:30] VITALS: BP 138/83; PULSE 81; RESP 14
[2024-01-23] MEDS: KETOROLAC 30 MG/ML VIAL (*BKC) IV PUSH (12:41)
[2024-01-23 13:00] VITALS: BP 135/93; PULSE 80
--- OUTSIDE RECORDS SUMMARY | 2024-01-28 09:19 | XMS_ITS | Encounter Summary ---
Author Organization [facility] Address [address] [place] [address]. [place] [address] [place] [address] Care Team Providers Care Switch Maker Name Role Phone Jennifer Montemayor MD Primary Care Provider [phone] Reason for Visit * Reason Comments Urinary Symptoms Encounter Details Date Type Department Care Team (Latest Contact Info) Description 12/26/2023 2:39 PM CARDIAC CATH LAB MANAGER - 12/26/2023 3:05 PM CARDIAC CATH LAB MANAGER Hospital Encounter [facility] Care [facility] [place], [place] [address] Seda Rodrigues, DO [address] [place], [place] [id number] Urinary Symptoms Discharge Disposition: Short Term Hospital [...] Comments Blood Pressure 171/126 12/26/2023 2:43 PM CARDIAC CATH LAB MANAGER Pt asymptomatic with elevated B/P. Reports she took her B/P medication last PM. Pulse 84 12/26/2023 2:43 PM CARDIAC CATH LAB MANAGER Temperature 37 ??C (98.6 ??F) 12/26/2023 2:4 3 PM CARDIAC CATH LAB MANAGER Respiratory Rate 20 12/26/2023 2:43 PM CARDIAC CATH LAB MANAGER Oxygen Saturation 100% 12/26/2023 2:4 3 PM CARDIAC CATH LAB MANAGER Inhaled Oxygen Concentration - - Weight 90.7 kg (200 lb) 12/26/2023 2:43 PM CARDIAC CATH LAB MANAGER Height 160 cm (5' 3 ) 12/26/2023 2:43 PM CARDIAC CATH LAB MANAGER Body Mass Index 35.43 12/26/2023 2:43 PM CARDIAC CATH LAB MANAGER documented in this encounter Discharge Instructions * Discharge Instructions* Seda Rodrigues DO - 12/26/2023 2:57 PM CARDIAC CATH LAB MANAGER Please go directly to [facility] ER Do not eat or drink on the way IAC CATH LAB MANAGER documented in this encounter Medications at Time [...] Rodrigues DO - 12/26/2023 2:42 PM CST [facility] Urgent Care- '[place], [place] HISTORICAL INFORMATION Primary Care Doctor: JENNIFER MONTEMAYOR MD Patient information was obtained primarily from the patient, nursing notes. History/Exam limitations: None Provider at Bedside Date/Time Event User Comments 12/26/23 5610 Provider at Bedside Assessing Patient SEDA RODRIGUES [...] with unspecified diabetic retinopathy without macular edema ([facility]) lower extremity UTI (urinary tract infection) SURGICAL [...] List DO Seda VACA DO 12/26/23 1504 IAC CATH LAB MANAGER * Yazmin Christie RN - 12/26/2023 2:40 [...] as loose . History of kidney stones. IAC CATH LAB MANAGER documented in this encounter Plan of Treatment Upcoming Encounters Date Type Department Care Team (Late st Contact Info) Description 02/28/2024 7:20 AM CARDIAC CATH LAB MANAGER Office Visit [facility] Medical Group Family Medicine - [place] [address] [facility] [place] [address] Raf Blnac MD [address] [facility] [place] [address] documented as of this encounter Procedures Procedure Name Priority Date/Time Associated Diagnosis Comments POCT URINE (BACK OFFICE) STAT 12/26/2023 3:02 PM CARDIAC CATH LAB MANAGER URINALYSIS AUTO DIP STAT 12/26/2023 2 :54 PM CARDIAC CATH LAB MANAGER documented in this encounter Results * POCT urine (12/26/2023 3:02 PM CARDIAC CATH LAB MANAGER) URINE HCG TEST NEGATIVE Internal Control: VALID Seda Rodrigues DO POINT OF CARE TEST ORDERABLES Final Result * (ABNORMAL) URINALYSIS AUTO DIP (12/26/2023 2:54 PM CARDIAC CATH LAB MANAGER) SPECIMEN TYPE URINE CLEAN CATCH 12/26/2023 2:54 PM CARDIAC CATH LAB MANAGER [facility] CONVENIENT CARE COLOR (U) OTHER 12/26/2023 3:01 PM CARDIAC CATH LAB MANAGER [facility] CONVENIENT CARE TRANSPARENCY CLOUDY 12/26/2023 3:01 PM CARDIAC CATH LAB MANAGER [facility] CONVENIENT CARE SPECIFIC GRAVITY (U) 1.030 1.001 - 1.030 12/26/2023 3:01 PM CARDIAC CATH LAB MANAGER [facility] CONVENIENT CARE U PH 5.5 5.0 - 9.0 12/26/2023 3:01 PM CARDIAC CATH LAB MANAGER [facility] CON[facility]IENT [facility]ARE LEUKOCYTES (U) TRACE(A) NEGATIVE 12/26/2023 3:01 PM CARDIAC CATH LAB MANAGER [facility] CONVENIENT CARE NITRITES NEGATIVE NEGATIVE 12/26/2023 3:01 PM CARDIAC CATH LAB MANAGER [facility]IENT [facility] PROTEIN RANDOM (U) 30(H) <30 MG/DL 12/26/2023 3:01 PM CARDIAC CATH LAB MANAGER [facility] GLUCOSE (U) NEGATIVE NEGATIVE MG/DL 12/26/2023 3:01 PM CARDIAC CATH LAB MANAGER [facility] CONVENIENT CARE KETONES MG/DL (U) NEGATIVE NEGATIVE MG/DL 12/26/2023 3:01 PM CARDIAC CATH LAB MANAGER [facility] CARE UROBILINOGEN 0.2(A) NEGATIVE MG/DL 12/26/2023 3:01 PM CARDIAC CATH LAB MANAGER [facility] CARE BILIRUBIN (U) NEGATIVE NEGATIVE MG/DL 12/26/2023 3:01 PM CARDIAC CATH LAB MANAGER [facility] BLOOD (U) LARGE(A) NEGATIVE 12/26/2023 3:01 PM CARDIAC CATH LAB MANAGER [facility] URINE SPECIMEN OBTAINED BY CLEAN CATCH PROCEDURE / Unknown 12/26/2023 2:54 PM CARDIAC CATH LAB MANAGER us Seda Rodrigues DO URINE ORDERABLES Final Result [place] [id number] [place] [address], documented in this encounter Visit Diagnoses Diagnosis Right flank pain- Primary Abdominal pain, unspecified site Abdominal pain Abdominal pain, unspecified site documented in this encounter Care Teams Switch Maker Relationship Specialty Start Date End Date Jennifer Montemayor MD [address] [place] [address] PCP - General INTERNAL MEDICINE 12/26/23 documented as of this encounter
--- OUTSIDE RECORDS SUMMARY | 2024-01-28 09:19 | XMS_ITS | Encounter Summary ---
Author Organization [facility] Address [address] [place] [address]. [place], [place] [id number] [place] [address] Care Team Providers Care Elevator Starter Name Role Phone Jennifer Hart MD Primary Care Provider [phone] Reason for Referral * Imaging (Emergency) - New Request Specialty Diagnoses / Procedures Referred By Arden ernst Referred To Contact RADIOLOGY Procedures CT ABD+PEL KIDNEY STONE Jon Garces PA-C [address] [address] Phone: tel: fax: Referral ID Status Reason Start Date Expiration Date V isits Requested Visits Authorized [id number] New Request 12/26/2023 12/25/2024 1 1 MAKER Reason for Visit * Reason Comments Flank Pain Encounter Details Date Type Department Care Team (Late st Contact Info) Description 12/26/2023 3:24 PM CORD MAKER - 12/26/2023 5:27 PM CORD MAKER Emergency [facility] [place] [address] Jon Garces PA-C [address] [address] Flank Pain Discharge Disposition: Home [...] Comments Blood Pressure 152/97 12/26/2023 5:01 PM CORD MAKER Pulse 66 12/26/2023 5:01 PM CORD MAKER Temperature 36.4 ??C (97.6 ??F) 12/26/2023 3:16 PM CS T Respiratory Rate 18 12/26/2023 5:01 PM CORD MAKER Oxygen Saturation 98% 12/26/2023 5:01 PM CORD MAKER Inhaled Oxygen Concentration - - Weight 90.7 kg (200 lb) 12/26/2023 3:16 PM CORD MAKER Height 160 cm (5' 3 ) 12/26/2023 3:16 PM CORD MAKER Body Mass Index 35.43 12/26/2023 3:16 PM CORD MAKER documented in this encounter Discharge Instructions * Discharge Instructions* Jon Garces PA-C - 12/26/2023 4:47 PM CORD MAKER Encourage fluids. Take Flomax daily as prescribed. Take Tipton as prescribed for breakthrough pain if needed, if [id number] ibuprofen is not sufficient. Take Keflex antibiotic [...] your primary doctor regarding this as well. MAKER * Attachments The following attachments cannot be sent through Care Everywhere. * Hydronephrosis Discharge Instructions, Adult ([place]) * Kidney stones in adults ([place]) documented in this encounter Medications at Time [...] condition. Patient verbalized understanding of the dischargeinstructions. MAKER * Liz Leslie RN - 12/26/2023 3:23 PM CST Pt arrives from for right flank pain that started today. Pt with history of kidney stones, reports pain feels similar to previous stones. Alert and oriented x4 MAKER * Jon Garces PA-C - 12/26/2023 3:21 PM CSTSummary: flank pain [facility] ED NOTE Clarita Butler 1980 Chief Complaint Chief Complaint Patient presents with Flank Pain History of Present Illness Patient presents ambulatory to the emergency room through triage as a transfer from [facility] for further evaluation of to right [...] with unspecified diabetic retinopathy without macular edema ([facility]/HCC HHS/HCC) lower extremity UTI (urinary tract infection) [...] nursing note reviewed. Exam conducted with a ice carver present. Constitutional: General: She is not in [...] ABD+PEL KIDNEY STONE Final Result by User, [id number] (12/25 1632) [address] [address] EXAMINATION: CT Abdomen and Pelvis without contrast [...] p.o. Flomax given. Will discharge home with Tipton, Flomax, Keflex, PCP follow- up, urology referral. [...] 20 capsule, Refills: 0 Class: Eprescribe Pharmacy: [address] (Ph #: [phone]) HYDROcodone-acetaminophen (NORCO) 5-325 MG tablet Take 1 tablet by mouth every 6 (six) hours as needed. Indications: Acute Pain < 7 Day Supply Qty: 10 tablet, Refills: 0 Class: Eprescribe Pharmacy: [address] (Ph #: [phone]) Comments: Per [place] law, C-II Rx's must include written & numerical notation of quantity. Quantity (in words) ten Associated Diagnoses: Hydronephrosis with urinary obstruction due to ureteral calculus ketorolac (TORADOL) 10 MG tablet Take 1 tablet (10 mg total) by mouth every 6 (six) hours as neededfor Pain. Qty: 20 tablet, Refills: 0 Class: Eprescribe Pharmacy: [address] (Ph #: [phone]) tamsulosin (FLOMAX) 0.4 MG Cap Take 1 capsule (0.4 mg total) by mouth daily. Qty: 30 capsule, Refills: 0 Class: Eprescribe Pharmacy: [address] (Ph #: [phone]) Disposition: Discharge Follow-Up: Jennifer Hart MD [address] [address] Call in 1 day Amilcar Juarez MD [address] [place] [address] Call in 1 day JON GARCES PA-C 12/26/2023 Jon Garces PA-C 12/26/23 1704 Jon Garces PA-C 12/26/23 1715 Cosigned by Larissa Alfaro MD at 12/26/2023 5:29 PM CORD MAKER MAKER MAKER MAKER documented in this encounter Plan of Treatment Upcoming Encounters Date Type Department Care Team (Late st Contact Info) Description 02/28/2024 7:20 AM CORD MAKER Office Visit [facility] Family Medicine - [place] [address] [place] [phone] Raf Blanc MD [facility] [facility] [place] [address] documented as of this encounter Procedures Procedure Name Priority Date/Time Associated Diagnosis Comments CT ABD+PEL KIDNEY STONE STAT 12/26/2023 4:03 PM CORD MAKER HC URINALYSIS AUTO W/O MICRO STAT 12/26/2023 3:50 PM CORD MAKER COMPREHENSIVE METABOLIC PANEL STAT 12/26/2023 3:47 PM CORD MAKER CBC W/DIFF AUTOMATED STAT 12/26/2023 3:47 PM CORD MAKER LIPASE STAT 12/26/2023 3:47 PM CORD MAKER documented in this encounter Results * CT ABD+PEL KIDNEY STONE (12/26/2023 4:03 PM CORD MAKER) Anatomical Region Laterality Modality Abdomen Computed Tomogra phy 12/26/2023 4:15 PM CORD MAKER Impressions 12/26/2023 4:31 PM CORD MAKER =====IMPRESSION:===== 1. Moderate right hydronephrosis with 3 mm obstructing calculus of the right distal ureter. 2. Additional bilateral renal calculi. 3. Prior cholecystectomy. 4. Uterine fibroids. Ordered By: JON GARCES Interpreted By: Bob Lane MD, 12/26/2023 4:15 PM Narrative 12/26/2023 4:31 PM CORD MAKER [place] [address] EXAMINATION: CT Abdomen and Pelvis without contrast [...] Procedure Note Bob Lane MD - 12/26/[address] [address] EXAMINATION: CT Abdomen and Pelvis without contrast [...] t * (ABNORMAL) URINALYSIS (12/26/2023 3:50 PM CORD MAKER) SPECIMEN TYPE URINE CLEAN CATCH 12/26/2023 3:54 PM CORD MAKER [facility] COLOR (U) YELLOW 12/26/2023 4:42 PM CORD MAKER [facility] TRANSPARENCY TURBID 12/26/2023 4:42 PM CORD MAKER [facility] SPECIFIC GRAVITY (U) 1.021 1.001 - 1.030 12/26/2023 4:42 PM CORD MAKER [facility] U PH 6.0 5.0 - 9.0 12/26/2023 4:42 PM [facility] LEUKOCYTES (U) 500(A) NEGATIVE 12/26/2023 4:42 PM CORD MAKER [facility] NITRITES NEGATIVE NEGATIVE 12/26/2023 4:42 PM CORD MAKER [facility] PROTEIN RANDOM (U) 20 <30 MG/DL 12/26/2023 4:42 PM CORD MAKER [facility] GLUCOSE (U) NORMAL NORMAL MG/DL 12/26/2023 4:42 PM [facility] KETONES MG/DL (U) NEGATIVE NEGATIVE MG/DL 12/26/2023 4:42 PM [facility] UROBILINOGEN NORMAL NORMAL MG/DL 12/26/2023 4:42 PM CORD MAKER [facility] BILIRUBIN (U) NEGATIVE NEGATIVE MG/DL 12/26/2023 4:42 PM [facility] BLOOD (U) 3+(A) NEGATIVE 12/26/2023 4:42 PM [facility] MUCUS RARE /LPF 12/26/2023 4:42 PM CORD MAKER [facility] WBC/HPF 1 <6 /HPF 12/26/2023 4:42 PM CORD MAKER [facility] RBC/HPF 27(H) <6 /HPF 12/26/2023 4:42 PM CORD MAKER [facility] SQUAMOUS EPITHELIALS RARE /HPF 12/26/2023 4:42 PM [facility] URINE SPECIMEN OBTAINED BY CLEAN CATCH PROCEDURE / Unknown 12/26/2023 3:50 PM CORD MAKER us Jon Garces PA-C URINE ORDERABLES Final Resu lt Performing Organization Address City/[facility]/ZIP Co de Phone Number [facility] [address] [place] [address], [place] [phone] * LIPASE (12/26/2023 3:47 PM CORD MAKER) LIPASE 37 13 - 75 UNITS/L 12/26/2023 4:20 PM CORD MAKER [facility] 12/26/2023 3:47 PM CORD MAKER Jon Garces PA-C LABORATORY Final Resul t Performing Organization Address [facility] Co de Phone Number [facility] [address] [place] [address], [place] [phone] * (ABNORMAL) COMPREHENSIVE METABOLIC PANEL (12/26/2023 3:47 PM CORD MAKER) GLUCOSE 108(H) 70 - 99 MG/DL 12/26/2023 4:20 PM CORD MAKER [facility] BUN 12 7 - 18 MG/DL 12/26/2023 4:20 PM [facility] CREATININE S/P/B 0.78 0.55 - 1.02 MG/DL 12/26/2023 4:20 PM CORD MAKER [facility] SODIUM S/P/B 141 136 - 145 MMOL/L 12/26/2023 4:20 PM CORD MAKER [facility] POTASSIUM S/P/B 3.6 3.5 - 5.1 MMOL/L 12/26/2023 4:20 PM CORD MAKER [facility] CHLORIDE S/P/B 110 97 - 115 MMOL/L 12/26/2023 4:20 PM CORD MAKER [facility] CO2 24.1 21 - 32 MMOL/L 12/26/2023 4:20 PM CORD MAKER [facility] CALCIUM S/P/B 9.5 8.5 - 10.1 MG/DL 12/26/2023 4:20 PM [facility] BILIRUBIN TOTAL S/P/B 0.7 0.2 - 1.2 MG/DL 12/26/2023 4:20 PM [facility] Comment: THIS ASSAY IS NOT RECOMMENDED FOR PATIENTS UNDERGOING TREATMENT WITH ELTROMBOPAG DUE TO THE POTENTIAL FOR FALSELY ELEVATED RESULTS. TOTAL PROTEIN S/P/B 7.7 6.4 - 8.2 G/DL 12/26/2023 4:20 PM [facility] ALBUMIN S/P/B 3.7 3.4 - 5.0 G/DL 12/26/2023 4:20 PM [facility] AST 12(L) 15 - 37 U/L 12/26/2023 4:20 PM [facility] ALT 22 14 - 55 U/L 12/26/2023 4:20 PM [facility] ALKALINE PHOSPHATASE S/P/B 85 50 - 136 U/L 12/26/2023 4:20 PM [facility] ANION GAP 6.9 2 - 10 MMOL/L 12/26/2023 4:20 PM [facility] BUN CREATININE RATIO 15.4 6 - 26 12/26/2023 4:20 PM [facility] A/G RATIO 0.9(L) 1.0 - 2.0 RATIO 12/26/2023 4:20 PM [facility] GFR ESTIMATE >90 >90 ML/MIN/1.7 3 M2 12/26/2023 4:20 PM [facility] Comment: NOTE: eGFR is not calculated for patients <18 years of age or gender unknown. This is an estimated GFR calculation using the new CKD EPI creatinine equation without race and so does not require a correction factor for race. This estimated GFR should not be used for calculating drug doses. 12/26/2023 3:47 PM CORD MAKER us Jon Garces PA-C LABORATORY Final Resul t [facility] [address] [place] [address], [place] [phone] * (ABNORMAL) CBC W/DIFF AUTOMATED (12/26/2023 3:47 PM CORD MAKER) Pathologist [facility] WBC 10.21 4.5 - 11.0 x10'3/uL 12/26/2023 4:08 PM CORD MAKER [facility] RBC 5.56(H) 4.20 - 5.40 x10'6/uL 12/26/2023 4:08 PM CORD MAKER [facility] HGB 12.8 12.0 - 16.0 G/DL 12/26/2023 4:08 PM CORD MAKER [facility] HCT 41.5 38.0 - 48.0 % 12/26/2023 4:08 PM CORD MAKER [facility] MCV 74.6(L) 81.0 - 99.0 FL 12/26/2023 4:08 PM CORD MAKER [facility] MCH 23.0(L) 27.0 - 31.0 PG 12/26/2023 4:08 PM CORD MAKER [facility] MCHC 30.8(L) 32.0 - 36.0 G/DL 12/26/2023 4:08 PM CORD MAKER [facility] RDW 23.4(H) 11.5 - 14.5 % 12/26/2023 4:08 PM [facility] PLT 295 130 - 400 x10'3/uL 12/26/2023 4:08 PM [facility] MPV 8.3(L) 9.3 - 12.2 FL 12/26/2023 4:08 PM CORD MAKER [facility] DIFFERENTIAL TYPE AUTOMATED DIFFERENTIAL 12/26/2023 4:59 PM CORD MAKER [facility] NEUTROPHILS % 67.8 % 12/26/2023 4:59 PM [facility] LYMPHOCYTES % 23.7 % 12/26/2023 4:59 PM CORD MAKER [facility] MONOCYTES % 6.7 % 12/26/2023 4:59 PM CORD MAKER [facility] EOSINOPHILS 0.8 % 12/26/2023 4:59 PM CORD MAKER [facility] BASOPHILS 0.5 % 12/26/2023 4:59 PM [facility] IMMATURE GRANS % 0.5 % 12/26/19 4:59 PM [facility] ABS. NEUTROPHILS 6.93 1.80 - 7.70 x10'3/uL 12/26/2023 4:59 PM CORD MAKER [facility] ABS. LYMPHOCYTES 2.42 1.00 - 4.80 x10'3/uL 12/26/2023 4:59 PM CORD MAKER [facility] ABS. MONOCYTES 0.68 0.24 - 0.86 x10'3/uL 12/26/2023 4:59 PM [facility] ABS. EOSINOPHILS 0.08 0.04 - 0.36 x10'3/uL 12/26/2023 4:59 PM CORD MAKER [facility] ABS. BASOPHILS 0.05 0.01 - 0.08 x10'3/uL 12/26/2023 4:59 PM [facility] ABS. IMMATURE GRANULOCYTES 0.05 0.00 - 0.49 x10'3/uL 12/26/2023 4:59 PM [facility] RBC MORPHOLOGY SLIDE REVIEWED 2023 4:59 PM [facility] ANISO 2+ 12/26/2023 4:59 PM CORD MAKER [facility] POIKLO 1+ 12/26/2023 4:59 PM CORD MAKER [facility] MICRO 1+ 12/26/2023 4:59 PM CORD MAKER [facility] POLY 1+ 12/26/2023 4:59 PM CORD MAKER [facility] PLT EST. ADEQUATE 12/26/2023 4:59 PM CORD MAKER [facility] 12/26/2023 3:47 PM CORD MAKER us Jon Garces PA-C LABORATORY Final Resul t [facility] [address] [place] [address], [place] [phone] documented in this encounter Visit Diagnoses Diagnosis [...] over 15 seconds. Given 12/26/2023 3:47 PM CORD MAKER 30 mg ondansetron (ZOFRAN) injection 4 mg 4 mg, Intravenous, Once, 1 dose, On Tue12/26/23 at 1530, IV push over 2-5 minutes. Given 12/26/2023 3:48 PM CORD MAKER 4 mg tamsulosin (FLOMAX) capsule 0.4 mg 0.4 mg, Oral, Once, 1 dose, On Tue12/26/23 at 1645 Given 12/26/2023 4:51 PM CORD MAKER 0.4 mg documented in this encounter Active and Recently Administered Medications Times are shown in CORD MAKER. Scheduled Medication Order 12/24/2023 12/25/2023 12/26/2023 ketorolac [...] RN) documented in this encounter Care Teams Elevator Starter Relationship Specialty Start Date End Date Jennifer Hart MD [address] [place] [address] PCP - General INTERNAL MEDICINE 12/26/23 documented as of this encounter
--- OUTSIDE RECORDS SUMMARY | 2024-01-28 09:19 | XMS_ITS | Encounter Summary ---
Author Organization [facility] Address [address] [place] [address]. [place], [place] [id number] [place] [address] Care Team Providers Care Compression Molding Machine Tender Name Role Phone Jennifer Hart MD Primary Care Provider [phone] Encounter Details Date Type Department Care Team [...] st Contact Info) Description 02/28/2024 7:20 AM SASH CLAMP OPERATOR Office Visit [facility] Family Medicine - [address] [phone] Raf Blanc MD [address] [place] [address]. [place] [phone] documented as of this encounter Visit Diagnoses Not on filedocumented in this encounter Care Teams Compression Molding Machine Tender Relationship Specialty Start Date End Date Jennifer Hart MD [address] [place] [address] PCP - General INTERNAL MEDICINE 12/26/23 documented as of this encounter
--- OUTSIDE RECORDS SUMMARY | 2024-01-28 09:19 | XMS_ITS | Clinical Summary ---
Author Organization [facility] Address [facility] [place] [address] [place] [address] Care Team Providers Care Wildlife Officer Name Role Phone Jennifer Hart MD Primary Care Provider [phone] Allergies No known active allergies Medications busPIRone [...] Encounters Date Type Department Care Team Description 01/12/2024 Scan [facility] Scanned, Doc Med Group 01/10/2024 Scan [facility] Scanned, Doc Med Group 12/26/2023 3:24 PM EXPERIMENTAL WELDER - 12/26/2023 5:27 PM EXPERIMENTAL WELDER Emergency [facility] [place] [address] Jon Garces PA-C Flank Pain Discharge Disposition: Home or Self Care (Routine Discharge) 12/26/2023 2:39 PM EXPERIMENTAL WELDER - 12/26/2023 3:05 PM EXPERIMENTAL WELDER Hospital Encounter [facility] [address] [place] [address] Seda Rodrigues DO Urinary Symptoms Discharge Disposition: [...] Comments Blood Pressure 152/97 12/26/2023 5:01 PM EXPERIMENTAL WELDER Pulse 66 12/26/2023 5:01 PM EXPERIMENTAL WELDER Temperature 36.4 ??C (97.6 ??F) 12/26/2023 3:16 PM CS T Respiratory Rate 18 12/26/2023 5:01 PM EXPERIMENTAL WELDER Oxygen Saturation 98% 12/26/2023 5:01 PM EXPERIMENTAL WELDER Inhaled Oxygen Concentration - - Weight 90.7 kg (200 lb) 12/26/2023 3:16 PM EXPERIMENTAL WELDER Height 160 cm (5' 3 ) 12/26/2023 3:16 PM EXPERIMENTAL WELDER Body Mass Index 35.43 12/26/2023 3:16 PM EXPERIMENTAL WELDER Plan of Treatment Upcoming Encounters Date Type Department Care Team (Late st Contact Info) Description 02/28/2024 7:20 AM EXPERIMENTAL WELDER Office Visit [facility] Family Medicine [facility] [address] [place] [address] Raf Blanc MD [address] [place] [address] Health Maintenance Due Date Last Done Comments Cervical Cancer Screening Pa p Smear (Age 30 to 64) Every 3 Years 1981 Annual Physical 1984 Hepatitis C 05/09/1999 Hepatitis B Vaccines (1 of 3 - 19+ 3-dose series) 2000 Cervical Cancer Screening Pa p with HPV Testing (Age 30 to 64) Every 5 Years 05/09/2011 Cervical Cancer Screening wi HPV 05/09/2011 Mammogram Screening 2021 COVID-19 Vaccine (3 - 2023-2 5 season) 2023 11/07/2020, 10/17/2020 DTaP, Tdap [...] ABD+PEL KIDNEY STONE STAT 12/26/2023 4:03 PM EXPERIMENTAL WELDER HC URINALYSIS AUTO W/O MICRO STAT 12/26/2023 3:50 PM EXPERIMENTAL WELDER LIPASE STAT 12/26/2023 3:47 PM EXPERIMENTAL WELDER COMPREHENSIVE METABOLIC PANEL STAT 12/26/2023 3:47 PM EXPERIMENTAL WELDER CBC W/DIFF AUTOMATED STAT 12/26/2023 3:47 PM EXPERIMENTAL WELDER POCT URINE (BACK OFFICE) STAT 12/26/2023 3:02 PM EXPERIMENTAL WELDER URINALYSIS AUTO DIP STAT 12/26/2023 2 :54 PM EXPERIMENTAL WELDER from Last 3 Months Results * CT ABD+PEL KIDNEY STONE (12/26/2023 4:03 PM EXPERIMENTAL WELDER) Anatomical Region Laterality Modality Abdomen Computed Tomogra phy 12/26/2023 4:15 PM EXPERIMENTAL WELDER Impressions 12/26/2023 4:31 PM EXPERIMENTAL WELDER =====IMPRESSION:===== 1. Moderate right hydronephrosis with 3 mm obstructing calculus of the right distal ureter. 2. Additional bilateral renal calculi. 3. Prior cholecystectomy. 4. Uterine fibroids. Ordered By: JON GARCES Interpreted By: Bob Lane MD, 12/26/2023 4:15 PM Narrative 12/26/2023 4:31 PM EXPERIMENTAL WELDER [facility] [address] [place], [place] [address] EXAMINATION: CT Abdomen and Pelvis without contrast [...] Procedure Note Bob Lane MD - 12/26/[address] [address] EXAMINATION: CT Abdomen and Pelvis without contrast [...] t * (ABNORMAL) URINALYSIS (12/26/2023 3:50 PM EXPERIMENTAL WELDER) SPECIMEN TYPE URINE CLEAN CATCH 12/26/2023 3:54 PM EXPERIMENTAL WELDER [facility] COLOR (U) YELLOW 12/26/2023 4:42 PM EXPERIMENTAL WELDER [facility] TRANSPARENCY TURBID 12/26/2023 4:42 PM EXPERIMENTAL WELDER [facility] SPECIFIC GRAVITY (U) 1.021 1.001 - 1.030 12/26/2023 4:42 PM EXPERIMENTAL WELDER [facility] U PH 6.0 5.0 - 9.0 12/26/2023 4:42 PM [facility] LEUKOCYTES (U) 500(A) NEGATIVE 12/26/2023 4:42 PM EXPERIMENTAL WELDER [facility] NITRITES NEGATIVE NEGATIVE 12/26/2023 4:42 PM [facility] PROTEIN RANDOM (U) 20 <30 MG/DL 12/26/2023 4:42 PM [facility] GLUCOSE (U) NORMAL NORMAL MG/DL 12/26/2023 4:42 PM [facility] KETONES MG/DL (U) NEGATIVE NEGATIVE MG/DL 12/26/2023 4:42 PM [facility] UROBILINOGEN NORMAL NORMAL MG/DL 12/26/2023 4:42 PM [facility] BILIRUBIN (U) NEGATIVE NEGATIVE MG/DL 12/26/2023 4:42 PM EXPERIMENTAL WELDER [facility] BLOOD (U) 3+(A) NEGATIVE 12/26/2023 4:42 PM EXPERIMENTAL WELDER [facility] MUCUS RARE /LPF 12/26/2023 4:42 PM EXPERIMENTAL WELDER [facility] WBC/HPF 1 <6 /HPF 12/26/2023 4:42 PM EXPERIMENTAL WELDER [facility] RBC/HPF 27(H) <6 /HPF 12/26/2023 4:42 PM EXPERIMENTAL WELDER [facility] SQUAMOUS EPITHELIALS RARE /HPF 12/26/2023 4:42 PM EXPERIMENTAL WELDER [facility] URINE SPECIMEN OBTAINED BY CLEAN CATCH PROCEDURE / Unknown 12/26/2023 3:50 PM EXPERIMENTAL WELDER Jon Garces PA-C URINE ORDERABLES Final Resu lt [facility] [address] [place] [id number], [place] [phone] * (ABNORMAL) COMPREHENSIVE METABOLIC PANEL (12/26/2023 3:47 PM EXPERIMENTAL WELDER) GLUCOSE 108(H) 70 - 99 MG/DL 12/26/2023 4:20 PM EXPERIMENTAL WELDER [facility] BUN 12 7 - 18 MG/DL 12/26/2023 4:20 PM EXPERIMENTAL WELDER [facility] CREATININE S/P/B 0.78 0.55 - 1.02 MG/DL 12/26/2023 4:20 PM EXPERIMENTAL WELDER [facility] SODIUM S/P/B 141 136 - 145 MMOL/L 12/26/2023 4:20 PM EXPERIMENTAL WELDER [facility] POTASSIUM S/P/B 3.6 3.5 - 5.1 MMOL/L 12/26/2023 4:20 PM [facility] CHLORIDE S/P/B 110 97 - 115 MMOL/L 12/26/2023 4:20 PM [facility] CO2 24.1 21 - 32 MMOL/L 12/26/2023 4:20 PM [facility] CALCIUM S/P/B 9.5 8.5 - 10.1 MG/DL 12/26/2023 4:20 PM [facility] BILIRUBIN TOTAL S/P/B 0.7 0.2 - 1.2 MG/DL 12/26/2023 4:20 PM [facility] Comment: THIS ASSAY IS NOT RECOMMENDED FOR PATIENTS UNDERGOING TREATMENT WITH ELTROMBOPAG DUE TO THE POTENTIAL FOR FALSELY ELEVATED RESULTS. TOTAL PROTEIN S/P/B 7.7 6.4 - 8.2 G/DL 12/26/2023 4:20 PM [facility] ALBUMIN S/P/B 3.7 3.4 - 5.0 G/DL 12/26/2023 4:20 PM [facility] AST 12(L) 15 - 37 U/L 12/26/2023 4:20 PM [facility] ALT 22 14 - 55 U/L 12/26/2023 4:20 PM [facility] ALKALINE PHOSPHATASE S/P/B 85 50 - 136 U/L 12/26/2023 4:20 PM [facility] ANION GAP 6.9 2 - 10 MMOL/L 12/26/2023 4:20 PM [facility] BUN CREATININE RATIO 15.4 6 - 26 12/26/2023 4:20 PM [facility] A/G RATIO 0.9(L) 1.0 - 2.0 RATIO 12/26/2023 4:20 PM [facility] GFR ESTIMATE >90 >90 ML/MIN/1.7 3 M2 12/26/2023 4:20 PM [facility] Comment: NOTE: eGFR is not calculated for patients <18 years of age or gender unknown. This is an estimated GFR calculation using the new CKD EPI creatinine equation without race and so does not require a correction factor for race. This estimated GFR should not be used for calculating drug doses. 12/26/2023 3:47 PM EXPERIMENTAL WELDER Jon Garces PA-C LABORATORY Final Resul t [facility] [address] [place] [address], [place] [phone] * (ABNORMAL) CBC W/DIFF AUTOMATED (12/26/2023 3:47 PM EXPERIMENTAL WELDER) WBC 10.21 4.5 - 11.0 x10'3/uL 12/26/2023 4:08 PM [facility] RBC 5.56(H) 4.20 - 5.40 x10'6/uL 12/26/2023 4:08 PM [facility] HGB 12.8 12.0 - 16.0 G/DL 12/26/2023 4:08 PM [facility] HCT 41.5 38.0 - 48.0 % 12/26/2023 4:08 PM [facility] MCV 74.6(L) 81.0 - 99.0 FL 12/26/2023 4:08 PM [facility] MCH 23.0(L) 27.0 - 31.0 PG 12/26/2023 4:08 PM [facility] MCHC 30.8(L) 32.0 - 36.0 G/DL 12/26/2023 4:08 PM [facility] RDW 23.4(H) 11.5 - 14.5 % 12/26/2023 4:08 PM EXPERIMENTAL WELDER [facility] PLT 295 130 - 400 x10'3/uL 12/26/2023 4:08 PM [facility] MPV 8.3(L) 9.3 - 12.2 FL 12/26/2023 4:08 PM EXPERIMENTAL WELDER [facility] DIFFERENTIAL TYPE AUTOMATED DIFFERENTIAL 12/26/2023 4:59 PM EXPERIMENTAL WELDER [facility] NEUTROPHILS % 67.8 % 12/26/2023 4:59 PM EXPERIMENTAL WELDER [facility] LYMPHOCYTES % 23.7 % 12/26/2023 4:59 PM EXPERIMENTAL WELDER [facility] MONOCYTES % 6.7 % 12/26/2023 4:59 PM EXPERIMENTAL WELDER [facility] EOSINOPHILS 0.8 % 12/26/2023 4:59 PM EXPERIMENTAL WELDER [facility] BASOPHILS 0.5 % 12/26/2023 4:59 PM EXPERIMENTAL WELDER [facility] IMMATURE GRANS % 0.5 % 12/26/19 4:59 PM EXPERIMENTAL WELDER [facility] ABS. NEUTROPHILS 6.93 1.80 - 7.70 x10'3/uL 12/26/2023 4:59 PM EXPERIMENTAL WELDER [facility] ABS. LYMPHOCYTES 2.42 1.00 - 4.80 x10'3/uL 12/26/2023 4:59 PM EXPERIMENTAL WELDER [facility] ABS. MONOCYTES 0.68 0.24 - 0.86 x10'3/uL 12/26/2023 4:59 PM EXPERIMENTAL WELDER [facility] ABS. EOSINOPHILS 0.08 0.04 - 0.36 x10'3/uL 12/26/2023 4:59 PM EXPERIMENTAL WELDER [facility] ABS. BASOPHILS 0.05 0.01 - 0.08 x10'3/uL 12/26/2023 4:59 PM EXPERIMENTAL WELDER [facility] ABS. IMMATURE GRANULOCYTES 0.05 0.00 - 0.49 x10'3/uL 12/26/2023 4:59 PM EXPERIMENTAL WELDER [facility] RBC MORPHOLOGY SLIDE REVIEWED 2023 4:59 PM EXPERIMENTAL WELDER [facility] ANISO 2+ 12/26/2023 4:59 PM EXPERIMENTAL WELDER [facility] POIKLO 1+ 12/26/2023 4:59 PM EXPERIMENTAL WELDER [facility] MICRO 1+ 12/26/2023 4:59 PM EXPERIMENTAL WELDER [facility] POLY 1+ 12/26/2023 4:59 PM EXPERIMENTAL WELDER [facility] PLT EST. ADEQUATE 12/26/2023 4:59 PM EXPERIMENTAL WELDER [facility] 12/26/2023 3:47 PM EXPERIMENTAL WELDER us Jon Garces PA-C LABORATORY Final Resul t [facility] [address] [place] [address], [place] [phone] * LIPASE (12/26/2023 3:47 PM EXPERIMENTAL WELDER) LIPASE 37 13 - 75 UNITS/L 12/26/2023 4:20 PM EXPERIMENTAL WELDER [facility] 12/26/2023 3:47 PM EXPERIMENTAL WELDER us Jon Garces PA-C LABORATORY Final Resul t [facility] [address] [place] [address], [place] [phone] * POCT urine (12/26/2023 3:02 PM EXPERIMENTAL WELDER) URINE HCG TEST NEGATIVE Internal Control: VALID Seda Rodrigues DO POINT OF CARE TEST ORDERABLES Final Result * (ABNORMAL) URINALYSIS AUTO DIP (12/26/2023 2:54 PM EXPERIMENTAL WELDER) Pathologist [facility] SPECIMEN TYPE URINE CLEAN CATCH 12/26/2023 2:54 PM EXPERIMENTAL WELDER [facility] COLOR (U) OTHER 12/26/2023 3:01 PM EXPERIMENTAL WELDER [facility] TRANSPARENCY CLOUDY 12/26/2023 3:01 PM EXPERIMENTAL WELDER [facility] SPECIFIC GRAVITY (U) 1.030 1.001 - 1.030 12/26/2023 3:01 PM [facility] U PH 5.5 5.0 - 9.0 12/26/2023 3:01 PM [facility] LEUKOCYTES (U) TRACE(A) NEGATIVE 12/26/2023 3:01 PM EXPERIMENTAL WELDER [facility] NITRITES NEGATIVE NEGATIVE 12/26/2023 3:01 PM [facility] PROTEIN RANDOM (U) 30(H) <30 MG/DL 12/26/2023 3:01 PM [facility] GLUCOSE (U) NEGATIVE NEGATIVE MG/DL 12/26/2023 3:01 PM EXPERIMENTAL WELDER [facility] KETONES MG/DL (U) NEGATIVE NEGATIVE MG/DL 12/26/2023 3:01 PM [facility] UROBILINOGEN 0.2(A) NEGATIVE MG/DL 12/26/2023 3:01 PM [facility] BILIRUBIN (U) NEGATIVE NEGATIVE MG/DL 12/26/2023 3:01 PM [facility] BLOOD (U) LARGE(A) NEGATIVE 12/26/2023 3:01 PM EXPERIMENTAL WELDER [facility] URINE SPECIMEN OBTAINED BY CLEAN CATCH PROCEDURE / Unknown 12/26/2023 2:54 PM EXPERIMENTAL WELDER us Seda Rodrigues DO URINE ORDERABLES Final Result [facility] [address] [place] [address], from Last 3 Months Insurance [facility] Care Teams Wildlife Officer Relationship Specialty Start Date End Date Jennifer Hart MD [address] [place] [address] PCP - General INTERNAL MEDICINE 12/26/23
--- OUTSIDE RECORDS SUMMARY | 2024-01-28 09:19 | XMS_ITS | CONTINUITY OF CARE DOCUMENT ---
Author Name peace hand Address Unknown Organization [facility] Address [id number] [place] [address] [address] [place] [address] Phone [phone] Care Team Providers Care Tile Setter Name Role Phone MARTY MERIDA MD Unavailable HISTORY OF MEDICATION USE Medication Status Instructions Dates Provider Indications Com ments HYDROCHLOROTHIAZIDE 25 MG ORAL TABLET active ONE TAB DAILY 1 Nena Fields [place]AN POTASSIUM 50 MG ORAL TABLET active once daily 1 Nena Fields INSURANCE PROVIDERS Payer name Policy type / Coverage type Luis red republican ID JANICE MEDICAID (2) Medicaid [id number]
--- OUTSIDE RECORDS SUMMARY | 2024-01-28 09:19 | XMS_ITS | Encounter Summary ---
Author Organization [facility] Address [address] [place] [address]. [place] [address] [place] [address] Care Team Providers Care Cheese Factory Worker Name Role Phone Unavailable Primary Care Provider Unavailabl e Encounter Details Date Type Department Care Team (Late Contact Info) Description 08/02/1999 Abstract [facility] [place] [address] Sai Perez MD [address] [id number] Social History Tobacco Use Types Packs/Day Years [...] (Late Contact Info) Description 02/28/2024 7:20 AM SAMPLE PULLER Office Visit [facility] Family Medicine [facility] [address] [place] [address] Raf Blanc MD [facility] [place] [address] documented as of this encounter Visit Diagnoses Not on filedocumented in this encounter
--- OUTSIDE RECORDS SUMMARY | 2024-01-28 09:19 | XMS_ITS | Encounter Summary ---
Author Organization [facility] Address [address] [place] [address]. [place], [place] [address] [place] [address] Care Team Providers Care Net Developer Name Role Phone Jennifer Hart MD Primary Care Provider [phone] Encounter Details Date Type Department Care Team [...] st Contact Info) Description 02/28/2024 7:20 AM FLIGHT INSTRUCTOR Office Visit [facility] Family Medicine [address] [address] Raf Blanc MD [address] [place] [address]. [place] [address] documented as of this encounter Visit Diagnoses Not on filedocumented in this encounter Care Teams Net Developer Relationship Specialty Start Date End Date Jennifer Hart MD [address] [place] [address] PCP - General INTERNAL MEDICINE 12/26/23 documented as of this encounter
--- OUTSIDE RECORDS SUMMARY | 2024-01-28 09:20 | XMS_ITS | Encounter Summary ---
Author Organization [facility] Healthcare Address [address] [place] [address] Care Team Providers Care Facing Cutting Machine Operator Name Role Phone Michael Oliver DO Primary Care Provider Encounter Details Date Type Department Care Team ([facility] st Contact Info) Description 03/15/2023 Orders Only [facility] Health Information Management [address] [place], [place] [id number] Michael Oliver DO [facility] [address] Social History Tobacco Use Types [...] on filedocumented in this encounter Care Teams Facing Cutting Machine Operator Relationship Specialty Start Date End Date Michael Oliver DO [address] [place] [address] PCP - General Family Medicine 03/03/23 documented as of this encounter
--- OUTSIDE RECORDS SUMMARY | 2024-01-28 09:20 | XMS_ITS | Encounter Summary ---
Author Organization [facility] Healthcare Address [address] [place] [address] Care Team Providers Care Instructional Specialist Name Role Phone Michael Oliver DO Primary Care Provider Encounter Details Date Type Department Care Team ([facility] st Contact Info) Description 04/01/2023 Telephone [facility] Medical [facility] Primary Care [address] [facility] [address] [place] [address] Michael Oliver DO [facility] [address] [place] [address] Social History Tobacco Use Types [...] HMO plan is out of network with [facility]. I called Clarita and talked to her. She is now aware of her out of network plan and has cancelled her GI procedure. EEPER documented in this encounter Plan of Treatment Not on file documented as of this encounter Visit Diagnoses Not on filedocumented in this encounter Care Teams Instructional Specialist Relationship Specialty Start Date End Date Michael Oliver DO [address] [place] [address] PCP - General Family Medicine 03/03/23 documented as of this encounter
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
--- OUTSIDE RECORDS SUMMARY | 2024-01-28 09:20 | XMS_ITS | Encounter Summary ---
Author Organization [facility] Address [address] [facility] [address] [place] [address] Care Team Providers Care Manager Commercial Real Estate Name Role Phone Unavailable Primary Care Provider Unavailabl e Encounter Details Date Type Department Care Team (Late st Contact Info) Description 10/17/2020 8:00 AM CDT Immunization [address] [address] Encounter for vaccination (Primary Dx) Social History [...]
--- OUTSIDE RECORDS SUMMARY | 2024-01-28 09:20 | XMS_ITS | Clinical Summary ---
Author Organization [facility] Address [address] [address] Phone Care Team Providers Care Shoe Singer Name Role Phone Michael Oliver DO Primary [...] 03/03/2023 Assessment & Plan (03/15/2023 7:44 AM TRADING FLOOR OPERATOR): Blood pressure medication adjusted 2 weeks ago [...] age to complete this topic Insurance [facility] [id number] [place] [address] Care Teams Shoe Singer Relationship Specialty [place] [address] [place] [address] PCP - General Family Medicine 03/03/23
--- OUTSIDE RECORDS SUMMARY | 2024-01-28 09:20 | XMS_ITS | Encounter Summary ---
Author Organization [facility] Healthcare Address [address] [place] [address] Care Team Providers Care Retail Special Event Associate Name Role Phone Michael Oliver DO Primary Care Provider Encounter Details Date Type Department Care Team (Latest Contact Info) Description 03/15/2023 10:01 AM REVIEW TRAINER - 03/15/2023 11:59 PM [facility] Hospital Encounter [facility] Building [address] [address] Dysuria; Urinary tract infection with hematuria, site [...] Comments URINE CULTURE Routine 03/15/2023 7:40 AM REVIEW TRAINER Dysuria Urinary tract infection with hematuria, site unspecified documented in this encounter Results * (ABNORMAL) Urine culture Urine, clean voided (03/15/2023 7:40 AM REVIEW TRAINER) Report Final Report: Greater than or equal to 100,000 colonies/mL of Escherichia coli Plus growth of clinically insignificant bacterial bairon. (.) ELIER BREAUX Comment:Testing performed by : [facility], 1 [facility], [place]., [address] Organism ESCHERICHIA COLI ELIER BREAUX Organism PLUS GROWTH OF CLINICALLY INSIGNIFICANT BAIRON. ELIER BREAUX Urine, clean voided 03/15/2023 7:40 AM REVIEW TRAINER 03/16/2023 9:19 PM REVIEW TRAINER Narrative CERNER MH - 03/19/2023 2:51 PM REVIEW TRAINER Testing performed by [facility] Microbiology Laboratory ([phone]) Organism Antibiotic Method Susceptibility Escherichia coli Ampicillin [...] - GEN ERAL ORDERABLES Final Result ELIER [address] Department [place] [address] documented in this encounter Visit Diagnoses Diagnosis Dysuria Urinary tract infection with hematuria, site unspecified documented in this encounter Care Teams Retail Special Event Associate Relationship Specialty Start Date End Date Michael Oliver DO [address] [place] [address] PCP - General Family Medicine 03/03/23 documented as of this encounter
--- OUTSIDE RECORDS SUMMARY | 2024-01-28 09:20 | XMS_ITS | Encounter Summary ---
Author Organization [facility] Healthcare Address [address] [place] [address] Care Team Providers Care Marina Manager Name Role Phone SiouxMichael DO Primary Care Provider Encounter Details Date Type Department Care Team (Late st Contact Info) Description 03/05/2023 10:45 AM WINDOWS SOFTWARE DEVELOPER Lab [facility] [address] [place] [address] Hypothyroidism, unspecified type; Primary hypertension Social History [...] Diagnosis Comments EGFR Routine 03/05/2023 11:01 AM WINDOWS SOFTWARE DEVELOPER Primary hypertension CBC WITHOUT DIFFERENTIAL Routine 03/05/2023 11:01 AM WINDOWS SOFTWARE DEVELOPER Primary hypertension TSH Routine 03/05/2023 11:01 AM WINDOWS SOFTWARE DEVELOPER Hypothyroidism, unspecified type T4, FREE Routine 03/05/2023 11:01 AM WINDOWS SOFTWARE DEVELOPER Hypothyroidism, unspecified type LIPID PANEL Routine 03/05/2023 11:01 AM WINDOWS SOFTWARE DEVELOPER Primary hypertension COMPREHENSIVE METABOLIC PANEL Routine 03/05/2023 11:01 AM WINDOWS SOFTWARE DEVELOPER Primary hypertension documented in this encounter Results * eGFR (03/05/2023 11:01 AM WINDOWS SOFTWARE DEVELOPER) [facility] eGFR 95 mL/min/1. 73 m2 ELIER [...] was last reviewed 2020. Testing performed by: [facility], [address] [place] [address], [place]., [address] Blood 03/05/2023 11:0 1 AM WINDOWS SOFTWARE DEVELOPER 03/05/2023 11:13 AM WINDOWS SOFTWARE DEVELOPER Michael Oliver LAB BLOOD ORDERABLES F inal Result ELIER [address] [facility] Department [place] [address] * (ABNORMAL) CBC without differential (03/05/2023 11:01 AM WINDOWS SOFTWARE DEVELOPER) WBC 7.9 3.8 - 9.9 K/cumm ELIER Comment:Testing performed by : [address] [address] Hgb 11.0(L) 11.9 - 15.5 g/dL ELIER Comment:Testing performed by : [address] [address] Hct 36.3 35.6 - 45.5 % ELIER Comment:Testing performed by : [address] [address] Plt 321 150 - 400 K/cumm ELIER Comment:Testing performed by : [address] [address] MPV 8.1(L) 9.1 - 12.3 fL ELIER Comment:Testing performed by : [address] [address] RBC 5.23(H) 3.90 - 5.20 M/cumm ELIER Comment:Testing performed by : [address] [address] MCV 69.4(L) 81.3 - 96.4 fL ELIER Comment:Testing performed by : [address] [address] MCH 21.0(L) 27.1 - 33.3 pg ELIER Comment:Testing performed by : [address] [address] MCHC 30.3(L) 32.3 - 35.7 g/dL ELIER Comment:Testing performed by : [address] [place]., [address] RDW CV 16.2(H) 11.1 - 14.9 % ELIER BREAUX Comment:Testing performed by : [address] [address] RDW SD 39.7 35.7 - 48.1 fL ELIER BREAUX Comment:Testing performed by : [address] [address] NRBC abs 0.00 0.00 - 0.01 K/cumm ELIER BREAUX Comment:Testing performed by : [address] [address] Blood 03/05/2023 11:0 1 AM WINDOWS SOFTWARE DEVELOPER 03/05/2023 11:14 AM WINDOWS SOFTWARE DEVELOPER iMchael Oliver LAB BLOOD ORDERABLES F inal Result ELIER [facility] Department [place] [address] * (ABNORMAL) Comprehensive metabolic panel (03/05/2023 11:01 AM WINDOWS SOFTWARE DEVELOPER) Sodium 147(H) 135 - 145 mmol/L ELIER BREAUX Comment:Testing performed by : [address] [address] Potassium, pl 3.8 3.3 - 4.9 mmol/L ELIER BREAUX Comment:Testing performed by : [address] [address] Chloride 109 97 - 110 mmol/L ELIER Comment:Testing performed by : [address] [address] CO2 26 22 - 32 mmol/L ELIER BREAUX Comment:Testing performed by : [address] [address] Anion gap 12 2 - 15 mmol/L ELIER Comment:Testing performed by : [address] [address] BUN 13 6 - 25 mg/dL ELIER BREAUX Comment:Testing performed by : [address] [address] Creatinine 0.80 0.60 - 1.10 mg/dL ELIER Comment:Testing performed by : [address] [address] Glucose 103 70 - 199 mg/dL [facility] Comment: Interpretive Data Fasting glucose >/= 126 [...] was last revised 2022. Testing performed by: [address] [address] Calcium 9.1 8.5 - 10.3 mg/dL ELIER Comment:Testing performed by : [address] [address] Bilirubin, total 0.5 0.1 - 1.2 mg/dL [facility] Comment:Testing performed by : [address] [address] Protein, pl 7.0 6.5 - 8.5 g/dL [facility] Comment:Testing performed by : [address] [address] Albumin 4.2 3.5 - 5.0 g/dL [facility] Comment:Testing performed by : [address] [address] Alk phos 78 40 - 130 Units/L [facility] Comment:Testing performed by : [address] [address] ALT 11 7 - 45 Units/L ELIER Comment:Testing performed by : [address] [address] AST 10 10 - 45 Units/L ELIER Comment:Testing performed by : [address] [address] Blood 03/05/2023 11:0 1 AM WINDOWS SOFTWARE DEVELOPER 03/05/2023 11:13 AM WINDOWS SOFTWARE DEVELOPER us Michael Bonilla Melody DO LAB BLOOD ORDERABLES F inal Result NATHANAELISSA [address] [facility] Department [place] [address] * Lipid panel (03/05/2023 11:01 AM WINDOWS SOFTWARE DEVELOPER) Cholesterol 155 30 - 199 mg/dL ELIER [...] last revised on 2017. Testing performed by: [facility], [address] [place] [address]., [address] Triglycerides 137 <=149 mg/dL ELIER Comment: Interpretive [...] last revised on 2017. Testing performed by: [address] [address] HDL 41 >=40 mg/dL [facility] Comment: Interpretive Data Ages < or = [...] last revised on 2017. Testing performed by: [address] [address] LDL, calculated 87 <=129 mg/dL [facility] Comment: Interpretive Data Ages < or = [...] last revised on 2017. Testing performed by: [address] [address] Non-HDL Cholesterol 114 mg/dL ELIER BREAUX Comment: [...] last revised on 2017. Testing performed by: [address] [address] Chol/HDL ratio 4 ELIER Comment:Testing performed by : [address] [address] Blood 03/05/2023 11:0 1 AM WINDOWS SOFTWARE DEVELOPER 03/05/2023 11:13 AM WINDOWS SOFTWARE DEVELOPER Michael Bonilla Sioux DO LAB BLOOD ORDERABLES F inal Result Performing Organization Address [facility] de Phone Number [facility] [address] [facility] Department [place] [address] * T4, free (03/05/2023 11:01 AM WINDOWS SOFTWARE DEVELOPER) Free T4 1.10 0.90 - 1.70 ng/dL ELIER Comment:Testing performed by : [address] [address] Blood 03/05/2023 11:0 1 AM WINDOWS SOFTWARE DEVELOPER 03/05/2023 11:13 AM WINDOWS SOFTWARE DEVELOPER Michael Bonilla Sioux DO LAB BLOOD ORDERABLES F inal Result ELIER [address] [facility] Department [place] [address] * TSH (03/05/2023 11:01 AM WINDOWS SOFTWARE DEVELOPER) Thyroid Stimulating Hormone 3.50 0.30 - 4.20 mcIUnit/mL ELIER BREAUX Comment:Testing performed by : [facility], [address] [place] [address]., [address] Blood 03/05/2023 11:0 1 AM WINDOWS SOFTWARE DEVELOPER 03/05/2023 11:13 AM WINDOWS SOFTWARE DEVELOPER us Michael Oliver DO LAB BLOOD ORDERABLES F inal Result ELIER [facility]0 [facility] [place] [address] documented in this encounter Visit Diagnoses Diagnosis Hypothyroidism, unspecified type Primary hypertension Unspecified essential hypertension documented in this encounter Care Teams Marina Manager Relationship Specialty Start Date End Date Michael Oliver DO [address] [place] [address] PCP - General Family Medicine 03/03/23 documented as of this encounter
--- OUTSIDE RECORDS SUMMARY | 2024-01-28 09:20 | XMS_ITS | Encounter Summary ---
Author Organization [facility] Address [address] [place] [address] Care Team Providers Care Clinical Quality Manager Name Role Phone Michael Oliver DO Primary Care Provider Reason for Referral * Procedure (Routine) - Canceled Specialty Diagnoses / Procedures Referred By Arden ernst Referred To Contact Family Medicine Diagnoses Colon cancer screening Family history of colon cancer Michael Oliver DO [address] [place] [address] Phone: tel: fax: [facility] [address] [place] [phone] Phone: tel: fax: Referral ID Status Reason Start Date Expiration Date Visits Requested Visits Authorized [id number] Canceled Specialty Services Required 03/03/2023 04/01/2024 1 1 Question Answer Procedure to be performed Colonoscopy Please select the performing region: [facility] [[id number]] Please select the performing department: [facility] [[id number]] # of visits: 1 WARE INSTALLER * Diagnostic Imaging (Routine) - Authorized Specialty Diagnoses / Procedures Referred By Arden ernst Referred To Contact Diagnoses Encounter for screening mammogram for malignant neoplasm of breast Family history of breast cancer Procedures SCREENING MAMMOGRAM BILATERAL W JAMEL Michael Oliver DO [address] [place] [address] Phone: tel: fax: [facility] [address] [place] [address] Referral ID Status Reason Start Date Expiration Date V isits Requested Visits Authorized [id number] Authorized 03/03/2023 04/01/2024 1 1 WARE INSTALLER Reason for Visit * Reason Comments Establish Care Encounter Details Date Type Department Care Team ([facility] st Contact Info) Description 03/03/2023 4:00 PM SOFTWARE INSTALLER Office Visit [facility] Primary Care [address] [phone] Michael Oliver DO [address] [address] Primary hypertension (Primary Dx); Encounter [...] Comments Blood Pressure 150/102 03/03/2023 4:03 PM SOFTWARE INSTALLER Pulse 90 03/03/2023 4:03 PM SOFTWARE INSTALLER Temperature 36.3 ??C (97.4 ??F) 03/03/2023 4:03 PM CS T Respiratory Rate 18 03/03/2023 4:03 PM SOFTWARE INSTALLER Oxygen Saturation 98% 03/03/2023 4:03 PM SOFTWARE INSTALLER Inhaled Oxygen Concentration - - Weight 90.4 kg (199 lb 6.4 oz) 03/03/2023 4:03 P M SOFTWARE INSTALLER Height 160 cm (5' 3 ) 03/03/2023 4:03 PM SOFTWARE INSTALLER Body Mass Index 35.32 03/03/2023 4:03 PM SOFTWARE INSTALLER documented in this encounter Ordered Prescriptions Prescription [...] Colon cancer screening - Ambulatory referral to [facility]/GI Procedures; Future Family history of breast cancer - SCREENING MAMMOGRAM BILATERAL W JAMEL; Future Family history of colon cancer - Ambulatory referral to [facility]/GI Procedures; Future Routine physical examination Seasonal [...] today Pap:unsure - encouraged to update with Mechanical Engineering Director Michael Oliver DO WARE INSTALLER documented in this encounter Plan of Treatment Scheduled Orders Name Type Priority Associated Diagnoses Orde r Schedule SCREENING MAMMOGRAM BILATERAL W JAMEL Imaging Schedule Routine, Read Routine (OP Routine) Encounter for screening mammogram for malignant neoplasm of breast Family history of breast cancer Expected: 03/03/2023, Expires: 05/01/2024 Scheduled Referrals Name Type Priority Associated Diagnoses Order Schedule Ambulatory referral to [facility]/GI Procedures Outpatient Referral Routine Colon cancer screening Family history of colon cancer Expected: 03/17/2023 (Approximate), Expires: 03/03/2024 documented as of this encounter Results * TSH (03/05/2023 11:01 AM SOFTWARE INSTALLER) Thyroid Stimulating Hormone 3.50 0.30 - 4.20 mcIUnit/mL ELIER BREAUX Comment:Testing performed by : [facility], [address] [place] [address], [place]., [address] Blood 03/05/2023 11:0 1 AM SOFTWARE INSTALLER 03/05/2023 11:13 AM SOFTWARE INSTALLER Michael Chad Aldridgechcock DO LAB BLOOD ORDERABLES F inal Result Performing Organization Address [facility] de Phone Number [place] [phone] [place] [address] * T4, free (03/05/2023 11:01 AM SOFTWARE INSTALLER) Free T4 1.10 0.90 - 1.70 ng/dL ELIER Comment:Testing performed by : [address] [address] Blood 03/05/2023 11:0 1 AM SOFTWARE INSTALLER 03/05/2023 11:13 AM SOFTWARE INSTALLER Michael Oliver DO LAB BLOOD ORDERABLES F inal Result Performing Organization Address [facility] de Phone Number [place] [address] [place] [address] * Lipid panel (03/05/2023 11:01 AM SOFTWARE INSTALLER) [facility] Cholesterol 155 30 - 199 mg/dL ELIER [...] last revised on 2017. Testing performed by: [address] [address] Triglycerides 137 <=149 mg/dL ELIER Comment: Interpretive [...] last revised on 2017. Testing performed by: [address] [address] HDL 41 >=40 mg/dL ELIER Comment: Interpretive [...] last revised on 2017. Testing performed by: [address] [address] LDL, calculated 87 <=129 mg/dL ELIER Comment: [...] last revised on 2017. Testing performed by: [address] [address] Non-HDL Cholesterol 114 mg/dL ELIER BREAUX Comment: [...] last revised on 2017. Testing performed by: [facility], [address] [place] [address]., [address] Chol/HDL ratio 4 ELIER Comment:Testing performed by : [address] [address] Blood 03/05/2023 11:0 1 AM SOFTWARE INSTALLER 03/05/2023 11:13 AM SOFTWARE INSTALLER us Michael Oliver DO LAB BLOOD ORDERABLES F inal Result ELIER [address] [place] [address] * (ABNORMAL) Comprehensive metabolic panel (03/05/2023 11:01 AM SOFTWARE INSTALLER) Sodium 147(H) 135 - 145 mmol/L ELIER Comment:Testing performed by : [address], [place]., [address] Potassium, pl 3.8 3.3 - 4.9 mmol/L ELIER Comment:Testing performed by : [address], [place]., [address] Chloride 109 97 - 110 mmol/L ELIER Comment:Testing performed by : [address], [place]., [address] CO2 26 22 - 32 mmol/L ELIER Comment:Testing performed by : [address], [place]., [address] Anion gap 12 2 - 15 mmol/L ELIER Comment:Testing performed by : [address] [address] BUN 13 6 - 25 mg/dL ELIER Comment:Testing performed by : [address], [place]., [address] Creatinine 0.80 0.60 - 1.10 mg/dL ELIER Comment:Testing performed by : [address] [address] Glucose 103 70 - 199 mg/dL ELIER [...] was last revised 2022. Testing performed by: [address], [place]., [address] Calcium 9.1 8.5 - 10.3 mg/dL ELIER BREAUX Comment:Testing performed by : [address] [address] Bilirubin, total 0.5 0.1 - 1.2 mg/dL ELIER BREAUX Comment:Testing performed by : [address] [address] Protein, pl 7.0 6.5 - 8.5 g/dL ELIER BREAUX Comment:Testing performed by : [address] [address] Albumin 4.2 3.5 - 5.0 g/dL ELIER BREAUX Comment:Testing performed by : [address] [address] Alk phos 78 40 - 130 Units/L ELIER Comment:Testing performed by : [address] [address] ALT 11 7 - 45 Units/L ELIER Comment:Testing performed by : [address] [address] AST 10 10 - 45 Units/L ELIER Comment:Testing performed by : [address] [address] Blood 03/05/2023 11:0 1 AM SOFTWARE INSTALLER 03/05/2023 11:13 AM SOFTWARE INSTALLER Michael Oliver LAB BLOOD ORDERABLES F inal Result ELIER [address] [facility] Department [place] [address] * (ABNORMAL) CBC without differential (03/05/2023 11:01 AM SOFTWARE INSTALLER) WBC 7.9 3.8 - 9.9 K/cumm ELIER BREAUX Comment:Testing performed by : [address] [address] Hgb 11.0(L) 11.9 - 15.5 g/dL ELIER BREAUX Comment:Testing performed by : [address] [address] Hct 36.3 35.6 - 45.5 % ELIER BREAUX Comment:Testing performed by : [address] [address] Plt 321 150 - 400 K/cumm ELIER Comment:Testing performed by : [address] [address] MPV 8.1(L) 9.1 - 12.3 fL ELIER Comment:Testing performed by : [address] [address] RBC 5.23(H) 3.90 - 5.20 M/cumm ELIER Comment:Testing performed by : [address] [address] MCV 69.4(L) 81.3 - 96.4 fL ELIER Comment:Testing performed by : [address] [address] MCH 21.0(L) 27.1 - 33.3 pg ELIER Comment:Testing performed by : [address], [address] MCHC 30.3(L) 32.3 - 35.7 g/dL ELIER Comment:Testing performed by : [address], [address] RDW CV 16.2(H) 11.1 - 14.9 % ELIER Comment:Testing performed by : [address], [address] RDW SD 39.7 35.7 - 48.1 fL ELIER Comment:Testing performed by : [address], [address] NRBC abs 0.00 0.00 - 0.01 K/cumm ELIER Comment:Testing performed by : [address], [address] Blood 03/05/2023 11:0 1 AM SOFTWARE INSTALLER 03/05/2023 11:14 AM SOFTWARE INSTALLER [facility] BLOOD ORDERABLES F inal Result ELIER [address] [facility] [place] [address] documented in this encounter Visit Diagnoses Diagnosis [...] 03/03/2023 added in this encounter Care Teams Clinical Quality Manager Relationship Specialty Start Date End Date Michael Oliver DO [address] [place] [address] PCP - General Family Medicine 03/03/23 documented as of this encounter
--- OUTSIDE RECORDS SUMMARY | 2024-01-28 09:20 | XMS_ITS | Encounter Summary ---
Author Organization [facility] Address [address] [facility] [address] [place] [address] Care Team Providers Care Embryology Professor Name Role Phone Unavailable Primary Care Provider Unavailabl e Encounter Details Date Type Department Care Team (Late st Contact Info) Description 11/07/2020 7:45 AM CDT Immunization [address] [phone] Encounter for vaccination (Primary Dx) Social History [...]
--- OUTSIDE RECORDS SUMMARY | 2024-01-28 09:20 | XMS_ITS | Encounter Summary ---
Author Organization [facility] Address [address] [place] [address] Care Team Providers Care Rejected Items Clerk Name Role Phone Michael Oliver DO Primary Care Provider Reason for Visit * Reason Comments Urinary Frequency Dysuria Encounter Details Date Type Department Care Team ([facility] st Contact Info) Description 03/15/2023 7:30 AM TECHNICAL ACCOUNT EXECUTIVE Office Visit [facility] Primary Care [address] [facility] [address] [place] [phone] Michael Oliver DO [facility] [address] Dysuria (Primary Dx); Urinary tract [...] Comments Blood Pressure 124/88 03/15/2023 7:25 AM TECHNICAL ACCOUNT EXECUTIVE Pulse 80 03/15/2023 7:25 AM TECHNICAL ACCOUNT EXECUTIVE Temperature 36.2 ??C (97.2 ??F) 03/15/2023 7:25 AM CS T Respiratory Rate 18 03/15/2023 7:25 AM TECHNICAL ACCOUNT EXECUTIVE Oxygen Saturation 99% 03/15/2023 7:25 AM TECHNICAL ACCOUNT EXECUTIVE Inhaled Oxygen Concentration - - Weight 90.8 kg (200 lb 3.2 oz) 03/15/2023 7:25 A M TECHNICAL ACCOUNT EXECUTIVE Height 160 cm (5' 3 ) 03/15/2023 7:25 AM TECHNICAL ACCOUNT EXECUTIVE Body Mass Index 35.46 03/15/2023 7:25 AM TECHNICAL ACCOUNT EXECUTIVE documented in this encounter Ordered Prescriptions Prescription [...] Mammogram: Scheduled for April Michael Oliver DO NICAL ACCOUNT EXECUTIVE documented in this encounter Miscellaneous Notes * Assessment & Plan Note - Michael Oliver DO - 03/15/2023 7:44 AM TECHNICAL ACCOUNT EXECUTIVE Associated Problem(s): Primary hypertension Blood pressure medication adjusted 2 weeks ago and blood pressure readings have improved. No symptoms. Continue same. NICAL ACCOUNT EXECUTIVE documented in this encounter Plan of Treatment Scheduled Orders Name Type Priority Associated Diagnoses Orde r Schedule Urinalysis reflex to microscopic Lab Routine Urinary tract infection with hematuria, site unspecified Expected: 03/30/2023 (Approximate), Expires: 03/15/2024 documented as of this encounter Procedures Procedure Name Priority Date/Time Associated Diagnosis Comments POCT URINALYSIS NON AUTO Routine 03/15/2023 7:36 AM TECHNICAL ACCOUNT EXECUTIVE Dysuria Urinary tract infection with hematuria, site unspecified documented in this encounter Results * (ABNORMAL) Urine culture Urine, clean voided (03/15/2023 7:40 AM TECHNICAL ACCOUNT EXECUTIVE) Report Final Report: Greater than or equal to 100,000 colonies/mL of Escherichia coli Plus growth of clinically insignificant bacterial bairon. (.) ELIER BREAUX Comment:Testing performed by : [facility], [address] [facility], [place]., [address] Organism ESCHERICHIA COLI ELIER BREAUX Organism PLUS GROWTH OF CLINICALLY INSIGNIFICANT BAIRON. ELEIR BREAUX Urine, clean voided 03/15/2023 7:40 AM TECHNICAL ACCOUNT EXECUTIVE 03/16/2023 9:19 PM TECHNICAL ACCOUNT EXECUTIVE Narrative ELIER - 03/19/2023 2:51 PM TECHNICAL ACCOUNT EXECUTIVE Testing performed by [facility] Microbiology Laboratory ([phone]) Organism Antibiotic Method Susceptibility Escherichia coli Ampicillin [...] INTERPRETATION Susceptible Escherichia coli Cefdinir INTERPRETATION Susceptible iiko LAB MICROBIOLOGY - GEN ERAL ORDERABLES Final Result ELIER [address] [facility] Department of Laboratories [place], [place] [id number] * (ABNORMAL) POCT URINALYSIS NON AUTO (03/15/2023 7:36 AM TECHNICAL ACCOUNT EXECUTIVE) Color, Urine, POC Dark Yellow Clarity, ur, POC Cloudy(A) Clear Glucose, ur, POC Negative Negative MG/DL Bilirubin, ur, POC Negative Negative, Small, Moderate, Large Ketones, ur, POC Negative Negative Specific [place], POC 1.025 1.003 - 1.030 Blood, ur, POC Moderate(A) Negative pH, ur, POC 6.0 5.0 - 8.0 Protein, ur, POC 100.(A) Negative Urobilinogen, Urine, POC 0.2 mg/dL Leukocytes, ur, POC Small(A) Negative Nitrite, ur, POC Negative Negative Appearance, fld Cloudy(A) Clear Urine, clean voided 03/15/2023 7:36 AM TECHNICAL ACCOUNT EXECUTIVE [email or web address] POINT OF CARE TEST ORD ERABLES Final Result documented in this encounter Visit Diagnoses Diagnosis Dysuria- Primary Urinary tract infection with hematuria, site unspecified Primary hypertension Unspecified essential hypertension Dysuria Urinary tract infection with hematuria, site unspecified documented in this encounter Care Teams Rejected Items Clerk Relationship Specialty Start Date End Date Michael Oliver DO [address] [place] [id number] PCP - General Family Medicine 03/03/23 documented as of this encounter
--- OUTSIDE RECORDS SUMMARY | 2024-01-28 09:20 | XMS_ITS | Referral Summary ---
Author Organization [facility] Address [address] [address] Phone Care Team Providers Care Small Business Director Name Role Phone Michael Oliver DO Primary [...] 03/03/2023 Assessment & Plan (03/15/2023 7:44 AM SHREDDER TENDER): Blood pressure medication adjusted 2 weeks ago [...] Plan of Treatment Not on file Insurance [facility] [id number] [employer] [facility] Care Teams Small Business Director Relationship Specialty Start Date End Date Michael Oliver DO [address] [place] [phone] PCP - General Family Medicine 03/03/23
--- OUTSIDE RECORDS SUMMARY | 2024-01-28 09:21 | XMS_ITS | Continuity of Care Document ---
Author Organization [facility] Address [address] [place] [phone] Assessment No assessment recorded. Plan of Treatment Reminders Order Date Submit Date Provider Last Modified By Organization Details Last Modified Time Details Appointments ANY 15 2024 02:45P Todd Hart MD Not available Not available Not available Lab vitamin B12 + folate, serum or blood 2023 [facility], [address], [facility] [address], [place], [address], 12/02/2023 08:30:53 iron + TIBC + ferritin, serum 2023 024 [facility], [address], [address], [place], [address], 12/02/2023 08:30:54 hemoglobi n + hematocri t, blood 2023 024 [facility], [address], [address], [place], [address], 12/02/2023 08:30:55 Referral nutrition ist/dieti mary referral 2023 024 [email or web address] [facility] Safety Engineer Nutrition Dietitian, [address] [place], [address], 01/18/2024 12:39:41 chiroprac tor referral - Chronic right shoulder pain 2023 024 [facility], [address], [place], [address], 01/18/2024 12:40:30 Procedures None recorded. Surgeries None recorded. Imaging None recorded. Medication Orders ergocalci ferol (vitamin D2) 1,250 mcg (50,000 unit) capsule 2023 024 [facility], [address] [facility], [place], [address], 12/01/2023 12:31:49 Patient TargetsNo targets recorded. Patient Instructions Encounter Date Encounter Id Patient Instructions Last Modified By Organization Details Last Modified Time 12/01/2023 [id number] prediabetes: car e instructions oapetra Not available 12/01/2023 12:31:36 Imaging reports of the R. shoulder/neck from Travel Coordinator Low CHO diet Weight loss Exercise Start Vitamin D Chiropractor (Patient's preference) [facility] (Scheduled) Military Source Operations Specialist (Scheduled) Follow up in 6 weeks oapetra Not available 12/01/2023 13:46:04 Reason for Referral Travel Coordinator/dietitian Refer ral for Impaired fasting glycemia Referring [...] bilat eral No observ ation record ed. [facility] [address], [place], [address], 12/21/2023 11:09:29 Result Notes None recorded. Problems Name Problem SNOMED Code Status Onset Date Resolution Date Notes Provider Name and Address Organization Details Recorded Time Family history of cancer of colon 317336818 Active 2023 Jennifer Hart MD Attn: Ethan sheridan,[address], [place], [address], [place] [facility] 4 16:24:34 Edema of lower extremity 951443215 Active 2023 Jennifer Hart MD Attn: Rosasjoyce sheridan,[address] [facility], [place], [address], [place] [facility] 4 16:24:40 Generalized anxiety disorder 71842397 Active 2023 Jennifer Hart MD Attn: Ethan arvin,[address] [facility], [place], [address], [place] [facility] 4 16:24:49 Environmental allergy 018380444 Active 2023 Jennifer Hart MD Attn: Ethan arvin,[address] [facility], [place], [address], [place] [facility] 4 16:24:51 Vitamin D deficiency 02181024 Active 2023 Jennifer Hart MD Attn: Ethan sheridan,[address] [facility], [place], [address], [place] [facility] 4 12:22:38 Impaired fasting glycemia 617312312 Active 2023 Jennifer Hart MD Attn: Ethan arvin,[address] [facility], [place], [address], [place] [facility] 4 12:22:39 Folic acid deficiency 766589540 Active 2023 Jennifer Hart MD Attn: Ethan sheridan,[address] [facility], [place], [address], [place] [facility] 4 08:51:15 Iron deficiency 20591518 Active 2023 Jennifer Hart MD Attn: Ethan sheridan,[address] [facility], [place], [address], [place] [facility] 4 08:51:16 [...] completed Not Available Not Available Not Available [employer] Thyroid 30 mg tablet TAKE 1 TABLET [...] Last Updated DateTime 160.02 cm 37 kg/m2 73036.8 1 g 100 % 100 % 94 /min 16 /min 140 mm[Hg] 96 mm[Hg] Otilia Tanner MA [facility] 12:15:32 Date Recorded Systolic blood pressure Diastolic blood pressure Provider Name and Address Organization Details Last Updated DateTime 12/01/2023 120 mm[Hg] 88 mm[Hg] Jennifer Hart MD Attn: Accounting,[address] [facility], [place], [address], [facility] 12/01/2023 12:30:39 Social History Question Answer Notes LastModified by Organizat ion Details LastModified Time Tobacco Smoking Status Never Smoker Otilia Tanner MA null, [facility] 10/05/2023 14:07:08 What Is Your [...] completed Jennifer Hart MD Attn: Accounting,[address] [place], [address], [place] [facility] 10/05/2023 16:21:33 Past Encounters Encounter ID Performer Location Encounter Start Date Encounter Closed Date Diagnosis/Indication Diagnosis SNOMED-CT Code Diagnosis ICD10 Code [id number] MD Kenrick Valentine (Adult Med) [address] [place] [address] 12/01/2023 11:59:51 12/06/2023 12:23:51 Benign hypertension 10464058 I10 Impaired f asting glycemia 613245115 R73.01 Vitamin D deficiency 347 [address] E55.9 Chronic anemia 060683961 D64.9 Pain of ri ght shoulder joint 7452716703 8274628 M25.511 Health Concerns Section Related Observation LastModified by Organization Detai ls LastModified Time None Recorded Concern Status LastModified by Organization Details LastModified Time None Recorded Payers Encounter Date Sequence Insurance Name Policy Number Policy [place] Covered Member ID [place] Member ID Guarantor Name 12/01/2023 1 [place] [id number] [facility] [id number] [facility] Notes Date Note Type Note Provider Name [...] Hart MD Attn: Accounting,[address] [facility], [place], [address], [facility] 12/01/2023 13:46:24 OBGyn Episode No OBEpisode recorded.
--- OUTSIDE RECORDS SUMMARY | 2024-01-28 09:21 | XMS_ITS | Data Portability ---
Author Organization [facility] Address [address] [place] [address] Assessment No assessment recorded. Plan of Treatment Reminders Order Date Submit Date Provider Last Modified By Organization Details Last Modified Time Details Appointments ANY 15 2024 02:45P Todd Hart MD Not available Not available Not available Lab CBC w/ auto diff 2023 024 [facility] Letty, [address] My[address] Mo[address]ica, [address], [place], [address], 10/08/2023 08:23:24 urinalysi s macro (dipstick ) panel, urine 2023 024 [facility], [address], [place], [address], 10/08/2023 08:23:22 lipid panel, serum 2023 024 [facility] [place] Letty, 2022 Myrtle Mojica, [address], [place], [address], 10/08/2023 08:23:20 CMP, serum or plasma 2023 024 KOJO Saenz, 2022 [address], [address], [place], [address], 10/08/2023 08:23:21 HIV 1 + 2, meaningfu l use set 2023 024 KOJO Saenz, 2022 Myrt[address] Mo[address]ica, [address], [place], [address], 10/08/2023 08:23:25 Hepatitis C IgG Ab, qual, serum 2023 024 KOJOAB Saenz, 2022 [address], [address], [place], [address], 10/08/2023 08:23:19 vitamin D, 25-hydrox y, total, serum 2023 024 KOJOAB Hurst, 2022 [address], [address], [place], [address], 10/08/2023 08:23:24 TSH, ultra-sen sitive, serum 2023 024 KOJO Hurst, 2022 My[address] Mo[address], [address], [place], [address], 10/08/2023 08:23:23 HbA1c (hemoglob in A1c), blood 2023 024 KOJO Hurst, [address], [address], [place], [address], 10/08/2023 08:23:22 vitamin B12 + folate, serum or blood 2023 024 KOJOAB Saenz, 2022 My[address], [address], [place], [address], 12/02/2023 08:30:53 iron + TIBC + ferritin, serum 2023 024 KOJOAB Saenz, [address]22 My[address] Mo[address]ica, [address], [place], [address], 12/02/2023 08:30:54 hemoglobi n + hematocri t, blood 2023 024 KOJO Saenz, 2022 Myrt[address], [address], [place], [address], 12/02/2023 08:30:55 Referral gastroent erologist referral 2023 024 slime Rausch MD, [address] [facility], [address], [place], [address], 12/01/2023 12:12:28 nutrition ist/dieti mary referral 2023 024 [email or web address] [facility] Video Games Mechanic Nutrition Dietitian, [address] [facility], [place], [address], 01/18/2024 12:39:41 chiroprac tor referral - Chronic right shoulder pain 2023 024 [email or web address] [facility], [address] [facility], [place], [address], 01/18/2024 12:40:30 Procedures None recorded. Surgeries None recorded. Imaging MAMMO, screening , bilateral 2023 024 [facility] ([facility]), [address] [facility], [place], [address], 12/14/2023 12:17:[address] 10 mg tablet 2023 024 [facility], [address] [place] [address], [address], 10/05/2023 14:43:12 losartan 25 mg tablet 2023 024 [facility], [address] [place], [address], 10/05/2023 14:39:34 furosemid e 20 mg tablet 2023 024 [facility] [address], [address] [place], [address], 10/05/2023 14:41:50 buspirone 5 mg tablet 2023 024 [facility] [address], [address] [place] [address], [address], 10/05/2023 14:43:52 ergocalci ferol (vitamin D2) 1,250 mcg (50,000 unit) capsule 2023 024 [facility], [address] [place], [address], 12/01/2023 12:31:49 Patient TargetsNo targets recorded. Patient Instructions Encounter Date Encounter Id Patient Instructions Last Modified By Organization Details Last Modified Time 10/05/2023 [id number] A healthy lifestyle: care instructions oajao Not [...] and CRI were discussed. 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 of colon cancer Referring Physician: Jennifer Hart, Internal Medicine, Encounter Date: 10/05/2023 Cut And Cover Line Worker/dietitian Refer ral for Impaired fasting glycemia Referring [...] e HCV infec tion. Not Available [facility] ([facility]) [address] [facility], [place], [address], 10/08/2023 08:23:19 10/07/19 24 10/08/2023 LIPID PANEL cholesterol, total 160 mg/dL 100-19 9 Not Available [facility] ([facility]) [address] [place], [address], 10/08/2023 08:23:20 10/07/19 24 10/08/2023 LIPID PANEL triglyceride s 121 mg/dL 0-149 Not Available [facility] ([facility]) [address] [place], [address], 10/08/2023 08:23:20 10/07/19 24 10/08/2023 LIPID PANEL HDL cholesterol 39 mg/dL >39 below low normal Not Available [facility] ([facility]) [address] [place], [address], 10/08/2023 08:23:20 10/07/19 24 10/08/2023 LIPID PANEL VLDL cholesterol keisha 22 mg/dL 5-40 Not Available [facility] ([facility]) [address] [place], [address], 10/08/2023 08:23:20 10/07/19 24 10/08/2023 LIPID PANEL LDL chol calc ([facility]) 99 mg/dL 0-99 Not Available [facility] ([facility]) [address] [facility], [place], [address], 10/08/2023 08:23:20 10/07/19 24 10/08/2023 COMP. METAB OLIC PANEL (14) glucose 101 mg/dL 70-99 above high normal Not Available [facility] ([facility]) [address] [facility], [place], [address], 10/08/2023 08:23:21 10/07/19 24 10/08/2023 COMP. METAB OLIC PANEL (14) BUN 10 mg/dL 6-24 Not Available [facility] ([facility]) [address] [facility], [place], [address], 10/08/2023 08:23:21 10/07/19 24 10/08/2023 COMP. METAB OLIC PANEL (14) creatinine 0.73 mg/dL 0.57-1 .00 Not Available [facility] ([facility]) [address] [facility], [place], [address], 10/08/2023 08:23:21 10/07/19 24 10/08/2023 COMP. METAB OLIC PANEL (14) eGFR 105 mL/mi n/1.7 3 >59 Not Available [facility] ([facility]) [address] [facility], [place], [address], 10/08/2023 08:23:21 10/07/19 24 10/08/2023 COMP. METAB OLIC PANEL (14) BUN/creatini ne ratio 14 9-23 Not Available [facility] ([facility]) [address] [facility], [place], [address], 10/08/2023 08:23:21 10/07/19 24 10/08/2023 COMP. METAB OLIC PANEL (14) sodium 141 mmol/ L 134-14 4 Not Available [facility] ([facility]) [address] [facility] [place], [address], 10/08/2023 08:23:21 10/07/19 24 10/08/2023 COMP. METAB OLIC PANEL (14) potassium 4.3 mmol/ L 3.5-5. 2 Not Available [facility] ([facility]) [address] [place], [address], 10/08/2023 08:23:21 10/07/19 24 10/08/2023 COMP. METAB OLIC PANEL (14) chloride 107 mmol/ L 96-106 above high normal Not Available [facility] ([facility]) [address] [place], [address], 10/08/2023 08:23:21 10/07/19 24 10/08/2023 COMP. METAB OLIC PANEL (14) carbon dioxide, total 18 mmol/ L 20-29 below low normal Not Available [facility] ([facility]) [address] [facility] [place] [place], [address], 10/08/2023 08:23:21 10/07/19 24 10/08/2023 COMP. METAB OLIC PANEL (14) calcium 8.9 mg/dL 8.7-10 .2 Not Available [facility] ([facility]) [address] [facility] [place] [place], [address], 10/08/2023 08:23:21 10/07/19 24 10/08/2023 COMP. METAB OLIC PANEL (14) protein, total 6.6 g/dL 6.0-8. 5 Not Available [facility] ([facility]) [address] [facility] [place] [place], [address], 10/08/2023 08:23:21 10/07/19 24 10/08/2023 COMP. METAB OLIC PANEL (14) albumin 4.0 g/dL 3.9-4. 9 Not Available [facility] ([facility]) [address] [place], [address], 10/08/2023 08:23:21 10/07/19 24 10/08/2023 COMP. METAB OLIC PANEL (14) globulin, total 2.6 g/dL 1.5-4. 5 Not Available [facility] ([facility]) [address] [place], [address], 10/08/2023 08:23:21 10/07/19 24 10/08/2023 COMP. METAB OLIC PANEL (14) bilirubin, total 0.2 mg/dL 0.0-1. 2 Not Available [facility] ([facility]) [address] [place], [address], 10/08/2023 08:23:21 10/07/19 24 10/08/2023 COMP. METAB OLIC PANEL (14) alkaline phosphatase 77 IU/L 44-121 Not Available [facility] ([facility]) [address] [place], [address], 10/08/2023 08:23:21 10/07/19 24 10/08/2023 COMP. METAB OLIC PANEL (14) AST (SGOT) 13 IU/L 0-40 Not Available [facility] ([facility]) [address] [place], [address], 10/08/2023 08:23:21 10/07/19 24 10/08/2023 COMP. METAB OLIC PANEL (14) ALT (SGPT) 14 IU/L 0-32 Not Available [facility] ([facility]) [address] [place], [address], 10/08/2023 08:23:21 10/07/19 24 10/08/2023 MICRO SCOPI C EXAMI NATIO N WBC 6-10 /hpf 0-5 abnormal Not Available [facility] ([facility]) [address] [place], [address], 10/08/2023 08:23:21 10/07/19 24 10/08/2023 MICRO SCOPI C EXAMI NATIO N RBC 0-2 /hpf 0-2 Not Available [facility] ([facility]) [address] [facility], [place], [address], 10/08/2023 08:23:21 10/07/19 24 10/08/2023 MICRO SCOPI C EXAMI NATIO N epithelial cells (non renal) 0-10 /hpf 0-10 Not Available [facility] ([facility]) [address] [facility], [place], [address], 10/08/2023 08:23:21 10/07/19 24 10/08/2023 MICRO SCOPI C EXAMI NATIO N casts NONE SEEN /lpf nonese en Not Available [facility] ([facility]) [address] [facility], [place], [address], 10/08/2023 08:23:21 10/07/19 24 10/08/2023 MICRO SCOPI C EXAMI NATIO N bacteria MODERA TE nonese en/few abnormal Not Available [facility] ([facility]) [address] [facility], [place], [address], 10/08/2023 08:23:21 10/07/19 24 10/08/2023 HEMOG LOBIN A1C hemoglobin A1C 5.9 % 4.8-5. 6 above high normal Predi abete s: 5.7 - 6.4 Diabe german: >6.4 Glyce ben contr ol for adult s with diabe german: <7.0 Not Available [facility] ([facility]) [address] [facility], [place], [address], 10/08/2023 08:23:22 10/07/19 24 10/08/2023 URINA LYSIS , ROUTI NE specific gravity 1.013 1.005- 1.030 Not Available [facility] ([facility]) [address] [facility], [place], [address], 10/08/2023 08:23:22 10/07/19 24 10/08/2023 URINA LYSIS , ROUTI NE pH 5.5 5.0-7. 5 Not Available [facility] ([facility]) [address] [facility], [place], [address], 10/08/2023 08:23:22 10/07/19 24 10/08/2023 URINA LYSIS , ROUTI NE urine-color YELLOW yellow Not Available [facility] ([facility]) [address] [facility], [place], [address], 10/08/2023 08:23:22 10/07/19 24 10/08/2023 URINA LYSIS , ROUTI NE appearance CLEAR clear Not Available [facility] ([facility]) [address] [facility], [place], [address], 10/08/2023 08:23:22 10/07/19 24 10/08/2023 URINA LYSIS , ROUTI NE WBC esterase TRACE negati ve abnormal Not Available [facility] ([facility]) [address] [facility], [place], [address], 10/08/2023 08:23:22 10/07/19 24 10/08/2023 URINA LYSIS , ROUTI NE protein NEGATI VE negati ve/tra ce Not Available [facility] ([facility]) [address] [place], [address], 10/08/2023 08:23:22 10/07/19 24 10/08/2023 URINA LYSIS , ROUTI NE glucose NEGATI VE negati ve Not Available [facility] ([facility]) [address] [place], [address], 10/08/2023 08:23:22 10/07/19 24 10/08/2023 URINA LYSIS , ROUTI NE ketones NEGATI VE negati ve Not Available [facility] ([facility]) [address] [facility], [place], [address], 10/08/2023 08:23:22 10/07/19 24 10/08/2023 URINA LYSIS , ROUTI NE occult blood 3+ negati ve abnormal Not Available [facility] ([facility]) [address] [facility], [place], [address], 10/08/2023 08:23:22 10/07/19 24 10/08/2023 URINA LYSIS , ROUTI NE bilirubin NEGATI VE negati ve Not Available [facility] ([facility]) [address] [facility], [place], [address], 10/08/2023 08:23:22 10/07/19 24 10/08/2023 URINA LYSIS , ROUTI NE urobilinogen ,semi-qn 0.2 mg/dL 0.2-1. 0 Not Available [facility] ([facility]) [address] [facility], [place], [address], 10/08/2023 08:23:22 10/07/19 24 10/08/2023 URINA LYSIS , ROUTI NE nitrite, urine NEGATI VE negati ve Not Available [facility] ([facility]) [address] [facility], [place], [address], 10/08/2023 08:23:22 10/07/19 24 10/08/2023 URINA LYSIS , ROUTI NE microscopic examination SEE BELOW: Micro scopi c was indic ated and was perfo rmed. Not Available [facility] ([facility]) [address] [place], [address], 10/08/2023 08:23:22 10/07/19 24 10/08/2023 TSH TSH 4.320 uIU/m L 0.450- 4.500 Not Available [facility] ([facility]) [address] [place], [address], 10/08/2023 08:23:23 10/07/19 24 10/08/2023 CBC WITH DIFFE RENTI AL/PL ATELE T WBC 7.3 x10e3 /uL 3.4-10 .8 Not Available [facility] ([facility]) [address] [facility], [place], [address], 10/08/2023 08:23:24 10/07/19 24 10/08/2023 CBC WITH DIFFE RENTI AL/PL ATELE T RBC 4.90 x10e6 /uL 3.77-5 .28 Not Available [facility] ([facility]) [address] [place], [address], 10/08/2023 08:23:24 10/07/19 24 10/08/2023 CBC WITH DIFFE RENTI AL/PL ATELE T hemoglobin 9.0 g/dL 11.1-1 5.9 below low normal Not Available [facility] ([facility]) [address] [place], [address], 10/08/2023 08:23:24 10/07/19 24 10/08/2023 CBC WITH DIFFE RENTI AL/PL ATELE T hematocrit 32.2 % 34.0-4 6.6 below low normal Not Available [facility] ([facility]) [address] [place], [address], 10/08/2023 08:23:24 10/07/19 24 10/08/2023 CBC WITH DIFFE RENTI AL/PL ATELE T MCV 66 fL 79-97 below low normal Not Available [facility] ([facility]) [address] [place], [address], 10/08/2023 08:23:24 10/07/19 24 10/08/2023 CBC WITH DIFFE RENTI AL/PL ATELE T MCH 18.4 pg 26.6-3 3.0 below low normal Not Available [facility] ([facility]) [address] [place], [address], 10/08/2023 08:23:24 10/07/19 24 10/08/2023 CBC WITH DIFFE RENTI AL/PL ATELE T MCHC 28.0 g/dL 31.5-3 5.7 below low normal Not Available [facility] ([facility]) [address] [facility], [place], [address], 10/08/2023 08:23:24 10/07/19 24 10/08/2023 CBC WITH DIFFE RENTI AL/PL ATELE T RDW 17.0 % 11.7-1 5.4 above high normal Not Available [facility] ([facility]) [address] [facility], [place], [address], 10/08/2023 08:23:24 10/07/19 24 10/08/2023 CBC WITH DIFFE RENTI AL/PL ATELE T platelets 358 x10e3 /uL 150-45 0 Not Available [facility] ([facility]) [address] [facility], [place], [address], 10/08/2023 08:23:24 10/07/19 24 10/08/2023 CBC WITH DIFFE RENTI AL/PL ATELE T neutrophils 60 % notest ab. Not Available [facility] ([facility]) [address] [place], [address], 10/08/2023 08:23:24 10/07/19 24 10/08/2023 CBC WITH DIFFE RENTI AL/PL ATELE T lymphs 32 % notest ab. Not Available [facility] ([facility]) [address] [place], [address], 10/08/2023 08:23:24 10/07/19 24 10/08/2023 CBC WITH DIFFE RENTI AL/PL ATELE T monocytes 6 % notest ab. Not Available [facility] ([facility]) [address] [place], [address], 10/08/2023 08:23:24 10/07/19 24 10/08/2023 CBC WITH DIFFE RENTI AL/PL ATELE T eos 1 % notest ab. Not Available [facility] ([facility]) [address] [facility], [place], [address], 10/08/2023 08:23:24 10/07/19 24 10/08/2023 CBC WITH DIFFE RENTI AL/PL ATELE T basos 1 % notest ab. Not Available [facility] ([facility]) [address] [facility], [place], [address], 10/08/2023 08:23:24 10/07/19 24 10/08/2023 CBC WITH DIFFE RENTI AL/PL ATELE T neutrophils (absolute) 4.4 x10e3 /uL 1.4-7. 0 Not Available [facility] ([facility]) [address] [facility], [place], [address], 10/08/2023 08:23:24 10/07/19 24 10/08/2023 CBC WITH DIFFE RENTI AL/PL ATELE T lymphs (absolute) 2.3 x10e3 /uL 0.7-3. 1 Not Available [facility] ([facility]) [address] [facility], [place], [address], 10/08/2023 08:23:24 10/07/19 24 10/08/2023 CBC WITH DIFFE RENTI AL/PL ATELE T monocytes(ab solute) 0.4 x10e3 /uL 0.1-0. 9 Not Available [facility] ([facility]) [address] [place], [address], 10/08/2023 08:23:24 10/07/19 24 10/08/2023 CBC WITH DIFFE RENTI AL/PL ATELE T eos (absolute) 0.1 x10e3 /uL 0.0-0. 4 Not Available [facility] ([facility]) [address] [place], [address], 10/08/2023 08:23:24 10/07/19 24 10/08/2023 CBC WITH DIFFE RENTI AL/PL ATELE T baso (absolute) 0.0 x10e3 /uL 0.0-0. 2 Not Available [facility] ([facility]) [address] [facility], [place], [address], 10/08/2023 08:23:24 10/07/19 24 10/08/2023 CBC WITH DIFFE RENTI AL/PL ATELE T immature granulocytes 0 % notest ab. Not Available [facility] ([facility]) [address] [facility], [place], [address], 10/08/2023 08:23:24 10/07/19 24 10/08/2023 CBC WITH DIFFE RENTI AL/PL ATELE T immature grans (abs) 0.0 x10e3 /uL 0.0-0. 1 Not Available [facility] ([facility]) [address] [facility], [place], [address], 10/08/2023 08:23:24 10/07/19 24 10/08/2023 VITAM IN [...] um and D. Wilfredo sahu DC: [facility] . 2. Nimisha macedo MF, Lory dong NC, Fabio off-F errar i BHAKTA, et al. Evalu ation , treat ment, and preve ntion of vitam in D defic iency : an Endoc rine Socie ty clini keisha pract ice guide line. JCEM. 2010; 96(7) :1911 -30. Not Available [facility] ([facility]) [address] [facility], [place], [address], 10/08/2023 08:23:24 10/07/1910/08/2023 HIV AB/P2 4 AG WITH REFLE X HIV Ab/P24 Ag screen NON REACTI VE nonrea ctive HIV-1 /HIV- 2 antib odies and HIV-1 p24 antig en were NOT detec janeen. There is no labor atory evide nce of HIV infec tion. HIV Negat kiarra Not Available [facility] ([facility]) [address] [facility], [place], [address], 10/08/2023 08:23:25 12/01/1912/02/2023 VITAM IN B12 AND FOLAT E vitamin B12 379 pg/mL 232-12 45 Not Available [facility] ([facility]) [address] [facility], [place], [address], 12/02/2023 08:30:53 12/01/1912/02/2023 VITAM IN B12 AND FOLAT E folate (folic acid), serum 2.9 NG/mL >3.0 below low normal A serum folat e celestina ntrat ion of less than 3.1 ng/mL is consi dered to repre sent clini keisha defic iency . Not Available [facility] ([facility]) [address] [facility], [place], [address], 12/02/2023 08:30:53 12/01/1912/02/2023 FE+TI BC+FE R iron bind.cap.(TI BC) 390 ug/dL 250-45 0 Not Available [facility] ([facility]) [address] [facility], [place], [address], 12/02/2023 08:30:54 12/01/1912/02/2023 FE+TI BC+FE R UIBC 369 ug/dL 131-42 5 Not Available [facility] ([facility]) [address] [place], [address], 12/02/2023 08:30:54 12/01/1912/02/2023 FE+TI BC+FE R iron 21 ug/dL 27-159 below low normal Not Available [facility] ([facility]) [address] [facility], [place], [address], 12/02/2023 08:30:54 12/01/1912/02/2023 FE+TI BC+FE R iron saturation 5 % 15-55 alert low Not Available [facility] ([facility]) [address] [facility], [place], [address], 12/02/2023 08:30:54 12/01/1912/02/2023 FE+TI BC+FE R ferritin 9 NG/mL 15-150 below low normal Not Available [facility] ([facility]) [address] [facility], [place], [address], 12/02/2023 08:30:54 12/01/1912/02/2023 HGB+H CT hemoglobin 11.9 g/dL 11.1-1 5.9 Not Available [facility] ([facility]) [address] [facility], [place], [address], 12/02/2023 08:30:55 12/01/1912/02/2023 HGB+H CT hematocrit 42.0 % 34.0-4 6.6 Not Available [facility] ([facility]) [address] [place], [address], 12/02/2023 08:30:55 12/14/19 24 12/14/2023 MAMMO , scree luz maria, bilat eral No observ ation record ed. [email or web address] [facility] [address], [address], 12/21/2023 11:09:29 Result Notes None recorded. Problems Name Problem SNOMED Code Status Onset Date Resolution Date Notes Provider Name and Address Organization Details Recorded Time Family history of cancer of colon 101440483 Active 2023 Jennifer Hart MD Attn: Ethan sheridan,[address] [facility], [place], [address], [place] [facility] 4 16:24:34 Edema of lower extremity 606618287 Active 2023 Jennifer Hart MD Attn: Ethan sheridan,[address] [facility], [place], [address], [place] [facility] 4 16:24:40 Generalized anxiety disorder 38970862 Active 2023 Jennifer Hart MD Attn: Ethan sheridan,[address] [facility], [place], [address], [place] [facility] 16:24:49 Environmental allergy 659175802 Active 2023 Jennifer Hart MD Attn: Ethan sheridan,[address] [facility], [place], [address], [place] [facility] 4 16:24:51 Vitamin D deficiency 41002555 Active 2023 Jennifer Hart MD Attn: Ethan sheridan,[address] [facility], [place], [address], [place] [facility] 4 12:22:38 Impaired fasting glycemia 443048324 Active 2023 Jennifer Hart MD Attn: Ethan sheridan,[address] [facility], [place], [address], [place] [facility] 4 12:22:39 Folic acid deficiency 979788673 Active 2023 Jennifer Hart MD Attn: Ethan sheridan,[address] [facility], [place], [address], [place] [facility] 08:51:15 Iron deficiency 72282260 Active 2023 Jennifer Hart MD Attn: Ethan sheridan,[address], [place], [address], [facility] 08:51:16 Problem Notes None recorded. Procedures Surgical History Date Name Laterality Status Provider Name and Address Organization Details Recorded Time Cholecystectomy completed Otilia Tanner MA [facility] 10/05/2023 14:07:17 Knee Surgery completed Otilia Tanner MA [facility] 10/05/2023 14:07:26 Imaging Results Imaging Date Name Status LastModified by Organiz ation Details LastModified Time 12/14/2023 MAMMO, screening, bilateral completed [facility] [address] [place], [address], 12/21/2023 11:09:29 Procedure Notes None recorded. 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 Thyroid 30 mg tablet TAKE 1 TABLET BY MOUTH ONCE DAILY FOR HYPOTHYR OID 10/04 completed Not Available Not Available Not Available Vitals Date Recorded Body weight Respiratory rate Body mass index (BMI) Body height Oxygen saturation Oxygen saturation in Arterial blood by Pulse oximetry Heart rate Systolic blood pressure Diastolic blood pressure Provider Name and Address Organization Details Last Updated DateTime 4 41907 g 14 /min 38.1 kg/m2 160.02 cm [...] Last Updated DateTime 160.02 cm 37 kg/m2 99216.8 1 g 100 % 100 % 94 /min 16 /min 140 mm[Hg] 96 mm[Hg] Otilia Tanner MA [facility] 12:15:32 Date Recorded Systolic blood pressure Diastolic blood pressure Provider Name and Address Organization Details Last Updated DateTime 12/01/2023 120 mm[Hg] 88 mm[Hg] Jennifer Hart MD Attn: [employer] [place], [id number], [facility] 12/01/2023 12:30:39 Social History Question Answer Notes LastModified by Organizat ion Details LastModified Time Tobacco Smoking Status Never Smoker Otilia Tanner MA null, [facility] 10/05/2023 14:07:08 What Is Your Level Of [...] available 2023 14:09:42 Medical History Condition Response High Blood Pressure Y Kidney or Bladder Problems Y Anxiety Disorder Y Allergies Y Gynecological HistoryNo gynecological history [...] completed Jennifer Hart MD Attn: Accounting,[address] [place], [address], [place] [facility] 10/05/2023 16:21:33 Past Encounters Encounter ID Performer Location Encounter Start Date Encounter Closed Date Diagnosis/Indication Diagnosis SNOMED-CT Code Diagnosis ICD10 Code [id number] Jennifer Hart MD [facility] (Adult Med) [address] [place] [phone] 10/05/2023 13:50:49 10/07/2023 12:04:58 General examination of patient 370784460 Z00.01 Benign hypertension 1072 5009 I10 Body mass index 30+ - obesity 621003078 Z68.38 Overweight 352705104 E66 .3 Screening mammography of bilateral breasts 5869386381 97661 Z12.31 Screening for malignant neoplasm of colon 421275563 Z12.11 Administra tion of diphtheria, pertussis, and tetanus vaccine 759054790 Z23 SARS-CoV-2 vaccination declined 4925257059 Z28.21 Family his tory of cancer of colon 847979985 Z80.0 Edema of l ower extremity 875392198 R60.0 Environmental allergy 42 1202524 T78.49XA Generalize d anxiety disorder 01961685 F41.1 [id number] Jennifer Hart MD [facility] (Adult Med) [address] [place] [address] 12/01/2023 11:59:51 12/06/2023 12:23:51 Benign hypertension 04933751 I10 Impaired f asting glycemia 570893582 R73.01 Vitamin D deficiency 347 06113 E55.9 Chronic anemia 163018942 D64.9 Pain of ri ght shoulder joint 4119558578 7347940 M25.511 Health Concerns Section Related Observation LastModified by Organization Detai ls LastModified Time None Recorded Concern Status LastModified by Organization Details LastModified Time None Recorded Advance Directives Directive None Recorded Payers Encounter Date Sequence Insurance Name Policy Number Policy [place] Covered Member ID [place] Member ID Guarantor Name 10/05/2023 1 [place] [id number] Clarita R Butler [id number] Clarita Butler 12/01/2023 1 [place] [id number] Clarita R Butler [id number] Clarita Butler Notes Date Note Type [...] dizzy. 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
== END 2024-01-23 13:19 | disposition home or self-care (01) ==
PROVIDERS: Anesthesiology; PCP Internal Medicine Infectious Disease; Visit Provider Obstetrics & Gynecology Gynecology
PROC: 0U5B8ZZ Destruction of Endometrium, Via Natural or Artificial Opening Endoscopic (ICD-10-PCS; CPT 58563; principal; 2024-01-23 10:45)
DX: N92.0 Excessive and frequent menstruation with regular cycle (principal); D25.9 Leiomyoma of uterus, unspecified; N84.0 Polyp of corpus uteri; I10 Essential (primary) hypertension; F41.9 Anxiety disorder, unspecified; E66.9 Obesity, unspecified; Z68.37 Body mass index [BMI] 37.0-37.9, adult
CPT/HCPCS: 58561; 88305; A9270; J1885; J2250; J2704; J3010; J7120

== ENCOUNTER 2024-11-23 13:53 | Outpatient (CLI) | payer BC, SELFPAY ==
--- OUTSIDE RECORDS SUMMARY | 2024-11-23 14:00 | XMS_ITS | Clinical Summary ---
Author Organization [facility] Address [address] [place] [address] Care Team Providers Care Pecan Cleaner Name Role Phone Unavailable Primary Care Provider Unavailabl e Allergies No known active allergies Medications losartan (COZAAR) 50 MG tablet Take 1 tablet (50 mg) by mouth daily Active busPIRone (BUSPAR) 5 MG tablet Take 1 tablet (5 mg) by mouth 2 times daily Active ibuprofen (MOTRIN) 600 MG tablet Take 1 tablet (600 mg) by mouth every 6 (six) hours if needed 30 tablet 5 12/01/19 25 Active HYDROcodone-acetami nophen (NORCO) 5-325 MG per tabletIndications:H ydronephrosis concurrent with and due to calculi of kidney and ureter Take 1 tablet by mouth every 6 (six) hours if needed 6 tablet 5 11/03/19 25 tamsulosin (FLOMAX) 0.4 MG capsule Take 1 capsule (0.4 mg) by mouth daily for 7 days 7 capsule 5 11/08/19 25 ondansetron (ZOFRAN ODT) 4 MG disintegrating tablet Take 1 tablet (4 mg) by mouth every 6 (six) hours if needed 20 tablet 5 11/08/19 25 cephALEXin (KEFLEX) 500 MG capsule Take 1 capsule (500 mg) by mouth 3 times daily for 7 days 21 capsule 5 11/08/19 25 Encounters Date Type Department Care Team Description 10/31/2024 9:57 PM CDT - 11/01/2024 12:11 AM CDT Emergency [facility] Emergency Department [address] [place] [address] [phone] Jeffrey Golden MD Hydronephrosis concurrent with and due to calculi of kidney and ureter (Primary Dx); UTI (urinary tract infection), uncomplicated Discharge Disposition: Home from Last 3 Months Social History Tobacco Use Types Packs/Day Years Used Date Smoking Tobacco: Never Smokeless Tobacco: Never Tobacco Cessation:Counseling Given: Not Answered Alcohol Use Standard Drinks/Week Comments Not Currently 0 (1 standard drink = 0.6 oz pur e alcohol) Humiliation, Afraid, Rape, and Kick questionnair e Answer Date Recorded Within the last year, have y ou been afraid of your partner or ex-partner? No 10/31/2024 Within the last year, have y ou been humiliated or emotionally abused in other ways by your partner or ex-partner? No Within the last year, have y ou been kicked, hit, slapped, or otherwise physically hurt by your partner or ex-partner? No 10/31/2024 Within the last year, have y ou been raped or forced to have any kind of sexual activity by your partner or ex-partner? No 10/31/2024 Hunger Vital Sign Answer Date Recorded Within the past 12 months, y ou worried that your food would run out before you got the money to buy more. Never true 11/01/19 25 Within the past 12 months, t he food you bought just didn't last and you didn't have money to get more. Never true 10/31/2024 PRAPARE - Transportation Answer Date Re corded In the past 12 months, has l ack of transportation kept you from medical appointments or from getting medications? No 10/09 In the past 12 months, has l ack of transportation kept you from meetings, work, or from getting things needed for daily living? No 10/31/2024 Housing Stability Vital Sign Answer Campos e Recorded In the last 12 months, was t here a time when you were not able to pay the mortgage or rent on time? No 10/31/2024 Number of Times Moved in the Last Year Not on fi le 10/31/2024 At any time in the past 12 m [facility], were you homeless or living in a penitentiary (including now)? No 10/31/2024 [facility] Utilities Answer Date Recorded In the past 12 months has th [employer] electric, gas, oil, or water company threatened to shut off services in your home? No 10/31/2024 Alcohol Use Answer Date Recorded Frequency of Alcohol Consumption Not on file 10/31/2024 Average Number of Drinks Not on file 025 Frequency of Binge Drinking Not on file 10/09 Alcohol Use Status Not Currently 10/31/2024 Average alcohol consumption Not on file 10/09 Comments No Sex and Gender Information Value Date Recorded Sex Assigned at Not on file Legal Sex Female 9:47 PM CDT Gender Identity Not on file Sexual Orientation Not on file Last Filed Vital Signs Vital Sign Reading Time Taken Comments Blood Pressure 148/86 10/31/2024 11:45 PM CDT Pulse 97 10/31/2024 11:57 PM CDT Temperature 36.9 C (98.4 F) 10/31/2024 11:45 PM CDT Respiratory Rate 17 10/31/2024 11:45 PM CDT Oxygen Saturation 96% 10/31/2024 11:57 PM CDT Inhaled Oxygen Concentration - - Weight 90.7 kg (200 lb) 10/31/2024 9:58 PM CDT Height 160 cm (5' 3) 10/31/2024 9:58 PM CDT Body Mass Index 35.43 10/31/2024 9:58 PM CDT Plan of Treatment Health Maintenance Due Date Last Done Comments HIV Screening 1981 Hepatitis C Screening ages 1 8 to 79 once 1981 MMR VACCINES (1 of 1 - Standard series) 1982 DEPRESSION SCREENING 1993 Varicella Vaccine (1 of 2 - 13+ 2-dose series) 1994 HPV VACCINES (1 - 3-dose series) 1996 BMI Above/Below Normal Parameters 05/09/1999 HEPATITIS B VACCINES (1 of 3 - 19+ 3-dose series) 2000 CERVICAL CANCER SCREENING 2002 BREAST CANCER SCREENING 2021 Influenza Vaccine 09/07/2024 11/23/2023, 11/07/2022 COVID-19 Immunization ( season) 2024 11/07/2020, 10/17/2020 YEARLY WELLNESS EXAM 02/16/2025 02/17/2024, 03/03/2023 Zoster Vaccine (Recombinant Vaccine) (1 of 2) 05/09/2031 ADULT TETANUS 10/04/2033 10/05/2023 HEPATITIS A VACCINES Aged Out No long er eligible based on patient's age to complete this topic HIB VACCINES Aged Out No longer eligi ble based on patient's age to complete this topic IPV VACCINES Aged Out No longer eligi ble based on patient's age to complete this topic MENINGOCOCCAL VACCINE Aged Out No vciky troy eligible based on patient's age to complete this topic Meningococcal B Vaccine Aged Out No l onger eligible based on patient's age to complete this topic Pneumococcal Vaccine: Peds t o 50 & At-Risk Patients Aged Out No longer eligible based on patient's age to complete this topic ROTAVIRUS VACCINES Aged Out No longer eligible based on patient's age to complete this topic Procedures Procedure Name Priority Date/Time Associated Diagnosis Comments URINALYSIS WITH REFLEX TO CULTURE, IF INDICATED STAT 10/31/2024 10:48 PM CDT URINE CULTURE STAT 10/31/2024 10:[address] ABDOMEN PELVIS WO CONTRAST STAT 10/31/2024 10:33 PM CDT LIPASE STAT 10/31/2024 10:14 PM CDT COMPREHENSIVE METABOLIC PANEL STAT 10/31/2024 10:14 PM CDT CBC W AUTO DIFF STAT 10/31/2024 10:14 PM CDT from Last 3 Months Results * (ABNORMAL) URINALYSIS WITH REFLEX TO CULTURE, IF INDICATED (10/31/2024 10:48 PM CDT) Glucose UA NORMAL NORMAL MG/DL [facility] Protein UA 30(A) NEGATIVE MG/DL [facility] Bilirubin UA NEGATIVE NEGATIVE [facility] Urobilinogen UA NORMAL <2 MG/DL [facility] pH, Urine 5.0 5.0 - 8.0 [facility] Blood UA 250(A) NEGATIVE [facility] Ketones UA NEGATIVE NEGATIVE MG/DL [facility] Nitrite UA NEGATIVE NEGATIVE [facility] Leukocyte Esterase UA 100(A) NEGATIVE [facility] UR Appearance CLEAR CLEAR [facility] Specific Martell UA 1.025 1.005 - 1.030 [facility] Color YELLOW YELLOW [facility] Site CCMS [facility] Microscopic Performed PERFORMED [facility] RBC Urine >50(A) 0 - 5 /HPF [facility] WBC Urine 25-50(A) 0 - 5 /HPF [facility] Bacteria 2+(A) NONE /HPF [facility] Urine 10/31/2024 10:4 8 PM CDT 10/31/2024 10:50 PM CDT us Jeffrey Golden MD URINE ORDERABLES Final R esult Performing Organization Address City/[facility]/ZIP Co de Phone Number [address] [phone] * URINE CULTURE (10/31/2024 10:48 PM CDT) Specimen Type URINE [facility] Special Handling NONE Reflexed from [id number] [facility] Culture Result >=100,000 COL/ML NORMAL UROGENITAL LAURA [facility] Status 11/03/2024 FINAL [facility] Urine 10/31/2024 10:4 8 PM CDT 10/31/2024 10:50 PM CDT us Jeffrey Golden MD URINE ORDERABLES Final R esult Performing Organization Address City/[facility]/ZIP Co de Phone Number [address] [phone] * CT ABDOMEN PELVIS WO CONTRAST (10/31/2024 10:33 PM CDT) Anatomical Region Laterality Modality Abdomen Computed Tomogra phy 10/31/2024 10:3 0 PM CDT Impressions 10/31/2024 11:19 PM CDT IMPRESSION: 1. Obstructing 4 mm wide by 5 mm long proximal right ureteral calculus causing mild right hydronephrosis. 2. Bilateral nonobstructing renal calculi. Electronically signed by: Pb Weiner MD 10/31/2024 11:19 PM CDT [facility] 10/31/2024 11:19 PM [address] [id number] CT ABDOMEN PELVIS WITHOUT IV CONTRAST INDICATION: Right flank pain COMPARISON: No prior imaging available for comparison. TECHNIQUE: Standard axial CT images were obtained from the lung bases through the pelvis without IV contrast. Coronal and sagittal reconstructions performed. This exam was performed according to our departmental dose-optimization program, which includes automated exposure control, adjustment of the mA and/or kV according to patient size and/or use of iterative reconstruction technique.. Dose Range: Up-to-date CT equipment and radiation dose reduction techniques were employed. DLP: 930.4 mGy*cm. Count of previous CT and cardiac nuclear medicine studies for the past 12 months: 0. FINDINGS: Lower thorax: No significant lung abnormalities in the field of view Evaluation of the abdomen and pelvis is limited without IV contrast. Liver: Normal. Spleen: Normal. Gallbladder/Biliary: Gallbladder is surgically absent. No biliary ductal dilation. Pancreas: Normal. Adrenal glands: Normal. Kidneys: Kidneys are normal size. Mild right hydronephrosis. 2 mm nonobstructing right renal calculus. There are 4 tiny nonobstructing left renal calculi., Ureters and Bladder: 4 mm wide by 5 mm long proximal right ureteral calculus.. Urinary bladder is grossly normal. Reproductive: Uterus is normal size and contains an IUD. No significant ovarian abnormality is evident. Large Bowel:Colon is normal caliber without abnormal wall thickening. Small amount of stool. . Appendix is normal. Small Bowel: Small bowel is without abnormal dilation or wall thickening. No bowel obstruction Stomach: No significant stomach abnormality. . Peritoneum: No pneumoperitoneum or ascites. Vasculature: Aorta is normal caliber. Lymph nodes: No abdominal or pelvic lymphadenopathy Bones: No suspicious osseous lesions. Procedure Note Pb Weiner MD - 10/31/[id number] ABDOMEN PELVIS WITHOUT IV CONTRAST INDICATION: Right flank pain COMPARISON: No prior imaging available for comparison. TECHNIQUE: Standard axial CT images were obtained from the lung basesthrough the pelvis without IV contrast. Coronal and sagittal reconstructions performed. This exam was performed according to our departmental dose-optimizationprogram, which includes automated exposure control, adjustment of the mA and/or kV according topatient size and/or use of iterative reconstruction technique.. Dose Range: Up-to-date CT equipment and radiation dose reductiontechniques were employed. DLP: 930.4 mGy*cm. Count of previous CT and cardiac nuclear medicine studies for the past 12months: 0. FINDINGS: Lower thorax: No significant lung abnormalities in the field of view Evaluation of the abdomen and pelvis is limited without IV contrast. Liver: Normal. Spleen: Normal. Gallbladder/Biliary: Gallbladder is surgically absent. No biliary ductaldilation. Pancreas: Normal. Adrenal glands: Normal. Kidneys: Kidneys are normal size. Mild right hydronephrosis. 2 mmnonobstructing right renal calculus. There are 4 tiny nonobstructing left renal calculi., Ureters and Bladder: 4 mm wide by 5 mm long proximal right ureteralcalculus.. Urinary bladder is grossly normal. Reproductive: Uterus is normal size and contains an IUD. No significantovarian abnormality is evident. Large Bowel:Colon is normal caliber without abnormal wall thickening.Small amount of stool. . Appendix is normal. Small Bowel: Small bowel is without abnormal dilation or wall thickening.No bowel obstruction Stomach: No significant stomach abnormality. . Peritoneum: No pneumoperitoneum or ascites. Vasculature: Aorta is normal caliber. Lymph nodes: No abdominal or pelvic lymphadenopathy Bones: No suspicious osseous lesions. IMPRESSION: 1. Obstructing 4 mm wide by 5 mm long proximal right ureteral calculuscausing mild right hydronephrosis. 2. Bilateral nonobstructing renal calculi. Electronically signed by: Pb Weiner MD 10/31/2024 11:19 PM CDT RPWorkstation: [id number] Jeffrey Golden MD [facility] CT ORDERABLES Fi nal Result * (ABNORMAL) CBC W AUTO DIFF (10/31/2024 10:14 PM CDT) White Blood Cell Count 9.2 3.7 - 10.6 THOUS/uL [facility] Red Blood Cell Count 5.39(H) 4.11 - 5.26 MIL/uL [facility] Hemoglobin 14.3 12.3 - 15.5 GM/DL [facility] Hematocrit 43.6 36.8 - 44.9 % [facility] Mean Corpuscular Volume 80.9 78.0 - 100.0 FL [facility] Mean Corpuscular Hemoglobin 26.5(L) 27.0 - 31.0 PG [facility] Mean Corpuscular Hemoglobin Conc 32.8 32.0 - 36.0 G/DL [facility] Rdwcv 14.0 11.5 - 16.0 % [facility] Rdwsd 42.2 35.1 - 46.3 FL [facility] Platelet Count 242 150 - 450 THOUS/uL [facility] Mean Platelet Volume 8.5(L) 8.9 - 12.3 FL [facility] Differential Type AUTO HE [facility] Neutrophils 54.1 42 - 75 % [facility] Lymphs 36.2 16.0 - 52.0 % [facility] Monocytes 8.2 1.0 - 11.0 % [facility] Eos 1.2 0 - 7 % [facility] Basos 0.2 0 - 3 % [facility] Neutrophils Absolute Count 5.0 1.5 - 6.6 THOUS/[facility] Lymphocytes Absolute Count 3.3 0.6 - 3.5 THOUS/uL [facility] Monocytes Absolute Count 0.8 0.0 - 0.9 THOUS/[facility] Eosinophils Absolute Count 0.1 0.0 - 0.7 THOUS/uL [facility] Basophils Absolute Count 0.0 0.0 - 0.2 THOUS/uL [facility] Imm Gran 0.1 0.00 - 0.43 % [facility] Abs Imm Gran 0.01 0.00 - 0.03 THOUS/[facility] Blood (BLOOD,LINE DRAW) 10/31/2024 10:14 PM CDT 10/31/2024 10:16 PM CDT Jeffrey Golden MD HEMATOLOGY ORDERABLES Fi nal Result [address] [phone] * LIPASE (10/31/2024 10:14 PM CDT) Lipase 134 23 - 300 U/L [facility] Blood (BLOOD) 10/31/2024 10: 14 PM CDT 10/31/2024 10:16 PM CDT Jeffrey Golden MD CHEMISTRY ORDERABLES Fin al Result Performing Organization Address City/[facility]/ZIP Co de Phone Number [address] [phone] * (ABNORMAL) COMPREHENSIVE METABOLIC PANEL (10/31/2024 10:14 PM CDT) Glucose 119(H) 74 - 100 MG/DL [facility] Comment: (NOTE) Normal fasting blood glucose: 74-100 mg/dl The [place] [employer] recommends the following criteria for the diagnosis of diabetes 1. Symptoms of diabetes and a random glucose >= 200 mg/dL 2. Fasting glucose >= 126 mg/dL Impaired fasting glucose, a fasting glucose between 100 and 125 mg/dL is defined as a category at risk for future diabetes and cardiovacular disease. Blood Urea Nitrogen 18(H) 7 - 17 MG/DL [facility] Creatinine 0.9 0.52 - 1.04 MG/DL [facility] Sodium 139 137 - 145 MMOL/L [facility] Potassium 4.2 3.5 - 5.1 MMOL/L [facility] Chloride 106 98 - 107 MMOL/L [facility] Co2 28 22 - 32.0 MMOL/L [facility] Calcium 10.3 8.6 - 10.3 MG/DL [facility] Protein Total 7.3 6.3 - 8.2 G/DL [facility] Comment: (NOTE) Plasma samples have a total protein concentration approximately 0.3 g/dL higher that serum due to the presence of fibrinogen. Albumin 4.5 3.5 - 5.0 G/DL [facility] Globulin 2.8 2.0 - 5.5 [facility] Bilirubin, Total 0.6 0.2 - 1.3 MG/DL [facility] AST(SGOT) 20 14 - 36 U/L [facility] Alt (SGPT) 25 <35 U/L [facility] Alkaline Phosphatase 79 38 - 126 U/L [facility] BUN/CREAT 20.0 [facility] Est GFR 81(L) >90 ML/MIN/1. 73sq.m [facility] GFR Comment Reported eGFR is based on the CKD-EPI 2020 equation that does not use a race coefficient. [facility] Comment: eGFR declines with age, even in people without kidney disease. SEE CHART BELOW FOR AVERAGE ESTIMATED eGFR BASED ON AGE. AGE(YEARS) AVERAGE ESTIMATED GFR <60 >90 60-69 85 >70 75 A/G Ratio 1.6 0.8 - 2.0 [facility] Anion Gap 9(L) 10 - 22 MMOL/L [facility] Blood (BLOOD) 10/31/2024 10: 14 PM CDT 10/31/2024 10:16 PM CDT Jeffrey Golden MD CHEMISTRY ORDERABLES Fin al Result Performing Organization Address City/State/[facility] Co de Phone Number [facility] [address] [place] [address], [facility] [phone] from Last 3 Months Insurance [employer]/BCBS
--- OUTSIDE RECORDS SUMMARY | 2024-11-23 14:00 | XMS_ITS | Encounter Summary ---
Author Organization [facility] Address [facility] [place] [address] Care Team Providers Care Certified Indoor Environmentalist Name Role Phone Raf Blanc MD Primary Care Provider [phone] Reason for Visit * Reason Onset Date Comments Appointment Request 11/23/2024 Encounter Details Date Type Department Care Team (Late st Contact Info) Description 11/23/2024 Telephone [facility] - [facility] [address] [facility], [address] [place] [address] Josh Beebe MD [address] [facility] [address] [place] [address] Appointment Request Social History Tobacco Use Types Packs/Day Years Used Date Smoking Tobacco: Never Passive Smoke Exposure: Past Smokeless Tobacco: Never Alcohol Use Standard Drinks/Week Comments Yes 0 (1 standard drink = 0.6 oz pur e alcohol) socially PHQ-2 Answer Date Recorded Patient Health Questionnaire-2 Score 0 11/05/2024 Comments No Sex and Gender Information Value Date Recorded Sex Assigned at Female 03/19/2024 9:03 AM [employer] Legal Sex Female 6:18 PM CDT Gender Identity Female 10/03/2024 11:32 AM CDT Sexual Orientation Not on file documented as of this encounter Progress Notes * Mary Kaye RN - 11/23/2024 11:55 AM CDT Pt Ok moving to new MD in [place], has prep and instructions, will call with questions * Seda Bales - 11/23/2024 11:33 AM CDT Patient called back concerning changing her appt. Please give her a call documented in this encounter Plan of Treatment Upcoming Encounters Date Type Department Care Team (Late st Contact Info) Description 12/05/2024 11:40 AM CDT Office Visit [facility] Family Medicine - [address] [address] Raf Blanc MD [address] [place] [address]. [place] [address] 01/22/2025 7:30 AM [employer] Appointment [facility] [place] [address] Radha Vance MD [address] [facility] [address] [place] [id number] documented as of this encounter Visit Diagnoses Not on filedocumented in this encounter Additional Health Concerns Assessment Noted Time PHQ-9 Depression Total Score: 1 03/20/19 9:15 AM [employer] documented as of this encounter Care Teams Certified Indoor Environmentalist Relationship Specialty Start Date End Date Raf Blanc MD [facility] [place] [address] PCP - General FAMILY PRACTICE 02/17/24 documented as of this encounter
--- OUTSIDE RECORDS SUMMARY | 2024-11-23 14:00 | XMS_ITS | Encounter Summary ---
Author Organization [facility] Address [address] [place] [address] Care Team Providers Care Back Grinder Name Role Phone Raf Blanc MD Primary Care Provider [phone] Encounter Details Date Type Department Care Team ([facility] Contact Info) Description 11/07/2024 Results Follow-Up [address] [address] Raf Blanc MD [address] [place] [address]. [place] [address] URINE BACTERIA CULTURE, URINALYSIS Social History Tobacco Use Types Packs/Day Years Used Date Smoking Tobacco: Never Passive Smoke Exposure: Past Smokeless Tobacco: Never Alcohol Use Standard Drinks/Week Comments Yes 0 (1 standard drink = 0.6 oz pur e alcohol) socially PHQ-2 Answer Date Recorded Patient Health Questionnaire-2 Score 0 11/05/2024 Comments No Sex and Gender Information Value Date Recorded Sex Assigned at Female 03/19/2024 9:03 AM STATE DIRECTOR Legal Sex Female 6:18 PM CDT Gender Identity Female 10/03/2024 11:32 AM CDT Sexual Orientation Not on file documented as of this encounter Plan of Treatment Upcoming Encounters Date Type Department Care Team (Late Contact Info) Description 12/05/2024 11:40 AM CDT Office Visit [address] [address] Raf Blanc MD [address] [place] [address]. [place] [phone] 01/22/2025 7:30 AM STATE DIRECTOR Appointment [facility] Ultrasound [address] [address] Radha Vance MD [address] [facility] [address] [place], [place] [id number] documented as of this encounter Visit Diagnoses Not on filedocumented in this encounter Additional Health Concerns Assessment Noted Time PHQ-9 Depression Total Score: 1 03/20/19 25 9:15 AM STATE DIRECTOR documented as of this encounter Care Teams Back Grinder Relationship Specialty Start Date End Date Raf Blanc MD [address] [place] [id number] PCP - General FAMILY PRACTICE 02/17/24 documented as of this encounter
--- OUTSIDE RECORDS SUMMARY | 2024-11-23 14:00 | XMS_ITS | Clinical Summary ---
Author Organization [facility] Address [address] [place] [address] Care Team Providers Care Color Matcher Name Role Phone Raf Blanc MD Primary Care Provider [phone] Allergies Active Allergy Reactions Criticality Noted Date Comments Amlodipine Rash Low 11/05/2024 Photosensitive rash Lisinopril Headache Medium 02/17/2024 nausea Medications metFORMIN (GLUCOPHAGE) 500 MG tablet Take 1 tablet (500 mg total) by mouth 2 (two) times daily with meals. Active montelukast (SINGULAIR) 10 MG tabletIndications :SOB (shortness of breath) Take 1 tablet (10 mg total) by mouth daily as needed. 90 tablet 3 025 Active busPIRone (BUSPAR) 5 MG tabletIndications :Anxiety Take 1.5 tablets (7.5 mg total) by mouth 2 (two) times daily. 180 tablet 3 025 Active furosemide (LASIX) 20 MG tabletIndications :Primary hypertension,Knee swelling Take 1 tablet (20 mg total) by mouth daily as needed. 90 tablet 3 025 Active omeprazole (PRILOSEC) 20 MG capsule Take 1 capsule (20 mg total) by mouth daily. Active tamsulosin (FLOMAX) 0.4 MG CapIndications:Hy dronephrosis concurrent with and due to calculi of kidney and ureter Take 1 capsule (0.4 mg total) by mouth daily. 30 capsule 025 Active losartan (COZAAR) 50 MG tabletIndications :Primary hypertension Take 1 tablet (50 mg total) by mouth 2 (two) times daily. 60 tablet 2 09/29/2 025 Active ketorolac (TORADOL) 10 MG tabletIndications :Acute right flank pain Take 1 tablet (10 mg total) by mouth every 6 (six) hours as needed for Pain. 30 tablet 1 Active nitrofurantoin, macrocrystal-mono hydrate, (MACROBID) 100 MG capsule Take 1 capsule (100 mg total) by mouth 2 (two) times daily for 5 days. 10 capsule 2024 Active solifenacin (VESICARE) 5 MG tablet Take 1 tablet (5 mg total) by mouth daily. 2024 Discontinued pantoprazole EC (PROTONIX) 40 MG tabletIndications :Epigastric pain,Chronic GERD Take 1 tablet (40 mg total) by mouth daily. 90 tablet 1 2024 Discontinued Na sulfate-K sulfate-Mg sulfate (SUPREP BOWEL PREP KIT) 17.5-3.13-1.6 GM/177ML SolutionIndicatio ns:Lower abdominal pain,Constipation , unspecified constipation type,Family history of colon cancer in mother Take 177 mLs by mouth every 12 (twelve) hours. Per GI instructions 354 mL 2024 Discontinued losartan (COZAAR) 50 MG tabletIndications :Primary hypertension Take 1 tablet (50 mg total) by mouth every evening. 90 tablet 3 2024 Discontinued(R eorder) cephALEXin (KEFLEX) 500 MG capsule Take 1 capsule (500 mg total) by mouth 3 (three) times daily. 2024 folic acid (FOLVITE) 1 MG tablet Take 1 tablet every day by oral route as directed for 30 days, for Folic acid deficiency. 2024 Discontinued ibuprofen (MOTRIN) 600 MG tablet Take 1 tablet (600 mg total) by mouth every 6 (six) hours as needed. 2024 Discontinued ondansetron (ZOFRAN-ODT) 4 MG disintegrating tablet Take 1 tablet (4 mg total) by mouth every 6 (six) hours as needed. 2024 tamsulosin (FLOMAX) 0.4 MG Cap Take 1 capsule (0.4 mg total) by mouth daily. 025 2024 Discontinued(R eorder) Hospital, Clinic, or Other Facility Administered Medication Ordered Dose Route Frequency Start Date End Date Status ketorolac (TORADOL) injection 30 mgIndications:Acute right flank pain 30 mg IV Once 11/05/2024 11/05/2024 Ended Active Problems Problem Noted Date Diagnosed Date Arthritis of knee 11/05/2024 Bronchitis 11/05/2024 Hypokalemia 11/05/2024 Acute right flank pain 11/05/2024 Hydronephrosis concurrent wi and due to calculi of kidney and ureter 11/05/2024 Hx: UTI (urinary tract infection) 11/05/2024 Constipation, unspecified constipation type 09/08 Family history of colon cancer in mother 025 Epigastric pain 10/03/2024 Chronic GERD 10/03/2024 Uterine leiomyoma, unspecified location 07/31/19 Left ovarian cyst 07/30/2024 Benign essential microscopic hematuria Lower abdominal pain 06/08/2024 Hypertriglyceridemia without hypercholesterolemi a 03/20/2024 Subclinical hypothyroidism 03/20/2024 Primary hypertension 02/17/2024 Knee swelling 02/17/2024 Vitamin D deficiency 02/17/2024 Class 2 severe obesity due t o excess calories with serious comorbidity and body mass index (BMI) of 37.0 to 37.9 in adult 02/17/2024 PCOS (polycystic ovarian syndrome) 02/17/2024 Iron deficiency 12/02/2023 Impaired fasting glucose 12/01/2023 Generalized anxiety disorder 10/05/2023 Seasonal allergic rhinitis due to pollen 024 Resolved Problems Problem Noted Date Diagnosed Date Resolved Date BMI 40.0-44.9, adult 11/05/2024 025 Leukocytosis, unspecified type 07/06/2024 08/16/2024 Microcytic anemia 02/22/2024 08/16/2024 Anxiety 02/17/2024 11/05/2024 Encounters Date Type Department Care Team Description 11/23/2024 Telephone [facility] Multispecialty Care - [address], [address] [place] [address] Josh Beebe MD Appointment Request 11/18/2024 4:59 PM CDT - 11/18/2024 5:33 PM CDT Hospital Encounter [facility] [address] [place] [address] Wilmer Damon MD Urinary Symptoms Discharge Disposition: Home or Self Care (Routine Discharge) 11/18/2024 Travel 11/07/2024 Results Follow-Up [facility] - [address] [address] Raf Blanc MD URINE BACTERIA CULTURE, URINALYSIS 11/05/2024 3:40 PM CDT Office Visit [facility] - [address] [address] Raf Blanc MD BP Check (Pt is here for BP check ); Kidney Problem (Pt went to ER 10/31/24 in [place], [place] and she was dx with UTI and kidney stones. She has not passed thre kidney stones yet and still c/o pain) 11/05/2024 - 11/05/2024 11:59 PM CDT Hospital Encounter [facility] [address] Raf Blanc MD Discharge Disposition: Home or Self Care (Routine Discharge) 11/05/2024 Travel 10/15/2024 7:07 AM CDT - 10/15/2024 11:59 PM CDT Hospital Encounter [facility] [place] [address] Radha Lantigua MD Discharge Disposition: Home or Self Care (Routine Discharge) 10/15/2024 Travel 10/03/2024 12:47 PM CDT - 10/03/2024 11:59 PM CDT Hospital Encounter [facility] [place] [address] Colt Brown PA-C Discharge Disposition: Home or Self Care (Routine Discharge) 10/03/2024 11:20 AM CDT Office Visit [address], [address] [place] [address] Janice Cloe MD Barnes, Lawrence J, PA-C Abdominal Pain 10/03/2024 Results Follow-Up [facility] - [address], [address] [place] [address] Colt Brown PA-C CBC W/DIFF AUTOMATED, COMPREHENSIVE METABOLIC PANEL, AMYLASE, Additional followed-up results: 2 10/03/2024 Orders Only [facility] - [address], [address] [place] [phone] Josh Beebe MD 10/03/2024 Travel from Last 3 Months Immunizations Immunization Administration Dates Next Due Fluzone (IIV3, Trivalent, 0.5 ML Prefilled Syrin ge) 11/05/2024 HPV GARDASIL 9-VALENT 11/05/2024 Influenza (Generic) 11/23/2023,11/07/2022 Tdap (Generic) 10/05/2023 Family History Medical History Relation Comments COPD Father Cancer Mother Breast, Colon, R ectal Relation Status Comments Father Alive Mother Alive Social History Tobacco Use Types Packs/Day Years Used Date Smoking Tobacco: Never Passive Smoke Exposure: Past Smokeless Tobacco: Never Tobacco Cessation:Counseling Given: No Alcohol Use Standard Drinks/Week Comments Yes 0 (1 standard drink = 0.6 oz pur e alcohol) socially PHQ-2 Answer Date Recorded Patient Health Questionnaire-2 Score 0 11/05/2024 Comments No Sex and Gender Information Value Date Recorded Sex Assigned at Female 03/19/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 Sex Female 6:18 PM CDT Gender Identity Female 10/03/2024 11:32 AM CDT Sexual Orientation Not on file Last Filed Vital Signs Vital Sign Reading Time Taken Comments Blood Pressure 168/115 11/18/2024 5:04 PM CDT Pulse 93 11/18/2024 5:04 PM CDT Temperature 37.2 C (98.9 F) 11/18/2024 5:04 PM CDT Respiratory Rate 16 11/18/2024 5:04 PM CDT Oxygen Saturation 99% 11/18/2024 5:04 PM CDT Inhaled Oxygen Concentration - - Weight 95.3 kg (210 lb) 11/18/2024 5:04 PM CDT Height 160 cm (5' 3) 11/18/2024 5:04 PM CDT Body Mass Index 37.2 11/18/2024 5:04 PM CDT Plan of Treatment Upcoming Encounters Date Type Department Care Team (Late st Contact Info) Description 12/05/2024 11:40 AM CDT Office Visit [facility] Medical [facility] Family Medicine - [place] [address] [place] [phone] Raf Blanc MD [address] [facility] 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 Appointment [facility] [place] [address] Radha Lantigua MD [address] [facility] [address] [place] [address] Health Maintenance Due Date Last Done Comments Cervical Cancer Screening Pa p with HPV Testing (Age 30 to 64) Every 5 Years 05/09/2011 COVID-19 Vaccine ( - 2024-2 6 season) 2024 11/07/2020, 10/17/2020 HPV Vaccines (2 - 3-dose SCD M series) 12/03/2024 11/05/2024 Hepatitis B Vaccines (1 of 3 - 19+ 3-dose series) 02/07/2025 Postponed from 02/2000 (Awaiting Documentation) Annual Physical 02/16/2025 02/17/2024 Mammogram Screening 12/13/2025 12/14/2023 Cervical Cancer Screening Pa p Smear (Age 30 to 64) Every 3 Years 04/03/2027 04/03/2024 Cervical Cancer Screening with HPV 04/03/2027 DTaP, Tdap and Td Vaccines ( 2 - Td or Tdap) 10/04/2033 10/05/2023 Hepatitis C Completed 03/19/2024 Influenza Adult Completed 11/05/2024, 11/23/2023, 11/07/2022 PHQ-2 (Physician Lipscomb) Completed 11/05/2024 Hepatitis A Vaccines Aged Out No long er eligible based on patient's age to complete this topic Meningococcal B Vaccine Aged Out No l onger eligible based on patient's age to complete this topic Meningococcal Vaccine Aged Out No vicky troy eligible based on patient's age to complete this topic Pneumococcal Vaccine: Pediatrics (0 to 5 Years) and At-Risk Patients (6 to 49 Years) Aged Out No longer eligible b ased on patient's age to complete this topic RSV Immunizations Under 20 Months Aged Out No longer eligible b ased on patient's age to complete this topic Procedures Procedure Name Priority Date/Time Associated Diagnosis Comments URINE BACTERIA CULTURE STAT 5:06 PM CDT URINALYSIS AUTO DIP STAT 11/18/2024 5 :06 PM CDT URINE BACTERIA CULTURE Routine 1:46 PM CDT Hx: UTI (urinary tract infection) URINALYSIS, AUTO, COMPLETE Routine 11/05/2024 1:46 PM CDT Hx: UTI (urinary tract infection) US PELVIC NON OB COMP TA+TV Routine 10/15/2024 9:10 AM CDT Left ovarian cyst CT ABD+PEL W CON Routine 10/15/2024 7:41 AM CDT Lower abdominal pain Epigastric pain LIPASE Routine 10/03/2024 12:55 PM CDT Lower abdominal pain Epigastric pain AMYLASE Routine 10/03/2024 12:55 PM CDT Lower abdominal pain Epigastric pain COMPREHENSIVE METABOLIC PANEL Routine 10/03/2024 12:55 PM CDT Lower abdominal pain Epigastric pain CBC W/DIFF AUTOMATED Routine 10/03/2024 12:55 PM CDT Lower abdominal pain Epigastric pain OUTSIDE CYTOPATH CERV/VAG INTERPRET (PAP) (SCAN ORDER) 04/03/2024 HEPATITIS C ANTIBODY Routine 03/19/2024 9:28 AM 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 SPEC DESCRIPTION URINE CLEAN CATCH 11/18/2024 5:21 PM CDT [facility] SPECIAL REQUESTS NO SPECIAL REQUEST 11/18/2024 5:21 PM CDT [facility] CULTURE RESULT POLYMICROBIAL GROWTH CONSISTENT WITH NORMAL GENITAL LAURA. SUSCEPTIBILITIES NOT ROUTINELY PERFORMED. 11/21/2024 7:17 AM CDT [facility] URINE SPECIMEN OBTAINED BY CLEAN CATCH PROCEDURE / Unknown 11/18/2024 5:06 PM CDT 11/19/2024 2:15 PM CDT us Wilmer Damon MD MICROBIOLOGY - GENERAL ORDER JUSTO Final Result [facility] [address] [place] [address], [place] [phone] [facility] [place] [address], [place] * (ABNORMAL) URINALYSIS AUTO DIP (11/18/2024 5:06 PM CDT) SPECIMEN TYPE URINE CLEAN CATCH 11/18/2024 5:07 PM CDT [facility] COLOR (U) YELLOW 11/18/2024 5:20 PM CDT [facility] TRANSPARENCY CLOUDY 11/18/2024 5:20 PM CDT [facility] SPECIFIC GRAVITY (U) 1.020 1.001 - 1.030 11/18/2024 5:20 PM CDT [facility] U PH 6.0 5.0 - 9.0 11/18/2024 5:20 PM CDT [facility] LEUKOCYTES (U) TRACE(A) NEGATIVE 11/18/2024 5:20 PM CDT [facility] NITRITES NEGATIVE NEGATIVE 11/18/2024 5:20 PM CDT [facility] PROTEIN RANDOM (U) TRACE <30 MG/DL 11/18/2024 5:20 PM CDT [facility] GLUCOSE (U) NEGATIVE NEGATIVE MG/DL 11/18/2024 5:20 PM CDT [facility] KETONES MG/DL (U) NEGATIVE NEGATIVE MG/DL 11/18/2024 5:20 PM CDT [facility] UROBILINOGEN 0.2(A) NEGATIVE MG/DL 11/18/2024 5:20 PM CDT [facility] BILIRUBIN (U) NEGATIVE NEGATIVE MG/DL 11/18/2024 5:20 PM CDT [facility] BLOOD (U) LARGE(A) NEGATIVE 11/18/2024 5:20 PM CDT [facility] URINE SPECIMEN OBTAINED BY CLEAN CATCH PROCEDURE / Unknown 11/18/2024 5:06 PM CDT us Wilmer Damon MD URINE ORDERABLES Final Resul t [facility] C[facility] [address] [place] [address], [place] * (ABNORMAL) URINALYSIS (11/05/2024 1:46 PM CDT) COLOR (U) YELLOW 11/05/2024 7:55 PM CDT [facility] TRANSPARENCY HAZY(A) CLEAR 11/05/2024 7:55 PM CDT [facility] SPECIFIC GRAVITY (U) 1.020 1.003 - 1.040 11/05/2024 7:55 PM CDT [facility] U PH 6.0 5.0 - 9.0 11/05/2024 7:55 PM CDT [facility] PROTEIN RANDOM (U) TRACE(A) NEGATIVE 11/05/2024 7:55 PM CDT [facility] GLUCOSE (U) NEGATIVE NEGATIVE 11/05/2024 7:55 PM CDT [facility] KETONES MG/DL (U) NEGATIVE NEGATIVE 11/05/2024 7:55 PM CDT [facility] BILIRUBIN (U) NEGATIVE NEGATIVE 11/05/2024 7:55 PM CDT [facility] BLOOD (U) 3+(A) NEGATIVE 11/05/2024 7:55 PM CDT [facility] UROBILINOGEN 0.2 0.0 - 2.0 EU/DL 11/05/2024 7:55 PM CDT [facility] NITRITES NEGATIVE NEGATIVE 11/05/2024 7:55 PM CDT [facility] LEUKOCYTES (U) TRACE(A) NEGATIVE 11/05/2024 7:55 PM CDT [facility] RBC/HPF 50-75(A) 0 - 3 /HPF 11/05/2024 7:56 PM CDT [facility] WBC/HPF 4-9(A) 0 - 3 /HPF 11/05/2024 7:56 PM CDT [facility] EPI/HPF 15-20 /HPF 11/05/2024 7:56 PM CDT [facility] BACTERIA (U) TRACE(A) NONE SEEN 11/05/2024 7:56 PM CDT [facility] CA OXALATE CRYSTALS PRESENT 11/05/2024 7:56 PM CDT [facility] URINE SPECIMEN OBTAINED BY CLEAN CATCH PROCEDURE / Unknown 11/05/2024 1:46 PM CDT us Raf Blanc MD URINE ORDERABLES Final Result [facility] [address] [place] [address], * US PELVIC NON OB COMP TA+TV (10/15/2024 9:10 AM CDT) Anatomical Region Laterality Modality Pelvis Ultrasound 10/15/2024 9:47 AM CDT Impressions 10/15/2024 10:49 AM CDT Impression: 1. Mildly enlarged uterus with a 2.7 cm presumed uterine fibroid. 2. 4.6 cm left ovarian cyst which has a benign and uncomplicated appearance. This requires no further dedicated workup or follow-up. 3. A few nabothian cysts are seen. 4. Intrauterine device. Preliminary: Kelly Hines MD10/15/2024 10:02 AM The attending radiologist has reviewed the image(s) and agrees with the content of this report. Referred By: RADHA LANTIGUA Interpreted By: Kelly Hines MD, 10/15/2024 9:47 AM Narrative 10/15/2024 10:49 AM CDT [facility] [address] [place] [id number] [place] [address] Examination: Pelvic ultrasound. Clinical Information: Pt w/ cramping/bloating x 1 yr. States had IUD put in in April, having random bleeding/spotting since. Pt states polyps removed about a year ago. . LMP: 10/14/24. Comparison: 07/27/2024 ultrasonogram. Technique: Grayscale and color Doppler sonographic images were obtained transabdominally and transvaginally Findings: UTERUS There is an approximately 2.7 x 2.6 x 2.7 cm presumed uterine fibroid. The uterus is mildly enlarged. Uterine dimensions: 10.0 x 4.7 x 5.7 cm measured transvaginally. Endometrial thickness: 8 mm. An intrauterine device is seen. There are a few nabothian cysts. OVARIES There is an approximately 4.6 x 2.2 x 3.1 cm left ovarian cyst with an adjacent daughter cyst. This is a benign uncomplicated appearance. Intact blood flow to both ovaries. Right ovary: 2.6 x 1.2 x 1.6 cm. Left ovary: 5.1 x 2.5 x 3.5 cm. FREE FLUID None. Procedure Note David Yun MD - 10/15/2024 [place] [id number] [place] [address] Examination: Pelvic ultrasound. Clinical Information: Pt w/ cramping/bloating x 1 yr. States had IUD putin in April, having random bleeding/spotting since. Pt states polypsremoved about a year ago. . LMP: 10/14/24. Comparison: 07/27/2024 ultrasonogram. Technique: Grayscale and color Doppler sonographic images were obtainedtransabdominally and transvaginally Findings: UTERUS There is an approximately 2.7 x 2.6 x 2.7 cm presumed uterine fibroid. Theuterus is mildly enlarged. Uterine dimensions: 10.0 x 4.7 x 5.7 cm measured transvaginally. Endometrial thickness: 8 mm. An intrauterine device is seen. There are a few nabothian cysts. OVARIES There is an approximately 4.6 x 2.2 x 3.1 cm left ovarian cyst with anadjacent daughter cyst. This is a benign uncomplicated appearance. Intactblood flow to both ovaries. Right ovary: 2.6 x 1.2 x 1.6 cm. Left ovary: 5.1 x 2.5 x 3.5 cm. FREE FLUID None. Impression: 1. Mildly enlarged uterus with a 2.7 cm presumed uterine fibroid. 2. 4.6 cm left ovarian cyst which has a benign and uncomplicatedappearance. This requires no further dedicated workup or follow-up. 3. A few nabothian cysts are seen. 4. Intrauterine device. Preliminary: Kelly Hines MD10/15/2024 10:02 AM The attending radiologist has reviewed the image(s) and agrees with thecontent of this report. Referred By: RADHA LANTIGUA Interpreted By: Kelly Hines MD, 10/15/2024 9:47 AM us Radha Lantigua MD ULTRASOUND Final Res ult * CT ABD+PEL W CON (10/15/2024 7:41 AM CDT) Anatomical Region Laterality Modality Abdomen Computed Tomogra phy 10/15/2024 8:10 AM CDT Impressions 10/15/2024 8:14 AM CDT Impression: 1. No acute findings in the abdomen or pelvis. Normal appendix. 2. Nonobstructing bilateral nephrolithiasis. 3. Left ovarian cyst measuring 4.3 cm. Fibroid uterus. Intrauterine device. Attention on forthcoming pelvic ultrasound. Referred By: RADHA LANTIGUA Interpreted By: Wilmer Valenzuela MD, 10/15/2024 8:10 AM Narrative 10/15/2024 8:14 AM CDT [facility] [address] [place], [place] [address] CT abdomen and pelvis with IV contrast Comparison: CT abdomen and pelvis 12/26/2023. Indication: Epigastric and Lower Abdominal Pain. Technique: CT imaging was performed of the abdomen and pelvis following the administration of intravenous contrast. Iodinated contrast was used due to the indications for the examination, to improve disease detection and further define anatomy. Coronal and sagittal reformatted images were generated and reviewed. A dose lowering technique was utilized for this procedure which may include but is not limited to dose reduction techniques, automated exposure control, and/or the use of iterative reconstruction in accordance with ALARA principle. Findings: - Lower Thorax: No suspicious pulmonary abnormalities. No pleural or pericardial effusions. Mild bibasilar subsegmental atelectasis. - Liver: Normal in morphology and enhancement. No suspicious hepatic masses are identified. The portal and hepatic veins are patent. - Biliary and Gallbladder: No intrahepatic or extrahepatic biliary ductal dilatation. The gallbladder is surgically absent. - Spleen: Normal in appearance. - Pancreas: Normal in appearance. - Adrenal Glands: Normal in appearance. - Kidneys: Symmetric in size and enhancement. Bilateral nonobstructing bilateral renal calculi. The largest at the inferior pole right kidney measuring up to 8 mm. No hydronephrosis. Right renal simple cyst. Additional hypoattenuating foci in both kidneys which are too small to characterize by any imaging modality. - Abdominal and Pelvic Vasculature: No abdominal aortic aneurysm. - Gastrointestinal Tract: No abnormal dilation or wall thickening. The appendix is within normal limits. - Peritoneum/Mesentery/Retroperitoneum: No free fluid. No free intraperitoneal air. - Lymph Nodes: No retroperitoneal, mesenteric, or pelvic lymphadenopathy. - Bladder: Normal in appearance. - Pelvic Organs: Left ovarian cyst measuring 4.3 x 2.6 cm. Intrauterine device. Fibroid uterus. - Body Wall: Tiny umbilical hernia containing only fat. Injection sites within the left ventral abdominal wall soft tissues. - Musculoskeletal: No aggressive appearing osseous lesions. Procedure Note Wilmer Valenzuela MD - 10/15/2024 [facility] [address] [facility], [place] [address] CT abdomen and pelvis with IV contrast Comparison: CT abdomen and pelvis 12/26/2023. Indication: Epigastric and Lower Abdominal Pain. Technique: CT imaging was performed of the abdomen and pelvis followingthe administration of intravenous contrast. Iodinated contrast was useddue to the indications for the examination, to improve disease detectionand further define anatomy. Coronal and sagittal reformatted images weregenerated and reviewed. A dose lowering technique was utilized for thisprocedure which may include but is not limited to dose reductiontechniques, automated exposure control, and/or the use of iterativereconstruction in accordance with ALARA principle. Findings: - Lower Thorax: No suspicious pulmonary abnormalities. No pleural orpericardial effusions. Mild bibasilar subsegmental atelectasis. - Liver: Normal in morphology and enhancement. No suspicious hepaticmasses are identified. The portal and hepatic veins are patent. - Biliary and Gallbladder: No intrahepatic or extrahepatic biliary ductaldilatation. The gallbladder is surgically absent. - Spleen: Normal in appearance. - Pancreas: Normal in appearance. - Adrenal Glands: Normal in appearance. - Kidneys: Symmetric in size and enhancement. Bilateral nonobstructingbilateral renal calculi. The largest at the inferior pole right kidneymeasuring up to 8 mm. No hydronephrosis. Right renal simple cyst.Additional hypoattenuating foci in both kidneys which are too small tocharacterize by any imaging modality. - Abdominal and Pelvic Vasculature: No abdominal aortic aneurysm. - Gastrointestinal Tract: No abnormal dilation or wall thickening. Theappendix is within normal limits. - Peritoneum/Mesentery/Retroperitoneum: No free fluid. No freeintraperitoneal air. - Lymph Nodes: No retroperitoneal, mesenteric, or pelviclymphadenopathy. - Bladder: Normal in appearance. - Pelvic Organs: Left ovarian cyst measuring 4.3 x 2.6 cm. Intrauterinedevice. Fibroid uterus. - Body Wall: Tiny umbilical hernia containing only fat. Injection siteswithin the left ventral abdominal wall soft tissues. - Musculoskeletal: No aggressive appearing osseous lesions. Impression: 1. No acute findings in the abdomen or pelvis. Normal appendix. 2. Nonobstructing bilateral nephrolithiasis. 3. Left ovarian cyst measuring 4.3 cm. Fibroid uterus. Intrauterinedevice. Attention on forthcoming pelvic ultrasound. Referred By: RADHA LANTIGUA Interpreted By: Wilmer Valenzuela MD, 10/15/2024 8:10 AM us Colt Brown PA-C CT Final Res ult * (ABNORMAL) COMPREHENSIVE METABOLIC PANEL (10/03/2024 12:55 PM CDT) GLUCOSE 96 70 - 99 MG/DL 10/03/2024 2:06 PM CDT [facility] BUN 13 7 - 18 MG/DL 10/03/2024 2:06 PM CDT [facility] CREATININE S/P/B 0.77 0.55 - 1.02 MG/DL 10/03/2024 2:06 PM CDT [facility] SODIUM S/P/B 142 136 - 145 MMOL/L 10/03/2024 2:06 PM CDT [facility] POTASSIUM S/P/B 4.0 3.5 - 5.1 MMOL/L 10/03/2024 2:06 PM CDT [facility] CHLORIDE S/P/B 108 97 - 115 MMOL/L 10/03/2024 2:06 PM CDT [facility] CO2 29.5 21 - 32 MMOL/L 10/03/2024 2:06 PM CDT [facility] CALCIUM S/P/B 9.1 8.5 - 10.1 MG/DL 10/03/2024 2:06 PM CDT [facility] BILIRUBIN TOTAL S/P/B 0.7 0.2 - 1.2 MG/DL 10/03/2024 2:06 PM CDT [facility] Comment: THIS ASSAY IS NOT RECOMMENDED FOR PATIENTS UNDERGOING TREATMENT WITH ELTROMBOPAG DUE TO THE POTENTIAL FOR FALSELY ELEVATED RESULTS. TOTAL PROTEIN S/P/B 7.2 6.4 - 8.2 G/DL 10/03/2024 2:06 PM CDT [facility] ALBUMIN S/P/B 3.5 3.4 - 5.0 G/DL 10/03/2024 2:06 PM CDT [facility] AST 12(L) 15 - 37 U/L 10/03/2024 2:06 PM CDT [facility] ALT 25 14 - 55 U/L 10/03/2024 2:06 PM CDT [facility] ALKALINE PHOSPHATASE S/P/B 83 50 - 136 U/L 10/03/2024 2:06 PM CDT [facility] ANION GAP 4.5 2 - 10 MMOL/L 10/03/2024 2:06 PM CDT [facility] BUN CREATININE RATIO 16.9 6 - 26 10/03/2024 2:06 PM CDT [facility] A/G RATIO 0.9(L) 1.0 - 2.0 RATIO 10/03/2024 2:06 PM CDT [facility] GFR ESTIMATE >90 >90 ML/MIN/1.7 3 M2 10/03/2024 2:06 PM CDT [facility] Comment: NOTE: eGFR is not calculated for patients <18 years of age or gender unknown. This is an estimated GFR calculation using the new CKD EPI creatinine equation without race and so does not require a correction factor for race. This estimated GFR should not be used for calculating drug doses. 10/03/2024 12:5 5 PM CDT us Colt Brown PA-C LABORATORY Final Res ult [facility] [address] [place] [address], [place] [phone] * (ABNORMAL) CBC W/DIFF AUTOMATED (10/03/2024 12:55 PM CDT) [facility] WBC 8.78 4.5 - 11.0 x10'3/uL 10/03/2024 1:35 PM CDT [facility] RBC 5.49(H) 4.20 - 5.40 x10'6/uL 10/03/2024 1:35 PM CDT [facility] HGB 14.5 12.0 - 16.0 G/DL 10/03/2024 1:35 PM CDT [facility] HCT 44.3 38.0 - 48.0 % 10/03/2024 1:35 PM CDT [facility] MCV 80.7(L) 81.0 - 99.0 FL 10/03/2024 1:35 PM CDT [facility] MCH 26.4(L) 27.0 - 31.0 PG 10/03/2024 1:35 PM CDT [facility] MCHC 32.7 32.0 - 36.0 G/DL 10/03/2024 1:35 PM CDT [facility] RDW 14.6(H) 11.5 - 14.5 % 10/03/2024 1:35 PM CDT [facility] PLT 258 130 - 400 x10'3/uL 10/03/2024 1:35 PM CDT [facility] MPV 8.5(L) 9.3 - 12.2 FL 10/03/2024 1:35 PM CDT [facility] DIFFERENTIAL TYPE AUTOMATED DIFFERENTIAL 10/03/2024 1:35 PM CDT [facility] NEUTROPHILS % 55.6 % 10/03/2024 1:35 PM CDT [facility] LYMPHOCYTES % 35.0 % 10/03/2024 1:35 PM CDT [facility] MONOCYTES % 7.3 % 10/03/2024 1:35 PM CDT [facility] EOSINOPHILS 1.0 % 10/03/2024 1:35 PM CDT [facility] BASOPHILS 0.6 % 10/03/2024 1:35 PM CDT [facility] IMMATURE GRANS % 0.5 % 10/04/19 1:35 PM CDT [facility] ABS. NEUTROPHILS 4.89 1.80 - 7.70 x10'3/uL 10/03/2024 1:35 PM CDT [facility] ABS. LYMPHOCYTES 3.07 1.00 - 4.80 x10'3/uL 10/03/2024 1:35 PM CDT [facility] ABS. MONOCYTES 0.64 0.24 - 0.86 x10'3/uL 10/03/2024 1:35 PM CDT [facility] ABS. EOSINOPHILS 0.09 0.04 - 0.36 x10'3/uL 10/03/2024 1:35 PM CDT [facility] ABS. BASOPHILS 0.05 0.01 - 0.08 x10'3/uL 10/03/2024 1:35 PM CDT [facility] ABS. IMMATURE GRANULOCYTES 0.04 0.00 - 0.49 x10'3/uL 10/03/2024 1:35 PM CDT [facility] 10/03/2024 12:5 5 PM CDT us Colt Brown PA-C LABORATORY Final Res ult [facility] [address] [place] [address], [place] [phone] * AMYLASE (10/03/2024 12:55 PM CDT) AMYLASE S/P/B 54 25 - 115 UNITS/L 10/03/2024 2:06 PM CDT [facility] 10/03/2024 12:5 5 PM CDT Colt Brown PA-C LABORATORY Final Res ult Performing Organization Address City/[facility]/ZIP Co de Phone Number [facility] [address] [place] [address], [place] [phone] * LIPASE (10/03/2024 12:55 PM CDT) LIPASE 35 13 - 75 UNITS/L 10/03/2024 2:06 PM CDT [facility] 10/03/2024 12:5 5 PM CDT Colt Brown PA-C LABORATORY Final Res ult Performing Organization Address [facility] de Phone Number [facility] [address] [place] [address], [place] [phone] * PAP SMEAR (SCAN ORDER) (04/03/2024) 04/03/2024 [facility] Scanned SCANNING Final Resu lt * HEPATITIS C ANTIBODY ([facility] ONLY) (03/19/2024 9:28 AM INDUSTRIAL TWISTING MACHINE OPERATOR) HEPATITIS C AB NON-REACTI VE NON-REACTI VE 03/19/2024 12:24 PM INDUSTRIAL TWISTING MACHINE OPERATOR [facility] 03/19/2024 9:28 AM INDUSTRIAL TWISTING MACHINE OPERATOR Raf Blanc MD LABORATORY Final Result Performing Organization Address City/[facility]/ZIP Co de Phone Number [facility] [address] [place] [address], * MAMMOGRAM GENERIC (SCAN ORDER) (12/14/2023) Anatomical Region Laterality Modality Other 12/14/2023 us [facility] Scanned SCANNING Final Resu lt from Last 3 Months or Most Recently Relevant to Health Maintenance Insurance [facility] Care Teams Color Matcher Relationship Specialty Start Date End Date Raf Blanc MD [address] [place] [phone] PCP - General FAMILY PRACTICE 02/17/24
--- OUTSIDE RECORDS SUMMARY | 2024-11-23 14:00 | XMS_ITS | Encounter Summary ---
Author Organization [facility] Address [facility] [place] [address] Care Team Providers Care [place] Supervisor Name Role Phone Raf Blanc MD Primary Care Provider [phone] Encounter Details Date Type Department Care Team (Late st Contact Info) Description 08/05/2024 [place] Message Enc [facility] Family Medicine [facility] [address] [place] [phone] Raf Blanc MD [address] [place] [phone] About issues Social History Tobacco Use Types Packs/Day Years Used Date Smoking Tobacco: Never Passive Smoke Exposure: Past Smokeless Tobacco: Never Alcohol Use Standard Drinks/Week Comments Yes 0 (1 standard drink = 0.6 oz pur e alcohol) socially PHQ-2 Answer Date Recorded Patient Health Questionnaire-2 Score 0 06/08/2024 Comments No Sex and Gender Information Value Date Recorded Sex Assigned at Female 03/19/2024 9:03 AM JAVA JSF DEVELOPER Legal Sex Female 6:18 PM CDT Gender Identity Female 10/03/2024 11:32 AM CDT Sexual Orientation Not on file documented as of this encounter Functional Status * Calculated C-SSRS Risk Score (Lifetime/Recent) Answer Date of Assessment Author Status No Risk Indicated 08/07/2024 4:49 PM CDT Ira Cole, RN Active * [place] Suicide Severity Rating Scale (Screener/Recent Self-Report) Question Answer Date of Assessment Author Status 1. Wish to be (Past 1 Month) No 08/07/2024 4:49 PM CDT Jaqueline Cole RN Act kiarra 2. Non-Specific Active Suicidal Thoughts (Past 1 Month) No 08/07/2024 4:49 PM CDT Jaqueline Cole RN Act kiarra 6. Suicidal Behavior (Lifetime) No 08/07/2024 4:49 PM CDT Jaqueline Cole RN Act kiarra documented as of this encounter Plan of Treatment Upcoming Encounters Date Type Department Care Team (Late st Contact Info) Description 12/05/2024 11:40 AM CDT Office Visit [facility] Family Medicine - [place] [address] [place] [phone] Raf Blanc MD [facility] [facility] [place] [phone] 01/22/2025 7:30 AM JAVA JSF DEVELOPER Appointment [facility] [place] [address] Radha Vance MD [address] [facility] [address] [place] [phone] documented as of this encounter Visit Diagnoses Not on filedocumented in this encounter Additional Health Concerns Assessment Noted Time PHQ-9 Depression Total Score: 1 03/20/19 9:15 AM JAVA JSF DEVELOPER documented as of this encounter Care Teams [place] Supervisor Relationship Specialty Start Date End Date Raf Blanc MD [address] [place] [address]. [place] [phone] PCP - General FAMILY PRACTICE 02/17/24 documented as of this encounter
--- OUTSIDE RECORDS SUMMARY | 2024-11-23 14:00 | XMS_ITS | Clinical Summary ---
Author Organization [facility] Address [address] [address] Phone Care Team Providers Care Hydrography Teacher Name Role Phone Michael Oliver DO Primary [...] times a day 180 tablet 3 03/03/2023 Active montelukast (SINGULAIR) 10 mg tabletIndicatio ns:Seasonal allergic rhinitis due to pollen Take 1 tablet (10 mg total) by mouth nightly 90 tablet 3 03/03/2023 Active lisinopril-hydr oCHLOROthiazide (ZESTORETIC) 20-12.5 mg per tabletIndicatio ns:hypertension Take 1 tablet by mouth daily 90 tablet 3 03/03/2023 Active oxyCODONE-aceta minophen (PERCOCET) 5-325 mg per tabletIndicatio ns:Pain Take 1 tablet by mouth every 4 (four) hours as needed for pain 20 tablet 05/22/2023 Active Active Problems Problem Noted Date Diagnosed Date Screening for colon cancer 03/07/2023 Family history of colon cancer 03/03/2023 Routine physical examination 03/03/2023 Primary hypertension 03/03/2023 Assessment & Plan (03/15/2023 7:44 AM REGISTERED OCCUPATIONAL THERAPIST): Blood pressure medication adjusted 2 weeks ago and blood pressure readings have improved. No symptoms. Continue same. Seasonal allergic rhinitis due to pollen 024 Anxiety 03/03/2023 Family history of breast cancer 03/03/2023 Immunizations Immunization Administration Dates Next Due Influenza, Unspecified 11/07/2022 [...] 85 05/22/2023 12:45 AM CDT Temperature 37.1 C (98.7 F) 05/22/2023 12:45 AM CDT Respiratory Rate 18 05/22/2023 12:45 AM CDT Oxygen Saturation 99% 05/22/2023 12:45 AM CDT Inhaled Oxygen Concentration - - Weight 90.7 kg (200 lb) 05/21/2023 7:00 PM CDT Height 160 cm (5' 3) 05/21/2023 7:00 PM CDT Body Mass Index 35.43 05/21/2023 7:00 PM CDT Plan of Treatment Health Maintenance Due Date Last Done Comments Breast Cancer Screening-Mammogram 1981 Cervical Cancer Screening 1981 Hepatitis C Screening 1981 Varicella Vaccines (1 of 2 - 13+ 2-dose series) 1994 Hepatitis B Screening 05/09/1999 HPV Vaccines (1 - 3-dose SCD M series) 2008 Depression Screening 03/03/2024 03/03/2023 Regular Well Visit/Exam 18-64 03/03/2024 03/03/2023 Covid-19 Vaccine (3 - 2024-2 6 season) 2024 11/07/2020, 10/17/2020 Influenza Vaccine (#1) 2024 , 11/07/2022 DTaP/Tdap/Td Vaccine (2 - Td or Tdap) 10/04/2033 10/05/2023 Pneumococcal vaccine <65 Aged Out No longer eligible based on patient's age to complete this topic Insurance [facility] Member Subscriber Plan / Payer (Ef fective 2023-Present) Name:Clarita Butler Relation to Subscriber:Self Name:Clarita Butler Payer ID:[id number] (NAIC) Type:MIKAYLA PERKINS [address] Care Teams Hydrography Teacher Relationship Specialty Start Date End Date Michael Oliver DO [address] [place] [phone] PCP - General Family Medicine 03/03/23
--- NOTE | 2024-11-23 14:06 | ECG_ITS ---
Test Date: 2024-11-23 14:13:37 Measurements Intervals [place] Rate: 92 P: 45 IN: 159 QRS: 8 QRSD: 99 T: 67 QT: 343 QTc: 425 Interpretive Statements SINUS RHYTHM MINIMAL Q WAVES- HIGH LATERAL LEADS LEFT VENTRICULAR HYPERTROPHY WITH ST-T CHANGE BASELINE ARTIFACT- I, II, III, AVR, AVL, AVF BORDERLINE ECG No previous ECG available for comparison Electronically Signed On 11-23-2024 15:12:47 CDT by Axel Friedman D.O.
[2024-11-23 14:48] LABS: Anion Gap 9 mmol/L (4-12); Blood Urea Nitrogen 12 mg/dL (7-17); Calcium 8.8 mg/dL (8.4-10.2); Carbon Dioxide 25 mmol/L (22-30); Chloride 106 mmol/L (98-107); Estimated Glomerular Filt Rate > 60; Glucose 124 mg/dL (65-110); Potassium 3.5 mmol/L (3.4-5.0); Sodium 140 mmol/L (137-145)
== END 2024-11-23 13:54 | disposition home or self-care (01) ==
LOC: ANHSURGERY 13:57
PROVIDERS: Anesthesiology; Visit Provider Urology
DX: R94.31 Abnormal electrocardiogram [ECG] [EKG] (principal); I10 Essential (primary) hypertension; Z79.899 Other long term (current) drug therapy
CPT/HCPCS: 36415; 80048; 93005

== ENCOUNTER 2024-11-27 00:28 | Day surgery (SDC) | payer BC, SELFPAY ==
[2024-11-23 13:02] VITALS: BMI 37.3
--- NOTE | 2024-11-23 13:09 | PC.NURSE ---
[facility] has started construction of its new state of the art ER which will open Spring 2026. With this, we anticipate parking may be a challenge for some our surgical patients and families. Parking spaces are limited but are available for all Surgical, obstetrics, and ER patients sharing this lot. If you arrive and find you are having a hard time finding a parking space, please note that we understand the challenges, please drive around the hospital and park near Hospital Entrance 1. When you enter this entrance, you can ask a volunteer to direct or take you back to the surgical waiting area to check in. We appreciate everyone?s understanding of these expected challenges while we build for your future. Report to the Outpatient Waiting Room, entrance under the green pavilion located off [address], at time _1130_ on date _[id number]_. Planned Procedure Time: _130pm_.? Time changes happen often and if your time is changed the preop area will call you the afternoon before. - You and your visitor will be asked to self-screen and do not enter if you have any COVID symptoms. Please call surgeon if you need to reschedule. - A mask is optional within the hospital at this time. Patients may have clear liquids (water, carbonated beverages, clear teas, apple juice) until 3 hours prior to surgery with a maximum of 20 ounces. - No food from midnight until time of surgery and no smoking, or chewing tobacco (or any form of nicotine). No chewing gum, candy or mints. Take only the following medications with a SIP of water on the morning of surgery: ___Buspirone and if needed Toradol____ DO NOT STOP ANY OF YOUR OTHER PRESCRIPTION MEDICATIONS PRIOR TO SURGERY EXCEPT THE FOLLOWING Hold all vitamins and supplements for 3 days per anesthesiologist. Medications to discontinue per physician Patient has not been taking Ibuprofen and will avoid doing so until after surgery. Date to take last dose Please no make-up, nail [place], hairspray, perfume, deodorant, or body powder the day of surgery.? No jewelry (including any body piercings) or valuables the day of surgery, leave them at home.? Please take a shower or bath the night before, or the morning of, surgery with an antibacterial soap.? Wear comfortable, loose fitting clothing.? - Jewelry must be removed prior to entering the operating room.? Rings and piercings that are not removed may be cut off. - The hospital will not accept responsibility for valuables.? - Please leave all valuables, including medications, at home the day of surgery. If you are going home after surgery, a licensed delivery driver assistant must drive you home.? - NO public transportation without another adult if you receive anesthesia. - We recommend that an adult stay with you for 24 hours following discharge. - We also recommend that you do not drive, make important decision, drink alcoholic beverages, or take any drugs that were not prescribed by your health care provider for at least 24 hours after your discharge time. Follow any additional instructions given to you from your surgeon. Telephone instructions given to __Stamyrnae__and asked if any additional questions and then verbalized understanding. Patient advised to call surgeon office or pre surgery nurse liaison [phone] if any additional questions.
--- NOTE | 2024-11-23 13:25 | PC.NURSE ---
[facility] has started construction of its new state of the art ER which will open Spring 2026. With this, we anticipate parking may be a challenge for some our surgical patients and families. Parking spaces are limited but are available for all Surgical, obstetrics, and ER patients sharing this lot. If you arrive and find you are having a hard time finding a parking space, please note that we understand the challenges, please drive around the hospital and park near Hospital Entrance 1. When you enter this entrance, you can ask a volunteer to direct or take you back to the surgical waiting area to check in. We appreciate everyone?s understanding of these expected challenges while we build for your future. Report to the Outpatient Waiting Room, entrance under the green pavilion located off [address], at time _1130_ on date _[id number]_. Planned Procedure Time: _130pm_.? Time changes happen often and if your time is changed the preop area will call you the afternoon before. - You and your visitor will be asked to self-screen and do not enter if you have any COVID symptoms. Please call surgeon if you need to reschedule. - A mask is optional within the hospital at this time. Patients may have clear liquids (water, carbonated beverages, clear teas, apple juice) until 3 hours prior to surgery with a maximum of 20 ounces. - No food from midnight until time of surgery and no smoking, or chewing tobacco (or any form of nicotine). No chewing gum, candy or mints. Take only the following medications with a SIP of water on the morning of surgery: ___Buspirone and if needed Acetaminophen for pain.____ DO NOT STOP ANY OF YOUR OTHER PRESCRIPTION MEDICATIONS PRIOR TO SURGERY EXCEPT THE FOLLOWING Hold all vitamins and supplements for 3 days per anesthesiologist. Medications to discontinue per physician Patient has been using Toradol instead of Ibuprofen for pain. Please check with Dr's office if OK to continue. Acetaminophen is OK to use for pain. Date to take last dose Please no make-up, nail slovenian, hairspray, perfume, deodorant, or body powder the day of surgery.? No jewelry (including any body piercings) or valuables the day of surgery, leave them at home.? Please take a shower or bath the night before, or the morning of, surgery with an antibacterial soap.? Wear comfortable, loose fitting clothing.? - Jewelry must be removed prior to entering the operating room.? Rings and piercings that are not removed may be cut off. - The hospital will not accept responsibility for valuables.? - Please leave all valuables, including medications, at home the day of surgery. If you are going home after surgery, a licensed ready mix truck driver must drive you home.? - NO public transportation without another adult if you receive anesthesia. - We recommend that an adult stay with you for 24 hours following discharge. - We also recommend that you do not drive, make important decision, drink alcoholic beverages, or take any drugs that were not prescribed by your health care provider for at least 24 hours after your discharge time. Follow any additional instructions given to you from your surgeon. Telephone instructions given to _Clarita___and asked if any additional questions and then verbalized understanding. Patient advised to call surgeon office or pre surgery nurse liaison [phone] if any additional questions.
[2024-11-27] VITALS (8 sets, daily range): BP systolic 116–160; BP diastolic 84–102; PULSE 74–91; RESP 12–18; TEMP 36.2–36.3; O2SAT 98–100; BMI 37.5
--- NOTE | ~2024-11-27 | XR_ITS ---
EXAMINATION: XR retrograde pyelo w/stent RT DATE: 11/27/2024 14:33 INDICATION: Right internal ureteral stent placement TECHNIQUE: Fluoroscopic images from a right internal ureteral stent placement are submitted for review. 37 seconds of fluoroscopy time. FINDINGS: There is a right double-J internal ureteral stent projecting in expected position, with proximal [place] loop at the level of the renal pelvis and distal loop in the pelvis within the bladder lumen. IMPRESSION: 1. Right internal ureteral stent placement. Please refer to real-time procedural findings for details. Reviewed, dictated and finalized at location O. IMPRESSION: 1. Right internal ureteral stent placement. Please refer to real-time procedu ral findings for details.
--- OUTSIDE RECORDS SUMMARY | 2024-11-27 00:31 | XMS_ITS | Clinical Summary ---
Author Organization [facility] Address [address] [place] [address] Care Team Providers Care Biopharmaceutical Rep Name Role Phone Raf Blanc MD Primary Care Provider [phone] Allergies Active Allergy Reactions Criticality Noted Date [...] needed for Pain. 30 tablet 1 Active solifenacin (VESICARE) 5 MG tablet Take [...] capsule (0.4 mg total) by mouth daily. 2024 Discontinued(R eorder) nitrofurantoin, macrocrystal-mono hydrate, (MACROBID) 100 MG capsule Take 1 capsule (100 mg total) by mouth 2 (two) times daily for 5 days. 10 capsule 025 2024 Hospital, Clinic, or Other Facility Administered Medication [...] Type Department Care Team Description 11/23/2024 Telephone [facility] Medical [facility] Multispecialty Care - [address], [address] [place] [address] Josh Beebe MD Appointment Request 11/18/2024 4:59 PM CDT - 11/18/2024 5:33 PM CDT Hospital Encounter [facility] [address] [place] [address] Wilmer Damon MD Urinary Symptoms Discharge Disposition: Home or Self Care (Routine Discharge) 11/18/2024 Travel 11/07/2024 Results Follow-Up [facility] - [address] [address] Raf Blanc MD URINE BACTERIA CULTURE, URINALYSIS 11/05/2024 3:40 PM CDT Office Visit [facility] - [address] [address] Raf Blanc MD BP Check (Pt is here for BP check ); Kidney Problem (Pt went to ER 10/31/24 in [place], [place] and she was dx with UTI and kidney stones. She has not passed thre kidney stones yet and still c/o pain) 11/05/2024 - 11/05/2024 11:59 PM CDT Hospital Encounter [facility] [address] Raf Blanc MD Discharge Disposition: Home or Self Care (Routine Discharge) 11/05/2024 Travel 10/15/2024 7:07 AM CDT - 10/15/2024 11:59 PM CDT Hospital Encounter [facility] [place] [address] Radha Lantigua MD Discharge Disposition: Home or Self Care (Routine Discharge) 10/15/2024 Travel 10/03/2024 12:47 PM CDT - 10/03/2024 11:59 PM CDT Hospital Encounter [facility] [place] [address] Colt Brown PA-C Discharge Disposition: Home or Self Care (Routine Discharge) 10/03/2024 11:20 AM CDT Office Visit [address], [address] [place] [address] Janice Cole MD Barnes, Lawrence J, PA-C Abdominal Pain 10/03/2024 Results Follow-Up [facility] - [address], [address] [place] [address] Colt Brown PA-C CBC W/DIFF AUTOMATED, COMPREHENSIVE METABOLIC PANEL, AMYLASE, Additional followed-up results: 2 10/03/2024 Orders Only [facility] - [address], [address] [place] [address] Josh Beebe MD 10/03/2024 Travel from Last [...] Sex Assigned at Female 03/19/2024 9:03 AM DOCTOR OF CHIROPRACTIC Legal Sex Female 6:18 PM CDT Gender [...] Description 12/05/2024 11:40 AM CDT Office Visit [facility] Medical Group Family Medicine - [place] [address] [place] [phone] Raf Blanc MD [facility] [place] [phone] 01/22/2025 7:30 AM DOCTOR OF CHIROPRACTIC Appointment [facility] Ultrasound [address] [address] Radha Lantigua MD [address] [facility] [address] [place] [address] Health Maintenance Due Date Last Done [...] Adult Completed 11/05/2024, 11/23/2023, 11/07/2022 PHQ-2 (Physician [place]) Completed 11/05/2024 Hepatitis A Vaccines Aged Out [...] HEPATITIS C ANTIBODY Routine 03/19/2024 9:28 AM DOCTOR OF CHIROPRACTIC Encounter for hepatitis C screening test for low risk patient MAMMOGRAM GENERIC (SCAN ORDER) 12/14/2023 from Last 3 Months or Most Recently Relevant to Health Maintenance Results * CULTURE URINE (11/18/2024 5:06 PM CDT) Only the most recent of2 resultswithin the time period is included. SPEC DESCRIPTION URINE CLEAN CATCH 11/18/2024 5:21 PM CDT [facility] SPECIAL REQUESTS NO SPECIAL REQUEST 11/18/2024 5:21 PM CDT [facility] CULTURE RESULT POLYMICROBIAL GROWTH CONSISTENT WITH NORMAL GENITAL LAURA. SUSCEPTIBILITIES NOT ROUTINELY PERFORMED. 11/21/2024 7:17 AM CDT [facility] URINE SPECIMEN OBTAINED BY CLEAN CATCH PROCEDURE / Unknown 11/18/2024 5:06 PM CDT 11/19/2024 2:15 PM CDT us Wilmer Damon MD MICROBIOLOGY - GENERAL ORDER JUSTO Final Result [facility] [address] [place] [address], [place] [phone] [facility] [place] [address], [place] * (ABNORMAL) URINALYSIS AUTO DIP (11/18/2024 5:06 PM CDT) SPECIMEN TYPE URINE CLEAN CATCH 11/18/2024 5:07 PM CDT [facility] COLOR (U) YELLOW 11/18/2024 5:20 PM CDT [facility] TRANSPARENCY CLOUDY 11/18/2024 5:20 PM CDT [facility] SPECIFIC GRAVITY (U) 1.020 1.001 - 1.030 11/18/2024 5:20 PM CDT [facility] U PH 6.0 5.0 - 9.0 11/18/2024 5:20 PM CDT [facility] LEUKOCYTES (U) TRACE(A) NEGATIVE 11/18/2024 5:20 PM CDT [facility] NITRITES NEGATIVE NEGATIVE 11/18/2024 5:20 PM CDT [facility] PROTEIN RANDOM (U) TRACE <30 MG/DL 11/18/2024 5:20 PM CDT [facility] GLUCOSE (U) NEGATIVE NEGATIVE MG/DL 11/18/2024 5:20 PM CDT [facility] KETONES MG/DL (U) NEGATIVE NEGATIVE MG/DL 11/18/2024 5:20 PM CDT [facility] UROBILINOGEN 0.2(A) NEGATIVE MG/DL 11/18/2024 5:20 PM CDT [facility] BILIRUBIN (U) NEGATIVE NEGATIVE MG/DL 11/18/2024 5:20 PM CDT [facility] BLOOD (U) LARGE(A) NEGATIVE 11/18/2024 5:20 PM CDT [facility] URINE SPECIMEN OBTAINED BY CLEAN CATCH PROCEDURE / Unknown 11/18/2024 5:06 PM CDT us Wilmer Damon MD URINE ORDERABLES Final Resul t [facility] [address] [place] [address], [place] * (ABNORMAL) URINALYSIS (11/05/2024 1:46 PM CDT) COLOR (U) YELLOW 11/05/2024 7:55 PM CDT [facility] TRANSPARENCY HAZY(A) CLEAR 11/05/2024 7:55 PM CDT [facility] SPECIFIC GRAVITY (U) 1.020 1.003 - 1.040 11/05/2024 7:55 PM CDT [facility] U PH 6.0 5.0 - 9.0 11/05/2024 7:55 PM CDT [facility] PROTEIN RANDOM (U) TRACE(A) NEGATIVE 11/05/2024 7:55 PM CDT [facility] GLUCOSE (U) NEGATIVE NEGATIVE 11/05/2024 7:55 PM CDT [facility] KETONES MG/DL (U) NEGATIVE NEGATIVE 11/05/2024 7:55 PM CDT [facility] BILIRUBIN (U) NEGATIVE NEGATIVE 11/05/2024 7:55 PM CDT [facility] BLOOD (U) 3+(A) NEGATIVE 11/05/2024 7:55 PM CDT [facility] UROBILINOGEN 0.2 0.0 - 2.0 EU/DL 11/05/2024 7:55 PM CDT [facility] NITRITES NEGATIVE NEGATIVE 11/05/2024 7:55 PM CDT [facility] LEUKOCYTES (U) TRACE(A) NEGATIVE 11/05/2024 7:55 PM CDT [facility] RBC/HPF 50-75(A) 0 - 3 /HPF 11/05/2024 7:56 PM CDT [facility] WBC/HPF 4-9(A) 0 - 3 /HPF 11/05/2024 7:56 PM CDT [facility] EPI/HPF 15-20 /HPF 11/05/2024 7:56 PM CDT [facility] BACTERIA (U) TRACE(A) NONE SEEN 11/05/2024 7:56 PM CDT [facility] CA OXALATE CRYSTALS PRESENT 11/05/2024 7:56 PM CDT [facility] URINE SPECIMEN OBTAINED BY CLEAN CATCH PROCEDURE / Unknown 11/05/2024 1:46 PM CDT us Raf Blanc MD URINE ORDERABLES Final Result [facility] [address] [place] [address], * [place] PELVIC NON OB COMP TA+TV [...] AM Narrative 10/15/2024 10:49 AM CDT [facility] [address] [place], [place] [address] [place] [address] Examination: Pelvic ultrasound. Clinical Information: Pt w/ [...] Procedure Note David Yun MD - 10/15/2024 [place] [id number] [place] [address] Examination: Pelvic ultrasound. Clinical Information: Pt w/ [...] ultrasound. Referred By: RADHA LANTIGUA Interpreted By: Wimler Valenzuela MD, 10/15/2024 8:10 AM Narrative 10/15/2024 8:[address] [facility] [address] [place], [place] [address] CT abdomen and pelvis with IV contrast [...] Procedure Note Wilmer Valenzuela MD - 10/15/[address] [place], [place] [address] CT abdomen and pelvis with IV contrast [...] - 99 MG/DL 10/03/2024 2:06 PM CDT [facility] BUN 13 7 - 18 MG/DL 10/03/2024 2:06 PM CDT [facility] CREATININE S/P/B 0.77 0.55 - 1.02 MG/DL 10/03/2024 2:06 PM CDT [facility] SODIUM S/P/B 142 136 - 145 MMOL/L 10/03/2024 2:06 PM CDT [facility] POTASSIUM S/P/B 4.0 3.5 - 5.1 MMOL/L 10/03/2024 2:06 PM CDT [facility] CHLORIDE S/P/B 108 97 - 115 MMOL/L 10/03/2024 2:06 PM CDT [facility] CO2 29.5 21 - 32 MMOL/L 10/03/2024 2:06 PM CDT [facility] CALCIUM S/P/B 9.1 8.5 - 10.1 MG/DL 10/03/2024 2:06 PM CDT [facility] BILIRUBIN TOTAL S/P/B 0.7 0.2 - 1.2 MG/DL 10/03/2024 2:06 PM CDT [facility] Comment: THIS ASSAY IS NOT RECOMMENDED FOR PATIENTS UNDERGOING TREATMENT WITH ELTROMBOPAG DUE TO THE POTENTIAL FOR FALSELY ELEVATED RESULTS. TOTAL PROTEIN S/P/B 7.2 6.4 - 8.2 G/DL 10/03/2024 2:06 PM CDT [facility] ALBUMIN S/P/B 3.5 3.4 - 5.0 G/DL 10/03/2024 2:06 PM CDT [facility] AST 12(L) 15 - 37 U/L 10/03/2024 2:06 PM CDT [facility] ALT 25 14 - 55 U/L 10/03/2024 2:06 PM CDT [facility] ALKALINE PHOSPHATASE S/P/B 83 50 - 136 U/L 10/03/2024 2:06 PM CDT [facility] ANION GAP 4.5 2 - 10 MMOL/L 10/03/2024 2:06 PM CDT [facility] BUN CREATININE RATIO 16.9 6 - 26 10/03/2024 2:06 PM CDT [facility] A/G RATIO 0.9(L) 1.0 - 2.0 RATIO 10/03/2024 2:06 PM CDT [facility] GFR ESTIMATE >90 >90 ML/MIN/1.7 3 M2 10/03/2024 2:06 PM CDT [facility] Comment: NOTE: eGFR is not [...] Colt Brown PA-C LABORATORY Final Res ult [facility] [address] [place] [address], [place] [phone] * (ABNORMAL) CBC W/DIFF AUTOMATED (10/03/2024 12:55 PM CDT) [facility] WBC 8.78 4.5 - 11.0 x10'3/uL 10/03/2024 1:35 PM CDT [facility] RBC 5.49(H) 4.20 - 5.40 x10'6/uL 10/03/2024 1:35 PM CDT [facility] HGB 14.5 12.0 - 16.0 G/DL 10/03/2024 1:35 PM CDT [facility] HCT 44.3 38.0 - 48.0 % 10/03/2024 1:35 PM CDT [facility] MCV 80.7(L) 81.0 - 99.0 FL 10/03/2024 1:35 PM CDT [facility] MCH 26.4(L) 27.0 - 31.0 PG 10/03/2024 1:35 PM CDT [facility] MCHC 32.7 32.0 - 36.0 G/DL 10/03/2024 1:35 PM CDT [facility] RDW 14.6(H) 11.5 - 14.5 % 10/03/2024 1:35 PM CDT [facility] PLT 258 130 - 400 x10'3/uL 10/03/2024 1:35 PM CDT [facility] MPV 8.5(L) 9.3 - 12.2 FL 10/03/2024 1:35 PM CDT [facility] DIFFERENTIAL TYPE AUTOMATED DIFFERENTIAL 10/03/2024 1:35 PM CDT [facility] NEUTROPHILS % 55.6 % 10/03/2024 1:35 PM CDT [facility] LYMPHOCYTES % 35.0 % 10/03/2024 1:35 PM CDT [facility] MONOCYTES % 7.3 % 10/03/2024 1:35 PM CDT [facility] EOSINOPHILS 1.0 % 10/03/2024 1:35 PM CDT [facility] BASOPHILS 0.6 % 10/03/2024 1:35 PM CDT [facility] IMMATURE GRANS % 0.5 % 10/04/19 1:35 PM CDT [facility] ABS. NEUTROPHILS 4.89 1.80 - 7.70 x10'3/uL 10/03/2024 1:35 PM CDT [facility] ABS. LYMPHOCYTES 3.07 1.00 - 4.80 x10'3/uL 10/03/2024 1:35 PM CDT [facility] ABS. MONOCYTES 0.64 0.24 - 0.86 x10'3/uL 10/03/2024 1:35 PM CDT [facility] ABS. EOSINOPHILS 0.09 0.04 - 0.36 x10'3/uL 10/03/2024 1:35 PM CDT [facility] ABS. BASOPHILS 0.05 0.01 - 0.08 x10'3/uL 10/03/2024 1:35 PM CDT [facility] ABS. IMMATURE GRANULOCYTES 0.04 0.00 - 0.49 x10'3/uL 10/03/2024 1:35 PM CDT [facility] 10/03/2024 12:5 5 PM CDT us Colt Brown PA-C LABORATORY Final Res ult [facility] [address] [place] [address], [place] [phone] * AMYLASE (10/03/2024 12:55 PM CDT) AMYLASE S/P/B 54 25 - 115 UNITS/L 10/03/2024 2:06 PM CDT [facility] 10/03/2024 12:5 5 PM CDT Colt Brown PA-C LABORATORY Final Res ult Performing Organization Address City/[facility]/ZIP Co de Phone Number [facility] [address] [place] [address], [place] [phone] * LIPASE (10/03/2024 12:55 PM CDT) LIPASE 35 13 - 75 UNITS/L 10/03/2024 2:06 PM CDT [facility] 10/03/2024 12:5 5 PM CDT Colt Brown PA-C LABORATORY Final Res ult Performing Organization Address [facility] de Phone Number [facility] [address] [place] [address], [place] [phone] * PAP SMEAR (SCAN ORDER) (04/03/2024) 04/03/2024 [facility] Scanned SCANNING Final Resu lt * HEPATITIS C ANTIBODY ([facility] ONLY) (03/19/2024 9:28 AM DOCTOR OF CHIROPRACTIC) HEPATITIS C AB NON-REACTI VE NON-REACTI VE 03/19/2024 12:24 PM DOCTOR OF CHIROPRACTIC [facility] 03/19/2024 9:28 AM DOCTOR OF CHIROPRACTIC Raf Blanc MD LABORATORY Final Result [facility] [address] [place] [address], * MAMMOGRAM GENERIC (SCAN ORDER) (12/14/2023) Anatomical Region Laterality Modality Other 12/14/2023 us [facility] Scanned SCANNING Final Resu lt from Last 3 Months or Most Recently Relevant to Health Maintenance Insurance [facility] Care Teams Biopharmaceutical Rep Relationship Specialty Start Date End Date Raf Blanc MD [address] [place] [phone] PCP - General FAMILY PRACTICE 02/17/24
--- OUTSIDE RECORDS SUMMARY | 2024-11-27 00:31 | XMS_ITS | Clinical Summary ---
Author Organization [facility] Address [address] [address] Phone Care Team Providers Care Paint Coating Machine Operator Name Role Phone Michael Oliver [...] 03/03/2023 Assessment & Plan (03/15/2023 7:44 AM INGOT BUGGY OPERATOR): Blood pressure medication adjusted 2 weeks [...] patient's age to complete this topic Insurance [facility] Member Subscriber Plan / Payer (Ef fective 2023-Present) Name:Clarita Butler Relation to Subscriber:Self Name:Clarita Butler Payer ID:[id number] (NAIC) Type:MIKAYLA PERKINS [address] Care Teams Paint Coating Machine Operator Relationship Specialty Start Date End Date Michael Oliver DO [address] [place] [phone] PCP - General Family Medicine 03/03/23
--- OUTSIDE RECORDS SUMMARY | 2024-11-27 00:31 | XMS_ITS | Encounter Summary ---
Author Organization [facility] Address [facility] [place] [address] Care Team Providers Care Real Estate Closer Name Role Phone Raf Blanc MD Primary Care Provider [phone] Encounter Details Date Type Department Care Team (Late st Contact Info) Description 08/05/2024 [employer] Message Enc [facility] Medical Group Family Medicine [facility] [address] [place] [phone] Raf Blanc MD [address] [place] [phone] About issues Social History Tobacco Use [...] Sex Assigned at Female 03/19/2024 9:03 AM TROLLEY COLLECTOR Legal Sex Female 6:18 PM CDT Gender Identity Female 10/03/2024 11:32 AM CDT Sexual Orientation Not on file documented as of this encounter Functional Status * Calculated C-SSRS Risk Score (Lifetime/Recent) Answer Date of Assessment Author Status No Risk Indicated 08/07/2024 4:49 PM CDT Ira Cole, RN Active * [place] Suicide Severity Rating Scale (Screener/Recent Self-Report) Question [...] Description 12/05/2024 11:40 AM CDT Office Visit [facility] Medical Group Family Medicine - [place] [address] [place] [address] Raf Blanc MD [facility] [place] [address] 01/22/2025 7:30 AM TROLLEY COLLECTOR Appointment [facility] [place] [address] Radha Vance MD [address] [facility] [address] [place] [address] documented as of this encounter Visit Diagnoses Not on filedocumented in this encounter Additional Health Concerns Assessment Noted Time PHQ-9 Depression Total Score: 1 03/20/19 9:15 AM TROLLEY COLLECTOR documented as of this encounter Care Teams Real Estate Closer Relationship Specialty Start Date End Date Raf Blanc MD [address] [place] [address]. [place] [address] PCP - General FAMILY PRACTICE 02/17/24 documented as of this encounter
--- OUTSIDE RECORDS SUMMARY | 2024-11-27 00:31 | XMS_ITS | Clinical Summary ---
Author Organization [facility] Address [address] [place] [address] Care Team Providers Care Industrial Insulator Name Role Phone Unavailable Primary Care Provider [...] CDT - 11/01/2024 12:11 AM CDT Emergency [facility] Emergency Department [address] [place] [phone] Jeffrey Golden MD Hydronephrosis concurrent with and [...] any time in the past 12 m [facility], were you homeless or living in a usp (including now)? No 10/31/2024 [facility] Utilities Answer Date Recorded In the past [address] [facility] electric, gas, oil, or water company threatened [...] this topic MENINGOCOCCAL VACCINE Aged Out No vicky troy eligible based [...] PM CDT) Glucose UA NORMAL NORMAL MG/DL [facility] Protein UA 30(A) NEGATIVE MG/DL [facility] Bilirubin UA NEGATIVE NEGATIVE [facility] Urobilinogen UA NORMAL <2 MG/DL [facility] pH, Urine 5.0 5.0 - 8.0 [facility] Blood UA 250(A) NEGATIVE [facility] Ketones UA NEGATIVE NEGATIVE MG/DL [facility] Nitrite UA NEGATIVE NEGATIVE [facility] Leukocyte Esterase UA 100(A) NEGATIVE [facility] UR Appearance CLEAR CLEAR [facility] Specific [place] UA 1.025 1.005 - 1.030 [facility] [...] ORDERABLES Final R esult Performing Organization Address City/[facility]/ZIP Co de Phone Number [address] [phone] * URINE CULTURE (10/31/2024 10:48 PM CDT) Specimen Type URINE [facility] Special Handling NONE Reflexed from [id number] [facility] Culture Result >=100,000 COL/ML NORMAL UROGENITAL LAURA [facility] Status 11/03/2024 FINAL [facility] Urine 10/31/2024 10:4 8 PM CDT 10/31/2024 10:50 PM CDT us Jeffrey Golden MD URINE ORDERABLES Final R esult Performing Organization Address City/[facility]/ZIP Co de Phone Number [address] [phone] * CT ABDOMEN PELVIS WO CONTRAST (10/31/2024 10:33 PM CDT) Anatomical Region Laterality Modality Abdomen Computed Tomogra phy 10/31/2024 10:3 0 PM CDT Impressions 10/31/2024 11:19 PM CDT IMPRESSION: 1. Obstructing 4 mm wide by 5 mm long proximal right ureteral calculus causing mild right hydronephrosis. 2. Bilateral nonobstructing renal calculi. Electronically signed by: Pb Weiner MD 10/31/2024 11:19 PM CDT [facility] 10/31/2024 11:19 PM CDT [id number] CT ABDOMEN PELVIS WITHOUT IV CONTRAST INDICATION: [...] Procedure Note Pb Weiner MD - 10/31/[id number] ABDOMEN PELVIS WITHOUT IV CONTRAST INDICATION: [...] Weiner MD 10/31/2024 11:19 PM CDT RPWorkstation: [id number] Jeffrey Golden MD [facility] CT ORDERABLES Fi nal Result * (ABNORMAL) [...] [facility] Differential Type AUTO HE [facility] Neutrophils 54.1 42 - 75 % [facility] Lymphs 36.2 16.0 - 52.0 % [facility] Monocytes 8.2 1.0 - 11.0 % [facility] Eos 1.2 0 - 7 % [facility] Basos 0.2 0 - 3 % [facility] Neutrophils Absolute Count 5.0 1.5 - 6.6 THOUS/[facility] Lymphocytes Absolute Count 3.3 0.6 - 3.5 THOUS/uL [facility] Monocytes Absolute Count 0.8 0.0 - 0.9 THOUS/[facility] Eosinophils Absolute Count 0.1 0.0 - 0.7 THOUS/uL [facility] Basophils Absolute Count 0.0 0.0 - 0.2 THOUS/uL [facility] Imm Gran 0.1 0.00 - 0.43 % [facility] Abs Imm Gran 0.01 0.00 - 0.03 THOUS/[facility] Blood (BLOOD,LINE DRAW) 10/31/2024 10:14 PM CDT 10/31/2024 10:16 PM CDT Jeffrey Golden MD HEMATOLOGY ORDERABLES Fi nal Result [address] [phone] * LIPASE (10/31/2024 10:14 PM CDT) Lipase 134 23 - 300 U/L [facility] Blood (BLOOD) 10/31/2024 10: 14 PM CDT 10/31/2024 10:16 PM CDT Jeffrey Golden MD CHEMISTRY ORDERABLES Fin al Result Performing Organization Address City/[facility]/ZIP Co de Phone Number [address] [phone] * (ABNORMAL) COMPREHENSIVE METABOLIC PANEL (10/31/2024 10:14 PM CDT) Glucose 119(H) 74 - 100 MG/DL [facility] Comment: (NOTE) Normal fasting blood glucose: 74-100 mg/dl The [place] [employer] recommends the following criteria for [...] ORDERABLES Fin al Result Performing Organization Address City/State/[facility] Co de Phone Number [facility] [address] [place] [address], [facility] [phone] from Last 3 Months Insurance [employer]/BCBS
--- OUTSIDE RECORDS SUMMARY | 2024-11-27 00:31 | XMS_ITS | Encounter Summary ---
Author Organization [facility] Address [address] [place] [address] Care Team Providers Care Sleep Medicine Physician Name Role Phone Raf Blanc MD Primary Care Provider [phone] Encounter Details Date Type Department Care Team ([facility] Contact Info) Description 11/07/2024 Results Follow-Up [address] [phone] Raf Blanc MD [address] [place] [address]. [place] [address] URINE BACTERIA CULTURE, URINALYSIS Social [...] Sex Assigned at Female 03/19/2024 9:03 AM VISION SPECIALIST Legal Sex Female 6:18 PM CDT Gender Identity Female 10/03/2024 11:32 AM CDT Sexual Orientation Not on file documented as of this encounter Plan of Treatment Upcoming Encounters Date Type Department Care Team (Late Contact Info) Description 12/05/2024 11:40 AM CDT Office Visit [address] [id number] Raf Blanc MD [address] [place] [address]. [place] [phone] 01/22/2025 7:30 AM VISION SPECIALIST Appointment [facility] Ultrasound [address] [place] [address] Radha Vance MD [address] [facility] [address] [place], [place] [id number] documented as of this encounter Visit Diagnoses Not on filedocumented in this encounter Additional Health Concerns Assessment Noted Time PHQ-9 Depression Total Score: 1 03/20/19 25 9:15 AM VISION SPECIALIST documented as of this encounter Care Teams Sleep Medicine Physician Relationship Specialty Start Date End Date Raf Blanc MD [address] [place] [id number] PCP - General FAMILY PRACTICE 02/17/24 documented as of this encounter
--- NOTE | 2024-11-27 11:53 | WPDHPUPDATE1 ---
History and Physical Update Update Date/Time: 11/27/24 11:53 History and Physical has been reviewed, including an updated exam of the patient. There are NO changes in the patient's condition. Risks, benefits, and alternatives have been discussed and questions answered. Patient agrees to proceed with procedure.
--- NOTE | 2024-11-27 11:53 | PM.HPGS ---
History of Present Illness History of Present Illness Consent: Risks, benefits, and alternatives have been discussed and questions answered. Patient agrees to proceed with procedure. Chief complaint: rt ureteral stone Narrative: Clariat Butler is a 44 year old female with history of urolithiasis who was found on CT scan to have a 5 mm right proximal ureteral stone. She presents today for endoscopic management of her ureteral stone. She has not seen the stone pass in her urinary stream. She denies any changes past her baseline and is ready for the procedure today. Review of Systems Review of Systems: All systems reviewed & are unremarkable except as noted in HPI and below PMFSH Past Medical History Medical History (normal spontaneous vaginal delivery) x2 History of kidney stones Overactive bladder PCOS (polycystic ovarian syndrome) Essential (primary) hypertension Anxiety BMI 37.0-37.9, adult Surgical History Surgical History History of bilateral tubal ligation Status post laparoscopic cholecystectomy History of right knee surgery arthroscopy 1995 Family History Family History Father Diabetes mellitus Hypertension Mother Carcinoma of colon Breast cancer Diabetes mellitus Sibling Heart disease Hypertension Diabetes mellitus Other Family history of malignant neoplasm of breast Social History Social History Smoking status: Never smoker Second hand tobacco smoke exposure: Yes Alcohol intake: current Substance use: never Substance use type: does not use Lack of Transportation: No Lack of Food: Never True Current Housing: I Have Housing Concerned About Future Housing: No Difficulty Paying Gas/Electric Bills: No Difficulty Paying for Meds: No Currently Unemployed: No Education: High School Diploma/GED Difficulty w/ Childcare or Family Care: No Living arrangements: with family Occupation/Education: occupation 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 Gender identity (if verbalized by the patient): Female Spiritual care concerns: No Meds Home Medications and Allergies Home Medications ?Medication ?Instructions ?Recorded ?Confirmed ?Type furosemide 20 mg tablet 10 mg (1/2 x 20 mg) PO QAM PRN 08/23/22 11/23/24 Rx edema #20 tabs ibuprofen 600 mg tablet 600 mg PO BID PRN pain #60 tabs 01/25/23 11/23/24 Rx montelukast 10 mg tablet 10 mg PO DAILY #30 tabs 01/25/23 11/23/24 Rx (Singulair) buspirone 5 mg tablet 7.5 mg (1.5 x 5 mg) PO BID #75 tabs 06/06/23 11/23/24 Rx metformin 500 mg tablet,extended 500 mg PO BID 01/18/24 11/23/24 History release 24 hr ketorolac 10 mg tablet 10 mg PO Q8H PRN pain 11/23/24 11/23/24 History losartan 50 mg tablet 50 mg PO BID 11/23/24 11/23/24 History tamsulosin 0.4 mg capsule 0.4 mg PO DAILY 11/23/24 11/23/24 History Allergies Allergy/AdvReac Type Severity Reaction Status Date / Time No Known Allergies Allergy Mild Verified 11/23/24 13:00 Exam Const: General: no acute distress and alert HENMT: Head: normal to inspection, normocephalic and atraumatic Eyes: Pupils: Equal, round and reactive pupils present EOM: EOMs intact bilaterally Neck: Neck: normal visual inspection and full ROM Chest: Chest palpation & inspection: normal inspection of the chest Resp: Effort & Inspection: normal respiratory effort and no audible wheezes Cardio: Rate: regular rate GI: Inspection: normal to inspection and non-distended : General: Yes deferred Skin: General skin exam: normal color and no rashes or lesions noted Neuro: General: patient oriented x3 Extrem: General: normal to inspection and full ROM Psych: Appearance: well kempt Mental Status: mental status grossly normal Assessment and Plan Assessment and plan (1) Right ureteral calculus: Code(s): N20.1 - Calculus of ureter Status: Acute Plan 44-year-old female with a 5 mm right proximal ureteral stone - To OR for cystoscopy, right retrograde pyelogram, ureteroscopy, laser lithotripsy, stone basket extraction, right ureteral stent placement - Risks, benefits, alternatives reviewed the patient. She is amenable to proceed - Anticipate discharge home following her surgery today
--- NOTE | 2024-11-27 12:45 | WPDANESEPPF ---
Anes - Initial Pre Proc Eval Procedure: Operation Date: 11/27/24 13:30 Proposed Procedures p Cystoscopy, Right Ureteroscopy, Right Retrograde Pyelogram, Holmium Laser Lithotripsy, Right Stone Basket Extraction, Right Ureteral Stent Placement - David Simms MD Date/Time: 11/27/24 12:45 Surgeon: David Simms MD Pre Op Diagnosis: rt ureteral stone Patient Data Age: 44 Gender: F Height: 1.6 m Weight: 95.5 kg Allergies Allergy/AdvReac Type Severity Reaction Status Date / Time No Known Allergies Allergy Mild Verified 11/23/24 13:00 Home Medications ?Medication ?Instructions ?Recorded ?Confirmed ?Type furosemide 20 mg tablet 10 mg (1/2 x 20 mg) PO QAM PRN 08/23/22 11/23/24 Rx edema #20 tabs ibuprofen 600 mg tablet 600 mg PO BID PRN pain #60 tabs 01/25/23 11/23/24 Rx montelukast 10 mg tablet 10 mg PO DAILY #30 tabs 01/25/23 11/23/24 Rx (Singulair) buspirone 5 mg tablet 7.5 mg (1.5 x 5 mg) PO BID #75 tabs 06/06/23 11/23/24 Rx metformin 500 mg tablet,extended 500 mg PO BID 01/18/24 11/23/24 History release 24 hr ketorolac 10 mg tablet 10 mg PO Q8H PRN pain 11/23/24 11/23/24 History losartan 50 mg tablet 50 mg PO BID 11/23/24 11/23/24 History tamsulosin 0.4 mg capsule 0.4 mg PO DAILY 11/23/24 11/23/24 History Patient hx anesthesia problems: none Family hx anesthesia problems: none Results Review: All pre-operative results and documents have been reviewed as part of the pre-operative evaluation. [facility] Past Medical History Medical History (normal spontaneous vaginal delivery) x2 History of kidney stones Overactive bladder PCOS (polycystic ovarian syndrome) Essential (primary) hypertension Anxiety BMI 37.0-37.9, adult Surgical History Surgical History History of bilateral tubal ligation Status post laparoscopic cholecystectomy History of right knee surgery arthroscopy 1995 Family History Family History Father Diabetes mellitus Hypertension Mother Carcinoma of colon Breast cancer Diabetes mellitus Sibling Heart disease Hypertension Diabetes mellitus Other Family history of malignant neoplasm of breast Social History Social History Smoking status: Never smoker Second hand tobacco smoke exposure: Yes Alcohol intake: current Substance use: never Substance use type: does not use Lack of Transportation: No Lack of Food: Never True Current Housing: I Have Housing Concerned About Future Housing: No Difficulty Paying Gas/Electric Bills: No Difficulty Paying for Meds: No Currently Unemployed: No Education: High School Diploma/GED Difficulty w/ Childcare or Family Care: No Living arrangements: with family Occupation/Education: occupation 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 Gender identity (if verbalized by the patient): Female Spiritual care concerns: No Anes - Eval Final PreProcedure Day of Procedure 11/27/24 12:45 Patient weight: obese Heart: regular rate and rhythm Lungs: clear to auscultation Airway: Mallampati scale class II Neurological: alert and oriented Last oral intake: >/= 8 hours ASA classification: III Emergent: no Anesthetic plan: proceed Anesthesia type and monitoring: general LMA and standard monitoring Results Review: All pre-operative results and documents have been reviewed as part of the pre-operative evaluation. Informed Consent: The patient's anesthetic plan and its attendant risks and benefits were discussed with the patient/family/POA. Questions were solicited and answers provided to the satisfaction of the patient/family/POA.
[2024-11-27] MEDS: LACTATED RINGERS 1,000 ML 30 ML IV CONT ×2 (12:58→14:54)
[2024-11-27] MEDS: ceFAZolin 2 GM in SODIUM CHLORIDE 0.9% IV 50 ML 100 ML IVPB (13:53)
--- NOTE | 2024-11-27 14:24 | S_PTH ---
PATIENT: Clarita Butler LOC: [facility] U#:[id number] AGE/SX: 44/F ROOM: RE11/27/[address]: David Simms MD : 1980 BED: DIS: 11/27/2024 SPEC #: [id number] RECD: 11/28/24 11:11 STATUS: JOE REQ #: [id number] CARLOS MANUEL: 11/27/24 14:[address]: David Simms DEPT: [facility] Surgical RECD BY: Porsche Lehman Tissues: A - Stone Procedures: Gross Exam Level 1 Crystalline Analysis
--- NOTE | 2024-11-27 14:37 | P.OP_ITS ---
Procedure Note - Detailed Date of Procedure 11/27/24 Pre-op Diagnosis Right ureteral and renal stone Post-op Diagnosis Same Procedure Performed 1. Cystoscopy 2. Right retrograde pyelogram with intraoperative interpretation 3. Right ureteroscopy and renal endoscopy 4. Stone basket extraction 5. Right ureteral stent placement Surgeon David Simms MD Anesthesia General Findings 1. Cystourethroscopy revealed mild erythema and edema around the right ureteral orifice with orthotopic ureteral orifices bilaterally. There were no suspicious tumors, active bleeding, or stones in the lower urinary tract. 2. Right retrograde pyelogram using a 50 50 mixture of contrast and saline showed no hydroureteronephrosis, filling defects, or contrast extravasation. 3. Right ureteroscopy revealed no ureteral stone, suggestive of spontaneous stone passage 4. Right renal endoscopy revealed a small 2-3 mm stone in a midpole calyx, commensurate with the patient's prior CT scan. There were no other stones in the right kidney, confirming spontaneous passage of patient's previously noted right ureteral stone 5. Successful right ureteral stent placement with strings attached, which were secured to a piece of small Tegaderm and placed in the patient's vagina Description of Procedure After informed consent had been obtained, the patient was brought back to the operating theater placed in supine position on the operating table or upon anesthesia was induced. She was placed in the dorsal lithotomy position and all pressure points were padded. Sequential compression devices were on and noted to be functioning. She was prepped and draped in the standard sterile fashion for an endoscopic case. Preoperative antibiotics were confirmed to have been administered. Formal time-out was performed to confirm the correct patient, site, and procedure and all were in agreement to proceed. To begin with, I atraumatically advanced a lubricated 22 [place] rigid cystoscope transurethrally into the patient's bladder and performed pancystoscopy with findings as noted above. Notably, there was mild erythema and edema surrounding the right orifice, suspicious for either an impacted stone at this location or recent spontaneous stone passage. I advanced a 5 [place] open-ended catheter gently through the right ureteral orifice into the level of the right distal most ureter and through this, a right-sided retrograde pyelogram using 50 50 mixture of contrast and saline with findings as noted above. And then advanced a Sensor wire through the open-ended catheter to the level of the right kidney under fluoroscopy. Using the Seldinger maneuver, I removed the open-ended catheter leaving the Sensor wire in place. The cystoscope was removed and I secured the Sensor wire to the drapes with a hemostat. I then inserted a semi rigid ureteroscope transurethrally into the patient's bladder with drainage from right year orifice, which was cannulated with a 2nd, safety Glidewire which was also advanced up level the right kidney under fluoroscopy. I then guided the ureteroscope between the 2 wires to perform ureteroscopy. There were no stones seen in the right distal ureter. I continued to advance the ureteral scope to the level up junction and no stones were appreciated. I then removed the ureteroscope, leaving the Sensor wire and Glidewire placed. Next, I backloaded Glidewire onto a flexible digital ureteroscope which was advanced transurethral ly into the bladder. Under camera guidance I advanced the flexible ureteral scope into the right distal ureter and then under fluoroscopic guidance I advanced this up to the level of the right renal pelvis. The Glidewire was removed and I performed right renal endoscopy, exploring the upper, mid, and lower poles of the kidney as well as the renal pelvis. I appreciated a fairly small 2-3 mm in a mid pole calyx. There were no other stones appreciated, including spontaneous passage of the patient's previously noted 5 mm right proximal ureteral stone. Through the ureteroscope I then performed another right retrograde pyelogram in order to delineate the right collecting system in anticipation of stent placement. Next, using a 0 tip Nitinol basket I grasped the previously mentioned stone and was able to retrieve it in its entirety. During pullback ureteroscopy, I did not note any ureteral injury nor additional stones. The stone was sent off the field as a specimen for kidney stone an alysis. Next, I backloaded the cystoscope onto the Sensor wire which was advanced transurethrally in the patient's bladder with attention drawn to the right ureteral orifice. Over top the wire I passed a 4.8 variable length double-J ureteral stent with a string attached and used the pusher to deploy the stent in place, confirming a good proximal curl in right kidney fluoroscopy and a good distal curl in the bladder under both direct cystoscopic and fluoroscopic vision. I then drained the patient's bladder and removed the cystoscope. Next, I coiled the strings attached to the stent and secured it to a piece of small Tegaderm which was then placed in the patient's vagina to avoid inadvertent dislodgement. This essentially conclude the case. The patient tolerated the procedure well and there were no immediate complications noted. At the conclusion the case all sponge, instrument, and sharp counts were correct x2. The patient was then awoken from anesthesia and taken to the recovery in a stable condition. Disposition: Patient will be monitored in the PACU and be discharged home with antibiotic protocol. She was instructed to remove her ureteral stent home 3 days time. Patient's mother was provided with the day following the procedure and all questions were answered to her satisfaction at the conclusion of our discussion.
[2024-11-27] MEDS: fentaNYL CITRATE INJ (*CRX) 100 MCG/2 ML VIAL 25 MCG IV PUSH ×2 (14:50→14:53)
[2024-11-27] MEDS: oxyCODONE HCL (*CRX) 5 MG TAB IR PO (15:36)
== END 2024-11-27 16:17 | disposition home or self-care (01) ==
PROVIDERS: Visit Provider Urology
PROC: (CPT 52352; principal; 2024-11-27 13:30)
DX: N20.2 Calculus of kidney with calculus of ureter (principal); E66.9 Obesity, unspecified; Z68.37 Body mass index [BMI] 37.0-37.9, adult
CPT/HCPCS: 52352; 52332; 74420; 82365; 88300; J0690; A9270; C1758; C1769; C1894; C2617; J1100; J1885; J2003; J2250; J2405; J2704; J3010; J7120; Q9966